=== PATIENT | male | born 1945 | race Caucasian/White ===

== ENCOUNTER 2017-08-08 22:59 | Emergency (ER) | payer OTHER, MEDICARE ==
[2017-08-08] MEDS ORDERED: Sodium Chloride 0.9% 10 ML Syringe FLUSH PRN (23:31)
[2017-08-08] MEDS ORDERED: Sodium Chloride 0.9% 500 ML IV ONE (23:40)
[2017-08-09] MEDS ORDERED: Sodium Chloride 0.9% 500 ML IV ONE (00:19)
--- NOTE | 2017-08-09 00:22 | EDM.PDOC ---
ED HPI GENERAL MEDICAL PROBLEM - General Chief Complaint: Gastrointestinal Problem Stated Complaint: [facility] Time Seen by Provider: 08/08/17 23:22 Source of Information: Reports: Patient, Family (Spouse), RN Notes Reviewed - History of Present Illness INITIAL COMMENTS - FREE TEXT/NARRATIVE: 72-year-old male that comes in with generalized weakness, dizziness and lightheadedness when standing,. He had onset of vomiting and diarrhea this past morning. He also has been coughing more than usual since last evening. He did have shaking chills this past later afternoon. His was diagnosed with influenza earlier today having become ill with typical symptomatology for that about 2 days ago. He has no chest pain or difficulty breathing at this time. His mouth does feel dry. No abdominal pain or cramping at this time. He is type II diabetic on metformin. He also does have history of hypertension. - Related Data Allergies Allergy/AdvReac Type Severity Reaction Status Date / Time Sulfa (Sulfonamide Allergy Hives Verified 08/08/17 23:11 Antibiotics) Home Meds: Home Meds Aspirin [Halfprin] 81 mg PO DAILY 08/08/17 [History] Chlorthalidone 25 mg PO DAILY 08/08/17 [History] Cholecalciferol (Vitamin D3) [Vitamin D3] 1,000 units PO DAILY 08/08/17 [History ] Docusate Sodium 100 mg PO BID 08/08/17 [History] Fish Oil/[place]-3 Fatty Acids [Fish Oil 1,000 MG] 1 gm PO DAILY 08/08/17 [History ] Guar Gum [Benefiber] 1 each PO DAILY 08/08/17 [History] Lisinopril 40 mg PO DAILY 08/08/17 [History] Metoprolol Succinate 100 mg PO DAILY 08/08/17 [History] Saxagliptin [Onglyza] 5 mg PO DAILY 08/08/17 [History] atorvaSTATin [Lipitor] 40 mg PO BEDTIME 08/08/17 [History] metFORMIN [Glucophage XR] 500 mg PO BID 08/08/17 [History] Past Medical History Cardiovascular History: Reports: High Cholesterol, Hypertension Endocrine/Metabolic History: Reports: Diabetes, Type II, Vitamin D Deficiency Oncologic (Cancer) History: Reports: Other (See Below) Other Oncologic History: skin cancer - Past Surgical History Cardiovascular Surgical History: Reports: AAA Repair Social & Family History - Family History Family Medical History: Noncontributory - Tobacco Use Smoking Status *Q: Former Smoker Used Tobacco, but Quit: Yes Month Tobacco Last Used: 2010 - Caffeine Use Caffeine Use: Reports: Coffee - Recreational Drug Use Recreational Drug Use: No ED ROS GENERAL - Review of Systems Review Of Systems: See Below Constitutional: Reports: Chills, Other (Low energy this afternoon and evening). Denies: Fever, Diaphoresis HEENT: Reports: Rhinitis (He has had nasal congestion and drainage), Throat Pain (Mild sore throat) Respiratory: Reports: Cough. Denies: Shortness of Breath, Wheezing, Sputum Cardiovascular: Denies: Chest Pain Endocrine: Reports: Fatigue GI/Abdominal: Reports: Diarrhea (Watery), Nausea, Vomiting. Denies: Abdominal Pain Musculoskeletal: Reports: Other (Has had some generalized achiness but not severe) Skin: Denies: Rash Neurological: Reports: Dizziness, Difficulty Walking (This evening), Weakness. Denies: Numbness (Generalized), Tingling, Trouble Speaking ED EXAM, DIZZINESS - Physical Exam Exam: See Below General Appearance: Alert, No Apparent Distress Eye Exam: Bilateral Eye: PERRL Throat/Mouth: Normal Inspection Head Exam: Atraumatic (Oral mucosa is dry). No: Facial Swelling Respiratory/Chest: No Respiratory Distress, Lungs Clear, Normal Breath Sounds Cardiovascular: Regular Rate, Rhythm GI/Abdominal: Soft, Non-Tender. No: Guarding Neurological: Alert, No Motor/Sensory Deficits, Oriented x 3 Extremities: Normal Inspection. No: Pedal Edema, Leg Pain Skin Exam: Dry, Normal Color Course - Vital Signs Last Recorded V/S: Last Vital Signs Temp 98.0 F 08/08/17 23:07 Pulse 93 08/08/17 23:07 Resp 25 H 08/08/17 23:07 BP 140/70 08/08/17 23:07 Pulse Ox 92 L 08/08/17 23:07 - Orders/Labs/Meds Orders: Active Orders 24 hr Category Date Time Status Peripheral IV Care [RC] . DIRECTED Care 08/08/17 23:32 Active Chest 1V Frontal [CR] Stat Exams 08/08/17 23:32 Taken Sodium Chloride 0.9% [Saline Flush] Med 08/08/17 23:31 Active 10 ml FLUSH ASDIRECTED PRN Peripheral IV Insertion Adult [OM.PC] Stat Oth 08/08/17 23:32 Ordered Medication Orders Sodium Chloride (Saline Flush) 10 ml FLUSH ASDIRECTED PRN PRN Reason: Keep Vein Open Last Admin: 08/09/17 00:19 Dose: 10 ml Labs: Laboratory Tests 08/08/17 08/08/17 Range/Units 23:25 23:25 WBC 13.26 H (4.23-9.07) K/mm3 RBC 4.47 L (4.63-6.08) M/mm3 Hgb 13.2 L (13.7-17.5) gm/L Hct 39.6 L (40.1-51.0) % MCV 88.6 (79.0-92.2) fl MCH 29.5 (25.7-32.2) pg MCHC 33.3 (32.2-35.5) g/dl RDW Std Deviation 44.3 H (35.1-43.9) fL Plt Count 122 L (163-337) K/mm3 MPV 11.2 (9.4-12.3) fl Neut % (Auto) 88.3 H (34.0-67.9) % Lymph % (Auto) 3.1 L (21.8-53.1) % [place] % (Auto) 7.6 (5.3-12.2) % Eos % (Auto) 0.5 L (0.8-7.0) Baso % (Auto) 0.2 (0.1-1.2) % Neut # (Auto) 11.70 H (1.78-5.38) K/mm3 Lymph # (Auto) 0.41 L (1.32-3.57) K/mm3 [place] # (Auto) 1.01 H (0.30-0.82) K/mm3 Eos # (Auto) 0.07 (0.04-0.54) K/mm3 Baso # (Auto) 0.03 (0.01-0.08) K/mm3 Manual Slide Review Abnormal smear Sodium 136 (136-145) mEq/L Potassium 3.7 (3.5-5.1) mEq/L Chloride 100 (98-107) mEq/L Carbon Dioxide 23 (21-32) mEq/L Anion Gap 16.7 H (5-15) BUN 28 H (7-18) mg/dL Creatinine 1.5 H (0.7-1.3) mg/dL Est Cr Clr Drug Dosing 52.42 mL/min Estimated GFR (MDRD) 46 (>60) mL/min BUN/Creatinine Ratio 18.7 H (14-18) Glucose 311 H (83-115) mg/dL Calcium 9.1 (8.5-10.1) mg/dL Total Bilirubin 0.7 (0.2-1.0) mg/dL AST 16 (15-37) U/L ALT 37 (16-63) U/L Alkaline Phosphatase 95 (46-116) U/L Total Protein 7.1 (6.4-8.2) g/dl Albumin 3.5 (3.4-5.0) g/dl Globulin 3.6 gm/dL Albumin/Globulin Ratio 1.0 (1-2) Meds: Medications Generic Name Dose Route Start Last Admin Trade Name Freq PRN Reason Stop Dose Admin Sodium Chloride 10 ml 08/08/17 23:31 08/09/17 00:19 Saline Flush FLUSH 10 ml ASDIRECTED PRN Administration Keep Vein Open Discontinued Medications Generic Name Dose Route Start Last Admin Trade Name Freq PRN Reason Stop Dose Admin Sodium Chloride 500 mls @ 999 mls/hr 08/08/17 23:40 08/09/17 00:18 Normal Saline IV 08/09/17 00:10 999 mls/hr .BOLUS ONE Administration Sodium Chloride 500 mls @ 999 mls/hr 08/09/17 00:19 08/09/17 00:20 Normal Saline IV 08/09/17 00:49 999 mls/hr .BOLUS ONE Administration Insulin Human Regular 6 unit 08/09/17 00:38 08/09/17 00:45 Humulin R SUBCUT 08/09/17 00:39 6 units ONETIME ONE Administration Protocol - Re-Assessments/Exams Free Text/Narrative Re-Assessment/Exam: 08/09/17 01:25 Influenza screen did come back negative. Noted his did test positive today on this the third day of her illness. He may indeed be coming down with influenza may be we are testing to early or just missing at or may be he has primarily a stomach flu type virus. I am not going to start him on Tamiflu because he already has the vomiting diarrhea, Tamiflu would only make that worse. He does not seem to be coughing much here in the ED although he has had some coughing at home. He also has been afebrile here in the ED so certainly a mixed picture. He feels better after 1-1/2 L IV fluid. He also has had IV Zofran , no longer nauseated or vomiting and I do not believe any further diarrhea while here in the ED. His blood sugar was elevated, 311 so did give 6 units insulin subcutaneous. Departure - Departure Time of Disposition: 01:25 Disposition: Home, Self-Care 01 Condition: Fair Clinical Impression: Viral syndrome, Vomiting, Diarrhea - Discharge Information Referrals: PCP,Unknown [Ordering Only Provider] - Forms: ED Department Discharge Additional Instructions: Rest, drink plenty of water to maintain hydration, continue current medications as prescribed. Zofran if needed for further nausea or vomiting. Probiotic, available OTC recommended twice daily for the next 5 days. Follow-up clinic as needed, return to ED if symptoms worsening in any way. - My Orders Last 24 Hours: My Active Orders 08/08/17 23:31 Sodium Chloride 0.9% [Saline Flush] 10 ml FLUSH ASDIRECTED PRN 08/08/17 23:32 Peripheral IV Care [RC] . DIRECTED Chest 1V Frontal [CR] Stat Peripheral IV Insertion Adult [OM.PC] Stat - Assessment/Plan Last 24 Hours: My Active Orders 08/08/17 23:31 Sodium Chloride 0.9% [Saline Flush] 10 ml FLUSH ASDIRECTED PRN 08/08/17 23:32 Peripheral IV Care [RC] . DIRECTED Chest 1V Frontal [CR] Stat Peripheral IV Insertion Adult [OM.PC] Stat
[2017-08-09] MEDS ORDERED: Insulin Regular, Human 100 Units/ML 3 ML Vial SUBCUT ONE ×2 (00:38→01:41)
--- NOTE | 2017-08-09 06:48 | CR ---
Chest: Frontal view of the chest was obtained. Comparison: No prior study. Heart size appears within normal limits. Mild tortuosity of the thoracic aorta is seen. Lungs are clear with no acute parenchymal densities. Bony structures are grossly intact. Impression: 1. Nothing acute is identified on frontal chest x-ray. Diagnostic code #1
== END 2017-08-09 01:50 | disposition home or self-care (01) ==
LOC: JD.ED 22:59
DX: B34.9 Viral infection, unspecified (principal); E78.00 Pure hypercholesterolemia, unspecified; I10 Essential (primary) hypertension; E11.9 Type 2 diabetes mellitus without complications; Z88.2 Allergy status to sulfonamides; Z79.82 Long term (current) use of aspirin; Z79.899 Other long term (current) drug therapy; Z79.84 Long term (current) use of oral hypoglycemic drugs; Z87.891 Personal history of nicotine dependence
CPT/HCPCS: 36415; 71045; 80053; 82962; 85025; 87804; 96360; 96372; 99285; J1817; J7040; J7050; 99284

== ENCOUNTER 2020-06-03 09:27 | Emergency (ER) | payer MEDICARE, OTHER ==
[2020-06-03] MEDS ORDERED: Dextrose 5%-Lactated Ringers 1,000 ML IV SCH (10:45)
--- NOTE | 2020-06-03 10:45 | EDM.PDOC ---
ED HPI GENERAL MEDICAL PROBLEM - General Chief Complaint: Fever Stated Complaint: LOW GRADE FEVER/UNSTEADY Time Seen by Provider: 06/03/20 10:35 Source of Information: Reports: Patient History Limitations: Reports: No Limitations - History of Present Illness INITIAL COMMENTS - FREE TEXT/NARRATIVE: 74-year-old male presents to the ED for evaluation of fever chills headache ,generalized myalgia ,paroxysmal minimally productive cough generalized weakness decreased appetite. The symptoms started after he had a colonoscopy done on 29 May. He was tested for COVID-19 prior to that procedure. Symptoms started the same day. At present he has overwhelming fatigue. He states his was with him most of the time and she is feeling okay. O2 sats upon arrival here were 86 to 89%. He has never used home oxygen therapy. Sputum that he is bringing up is white or clear. Denies any diarrhea but has not been really eating much since the colonoscopy. He has been taking Motrin and Tylenol for fever relief. Patient is a type II diabetic and has hypertension and mild obesity. Onset: Gradual Onset Date: 05/29/20 Duration: Day(s):, Constant, Getting Worse Location: Reports: Chest, Generalized (Accessible minimally productive cough), Other ( lysed weakness and myalgia creased appetite) Quality: Reports: Ache (Neurolyse myalgia aching in all his large muscle groups.) Severity: Moderate Improves with: Reports: Medication (Motrin seems to help away with the temperature and the body aches.) Worsens with: Reports: Movement (Dyspnea on movement.) Context: Denies: Activity, Exercise, Lifting, Sick Contact, Trauma Associated Symptoms: Reports: Cough, cough w sputum, Fever/Chills, Headaches, Loss of Appetite (Days to clear sputum), Malaise, Nausea/Vomiting, Shortness of Breath, Weakness (Nausea without vomiting). 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 - Related Data Allergies Allergy/AdvReac Type Severity Reaction Status Date / Time Sulfa (Sulfonamide Allergy Severe Hives Verified 06/03/20 10:03 Antibiotics) Home Meds: Home Meds Aspirin [Halfprin] 81 mg PO DAILY 08/08/17 [History] Chlorthalidone 25 mg PO DAILY 08/08/17 [History] Cholecalciferol (Vitamin D3) [Vitamin D3] 1,000 units PO DAILY 08/08/17 [History] Docusate Sodium 100 mg PO BID 08/08/17 [History] Fish Oil/[place]-3 Fatty Acids [Fish Oil 1,000 MG] 1 gm PO DAILY 08/08/17 [ History] Lisinopril 40 mg PO DAILY 08/08/17 [History] Metoprolol Succinate 100 mg PO DAILY 08/08/17 [History] Saxagliptin [Onglyza] 5 mg PO DAILY 08/08/17 [History] atorvaSTATin [Lipitor] 40 mg PO BEDTIME 08/08/17 [History] metFORMIN [Glucophage XR] 1,000 mg PO BID 08/08/17 [History] Magnesium Chloride [Slow-Mag] 71.5 mg PO DAILY #21 tablet. 06/03/20 [Rx] Psyllium Husk/Aspartame [Metamucil Fiber Singles Packet] 1 pack PO ASDIRECTED 06/03/20 [History] dexAMETHasone [Dexamethasone] 4 mg PO BID #10 tablet 06/03/20 [Rx] Past Medical History Cardiovascular History: Reports: High Cholesterol, Hypertension Gastrointestinal History: Reports: Other (See Below) (Early had 27 polyps resected with his colonoscopy on 29 May this year.) Endocrine/Metabolic History: Reports: Diabetes, Type II, Vitamin D Deficiency Oncologic (Cancer) History: Reports: Other (See Below) Other Oncologic History: skin cancer - Infectious Disease History Infectious Disease History: Reports: Chicken Pox, Measles, Mumps - Past Surgical History Cardiovascular Surgical History: Reports: AAA Repair GI Surgical History: Reports: Colonoscopy Social & Family History - Family History Family Medical History: No Pertinent Family History - Tobacco Use Tobacco Use Status *Q: Former Tobacco User Used Tobacco, but Quit: Yes Month/Year Tobacco Last Used: 2014 - Caffeine Use Caffeine Use: Reports: None - Recreational Drug Use Recreational Drug Use: No - Living Situation & Occupation Living situation: Reports: Occupation: Retired ED ROS GENERAL - Review of Systems Review Of Systems: See Below Constitutional: Reports: Fever, Malaise, Weakness, Fatigue, Decreased Appetite HEENT: Reports: Glasses, Throat Pain Respiratory: Reports: Shortness of Breath, Cough, Sputum (White sputum). Denies: Wheezing, Pleuritic Chest Pain Cardiovascular: Reports: Blood Pressure Problem, Dyspnea on Exertion, Lightheadedness. Denies: Chest Pain, Claudication Endocrine: Reports: Fatigue GI/Abdominal: Reports: Decreased Appetite, Nausea, Vomiting (Vomited once.). Denies: Diarrhea : Reports: Other (Urine is darker in color than normal.) Musculoskeletal: Reports: Muscle Pain (Generalized myalgia) Skin: Reports: No Symptoms Neurological: Reports: Dizziness, Difficulty Walking (Dizziness when standing.), Weakness. Denies: Confusion Psychiatric: Reports: No Symptoms ( No weakness) Hematologic/Lymphatic: Reports: No Symptoms Immunologic: Reports: No Symptoms ED EXAM, GENERAL - Physical Exam Exam: See Below Exam Limited By: No Limitations General Appearance: Alert, WD/WN, No Apparent Distress, Other (Feel mildly warm to palpation in his face. Nurses recorded temperature is 36.9. Heart rate is 77 and sinus respiratory is 20 with O2 sats of 90 to 91% room air BP 1 7174.) Eye Exam: Bilateral Eye: Normal Inspection (No blepharal pallor or scleral icterus.), PERRL Throat/Mouth: Normal Inspection, Normal Oropharynx, Other Head: Atraumatic (Is mildly dry and coated.), Normocephalic Neck: Normal Inspection, Full Range of Motion, Limited Range of Motion. No: Lymphadenopathy (L), Lymphadenopathy (R) Respiratory/Chest: No Respiratory Distress, Lungs Clear, Normal Breath Sounds, No Accessory Muscle Use Cardiovascular: Normal Peripheral Pulses, Regular Rate, Rhythm, No Edema, No Gallop, No Murmur, No Rub Peripheral Pulses: 2+: Carotid (L), Carotid (R), Posterior Tibial (L), Posterior Tibial (R), Dorsalis Pedis (L), Dorsalis Pedis (R) GI/Abdominal: Normal Bowel Sounds, Soft, Non-Tender, No Organomegaly, No Abnormal Bruit, No Mass, Pelvis Stable, Other (Moderately obese. He indicates that he has had endovascular aortic aneurysm repair.) Back Exam: Normal Inspection, Full Range of Motion. No: CVA Tenderness (L), CVA Tenderness (R) Extremities: Normal Inspection, Non-Tender, Pedal Edema (Pedal edema at the ankles.), Other Neurological: Alert, Oriented, CN II-XII Intact (Notes of osteoarthritic changes both hips and knees.), Normal Cognition Psychiatric: Normal Affect, Normal Mood Skin Exam: Warm, Dry, Intact, Normal Color, No Rash #1 Interpretation EKG Date: 06/03/20 Time: 10:33 Rhythm: NSR Rate (Beats/Min): 84 [place]: LAD-Left [place] Deviation (Normal left axis deviation -1 degree) P-Wave: Present QRS: Other (Early R wave transition consider right ventricular appear to be pattern tall R waves in lead I consider left ventricular hypertrophy.) ST-T: Normal QT: Normal EKG Interpretation Comments: Borderline ECG Course - Vital Signs Last Recorded V/S: Last Vital Signs Temp 36.9 C 06/03/20 09:57 Pulse 77 06/03/20 09:57 Resp 20 06/03/20 09:57 BP 171/74 H 06/03/20 09:57 Pulse Ox 90 L 06/03/20 09:57 - Orders/Labs/Meds Labs: Laboratory Tests 06/03/20 06/03/20 06/03/20 Range/Units 10:20 10:20 10:20 WBC 4.31 (4.23-9.07) K/mm3 RBC 3.84 L (4.63-6.08) M/mm3 Hgb 11.8 L (13.7-17.5) gm/dl Hct 36.3 L (40.1-51.0) % MCV 94.5 H D (79.0-92.2) fl MCH 30.7 (25.7-32.2) pg MCHC 32.5 (32.2-35.5) g/dl RDW Std Deviation 47.5 H (35.1-43.9) fL Plt Count 111 L (163-337) K/mm3 MPV 10.9 (9.4-12.3) fl Neut % (Auto) 74.0 H (34.0-67.9) % Lymph % (Auto) 12.5 L (21.8-53.1) % [place] % (Auto) 11.4 (5.3-12.2) % Eos % (Auto) 1.4 (0.8-7.0) Baso % (Auto) 0.2 (0.1-1.2) % Neut # (Auto) 3.19 (1.78-5.38) K/mm3 Lymph # (Auto) 0.54 L (1.32-3.57) K/mm3 [place] # (Auto) 0.49 (0.30-0.82) K/mm3 Eos # (Auto) 0.06 (0.04-0.54) K/mm3 Baso # (Auto) 0.01 (0.01-0.08) K/mm3 PT 11.6 (9.7-12.0) SECONDS INR 1.09 APTT 30.6 (21.7-31.4) SECONDS D-Dimer, Quantitative (0.19-0.50) mg/L Sodium 134 L (136-145) mEq/L Potassium 3.7 (3.5-5.1) mEq/L Chloride 98 (98-107) mEq/L Carbon Dioxide 24 (21-32) mEq/L Anion Gap 15.7 H (5-15) BUN 26 H (7-18) mg/dL Creatinine 1.1 (0.7-1.3) mg/dL Est Cr Clr Drug Dosing 63.69 mL/min Estimated GFR (MDRD) > 60 (>60) mL/min BUN/Creatinine Ratio 23.6 H (14-18) Glucose 212 H (83-115) mg/dL Lactic Acid (0.4-2.0) mmol/L Calcium 9.0 (8.5-10.1) mg/dL Magnesium 1.3 L (1.8-2.4) mg/dl Ferritin (26-388) ng/ml Total Bilirubin 0.5 (0.2-1.0) mg/dL AST 19 (15-37) U/L ALT 25 (16-63) U/L Alkaline Phosphatase 66 (46-116) U/L Lactate Dehydrogenase 241 H (85-227) U/L Troponin I < 0.017 (0.00-0.056) ng/mL C-Reactive Protein 7.4 H* (<1.0) mg/dL NT-Pro-B Natriuret Pep (0-450) pg/mL Total Protein 7.2 (6.4-8.2) g/dl Albumin 3.3 L (3.4-5.0) g/dl Globulin 3.9 gm/dL Albumin/Globulin Ratio 0.9 L (1-2) Urine Color (Yellow) Urine Appearance (Clear) Urine pH (5.0-8.0) Ur Specific [place] (1.005-1.030) Urine Protein (Negative) Urine Glucose (UA) (Negative) Urine Ketones (Negative) Urine Occult Blood (Negative) Urine Nitrite (Negative) Urine Bilirubin (Negative) Urine Urobilinogen (0.2-1.0) Ur Leukocyte Esterase (Negative) Urine RBC (0-5) /hpf Urine WBC (0-5) /hpf Ur Epithelial Cells (0-5) /hpf Urine Bacteria (FEW) /hpf Urine Mucus (FEW) /hpf SARS-CoV-2 RNA (JAVAN) (NEGATIVE) 06/03/20 06/03/20 06/03/20 Range/Units 10:20 10:20 10:20 WBC (4.23-9.07) K/mm3 RBC (4.63-6.08) M/mm3 Hgb (13.7-17.5) gm/dl Hct (40.1-51.0) % MCV (79.0-92.2) fl MCH (25.7-32.2) pg MCHC (32.2-35.5) g/dl RDW Std Deviation (35.1-43.9) fL Plt Count (163-337) K/mm3 MPV (9.4-12.3) fl Neut % (Auto) (34.0-67.9) % Lymph % (Auto) (21.8-53.1) % [place] % (Auto) (5.3-12.2) % Eos % (Auto) (0.8-7.0) Baso % (Auto) (0.1-1.2) % Neut # (Auto) (1.78-5.38) K/mm3 Lymph # (Auto) (1.32-3.57) K/mm3 [place] # (Auto) (0.30-0.82) K/mm3 Eos # (Auto) (0.04-0.54) K/mm3 Baso # (Auto) (0.01-0.08) K/mm3 PT (9.7-12.0) SECONDS INR APTT (21.7-31.4) SECONDS D-Dimer, Quantitative 4.13 H (0.19-0.50) mg/L Sodium (136-145) mEq/L Potassium (3.5-5.1) mEq/L Chloride (98-107) mEq/L Carbon Dioxide (21-32) mEq/L Anion Gap (5-15) BUN (7-18) mg/dL Creatinine (0.7-1.3) mg/dL Est Cr Clr Drug Dosing mL/min Estimated GFR (MDRD) (>60) mL/min BUN/Creatinine Ratio (14-18) Glucose (83-115) mg/dL Lactic Acid 0.8 (0.4-2.0) mmol/L Calcium (8.5-10.1) mg/dL Magnesium (1.8-2.4) mg/dl Ferritin 651 H (26-388) ng/ml Total Bilirubin (0.2-1.0) mg/dL AST (15-37) U/L ALT (16-63) U/L Alkaline Phosphatase (46-116) U/L Lactate Dehydrogenase (85-227) U/L Troponin I (0.00-0.056) ng/mL C-Reactive Protein (<1.0) mg/dL NT-Pro-B Natriuret Pep (0-450) pg/mL Total Protein (6.4-8.2) g/dl Albumin (3.4-5.0) g/dl Globulin gm/dL Albumin/Globulin Ratio (1-2) Urine Color (Yellow) Urine Appearance (Clear) Urine pH (5.0-8.0) Ur Specific [place] (1.005-1.030) Urine Protein (Negative) Urine Glucose (UA) (Negative) Urine Ketones (Negative) Urine Occult Blood (Negative) Urine Nitrite (Negative) Urine Bilirubin (Negative) Urine Urobilinogen (0.2-1.0) Ur Leukocyte Esterase (Negative) Urine RBC (0-5) /hpf Urine WBC (0-5) /hpf Ur Epithelial Cells (0-5) /hpf Urine Bacteria (FEW) /hpf Urine Mucus (FEW) /hpf SARS-CoV-2 RNA (JAVAN) (NEGATIVE) 06/03/20 06/03/20 06/03/20 Range/Units 10:20 11:15 13:05 WBC (4.23-9.07) K/mm3 RBC (4.63-6.08) M/mm3 Hgb (13.7-17.5) gm/dl Hct (40.1-51.0) % MCV (79.0-92.2) fl MCH (25.7-32.2) pg MCHC (32.2-35.5) g/dl RDW Std Deviation (35.1-43.9) fL Plt Count (163-337) K/mm3 MPV (9.4-12.3) fl Neut % (Auto) (34.0-67.9) % Lymph % (Auto) (21.8-53.1) % [place] % (Auto) (5.3-12.2) % Eos % (Auto) (0.8-7.0) Baso % (Auto) (0.1-1.2) % Neut # (Auto) (1.78-5.38) K/mm3 Lymph # (Auto) (1.32-3.57) K/mm3 [place] # (Auto) (0.30-0.82) K/mm3 Eos # (Auto) (0.04-0.54) K/mm3 Baso # (Auto) (0.01-0.08) K/mm3 PT (9.7-12.0) SECONDS INR APTT (21.7-31.4) SECONDS D-Dimer, Quantitative (0.19-0.50) mg/L Sodium (136-145) mEq/L Potassium (3.5-5.1) mEq/L Chloride (98-107) mEq/L Carbon Dioxide (21-32) mEq/L Anion Gap (5-15) BUN (7-18) mg/dL Creatinine (0.7-1.3) mg/dL Est Cr Clr Drug Dosing mL/min Estimated GFR (MDRD) (>60) mL/min BUN/Creatinine Ratio (14-18) Glucose (83-115) mg/dL Lactic Acid (0.4-2.0) mmol/L Calcium (8.5-10.1) mg/dL Magnesium (1.8-2.4) mg/dl Ferritin (26-388) ng/ml Total Bilirubin (0.2-1.0) mg/dL AST (15-37) U/L ALT (16-63) U/L Alkaline Phosphatase (46-116) U/L Lactate Dehydrogenase (85-227) U/L Troponin I (0.00-0.056) ng/mL C-Reactive Protein (<1.0) mg/dL NT-Pro-B Natriuret Pep 484 H (0-450) pg/mL Total Protein (6.4-8.2) g/dl Albumin (3.4-5.0) g/dl Globulin gm/dL Albumin/Globulin Ratio (1-2) Urine Color Yellow (Yellow) Urine Appearance Clear (Clear) Urine pH 6.0 (5.0-8.0) Ur Specific [place] 1.025 (1.005-1.030) Urine Protein 1+ H (Negative) Urine Glucose (UA) Negative (Negative) Urine Ketones Negative (Negative) Urine Occult Blood Negative (Negative) Urine Nitrite Negative (Negative) Urine Bilirubin Negative (Negative) Urine Urobilinogen 0.2 (0.2-1.0) Ur Leukocyte Esterase Negative (Negative) Urine RBC 0-5 (0-5) /hpf Urine WBC 0-5 (0-5) /hpf Ur Epithelial Cells 0-5 (0-5) /hpf Urine Bacteria Few (FEW) /hpf Urine Mucus Moderate H (FEW) /hpf SARS-CoV-2 RNA (JAVAN) Positive H (NEGATIVE) Meds: Medications Discontinued Medications Generic Name Dose Route Start Last Admin Trade Name Freq PRN Reason Stop Dose Admin Dextrose/Lactated Ringer's 1,000 mls @ 150 mls/hr 06/03/20 10:45 06/03/20 12:11 Dextrose 5%-Lactated Ringers IV 150 mls/hr ASDIRECTED [place] Administration Magnesium Sulfate 4 gm/ Premix 50 mls @ 12.5 mls/hr 06/03/20 12:11 06/03/20 12:20 IV 06/03/20 16:10 12.5 mls/hr ONETIME ONE Administration Metoclopramide HCl 7.5 mg 06/03/20 10:52 06/03/20 12:12 Reglan IVPUSH 06/03/20 10:53 7.5 mg ONETIME ONE Administration - Radiology Interpretation Free Text/Narrative:: 24-year-old male presents to the ED with a 5-day history history of fever chills headache paroxysmal minimally productive cough loss of appetite nausea no diarrhea. This occurred after had a colonoscopy was performed in [place] on May 29. He was tested for COVID-19 prior to that examination was proved to be negative. On today's examination and clinically he appears to be suffering from coronavirus infection. O2 sats are 90 to 91% room air. He will be started on oxygen at 2 L/min by nasal cannula. Routine labs to be done including COVID-19 viral screen. - Re-Assessments/Exams Free Text/Narrative Re-Assessment/Exam: 06/03/20 12:07 Chest x-ray reveals mild cardiomegaly. There is an infiltrate in the right middle lobe right lower lobe and left lower lobe compatible with viral pneumonia.Count is 4.31 neutrophils. Hemoglobin is slightly low at 11.8 with hematocrit of 36.3. MCV is mildly elevated 94.5. Platelet counts 111,000. PT is 11.6 with an INR of 1.09. PTT is 30.6. D-dimer is elevated at 4.13. Sodium slightly low at 134 potassium 3.7 chloride 98 bicarb 24. Anion gap is 15.7. BUN is 26 with a creatinine of 1.1. GFR is greater than 60. Glucose is 212 lactic acid 0.8 calcium 9.0 magnesium low at 1.3. Serum ferritin elevated at 651 liver function normal LDH is 241 troponin I is less than 0.017 C-reactive protein elevated at 7.4 BNP elevated at 484. Total protein 7.2 with an albumin fraction of 3.3. COVID-19 screen is pending. Will hang magnesium 4 g IV at this time 06/03/20 12:20: 19 screen is positive.Serum ferritin is elevated at 651. LDH was 241. BNP 484. We will try and arrange for home oxygen therapy to get him through the COVID-19 illness. I am going to give him dexamethasone 6 mg IV and then will be sending him home on 4 mg twice daily for 5 more days in the hopes of preventing hospitalization. 06/03/20 13:50 Patient is going to try and have a little bit to eat. We are arranging for home oxygen therapy. He will be able to be discharged to home as soon as his IV magnesium infusion has been completed. He will be following up with his primary care physician within the next 2 to 3 days. Departure - Departure Time of Disposition: 15:57 Disposition: Home, Self-Care 01 Clinical Impression: Hypomagnesemia, COVID-19 determined by clinical diagnostic criteria, Hypoxia - Discharge Information *PRESCRIPTION DRUG MONITORING PROGRAM REVIEWED*: Not Applicable *COPY OF PRESCRIPTION DRUG MONITORING REPORT IN PATIENT HUNG: Not Applicable Prescriptions: dexAMETHasone [Dexamethasone] 4 mg PO BID #10 tablet Magnesium Chloride [Slow-Mag] 71.5 mg PO DAILY #21 tablet. Instructions: COVID-19 Frequently Asked Questions, COVID-19: How to Protect Yourself and Others - CDC, Prevent the Spread of COVID-19 if You Are Sick - [facility] Referrals: PCP,None [Primary Care Provider] - Forms: ED Department Discharge Additional Instructions: Evaluation in the emergency room today in regards to development of low-grade fever paroxysmal cough ,nausea and upset stomach decreased appetite since you h ad your colonoscopy done on May 29. Identified that your oxygen level was quite low when you first attended the ED at 86 to 88%. X-ray also reveals bilateral infiltrates in both lungs compatible with a viral pneumonia. Lab test confirmed that you are COVID-19 positive. Labs also revealed that you were low on your serum magnesium level at 1.3 and normal would be around 2.0. You were therefore given 4 g of magnesium intravenously while you were in the department. He also received initial dose of dexamethasone 6 mg to help reduce inflammation in the lungs that is caused by the COVID-19 illness. Will need to take dexamethasone tablets 4 mg twice daily for the next 5 days usually with breakfast and supper to further reduce inflammation caused by COVID-19 illness since you are early in the course of disease. Typically day 8-10 from the time you got ill are the worst days. I am going to arrange for home oxygen therapy for you to use oxygen at 2 L/min at all times for the next 10 to 14 days. Suggest follow-up with your personal care physician in approximately 10 days time. You should consider yourself self quarantined for the next 8 days. Turn to the emergency room at any time if you feel you are getting more short of breath and your oxygen levels are staying below 90. Drink as much fluids as possible and diet as able. Sepsis Event Note (ED) - Evaluation Sepsis Screening Result: No Definite Risk
[2020-06-03] MEDS ORDERED: Metoclopramide 10 MG/2 ML SDV IVPUSH ONE (10:52)
[2020-06-03] MEDS ORDERED: Magnesium Sulfate/Water 4 GM in Premix Bag 1 BAG IV ONE (12:11)
--- NOTE | 2020-06-03 12:23 | CR ---
PROCEDURE INFORMATION: Exam: XR Chest, 1 View Exam date and time: 06/03/2020 11:13 AM Age: 74 years old Clinical indication: Cough and fever and other: Hypoxia; Additional info: Suspect covid-19 TECHNIQUE: Imaging protocol: XR of the chest Views: 1 view. COMPARISON: CR Chest 1V Frontal 08/08/2017 11:33 PM FINDINGS: Lungs: Unremarkable. No consolidation. Pleural space: Unremarkable. No pleural effusion. No pneumothorax. Heart/Mediastinum: Unremarkable. No cardiomegaly. Bones/joints: Unremarkable. IMPRESSION: No acute findings. Thank you for allowing us to participate in the care of your patient. Dictated and Authenticated by: Judy Grier MD 06/03/2020 12:48 PM Central Time ([place] & [place]) LILIANA
== END 2020-06-03 17:05 | disposition home or self-care (01) ==
LOC: JD.ED 09:27
DX: U07.1 COVID-19 (principal); R09.02 Hypoxemia; E83.42 Hypomagnesemia; M16.0 Bilateral primary osteoarthritis of hip; M17.0 Bilateral primary osteoarthritis of knee; I10 Essential (primary) hypertension; E78.00 Pure hypercholesterolemia, unspecified; E11.9 Type 2 diabetes mellitus without complications; E66.9 Obesity, unspecified; Z68.34 Body mass index [BMI] 34.0-34.9, adult; Z87.891 Personal history of nicotine dependence; Z88.2 Allergy status to sulfonamides; Z79.82 Long term (current) use of aspirin; Z79.899 Other long term (current) drug therapy; R06.02 Shortness of breath
CPT/HCPCS: 36415; 71045; 80053; 81001; 82728; 83605; 83615; 83735; 83880; 84484; 85025; 85379; 85610; 85730; 86140; 87040; 93005; 96365; 96366; 96375; 99284; J2765; J3475; J7121; U0002; 93010

== ENCOUNTER 2020-06-07 08:21 | Inpatient (IN) | payer MEDICARE, OTHER ==
--- NOTE | 2020-06-07 08:47 | EDM.PDOC ---
ED HPI GENERAL MEDICAL PROBLEM - General Chief Complaint: Respiratory Problem Stated Complaint: [facility] Time Seen by Provider: 06/07/20 08:43 - History of Present Illness INITIAL COMMENTS - FREE TEXT/NARRATIVE: 74-year-old male returns to the emergency room with increased weakness. Patient was diagnosed with Covid 19 on the of this month. He was seen here started on supplemental oxygen and started on dexamethasone. Patient states that his O2 saturation at home is doing okay is not having problems with that and he perhaps feels a little bit better with the dexamethasone however he is just getting more weak over time. Today the patient felt weak and the patient's had the patient lay on the floor so he would not fall and they called 911. The patient states that he thought he would be okay to walk however has not attempted this today. Patient does not have any chest pain chest pressure breathing difficulties or shortness of breath. - Related Data Allergies Allergy/AdvReac Type Severity Reaction Status Date / Time Sulfa (Sulfonamide Allergy Severe Hives Verified 06/07/20 08:29 Antibiotics) Home Meds: Home Meds Aspirin [Halfprin] 81 mg PO DAILY 08/08/17 [History] Chlorthalidone 25 mg PO DAILY 08/08/17 [History] Cholecalciferol (Vitamin D3) [Vitamin D3] 1,000 units PO DAILY 08/08/17 [History] Docusate Sodium 100 mg PO BID 08/08/17 [History] Fish Oil/Troy-3 Fatty Acids [Fish Oil 1,000 MG] 1 gm PO BID 08/08/17 [History] Lisinopril 40 mg PO DAILY 08/08/17 [History] Metoprolol Succinate 50 mg PO DAILY 08/08/17 [History] metFORMIN [Glucophage XR] 1,000 mg PO BID 08/08/17 [History] Magnesium Chloride [Slow-Mag] 71.5 mg PO DAILY #21 tablet. 06/03/20 [Rx] Psyllium Husk/Aspartame [Metamucil Fiber Singles Packet] 1 pack PO ASDIRECTED 06/03/20 [History] dexAMETHasone [Dexamethasone] 4 mg PO BID #10 tablet 06/03/20 [Rx] Acarbose 50 mg PO TID 06/07/20 [History] Alogliptin Benzoate [Alogliptin] 25 mg PO DAILY 06/07/20 [History] Pioglitazone HCl 45 mg PO DAILY 06/07/20 [History] Rosuvastatin Calcium 20 mg PO QPM 06/07/20 [History] Past Medical History Cardiovascular History: Reports: High Cholesterol, Hypertension Gastrointestinal History: Reports: Other (See Below) (Early had 27 polyps resected with his colonoscopy on 29 May this year.) Endocrine/Metabolic History: Reports: Diabetes, Type II, Vitamin D Deficiency Oncologic (Cancer) History: Reports: Other (See Below) Other Oncologic History: skin cancer - Infectious Disease History Infectious Disease History: Reports: Chicken Pox, Measles, Mumps - Past Surgical History Cardiovascular Surgical History: Reports: AAA Repair GI Surgical History: Reports: Colonoscopy Social & Family History - Family History Family Medical History: No Pertinent Family History - Tobacco Use Tobacco Use Status *Q: Former Tobacco User Used Tobacco, but Quit: Yes Month/Year Tobacco Last Used: 10 years ago - Caffeine Use Caffeine Use: Reports: Coffee - Recreational Drug Use Recreational Drug Use: No - Living Situation & Occupation Living situation: Reports: Occupation: Retired ED ROS GENERAL - Review of Systems Review Of Systems: See Below Constitutional: Reports: Weakness. Denies: Fever, Chills HEENT: Reports: No Symptoms Respiratory: Reports: Cough, Sputum (Scant amounts). Denies: Shortness of Breath, Wheezing, Hemoptysis Cardiovascular: Denies: Chest Pain, Dyspnea on Exertion, Edema, Palpitations, Syncope Endocrine: Reports: No Symptoms GI/Abdominal: Reports: No Symptoms : Reports: No Symptoms Musculoskeletal: Reports: No Symptoms Neurological: Reports: No Symptoms ED EXAM, GENERAL - Physical Exam Exam: See Below Exam Limited By: No Limitations General Appearance: Alert, No Apparent Distress Eye Exam: Bilateral Eye: Normal Inspection Ears: Normal External Exam, Normal Canal, Hearing Grossly Normal, Normal TMs Nose: Normal Inspection, Normal Mucosa, No Blood Throat/Mouth: Normal Inspection, Normal Lips, Normal Gums, Normal Oropharynx, Normal Voice, No Airway Compromise Head: Atraumatic, Normocephalic Neck: Normal Inspection, Supple, Non-Tender, Full Range of Motion. No: Lymphadenopathy (L), Lymphadenopathy (R) Respiratory/Chest: No Respiratory Distress, Normal Breath Sounds, Crackles (Few crackles heard in the lateral lung hale bilaterally) Cardiovascular: Regular Rate, Rhythm, No Edema, No Murmur GI/Abdominal: Normal Bowel Sounds, Soft, Non-Tender Back Exam: Normal Inspection. No: CVA Tenderness (L), CVA Tenderness (R) Extremities: Normal Inspection, No Pedal Edema Course - Vital Signs Last Recorded V/S: Last Vital Signs Temp 38.3 C H 06/07/20 13:05 Pulse 87 06/07/20 11:21 Resp 27 H 06/07/20 08:30 BP 143/60 H 06/07/20 11:25 Pulse Ox 87 L 06/07/20 08:30 - Orders/Labs/Meds Orders: Active Orders 24 hr Category Date Time Status EKG Documentation Completion [RC] STAT Care 06/07/20 09:44 Active Ang Chest [CT] Stat Exams 06/07/20 12:38 Taken Chest 1V Frontal [CR] Stat Exams 06/07/20 09:44 Taken Alogliptin Benzoate [Alogliptin] Med 06/07/20 11:00 Active 25 mg PO DAILY Sodium Chloride 0.9% [Normal Saline] 1,000 ml Med 06/07/20 12:52 Active IV ONETIME Sodium Chloride 0.9% [Normal Saline] 100 ml Med 06/07/20 13:30 Active IV ASDIRECTED Sodium Chloride 0.9% [Saline Flush] Med 06/07/20 13:30 Active 10 ml FLUSH ONETIME PRN lisinopriL [Prinivil] Med 06/07/20 11:30 Active 40 mg PO DAILY Medication Orders Alogliptin Benzoate (Alogliptin) 25 mg PO DAILY [facility] Last Admin: 06/07/20 11:23 Dose: 25 mg Documented by: ED Sodium Chloride (Normal Saline) 1,000 mls @ 500 mls/hr IV ONETIME ONE Stop: 06/07/20 14:51 Last Admin: 06/07/20 13:06 Dose: 500 mls/hr Documented by: ED Sodium Chloride (Normal Saline) 100 mls @ 75 mls/hr IV ASDIRECTED [facility] Last Admin: 06/07/20 14:10 Dose: 75 mls/hr Documented by: ALESIA Lisinopril (Prinivil) 40 mg PO DAILY [facility] Last Admin: 06/07/20 11:25 Dose: 40 mg Documented by: ED Sodium Chloride (Saline Flush) 10 ml FLUSH ONETIME PRN PRN Reason: Keep Vein Open Last Admin: 06/07/20 14:24 Dose: 10 ml Documented by: [id number] Labs: Laboratory Tests 06/07/20 06/07/20 06/07/20 Range/Units 10:11 10:11 10:11 WBC 6.93 (4.23-9.07) K/mm3 RBC 4.04 L (4.63-6.08) M/mm3 Hgb 12.1 L (13.7-17.5) gm/dl Hct 36.8 L (40.1-51.0) % MCV 91.1 D (79.0-92.2) fl MCH 30.0 (25.7-32.2) pg MCHC 32.9 (32.2-35.5) g/dl RDW Std Deviation 47.3 H (35.1-43.9) fL Plt Count 120 L (163-337) K/mm3 MPV 11.0 (9.4-12.3) fl Neut % (Auto) 81.2 H (34.0-67.9) % Lymph % (Auto) 8.8 L (21.8-53.1) % [place] % (Auto) 9.2 (5.3-12.2) % Eos % (Auto) 0 L (0.8-7.0) Baso % (Auto) 0.1 (0.1-1.2) % Neut # (Auto) 5.62 H (1.78-5.38) K/mm3 Lymph # (Auto) 0.61 L (1.32-3.57) K/mm3 [place] # (Auto) 0.64 (0.30-0.82) K/mm3 Eos # (Auto) 0.00 L (0.04-0.54) K/mm3 Baso # (Auto) 0.01 (0.01-0.08) K/mm3 Manual Slide Review Normal smear D-Dimer, Quantitative 4.13 H (0.19-0.50) mg/L Sodium 127 L (136-145) mEq/L Potassium 4.4 (3.5-5.1) mEq/L Chloride 92 L (98-107) mEq/L Carbon Dioxide 26 (21-32) mEq/L Anion Gap 13.4 (5-15) BUN 35 H (7-18) mg/dL Creatinine 1.5 H (0.7-1.3) mg/dL Est Cr Clr Drug Dosing 48.09 mL/min Estimated GFR (MDRD) 46 (>60) mL/min BUN/Creatinine Ratio 23.3 H (14-18) Glucose 222 H (83-115) mg/dL Calcium 8.3 L (8.5-10.1) mg/dL Total Bilirubin 0.6 (0.2-1.0) mg/dL AST 48 H (15-37) U/L ALT 35 (16-63) U/L Alkaline Phosphatase 52 (46-116) U/L Troponin I 0.107 H* (0.00-0.056) ng/mL Total Protein 7.4 (6.4-8.2) g/dl Albumin 3.1 L (3.4-5.0) g/dl Globulin 4.3 gm/dL Albumin/Globulin Ratio 0.7 L (1-2) Meds: Medications Generic Name Dose Route Start Last Admin Trade Name Freq PRN Reason Stop Dose Admin Alogliptin Benzoate 25 mg 06/07/20 11:00 06/07/20 11:23 Alogliptin PO 25 mg DAILY [facility] Administration Sodium Chloride 1,000 mls @ 500 mls/hr 06/07/20 12:52 06/07/20 13:06 Normal Saline IV 06/07/20 14:51 500 mls/hr ONETIME ONE Administration Sodium Chloride 100 mls @ 75 mls/hr 06/07/20 13:30 06/07/20 14:10 Normal Saline IV 75 mls/hr ASDIRECTED [facility] Administration Lisinopril 40 mg 06/07/20 11:30 06/07/20 11:25 Prinivil PO 40 mg DAILY [facility] Administration Sodium Chloride 10 ml 06/07/20 13:30 06/07/20 14:24 Saline Flush FLUSH 10 ml ONETIME PRN Administration Keep Vein Open Discontinued Medications Generic Name Dose Route Start Last Admin Trade Name Freq PRN Reason Stop Dose Admin Iopamidol 100 ml 06/07/20 13:30 06/07/20 14:00 [id number] (76%) IVPUSH 06/07/20 13:31 100 ml ONETIME ONE Administration Lisinopril 40 mg 06/08/20 09:00 Prinivil PO DAILY [facility] Metformin HCl 1,000 mg 06/07/20 10:56 Glucophage PO 06/07/20 10:57 ONETIME ONE Metoprolol Succinate 50 mg 06/07/20 10:57 06/07/20 11:21 Toprol Xl PO 06/07/20 10:58 50 mg ONETIME ONE Administration - Re-Assessments/Exams Free Text/Narrative Re-Assessment/Exam: 06/07/20 12:59 Evaluation thus far is not revealing we are waiting to see if we have a bed to admit him to needed which is not surprising given his Covid status but with his tachycardia we will go and check a CTA he is got a mild bump in his troponin as well. The patient was not tachycardic upon arrival however has been running in the 100-110 range. He is using oxygen and seems to be doing okay at this at about 1-1/2 L. Initially I was going to leave the CTA up to the hospitalist however with the unknown nature I will go ahead and check it 06/07/20 14:[address] Medrano, our hospitalist was kind enough to accept the patient. Departure - Departure Time of Disposition: 14:47 Disposition: Home, Self-Care 01 Clinical Impression: COVID-19, Weakness, Hypoxia - Discharge Information Referrals: PCP,None [Ordering Only Provider] - Forms: ED Department Discharge Sepsis Event Note (ED) - Evaluation Sepsis Screening Result: Possible Sepsis Risk - Focused Exam Vital Signs: Vital Signs Temp Pulse Pulse Resp BP BP Pulse Ox 06/07/20 13:05 38.3 C H 06/07/20 11:25 143/60 H 06/07/20 11:21 87 143/60 H 06/07/20 08:30 38.1 C 77 27 H 150/73 H 87 L - My Orders Last 24 Hours: My Active Orders 06/07/20 09:44 EKG Documentation Completion [RC] STAT Chest 1V Frontal [CR] Stat 06/07/20 11:00 Alogliptin Benzoate [Alogliptin] 25 mg PO DAILY 06/07/20 11:30 lisinopriL [Prinivil] 40 mg PO DAILY 06/07/20 12:38 Ang Chest [CT] Stat 06/07/20 13:30 Sodium Chloride 0.9% [Normal Saline] 100 ml IV ASDIRECTED Sodium Chloride 0.9% [Saline Flush] 10 ml FLUSH ONETIME PRN - Assessment/Plan Last 24 Hours: My Active Orders 06/07/20 09:44 EKG Documentation Completion [RC] STAT Chest 1V Frontal [CR] Stat 06/07/20 11:00 Alogliptin Benzoate [Alogliptin] 25 mg PO DAILY 06/07/20 11:30 lisinopriL [Prinivil] 40 mg PO DAILY 06/07/20 12:38 Ang Chest [CT] Stat 06/07/20 13:30 Sodium Chloride 0.9% [Normal Saline] 100 ml IV ASDIRECTED Sodium Chloride 0.9% [Saline Flush] 10 ml FLUSH ONETIME PRN
[2020-06-07] MEDS ORDERED: metFORMIN 500 MG Tab PO ONE (10:56)
[2020-06-07] MEDS ORDERED: Metoprolol Succinate 50 MG Tab.ER PO ONE (10:57)
[2020-06-07] MEDS ORDERED: Lisinopril 20 MG Tab PO SCH (11:30)
[2020-06-07] MEDS ORDERED: Sodium Chloride 0.9% 1,000 ML IV ONE (12:52)
[2020-06-07] MEDS ORDERED: Sodium Chloride 0.9% 100 ML IV SCH (13:30)
[2020-06-07] MEDS ORDERED: Sodium Chloride 0.9% 10 ML Syringe FLUSH PRN (13:30)
[2020-06-07] MEDS ORDERED: Iopamidol 755 Mg/ML 100 ML Bottle IVPUSH ONE (13:30)
[2020-06-07] MEDS ORDERED: Acetaminophen 325 MG Tab PO ONE (16:35)
[2020-06-07] MEDS ORDERED: Acetaminophen 650 MG Supp RECTAL PRN (18:16)
[2020-06-07] MEDS ORDERED: Ondansetron 4 MG/2 ML SDV IV PRN (18:16)
[2020-06-07] MEDS ORDERED: REMDESIVIR 200 MG in Sodium Chloride 0.9% 250 ML IV ONE ×2 (18:16→20:30)
[2020-06-07] MEDS ORDERED: 50% Dextrose in Water 50 ML Syringe IV PRN (18:48)
--- NOTE | 2020-06-07 18:49 | PCM.HP.2 ---
H&P History of Present Illness - General Date of Service: 06/07/20 Admit Problem/Dx: Admission Diagnosis/Problem Admission Diagnosis/Problem Hypoxia - History of Present Illness Initial Comments - Free Text/Narative: 74-year-old male with diabetes, hypertension, hyperlipidemia, and diagnosed with COVID-19 on June 03, 2020 and started on home O2 with dexamethasone 4 mg twice daily returns to the ED with increasing weakness. Patient was concerned because if he fell his would not be able to get him up. His had the patient lay on the floor so he would not fall and they called 911. Patient denies any fever or chills. He does have a cough with small amount of sputum. Denies shortness of breath. He states he has had symptoms for 2 weeks. He states that his symptoms started shortly after, the same day, as his colonoscopy on 05/29/2020. When patient presented to the emergency department today oxygen saturations were 87%. D-dimer was elevated at 4.13 today, which is the same as on the . Troponin from less than 0.017 on the to 0.107 today. He denies any chest pain. - Related Data Allergies/Adverse Reactions: Allergies Allergy/AdvReac Type Severity Reaction Status Date / Time Sulfa (Sulfonamide Allergy Severe Hives Verified 06/07/20 18:20 Antibiotics) Home Medications: Home Meds Aspirin [Halfprin] 81 mg PO DAILY 08/08/17 [History] Chlorthalidone 25 mg PO DAILY 08/08/17 [History] Cholecalciferol (Vitamin D3) [Vitamin D3] 1,000 units PO DAILY 08/08/17 [History] Docusate Sodium 100 mg PO BEDTIME 08/08/17 [History] Fish Oil/[place]-3 Fatty Acids [Fish Oil 1,000 MG] 1 gm PO BID 08/08/17 [History] Lisinopril 40 mg PO DAILY 08/08/17 [History] Metoprolol Succinate 50 mg PO DAILY 08/08/17 [History] metFORMIN [Glucophage XR] 1,000 mg PO BID 08/08/17 [History] Magnesium Chloride [Slow-Mag] 71.5 mg PO DAILY #21 tablet. 06/03/20 [Rx] Psyllium Husk/Aspartame [Metamucil Fiber Singles Packet] 1 pack PO Q48H 06/03/20 [History] dexAMETHasone [Dexamethasone] 4 mg PO BID #10 tablet 06/03/20 [Rx] Acarbose 50 mg PO TIDMEALS 06/07/20 [History] Alogliptin Benzoate [Alogliptin] 25 mg PO DAILY 06/07/20 [History] Pioglitazone HCl 45 mg PO DAILY 06/07/20 [History] Rosuvastatin Calcium 20 mg PO BEDTIME 06/07/20 [History] Past Medical History Other HEENT History: patient wears glasses Cardiovascular History: Reports: High Cholesterol, Hypertension Gastrointestinal History: Reports: Other (See Below) Other Gastrointestinal History: Diarrea at times - Urgency Genitourinary History: Reports: Urinary Incontinence Endocrine/Metabolic History: Reports: Diabetes, Type II, Vitamin D Deficiency Oncologic (Cancer) History: Reports: Other (See Below) Other Oncologic History: skin cancer to top of head - Infectious Disease History Infectious Disease History: Reports: Chicken Pox, Measles, Mumps - Past Surgical History Cardiovascular Surgical History: Reports: AAA Repair GI Surgical History: Reports: Colonoscopy Social & Family History - Family History Family Medical History: No Pertinent Family History - Tobacco Use Tobacco Use Status *Q: Former Tobacco User Years of Tobacco use: 50 Packs/Tins Daily: 1 Used Tobacco, but Quit: Yes Month/Year Tobacco Last Used: 2014 - Caffeine Use Caffeine Use: Reports: Coffee - Recreational Drug Use Recreational Drug Use: No - Living Situation & Occupation Living situation: Reports: Occupation: Retired H&P Review of Systems - Review of Systems: Review Of Systems: Comprehensive ROS is negative, except as noted in HPI. Exam - Exam Exam: See Below - Vital Signs Vital Signs: Last Vital Signs Temp 103 F H 06/07/20 16:47 Pulse 100 06/07/20 17:55 Resp 27 H 06/07/20 08:30 BP 140/70 06/07/20 17:55 Pulse Ox 95 06/07/20 17:55 Weight: 245 lb 6.4 oz - Exam Quality Assessment: Supplemental Oxygen (2 L nasal cannula) General: Alert, Oriented, 4 HEENT: Conjunctiva Clear, Mucosa Moist & [place], Normal Nasal Septum Lungs: Rales (Bibasilar). No: Normal Respiratory Effort (Increased respiratory rate) Cardiovascular: Regular Rate, Regular Rhythm GI/Abdominal Exam: Normal Bowel Sounds, Soft, Non-Tender, No Organomegaly, No Distention, No Abnormal Bruit, No Mass, Pelvis Stable Back Exam: Normal Inspection Extremities: Normal Inspection, Normal Range of Motion, Non-Tender, No Pedal Edema, Normal Capillary Refill Skin: Warm, Dry, Intact Neuro Extensive - Mental Status: Alert, Oriented x3, Normal Mood/Affect, Normal Cognition Neuro Extensive - Motor, Sensory, Reflexes: CN II-XII Intact, Normal Gait, Normal Reflexes Psychiatric: Alert, Normal Affect, Normal Mood - Patient Data Lab Results Last 24 hrs: Laboratory Results - last 24 hr 06/07/20 06/07/20 06/07/20 Range/Units 10:11 10:11 10:11 WBC 6.93 (4.23-9.07) K/mm3 RBC 4.04 L (4.63-6.08) M/mm3 Hgb 12.1 L (13.7-17.5) gm/dl Hct 36.8 L (40.1-51.0) % MCV 91.1 D (79.0-92.2) fl MCH 30.0 (25.7-32.2) pg MCHC 32.9 (32.2-35.5) g/dl RDW Std Deviation 47.3 H (35.1-43.9) fL Plt Count 120 L (163-337) K/mm3 MPV 11.0 (9.4-12.3) fl Neut % (Auto) 81.2 H (34.0-67.9) % Lymph % (Auto) 8.8 L (21.8-53.1) % [place] % (Auto) 9.2 (5.3-12.2) % Eos % (Auto) 0 L (0.8-7.0) Baso % (Auto) 0.1 (0.1-1.2) % Neut # (Auto) 5.62 H (1.78-5.38) K/mm3 Lymph # (Auto) 0.61 L (1.32-3.57) K/mm3 [place] # (Auto) 0.64 (0.30-0.82) K/mm3 Eos # (Auto) 0.00 L (0.04-0.54) K/mm3 Baso # (Auto) 0.01 (0.01-0.08) K/mm3 Manual Slide Review Normal smear D-Dimer, Quantitative 4.13 H (0.19-0.50) mg/L Sodium 127 L (136-145) mEq/L Potassium 4.4 (3.5-5.1) mEq/L Chloride 92 L (98-107) mEq/L Carbon Dioxide 26 (21-32) mEq/L Anion Gap 13.4 (5-15) BUN 35 H (7-18) mg/dL Creatinine 1.5 H (0.7-1.3) mg/dL Est Cr Clr Drug Dosing 48.09 mL/min Estimated GFR (MDRD) 46 (>60) mL/min BUN/Creatinine Ratio 23.3 H (14-18) Glucose 222 H (83-115) mg/dL Calcium 8.3 L (8.5-10.1) mg/dL Total Bilirubin 0.6 (0.2-1.0) mg/dL AST 48 H (15-37) U/L ALT 35 (16-63) U/L Alkaline Phosphatase 52 (46-116) U/L Troponin I 0.107 H* (0.00-0.056) ng/mL Total Protein 7.4 (6.4-8.2) g/dl Albumin 3.1 L (3.4-5.0) g/dl Globulin 4.3 gm/dL Albumin/Globulin Ratio 0.7 L (1-2) Result Diagrams: 06/07/20 10:11 06/07/20 10:11 Sepsis Event Note - Evaluation Sepsis Screening Result: Possible Sepsis Risk - Focused Exam Vital Signs: Vital Signs Temp Temp Pulse Pulse Resp BP BP 06/07/20 17:55 100 140/70 06/07/20 16:47 103 F H 06/07/20 16:33 103 F H 06/07/20 13:05 101 F H 06/07/20 11:25 143/60 H 06/07/20 11:21 87 143/60 H 06/07/20 08:30 100.6 F 77 27 H 150/73 H Pulse Ox 06/07/20 17:55 95 06/07/20 16:47 06/07/20 16:33 06/07/20 13:05 06/07/20 11:25 06/07/20 11:21 06/07/20 08:30 87 L - Problem List (1) Elevated troponin I level SNOMED Code(s): 481089518 ICD Code: R77.8 - OTHER SPECIFIED ABNORMALITIES OF PLASMA PROTEINS Status: Acute Current Visit: Yes (2) COVID-19 SNOMED Code(s): 268596733 ICD Code: U07.1 - COVID-19 Status: Acute Current Visit: Yes (3) Hypoxia SNOMED Code(s): 057104556 ICD Code: R09.02 - HYPOXEMIA Status: Acute Current Visit: Yes (4) Weakness SNOMED Code(s): 49738316 ICD Code: R53.1 - WEAKNESS Status: Acute Current Visit: Yes Problem List Initiated/Reviewed/Updated: Yes Orders Last 24hrs: Active Orders 24 hr Category Date Time Status Admission Status [Patient Status] [ADT] Routine ADT 06/07/20 17:32 Active Blood Glucose Check, Bedside [RC] QIDACANDBED Care 06/07/20 18:48 Ordered EKG Documentation Completion [RC] STAT Care 06/07/20 09:44 Active Nurse Communication: Isolation [RC] ASDIRECTED Care 06/07/20 18:16 Active Oxygen Therapy [RC] PRN Care 06/07/20 18:16 Active Up With Assistance [RC] ASDIRECTED Care 06/07/20 18:16 Active VTE/DVT Education [RC] PER UNIT ROUTINE Care 06/07/20 18:16 Active Vital Signs [RC] Q4H Care 06/07/20 18:16 Active OT Evaluation and Treatment [CONS] Routine Cons 06/07/20 18:20 Active PT Evaluation and Treatment [CONS] Routine Cons 06/07/20 18:20 Active Consistent Carbohydrate Diet [DIET] Diet 06/07/20 Dinner Active Ang Chest [CT] Stat Exams 06/07/20 12:38 Taken Chest 1V Frontal [CR] Stat Exams 06/07/20 09:44 Taken C-REACTIVE PROTEIN [CHEM] AM Lab 06/08/20 05:11 Ordered CBC WITH AUTO DIFF [HEME] AM Lab 06/08/20 05:11 Ordered CMP [COMPREHENSIVE METABOLIC PN,CMP] [CHEM] AM Lab 06/08/20 05:11 Ordered CULTURE BLOOD [BC] Stat Lab 06/07/20 17:07 Received CULTURE BLOOD [BC] Stat Lab 06/07/20 17:17 Received DD [D-DIMER QUANTITATIVE] [COAG] AM Lab 06/08/20 05:11 Ordered GLYCOSYLATED HEMOGLOBIN,HGBA1C [CHEM] AM Lab 06/08/20 05:11 Ordered MAGNESIUM [CHEM] AM Lab 06/08/20 05:11 Ordered PHOSPHORUS [CHEM] AM Lab 06/08/20 05:11 Ordered TSH [CHEM] AM Lab 06/08/20 05:11 Ordered Acetaminophen [Tylenol] Med 06/07/20 18:16 Active 650 mg RECTAL Q4H PRN Alogliptin Benzoate [Alogliptin] Med 06/07/20 11:00 Active 25 mg PO DAILY Alogliptin Benzoate [Alogliptin] Med 06/08/20 09:00 Pending 25 mg PO DAILY Aspirin [Halfprin] Med 06/08/20 09:00 Ordered 81 mg PO DAILY Azithromycin [Zithromax] 500 mg Med 06/07/20 19:00 Ordered Sodium Chloride 0.9% [Normal Saline (AdvBag)] 250 ml IV Q24H Dextrose 50% in Water Med 06/07/20 18:48 Ordered 50 ml IV ASDIRECTED PRN Docusate Sodium [Colace] Med 06/07/20 21:00 Ordered 100 mg PO BEDTIME Insulin Lispro [HumaLOG] Med 06/07/20 22:00 Ordered See Protocol SUBCUT QIDACANDBED Metoprolol Succinate Med 06/08/20 09:00 Ordered 50 mg PO DAILY Ondansetron [Zofran] Med 06/07/20 18:16 Active 4 mg IV Q4H PRN Remdesivir (Eua) [Remdesivir (EUA)] 100 mg Med 06/08/20 18:30 Active Sodium Chloride 0.9% [Normal Saline] 100 ml IV Q24H Rosuvastatin Calcium [Rosuvastatin Calcium] Med 06/07/20 21:00 Ordered 20 mg PO BEDTIME Sodium Chloride 0.9% [Normal Saline] 100 ml Med 06/07/20 13:30 Active IV ASDIRECTED Sodium Chloride 0.9% [Saline Flush] Med 06/07/20 13:30 Active 10 ml FLUSH ONETIME PRN cefTRIAXone [Rocephin] 2 gm Med 06/07/20 19:00 Ordered Sodium Chloride 0.9% [Normal Saline] 100 ml IV Q24H dexAMETHasone Med 06/08/20 09:00 Active 6 mg PO DAILY Blood Culture x2 Reflex Set [OM.PC] Stat Oth 06/07/20 16:37 Ordered Isolation [COMM] Stat Oth 06/07/20 18:16 Ordered Resuscitation Status Routine Resus Stat 06/07/20 18:16 Ordered Medication Orders Acetaminophen (Tylenol) 650 mg RECTAL Q4H PRN PRN Reason: Pain (mild 1-3) Alogliptin Benzoate (Alogliptin) 25 mg PO DAILY [facility] Last Admin: 06/07/20 11:23 Dose: 25 mg Documented by: ED Alogliptin Benzoate (Alogliptin) 25 mg PO DAILY [facility] Aspirin (Halfprin) 81 mg PO DAILY [facility] Dexamethasone (Dexamethasone) 6 mg PO DAILY [facility] Stop: 06/10/20 09:01 Docusate Sodium (Colace) 100 mg PO BEDTIME [facility] Sodium Chloride (Normal Saline) 100 mls @ 75 mls/hr IV ASDIRECTED [facility] Last Admin: 06/07/20 14:10 Dose: 75 mls/hr Documented by: [id number] Remdesivir 100 mg/ Sodium (Chloride) 100 mls @ 100 mls/hr IV Q24H [facility] Stop: 06/11/20 19:29 Ceftriaxone Sodium 2 gm/ (Sodium Chloride) 100 mls @ 200 mls/hr IV Q24H [facility] Stop: 06/11/20 19:29 Azithromycin 500 mg/ Sodium (Chloride) 250 mls @ 250 mls/hr IV Q24H [facility] Stop: 06/09/20 19:59 Non-Formulary Medication (Metoprolol Succinate) 50 mg PO DAILY [facility] Ondansetron HCl (Zofran) 4 mg IV Q4H PRN PRN Reason: Nausea/Vomiting Rosuvastatin Calcium (Crestor) 20 mg PO BEDTIME [facility] Sodium Chloride (Saline Flush) 10 ml FLUSH ONETIME PRN PRN Reason: Keep Vein Open Last Admin: 06/07/20 14:24 Dose: 10 ml Documented by: [id number] Assessment/Plan Comment:: Assessment 74-year-old male diagnosed with COVID-19 on 06/03/2020, but symptomatic since the sixth presents to the emergency department with increasing weakness * Patient was started on dexamethasone and home O2 5 days ago. * He has had increasing weakness and oxygen need. * He is at increased risk for complications secondary to his age, gender, diabe tk, and hypertension * CTA of the chest showed no pulmonary embolism. Positive for patchy bilateral groundglass pulmonary infiltrates. Cardiomegaly with vascular calcifications including coronary artery calcifications. * WBC 6.93, D-dimer 4.13, * Requiring 2 L nasal cannula to keep oxygen saturations at 90% Elevated troponin, consider type II OR Cardiomegaly * Troponin has elevated over the last 5 days * Troponin I 0.107 * No chest pain * On metoprolol succinate 50 mg daily * Rosuvastatin 20 mg daily Hyponatremia * Sodium 127 * Likely due to poor oral intake Acute renal injury * Estimated GFR 46, creatinine 1.5, BUN 35, BUN to creatinine ratio 23.3 * Likely due to hypovolemia and poor renal perfusion Type 2 diabetes * Random glucose here was 222 * Blood sugars will worsen secondary to dexamethasone. * Hold metformin, a carbose, and pioglitazone. * Continue alogliptin Hypertension * Initial blood pressure 143/60 Thrombocytopeniamild * Platelets 120 Plan * Admit to floor on continuous pulse ox and telemetry * Start remdesivir * Continue dexamethasone for total of 10 days. It appears he still had a day or 2 left of the 5-day prescription. * Follow blood sugars closely before every meal and nightly secondary to steroids and stopping some of his home meds * Sliding scale insulin with low dose initially. May need long-acting insulin or higher scale. * Get hemoglobin A1c, TSH. * Follow CBC, CMP, mag, Phos, D-dimer, CRP * Patient was given a fluid bolus in the ER. Continue normal saline at 50 mL/h now. It is important to be very cautious with fluid resuscitation in patients with COVID-19. * Start ceftriaxone and azithromycin * Continue metoprolol, alogliptin, rosuvastatin. * VTE prophylaxis with Lovenox * CODE STATUS full code - Mortality Measure Prognosis:: Poor
[2020-06-07] MEDS: cefTRIAXone 2 GM in Sodium Chloride 0.9% 100 ML IV SCH (19:05)
[2020-06-07] MEDS ORDERED: Sodium Chloride 0.9% 250 ML ONE (20:26)
[2020-06-07] MEDS ORDERED: Sodium Chloride 0.9% 1,000 ML IV SCH (20:45)
[2020-06-07] MEDS: Azithromycin 500 MG in Sodium Chloride 0.9% 250 ML IV SCH (20:59)
[2020-06-07] MEDS: Docusate Sodium 100 MG Cap PO SCH (21:00)
[2020-06-07] MEDS: Rosuvastatin 10 MG Tab PO SCH (21:00)
[2020-06-07] MEDS: Insulin Lispro 100 Units/ML 3 ML Vial SUBCUT SCH (22:03)
[2020-06-08 07:10] LABS: HEMOGLOBIN A1C 7.5 % (4.50-6.20)
[2020-06-08] MEDS ORDERED: Insulin Glarg,Human.Rec.Analog 100 Unit/ML SUBCUT SCH (09:00)
[2020-06-08] MEDS ORDERED: Lisinopril 20 MG Tab PO SCH (09:00)
[2020-06-08] MEDS: Insulin Lispro 100 Units/ML 3 ML Vial SUBCUT SCH ×4 (09:04→21:48)
[2020-06-08] MEDS: Metoprolol Succinate 25 MG Tab.ER PO SCH (09:05)
[2020-06-08] MEDS: Dexamethasone 4 MG Tab PO SCH (09:05)
[2020-06-08] MEDS: Enoxaparin 40 MG/0.4 ML Syringe SUBCUT SCH (09:05)
[2020-06-08] MEDS: Aspirin 81 MG Tab.EC PO SCH (09:06)
--- NOTE | 2020-06-08 09:39 | PCM.PN ---
- General Info Date of Service: 06/08/20 Admission Dx/Problem (Free Text): Admission Diagnosis/Problem Admission Diagnosis/Problem Hypoxia Subjective Update: Patient states that he feels a little more tired today. Some increased shortness of breath. Appetite is still good. He has not had a bowel movement. Functional Status: Reports: Pain Controlled - Review of Systems General: Reports: Fatigue HEENT: Reports: No Symptoms Pulmonary: Reports: Shortness of Breath Cardiovascular: Reports: No Symptoms Gastrointestinal: Reports: No Symptoms Musculoskeletal: Reports: No Symptoms - Patient Data Vitals - Most Recent: Last Vital Signs Temp 98.4 F 06/08/20 08:00 Pulse 82 06/08/20 09:05 Resp 16 06/08/20 08:00 BP 116/93 H 06/08/20 09:05 Pulse Ox 89 L 06/08/20 06:10 Weight - Most Recent: 246 lb 3.2 oz I&O - Last 24 Hours: Intake & Output 06/07/20 06/08/20 06/08/20 22:59 06:59 14:59 Intake Total 1366 Output Total 1550 Balance -184 Lab Results Last 24 Hours: Laboratory Results - last 24 hr 06/07/20 06/07/20 06/07/20 Range/Units 10:11 10:11 10:11 WBC 6.93 (4.23-9.07) K/mm3 RBC 4.04 L (4.63-6.08) M/mm3 Hgb 12.1 L (13.7-17.5) gm/dl Hct 36.8 L (40.1-51.0) % MCV 91.1 D (79.0-92.2) fl MCH 30.0 (25.7-32.2) pg MCHC 32.9 (32.2-35.5) g/dl RDW Std Deviation 47.3 H (35.1-43.9) fL Plt Count 120 L (163-337) K/mm3 MPV 11.0 (9.4-12.3) fl Neut % (Auto) 81.2 H (34.0-67.9) % Lymph % (Auto) 8.8 L (21.8-53.1) % Wilkin % (Auto) 9.2 (5.3-12.2) % Eos % (Auto) 0 L (0.8-7.0) Baso % (Auto) 0.1 (0.1-1.2) % Neut # (Auto) 5.62 H (1.78-5.38) K/mm3 Lymph # (Auto) 0.61 L (1.32-3.57) K/mm3 Wilkin # (Auto) 0.64 (0.30-0.82) K/mm3 Eos # (Auto) 0.00 L (0.04-0.54) K/mm3 Baso # (Auto) 0.01 (0.01-0.08) K/mm3 Manual Slide Review Normal smear D-Dimer, Quantitative 4.13 H (0.19-0.50) mg/L Sodium 127 L (136-145) mEq/L Potassium 4.4 (3.5-5.1) mEq/L Chloride 92 L (98-107) mEq/L Carbon Dioxide 26 (21-32) mEq/L Anion Gap 13.4 (5-15) BUN 35 H (7-18) mg/dL Creatinine 1.5 H (0.7-1.3) mg/dL Est Cr Clr Drug Dosing 48.09 mL/min Estimated GFR (MDRD) 46 (>60) mL/min BUN/Creatinine Ratio 23.3 H (14-18) Glucose 222 H (83-115) mg/dL POC Glucose (83-110) mg/dL Hemoglobin A1c (4.50-6.20) % Calcium 8.3 L (8.5-10.1) mg/dL Phosphorus (2.6-4.7) mg/dL Magnesium (1.8-2.4) mg/dl Total Bilirubin 0.6 (0.2-1.0) mg/dL AST 48 H (15-37) U/L ALT 35 (16-63) U/L Alkaline Phosphatase 52 (46-116) U/L Troponin I 0.107 H* (0.00-0.056) ng/mL C-Reactive Protein (<1.0) mg/dL Total Protein 7.4 (6.4-8.2) g/dl Albumin 3.1 L (3.4-5.0) g/dl Globulin 4.3 gm/dL Albumin/Globulin Ratio 0.7 L (1-2) TSH 3rd Generation (0.358-3.74) uIU/mL 06/07/20 06/08/20 06/08/20 Range/Units 21:50 05:40 05:40 WBC 7.31 (4.23-9.07) K/mm3 RBC 4.04 L (4.63-6.08) M/mm3 Hgb 12.2 L (13.7-17.5) gm/dl Hct 36.9 L (40.1-51.0) % MCV 91.3 (79.0-92.2) fl MCH 30.2 (25.7-32.2) pg MCHC 33.1 (32.2-35.5) g/dl RDW Std Deviation 46.8 H (35.1-43.9) fL Plt Count 116 L (163-337) K/mm3 MPV 10.8 (9.4-12.3) fl Neut % (Auto) 84.4 H (34.0-67.9) % Lymph % (Auto) 8.1 L (21.8-53.1) % Wilkin % (Auto) 6.7 (5.3-12.2) % Eos % (Auto) 0 L (0.8-7.0) Baso % (Auto) 0.1 (0.1-1.2) % Neut # (Auto) 6.17 H (1.78-5.38) K/mm3 Lymph # (Auto) 0.59 L (1.32-3.57) K/mm3 Wilkin # (Auto) 0.49 (0.30-0.82) K/mm3 Eos # (Auto) 0.00 L (0.04-0.54) K/mm3 Baso # (Auto) 0.01 (0.01-0.08) K/mm3 Manual Slide Review Normal smear D-Dimer, Quantitative 5.43 H (0.19-0.50) mg/L Sodium (136-145) mEq/L Potassium (3.5-5.1) mEq/L Chloride (98-107) mEq/L Carbon Dioxide (21-32) mEq/L Anion Gap (5-15) BUN (7-18) mg/dL Creatinine (0.7-1.3) mg/dL Est Cr Clr Drug Dosing mL/min Estimated GFR (MDRD) (>60) mL/min BUN/Creatinine Ratio (14-18) Glucose (83-115) mg/dL POC Glucose 316 H (83-110) mg/dL Hemoglobin A1c (4.50-6.20) % Calcium (8.5-10.1) mg/dL Phosphorus (2.6-4.7) mg/dL Magnesium (1.8-2.4) mg/dl Total Bilirubin (0.2-1.0) mg/dL AST (15-37) U/L ALT (16-63) U/L Alkaline Phosphatase (46-116) U/L Troponin I (0.00-0.056) ng/mL C-Reactive Protein (<1.0) mg/dL Total Protein (6.4-8.2) g/dl Albumin (3.4-5.0) g/dl Globulin gm/dL Albumin/Globulin Ratio (1-2) TSH 3rd Generation (0.358-3.74) uIU/mL 06/08/20 06/08/20 06/08/20 Range/Units 05:40 05:40 05:52 WBC (4.23-9.07) K/mm3 RBC (4.63-6.08) M/mm3 Hgb (13.7-17.5) gm/dl Hct (40.1-51.0) % MCV (79.0-92.2) fl MCH (25.7-32.2) pg MCHC (32.2-35.5) g/dl RDW Std Deviation (35.1-43.9) fL Plt Count (163-337) K/mm3 MPV (9.4-12.3) fl Neut % (Auto) (34.0-67.9) % Lymph % (Auto) (21.8-53.1) % Wilkin % (Auto) (5.3-12.2) % Eos % (Auto) (0.8-7.0) Baso % (Auto) (0.1-1.2) % Neut # (Auto) (1.78-5.38) K/mm3 Lymph # (Auto) (1.32-3.57) K/mm3 Wilkin # (Auto) (0.30-0.82) K/mm3 Eos # (Auto) (0.04-0.54) K/mm3 Baso # (Auto) (0.01-0.08) K/mm3 Manual Slide Review D-Dimer, Quantitative (0.19-0.50) mg/L Sodium 130 L (136-145) mEq/L Potassium 3.8 (3.5-5.1) mEq/L Chloride 93 L (98-107) mEq/L Carbon Dioxide 27 (21-32) mEq/L Anion Gap 13.8 (5-15) BUN 29 H (7-18) mg/dL Creatinine 1.3 (0.7-1.3) mg/dL Est Cr Clr Drug Dosing 53.89 mL/min Estimated GFR (MDRD) 54 (>60) mL/min BUN/Creatinine Ratio 22.3 H (14-18) Glucose 215 H (83-115) mg/dL POC Glucose 233 H (83-110) mg/dL Hemoglobin A1c 7.50 H (4.50-6.20) % Calcium 8.6 (8.5-10.1) mg/dL Phosphorus 1.9 L (2.6-4.7) mg/dL Magnesium 1.5 L (1.8-2.4) mg/dl Total Bilirubin 0.5 (0.2-1.0) mg/dL AST 55 H (15-37) U/L ALT 38 (16-63) U/L Alkaline Phosphatase 57 (46-116) U/L Troponin I 0.090 H* (0.00-0.056) ng/mL C-Reactive Protein 16.6 H* (<1.0) mg/dL Total Protein 7.3 (6.4-8.2) g/dl Albumin 2.9 L (3.4-5.0) g/dl Globulin 4.4 gm/dL Albumin/Globulin Ratio 0.7 L (1-2) TSH 3rd Generation 0.528 (0.358-3.74) uIU/mL Med Orders - Current: Current Medications Acetaminophen (Tylenol) 650 mg RECTAL Q4H PRN PRN Reason: Pain (mild 1-3) Alogliptin Benzoate (Alogliptin) 25 mg PO DAILY [facility] Last Admin: 06/08/20 09:06 Dose: 25 mg Documented by: Aspirin (Halfprin) 81 mg PO DAILY [facility] Last Admin: 06/08/20 09:06 Dose: 81 mg Documented by: Dexamethasone (Dexamethasone) 6 mg PO DAILY [facility] Stop: 06/13/20 09:01 Last Admin: 06/08/20 09:05 Dose: 6 mg Documented by: Dextrose/Water (Dextrose 50% In Water) 50 ml IV ASDIRECTED PRN PRN Reason: Hypoglycemia Docusate Sodium (Colace) 100 mg PO BEDTIME [facility] Last Admin: 06/07/20 21:00 Dose: 100 mg Documented by: Enoxaparin Sodium (Lovenox) 40 mg SUBCUT DAILY [facility] Last Admin: 06/08/20 09:05 Dose: 40 mg Documented by: Remdesivir 100 mg/ Sodium (Chloride) 100 mls @ 100 mls/hr IV Q24H [facility] Stop: 06/11/20 19:29 Ceftriaxone Sodium 2 gm/ (Sodium Chloride) 100 mls @ 200 mls/hr IV DAILY@1800 [facility] Stop: 06/11/20 18:29 Last Admin: 06/07/20 19:05 Dose: 200 mls/hr Documented by: Azithromycin 500 mg/ Sodium (Chloride) 250 mls @ 250 mls/hr IV Q24H [facility] Stop: 06/09/20 20:59 Last Admin: 06/07/20 20:59 Dose: 250 mls/hr Documented by: Insulin Glargine (Lantus) 7 unit SUBCUT DAILY [facility] Insulin Human Lispro (Humalog) 0 unit SUBCUT QIDACANDBED [facility]; Protocol Last Admin: 06/08/20 09:04 Dose: 2 units Documented by: Metoprolol Succinate (Toprol Xl) 50 mg PO DAILY [facility] Last Admin: 06/08/20 09:05 Dose: 50 mg Documented by: Ondansetron HCl (Zofran) 4 mg IV Q4H PRN PRN Reason: Nausea/Vomiting Rosuvastatin Calcium (Crestor) 20 mg PO BEDTIME [facility] Last Admin: 06/07/20 21:00 Dose: 20 mg Documented by: Sodium Chloride (Saline Flush) 10 ml FLUSH ONETIME PRN PRN Reason: Keep Vein Open Last Admin: 06/07/20 14:24 Dose: 10 ml Documented by: Discontinued Medications Acetaminophen (Tylenol) 650 mg PO NOW ONE Stop: 06/07/20 16:36 Last Admin: 06/07/20 16:47 Dose: 650 mg Documented by: Alogliptin Benzoate (Alogliptin) 25 mg PO DAILY [facility] Last Admin: 06/07/20 11:23 Dose: 25 mg Documented by: Sodium Chloride (Normal Saline) 1,000 mls @ 500 mls/hr IV ONETIME ONE Stop: 06/07/20 14:51 Last Admin: 06/07/20 13:06 Dose: 500 mls/hr Documented by: Sodium Chloride (Normal Saline) 100 mls @ 75 mls/hr IV ASDIRECTED [facility] Last Admin: 06/07/20 14:10 Dose: 75 mls/hr Documented by: Remdesivir 200 mg/ Sodium (Chloride) 250 mls @ 250 mls/hr IV ONETIME ONE Stop: 06/07/20 21:29 Last Admin: 06/07/20 20:55 Dose: 250 mls/hr Documented by: Sodium Chloride (Normal Saline) Confirm Administered Dose 250 mls @ as directed .ROUTE .STK-MED ONE Stop: 06/07/20 20:27 Last Admin: 06/07/20 20:54 Dose: Not Given Documented by: Sodium Chloride (Normal Saline) 1,000 mls @ 50 mls/hr IV ASDIRECTED [facility] Stop: 06/08/20 16:44 Last Admin: 06/07/20 22:06 Dose: 50 mls/hr Documented by: Iopamidol (Isovue-370 (76%)) 100 ml IVPUSH ONETIME ONE Stop: 06/07/20 13:31 Last Admin: 06/07/20 14:00 Dose: 100 ml Documented by: Lisinopril (Prinivil) 40 mg PO DAILY [facility] Lisinopril (Prinivil) 40 mg PO DAILY [facility] Last Admin: 06/07/20 11:25 Dose: 40 mg Documented by: Metformin HCl (Glucophage) 1,000 mg PO ONETIME ONE Stop: 06/07/20 10:57 Last Admin: 06/07/20 19:43 Dose: Not Given Documented by: Metoprolol Succinate (Toprol Xl) 50 mg PO ONETIME ONE Stop: 06/07/20 10:58 Last Admin: 06/07/20 11:21 Dose: 50 mg Documented by: - Exam Quality Assessment: Supplemental Oxygen, Urine Catheter General: Alert, Oriented HEENT: Pupils Equal, Mucous Membr. Moist/[place] Neck: Supple Lungs: Decreased Breath Sounds. No: Normal Respiratory Effort Cardiovascular: Regular Rate, Regular Rhythm, Other (Distant heart sounds) GI/Abdominal Exam: Normal Bowel Sounds, Soft, Non-Tender, Distended (Morbidly obese) Extremities: Normal Inspection, Normal Capillary Refill, Pedal Edema (1+) Skin: Warm, Dry, Intact Psy/Mental Status: Alert, Normal Affect, Normal Mood Sepsis Event Note - Evaluation Sepsis Screening Result: No Definite Risk - Focused Exam Vital Signs: Vital Signs Temp Temp Pulse Pulse Resp BP BP 06/08/20 09:05 82 116/93 H 06/08/20 08:00 98.4 F 82 16 116/93 H 06/08/20 06:10 06/08/20 03:34 98.6 F 79 26 H 152/66 H 06/07/20 23:28 99.0 F 94 20 149/84 H Pulse Ox Pulse Ox 06/08/20 09:05 06/08/20 08:00 06/08/20 06:10 89 L 06/08/20 03:34 89 L 06/07/20 23:28 - Problem List & Annotations (1) Elevated troponin I level SNOMED Code(s): 109059293 Code(s): R77.8 - OTHER SPECIFIED ABNORMALITIES OF PLASMA PROTEINS Status: Acute Current Visit: Yes (2) COVID-19 SNOMED Code(s): 092776162 Code(s): U07.1 - COVID-19 Status: Acute Current Visit: Yes (3) Hypoxia SNOMED Code(s): 199735757 Code(s): R09.02 - HYPOXEMIA Status: Acute Current Visit: Yes (4) Weakness SNOMED Code(s): 55462322 Code(s): R53.1 - WEAKNESS Status: Acute Current Visit: Yes - Problem List Review Problem List Initiated/Reviewed/Updated: Yes - My Orders Last 24 Hours: My Active Orders 06/07/20 Dinner Consistent Carbohydrate Diet [DIET] 06/07/20 17:32 Admission Status [Patient Status] [ADT] Routine 06/07/20 18:16 Oxygen Therapy [RC] PRN Up With Assistance [RC] ASDIRECTED VTE/DVT Education [RC] BID Vital Signs [RC] Q4HR Acetaminophen [Tylenol] 650 mg RECTAL Q4H PRN Ondansetron [Zofran] 4 mg IV Q4H PRN Isolation [COMM] Stat Resuscitation Status Routine 06/07/20 18:20 OT Evaluation and Treatment [CONS] Routine PT Evaluation and Treatment [CONS] Routine 06/07/20 18:48 Blood Glucose Check, Bedside [RC] QIDACANDBED Dextrose 50% in Water 50 ml IV ASDIRECTED PRN 06/07/20 19:00 cefTRIAXone [Rocephin] 2 gm Sodium Chloride 0.9% [Normal Saline] 100 ml IV DAILY@1800 06/07/20 20:00 Azithromycin [Zithromax] 500 mg Sodium Chloride 0.9% [Normal Saline (AdvBag)] 250 ml IV Q24H 06/07/20 20:36 Bladder Scan [RC] ASDIRECTED Communication Order [RC] ASDIRECTED Notify Provider Intake and Out [RC] ASDIRECTED Urinary Catheter Assessment [RC] ASDIRECTED 06/07/20 21:00 Docusate Sodium [Colace] 100 mg PO BEDTIME Rosuvastatin [Crestor] 20 mg PO BEDTIME 06/07/20 22:00 Insulin Lispro [HumaLOG] See Protocol SUBCUT QIDACANDBED 06/08/20 01:35 Insert Vidal Catheter [Insert Urinary Catheter] [OM.PC] Q24H 06/08/20 08:30 Urinary Catheter Assessment [RC] ASDIRECTED 06/08/20 09:00 Alogliptin Benzoate [Alogliptin] 25 mg PO DAILY Aspirin [Halfprin] 81 mg PO DAILY Enoxaparin [Lovenox] 40 mg SUBCUT DAILY Insulin Glarg,Human.Rec.Analog [LantUS] 7 unit SUBCUT DAILY Metoprolol Succinate [Toprol XL] 50 mg PO DAILY dexAMETHasone 6 mg PO DAILY 06/08/20 18:30 Remdesivir (Eua) [Remdesivir (EUA)] 100 mg Sodium Chloride 0.9% [Normal Saline ] 100 ml IV Q24H - Plan Plan:: Assessment 74-year-old male diagnosed with COVID-19 on 06/03/2020, but symptomatic since the sixth presents to the emergency department with increasing weakness Patient has more increased shortness of breath overnight. * Worsening oxygen saturations overnight going from 2 L/min now on high flow nasal cannula * Patient did get fluids secondary to new renal insufficiency and hyponatremia * CTA of the chest showed no pulmonary embolism. Positive for patchy bilateral groundglass pulmonary infiltrates. Cardiomegaly with vascular calcifications including coronary artery calcifications. * WBC 7.3, D-dimer 5.43 * Requiring 2 L nasal cannula to keep oxygen saturations at 90% Elevated troponin, consider type II PR * Troponin decreased overnight to 0.09 Cardiomegaly * Positive troponin on admission is new in the last 5 days * No significant ST changes on EKG * No chest pain * On metoprolol succinate 50 mg daily * Rosuvastatin 20 mg daily Hyponatremia * Sodium 127--> 130 * Likely due to poor oral intake and a thiazide diuretic Acute renal injuryimproved * Estimated GFR 54, creatinine 1.3, BUN 29, * Likely due to hypovolemia and poor renal perfusion Type 2 diabetes * Blood sugars are poorly controlled into the 300s * Started this morning on Lantus 7 units * Hemoglobin A1c 7.5, TSH 0.528 * Blood sugars will worsen secondary to dexamethasone. * Hold metformin, a carbose, and pioglitazone. * Continue alogliptin Hypertension * Blood pressures in the 140s and 50s mainly Thrombocytopeniamild * Platelets 116 Plan * Admit to floor on continuous pulse ox and telemetry * Remdesivir day 2 of 5 * Continue dexamethasone for total of 10 days. It appears he still had a day or 2 left of the 5-day prescription. * Follow blood sugars closely before every meal and nightly secondary to steroids and stopping some of his home meds * Sliding scale insulin with low dose initially. May need long-acting insulin or higher scale. * Get hemoglobin A1c, TSH. * Follow CBC, CMP, mag, Phos, D-dimer, CRP * I spoke with doing to provide information about convalescent plasma. I offered the "fax sheet for patients and parents/caregivers, for COVID-19 convalescent plasma to read and review. I stated that therapy has been approved by an emergency use authorization process and has not fully been FDA reviewed or approved. I shared potential risks from the therapy including transmission of blood borne pathogen such as HIV and hepatitis C, allergic and transfusion related reactions, post transfusion purpura. Additionally theore tical risks include a phenomenon called antibody-dependent enhancement of infection such as is seen in dengue or attenuation of an immune response that may make patients more susceptible to reinfection. * Patient will get 2 units of convalescent plasma * ceftriaxone and azithromycin day 2 * FiO2 to keep SPO2 between 88 and 94%. Currently on high flow nasal cannula. * VTE prophylaxis with Lovenox * CODE STATUS full code
[2020-06-08] MEDS: Albuterol 6.7 GM Inhaler INH PRN ×2 (10:47→19:35)
[2020-06-08] MEDS ORDERED: Magnesium Sulfate/Water 4 GM in Premix Bag 1 BAG IV ONE (11:00)
[2020-06-08] MEDS ORDERED: Furosemide 40 MG/4 ML VIAL IVPUSH ONE (12:07)
--- NOTE | 2020-06-08 13:07 | CR ---
PROCEDURE INFORMATION: Exam: XR Chest, 1 View Exam date and time: 06/07/2020 9:52 AM Age: 74 years old Clinical indication: Cough and other: Hypoxia. Covid positive TECHNIQUE: Imaging protocol: XR of the chest Views: 1 view. COMPARISON: CR Chest 1V Frontal 06/03/2020 11:13 AM FINDINGS: Lungs: New coarse bilateral interstitial and alveolar infiltrates in the mid and lower. Pleural space: Unremarkable. No pleural effusion. No pneumothorax. Heart/Mediastinum: Unremarkable. No cardiomegaly. Vasculature: Aortic calcifications. Bones/joints: Unremarkable. IMPRESSION: New coarse bilateral interstitial and alveolar infiltrates. Thank you for allowing us to participate in the care of your patient. Dictated and Authenticated by: Judy Grier MD 06/07/2020 11:34 AM Central Time ([place] & [place]) [facility] SYSTEM[facility]okes[facility]
--- NOTE | 2020-06-08 13:19 | CT ---
PROCEDURE INFORMATION: Exam: CT Chest With Contrast Exam date and time: 06/07/2020 1:34 PM Age: 74 years old Clinical indication: Abnormal findings; Abnormal diagnostic tests; Elevated d- dimer; Patient HX: Covid +, tachycardia, hypoxia gfr 48 TECHNIQUE: Imaging protocol: Computed tomography of the chest with intravenous contrast. 3D rendering (Not supervised by radiologist): MIP and/or 3D reconstructed images were created by the technologist. Radiation optimization: All CT scans at this facility use at least one of these dose optimization techniques: automated exposure control; mA and/or kV adjustment per patient size (includes targeted exams where dose is matched to clinical indication); or iterative reconstruction. Contrast material: ISO E370; Contrast volume: 100 ml; Contrast route: INTRAVENOUS (IV); COMPARISON: CR Chest 1V Frontal 06/07/2020 9:52 AM FINDINGS: Lungs: Patchy bilateral nodular and confluent areas of ground-glass attenuation, with a predominantly peripheral distribution and areas of interstitial thickening.. Pleural space: Unremarkable. No pneumothorax. No pleural effusion. Heart: Diffuse vascular calcifications including very dense coronary artery calcifications. Cardiomegaly. Mediastinal space: Small esophageal hiatal hernia. Pulmonary arteries: Good opacification of the pulmonary arteries. No filling defects are identified in the pulmonary arteries to suggest the presence of a pulmonary embolism. Aorta: Stent in the visualized abdominal aorta. Lymph nodes: Mildly prominent mesenteric and hilar lymph nodes are likely reactive. Kidneys and ureters: Multiple uniform fluid density lesions are identified in both kidneys. The largest is partially visualized in the right kidney and measures approximately 4.5 cm. Horizontal orientation of the left kidney, normal variant. Bones/joints: Hypertrophic changes in the spine. Soft tissues: Benign appearing thickening of left adrenal gland. IMPRESSION: 1. No pulmonary embolism identified. 2. Patchy bilateral ground-glass pulmonary infiltrates 3. Cardiomegaly with vascular calcifications including coronary artery calcifications. Commonly reported imaging features of COVID-19 pneumonia are present. Other processes such as influenza pneumonia and organizing pneumonia, as can be seen with drug toxicity and connective tissue disease, can cause a similar imaging pattern. (Reference: Leandro) References: mary Campos al., Radiological Society of [place] Expert Consensus Statement on Reporting Chest CT Findings Related to COVID-19. Endorsed by the Society of Thoracic Radiology, the [place] [employer], and RSNA. Published October 16, 2019. COMMENTS: Consistent with the [place] [employer]'s Incidental Findings Committee white paper (JAm Dm Radiol 2018): Any incidental renal lesion less than 1 cm or classified as too small to characterize, or any incidental cystic renal lesion characterized as simple-appearing, is likely benign. No follow-up imaging is recommended for these lesions per consensus recommendations based on imaging criteria. Thank you for allowing us to participate in the care of your patient. Dictated and Authenticated by: Judy Grier MD 06/07/2020 3:30 PM Central Time ([place] & [place]) [facility]
[2020-06-08] MEDS ORDERED: Furosemide 20 MG/2 ML VIAL IVPUSH ONE (16:40)
[2020-06-08] MEDS ORDERED: Sodium Chloride 0.9% 250 ML IV SCH (16:45)
[2020-06-08] MEDS ORDERED: REMDESIVIR 100 MG in Sodium Chloride 0.9% 100 ML IV SCH (18:30)
[2020-06-08] MEDS: cefTRIAXone 2 GM in Sodium Chloride 0.9% 100 ML IV SCH ×2 (19:58→20:24)
[2020-06-08] MEDS: Docusate Sodium 100 MG Cap PO SCH (20:25)
[2020-06-08] MEDS: Rosuvastatin 10 MG Tab PO SCH (20:25)
[2020-06-08] MEDS: REMDESIVIR 100 MG in Sodium Chloride 0.9% 100 ML IV SCH (21:30)
[2020-06-08] MEDS: Azithromycin 500 MG in Sodium Chloride 0.9% 250 ML IV SCH (22:47)
[2020-06-09] MEDS: Insulin Glarg,Human.Rec.Analog 100 Unit/ML SUBCUT SCH ×2 (06:54→17:01)
[2020-06-09] MEDS ORDERED: Insulin Glarg,Human.Rec.Analog 100 Unit/ML SUBCUT STA (08:27)
[2020-06-09] MEDS: Insulin Lispro 100 Units/ML 3 ML Vial SUBCUT SCH ×5 (08:49→21:45)
[2020-06-09] MEDS: Enoxaparin 40 MG/0.4 ML Syringe SUBCUT SCH (08:50)
[2020-06-09] MEDS: Metoprolol Succinate 25 MG Tab.ER PO SCH (08:52)
[2020-06-09] MEDS: Aspirin 81 MG Tab.EC PO SCH (08:52)
[2020-06-09] MEDS: Dexamethasone 4 MG Tab PO SCH (08:52)
[2020-06-09] MEDS ORDERED: Insulin Lispro 100 Units/ML 3 ML Vial SUBCUT SCH ×2 (17:00→22:00)
--- NOTE | 2020-06-09 17:10 | PCM.SN.2 ---
- Free Text/Narrative Note: Face to Face meeting with pt and or family. Pt has COVID-19, hypoxia, pneumonia, TIA and weakness. Pt is in need Home Health Care services for; low activity tolerance, functional mobility, standing balance, strength, transfers. Nursing for vitals, skilled assessment, disease education and disease management. Physical therapy for pt for balance training, gait training, neuromuscular reduction, therapeutic exercises, and transfer training. Pt is currently homebound related to being walker dependent, decreased activity tolerance, and a decreased level of endurance. Pt will be followed by his primary provider, Dr. Velez.
--- NOTE | 2020-06-09 17:14 | PCM.PN ---
- General Info Date of Service: 06/09/20 Admission Dx/Problem (Free Text): Admission Diagnosis/Problem Admission Diagnosis/Problem Hypoxia Subjective Update: Patient is a little more fatigued today. Denies fever or chills. Functional Status: Reports: Pain Controlled - Review of Systems General: Reports: Fatigue HEENT: Reports: No Symptoms Pulmonary: Reports: Shortness of Breath, Cough Cardiovascular: Reports: No Symptoms Gastrointestinal: Reports: No Symptoms Musculoskeletal: Reports: No Symptoms Skin: Reports: No Symptoms - Patient Data Vitals - Most Recent: Last Vital Signs Temp 98.1 F 06/09/20 15:51 Pulse 75 06/09/20 15:51 Resp 20 06/09/20 15:51 BP 125/68 06/09/20 15:51 Pulse Ox 86 L 06/09/20 15:51 Weight - Most Recent: 245 lb I&O - Last 24 Hours: Intake & Output 06/09/20 06/09/20 06/09/20 06:59 14:59 22:59 Intake Total 1050 120 930 Output Total 875 1000 Balance 175 120 -70 Lab Results Last 24 Hours: Laboratory Results - last 24 hr 06/07/20 06/08/20 06/08/20 Range/Units 10:11 17:19 21:33 WBC (4.23-9.07) K/mm3 RBC (4.63-6.08) M/mm3 Hgb (13.7-17.5) gm/dl Hct (40.1-51.0) % MCV (79.0-92.2) fl MCH (25.7-32.2) pg MCHC (32.2-35.5) g/dl RDW Std Deviation (35.1-43.9) fL Plt Count (163-337) K/mm3 MPV (9.4-12.3) fl Neut % (Auto) (34.0-67.9) % Lymph % (Auto) (21.8-53.1) % Metcalfe % (Auto) (5.3-12.2) % Eos % (Auto) (0.8-7.0) Baso % (Auto) (0.1-1.2) % Neut # (Auto) (1.78-5.38) K/mm3 Lymph # (Auto) (1.32-3.57) K/mm3 Metcalfe # (Auto) (0.30-0.82) K/mm3 Eos # (Auto) (0.04-0.54) K/mm3 Baso # (Auto) (0.01-0.08) K/mm3 Manual Slide Review D-Dimer, Quantitative (0.19-0.50) mg/L Sodium (136-145) mEq/L Potassium (3.5-5.1) mEq/L Chloride (98-107) mEq/L Carbon Dioxide (21-32) mEq/L Anion Gap (5-15) BUN (7-18) mg/dL Creatinine (0.7-1.3) mg/dL Est Cr Clr Drug Dosing mL/min Estimated GFR (MDRD) (>60) mL/min BUN/Creatinine Ratio (14-18) Glucose (83-115) mg/dL POC Glucose 399 H 334 H (83-110) mg/dL Calcium (8.5-10.1) mg/dL Phosphorus (2.6-4.7) mg/dL Magnesium (1.8-2.4) mg/dl Total Bilirubin (0.2-1.0) mg/dL AST (15-37) U/L ALT (16-63) U/L Alkaline Phosphatase (46-116) U/L C-Reactive Protein (<1.0) mg/dL Total Protein (6.4-8.2) g/dl Albumin (3.4-5.0) g/dl Globulin gm/dL Albumin/Globulin Ratio (1-2) Blood Type O POSITIVE 06/09/20 06/09/20 06/09/20 Range/Units 05:41 05:41 05:41 WBC 8.13 (4.23-9.07) K/mm3 RBC 3.82 L (4.63-6.08) M/mm3 Hgb 11.4 L (13.7-17.5) gm/dl Hct 34.7 L (40.1-51.0) % MCV 90.8 (79.0-92.2) fl MCH 29.8 (25.7-32.2) pg MCHC 32.9 (32.2-35.5) g/dl RDW Std Deviation 46.7 H (35.1-43.9) fL Plt Count 126 L (163-337) K/mm3 MPV 11.3 (9.4-12.3) fl Neut % (Auto) 84.8 H (34.0-67.9) % Lymph % (Auto) 8.0 L (21.8-53.1) % Metcalfe % (Auto) 6.6 (5.3-12.2) % Eos % (Auto) 0.1 L (0.8-7.0) Baso % (Auto) 0.1 (0.1-1.2) % Neut # (Auto) 6.89 H (1.78-5.38) K/mm3 Lymph # (Auto) 0.65 L (1.32-3.57) K/mm3 Metcalfe # (Auto) 0.54 (0.30-0.82) K/mm3 Eos # (Auto) 0.01 L (0.04-0.54) K/mm3 Baso # (Auto) 0.01 (0.01-0.08) K/mm3 Manual Slide Review Abnormal smear D-Dimer, Quantitative 4.68 H (0.19-0.50) mg/L Sodium 130 L (136-145) mEq/L Potassium 4.1 (3.5-5.1) mEq/L Chloride 94 L (98-107) mEq/L Carbon Dioxide 29 (21-32) mEq/L Anion Gap 11.1 (5-15) BUN 44 H (7-18) mg/dL Creatinine 1.6 H (0.7-1.3) mg/dL Est Cr Clr Drug Dosing 43.78 mL/min Estimated GFR (MDRD) 42 (>60) mL/min BUN/Creatinine Ratio 27.5 H (14-18) Glucose 225 H (83-115) mg/dL POC Glucose (83-110) mg/dL Calcium 8.4 L (8.5-10.1) mg/dL Phosphorus 2.4 L (2.6-4.7) mg/dL Magnesium 2.2 (1.8-2.4) mg/dl Total Bilirubin 0.5 (0.2-1.0) mg/dL AST 57 H (15-37) U/L ALT 42 (16-63) U/L Alkaline Phosphatase 56 (46-116) U/L C-Reactive Protein 16.8 H* (<1.0) mg/dL Total Protein 7.2 (6.4-8.2) g/dl Albumin 2.9 L (3.4-5.0) g/dl Globulin 4.3 gm/dL Albumin/Globulin Ratio 0.7 L (1-2) Blood Type 06/09/20 06/09/20 06/09/20 Range/Units 06:52 10:59 16:41 WBC (4.23-9.07) K/mm3 RBC (4.63-6.08) M/mm3 Hgb (13.7-17.5) gm/dl Hct (40.1-51.0) % MCV (79.0-92.2) fl MCH (25.7-32.2) pg MCHC (32.2-35.5) g/dl RDW Std Deviation (35.1-43.9) fL Plt Count (163-337) K/mm3 MPV (9.4-12.3) fl Neut % (Auto) (34.0-67.9) % Lymph % (Auto) (21.8-53.1) % Metcalfe % (Auto) (5.3-12.2) % Eos % (Auto) (0.8-7.0) Baso % (Auto) (0.1-1.2) % Neut # (Auto) (1.78-5.38) K/mm3 Lymph # (Auto) (1.32-3.57) K/mm3 Metcalfe # (Auto) (0.30-0.82) K/mm3 Eos # (Auto) (0.04-0.54) K/mm3 Baso # (Auto) (0.01-0.08) K/mm3 Manual Slide Review D-Dimer, Quantitative (0.19-0.50) mg/L Sodium (136-145) mEq/L Potassium (3.5-5.1) mEq/L Chloride (98-107) mEq/L Carbon Dioxide (21-32) mEq/L Anion Gap (5-15) BUN (7-18) mg/dL Creatinine (0.7-1.3) mg/dL Est Cr Clr Drug Dosing mL/min Estimated GFR (MDRD) (>60) mL/min BUN/Creatinine Ratio (14-18) Glucose (83-115) mg/dL POC Glucose 262 H 348 H 385 H (83-110) mg/dL Calcium (8.5-10.1) mg/dL Phosphorus (2.6-4.7) mg/dL Magnesium (1.8-2.4) mg/dl Total Bilirubin (0.2-1.0) mg/dL AST (15-37) U/L ALT (16-63) U/L Alkaline Phosphatase (46-116) U/L C-Reactive Protein (<1.0) mg/dL Total Protein (6.4-8.2) g/dl Albumin (3.4-5.0) g/dl Globulin gm/dL Albumin/Globulin Ratio (1-2) Blood Type [place] Results Last 24 Hours: Microbiology 06/07/20 17:07 Aerobic Blood Culture - Preliminary Blood - Venous NO GROWTH AFTER 1 DAY Anaerobic Blood Culture - Preliminary NO GROWTH AFTER 1 DAY 06/07/20 17:17 Aerobic Blood Culture - Preliminary Blood - Venous - Lab Draw NO GROWTH AFTER 1 DAY Anaerobic Blood Culture - Preliminary NO GROWTH AFTER 1 DAY Med Orders - Current: Current Medications Acetaminophen (Tylenol) 650 mg RECTAL Q4H PRN PRN Reason: Pain (mild 1-3) Albuterol (Proventil Hfa) 0 gm INH Q4H PRN PRN Reason: Wheezing Last Admin: 06/08/20 19:35 Dose: 2 puff Documented by: Alogliptin Benzoate (Alogliptin) 25 mg PO DAILY [facility] Last Admin: 06/09/20 08:52 Dose: 25 mg Documented by: Aspirin (Halfprin) 81 mg PO DAILY [facility] Last Admin: 06/09/20 08:52 Dose: 81 mg Documented by: Dexamethasone (Dexamethasone) 6 mg PO DAILY [facility] Stop: 06/13/20 09:01 Last Admin: 06/09/20 08:52 Dose: 6 mg Documented by: Dextrose/Water (Dextrose 50% In Water) 50 ml IV ASDIRECTED PRN PRN Reason: Hypoglycemia Docusate Sodium (Colace) 100 mg PO BEDTIME [facility] Last Admin: 06/08/20 20:25 Dose: 100 mg Documented by: Enoxaparin Sodium (Lovenox) 40 mg SUBCUT DAILY [facility] Last Admin: 06/09/20 08:50 Dose: 40 mg Documented by: Azithromycin 500 mg/ Sodium (Chloride) 250 mls @ 250 mls/hr IV Q24H [facility] Stop: 06/09/20 20:59 Last Admin: 06/08/20 22:47 Dose: 250 mls/hr Documented by: Remdesivir 100 mg/ Sodium (Chloride) 100 mls @ 100 mls/hr IV Q24H [facility] Stop: 06/11/20 20:29 Last Admin: 06/08/20 21:30 Dose: 100 mls/hr Documented by: Ceftriaxone Sodium 2 gm/ (Sodium Chloride) 100 mls @ 200 mls/hr IV DAILY@1999 [facility] Stop: 06/11/20 20:29 Last Admin: 06/08/20 20:24 Dose: 200 mls/hr Documented by: Insulin Glargine (Lantus) 7 unit SUBCUT BID [facility] Insulin Human Lispro (Humalog) 0 unit SUBCUT QIDACANDBED [facility]; Protocol Metoprolol Succinate (Toprol Xl) 50 mg PO DAILY [facility] Last Admin: 06/09/20 08:52 Dose: 50 mg Documented by: Ondansetron HCl (Zofran) 4 mg IV Q4H PRN PRN Reason: Nausea/Vomiting Rosuvastatin Calcium (Crestor) 20 mg PO BEDTIME [facility] Last Admin: 06/08/20 20:25 Dose: 20 mg Documented by: Sodium Chloride (Saline Flush) 10 ml FLUSH ONETIME PRN PRN Reason: Keep Vein Open Last Admin: 06/07/20 14:24 Dose: 10 ml Documented by: Discontinued Medications Acetaminophen (Tylenol) 650 mg PO NOW ONE Stop: 06/07/20 16:36 Last Admin: 06/07/20 16:47 Dose: 650 mg Documented by: Alogliptin Benzoate (Alogliptin) 25 mg PO DAILY [facility] Last Admin: 06/07/20 11:23 Dose: 25 mg Documented by: Furosemide (Lasix) 20 mg IVPUSH NOW ONE Stop: 06/08/20 12:08 Last Admin: 06/08/20 12:23 Dose: 20 mg Documented by: Furosemide (Lasix) 20 mg IVPUSH NOW ONE Stop: 06/08/20 16:41 Last Admin: 06/08/20 17:26 Dose: 20 mg Documented by: Sodium Chloride (Normal Saline) 1,000 mls @ 500 mls/hr IV ONETIME ONE Stop: 06/07/20 14:51 Last Admin: 06/07/20 13:06 Dose: 500 mls/hr Documented by: Sodium Chloride (Normal Saline) 100 mls @ 75 mls/hr IV ASDIRECTED [facility] Last Admin: 06/07/20 14:10 Dose: 75 mls/hr Documented by: Remdesivir 100 mg/ Sodium (Chloride) 100 mls @ 100 mls/hr IV Q24H [facility] Stop: 06/11/20 19:29 Ceftriaxone Sodium 2 gm/ (Sodium Chloride) 100 mls @ 200 mls/hr IV DAILY@1800 [facility] Stop: 06/11/20 18:29 Last Admin: 06/08/20 19:58 Dose: Not Given Documented by: Remdesivir 200 mg/ Sodium (Chloride) 250 mls @ 250 mls/hr IV ONETIME ONE Stop: 06/07/20 21:29 Last Admin: 06/07/20 20:55 Dose: 250 mls/hr Documented by: Sodium Chloride (Normal Saline) Confirm Administered Dose 250 mls @ as directed .ROUTE [facility] Stop: 06/07/20 20:27 Last Admin: 06/07/20 20:54 Dose: Not Given Documented by: Sodium Chloride (Normal Saline) 1,000 mls @ 50 mls/hr IV ASDIRECTED [facility] Stop: 06/08/20 16:44 Last Admin: 06/07/20 22:06 Dose: 50 mls/hr Documented by: Magnesium Sulfate 4 gm/ Premix 50 mls @ 12.5 mls/hr IV ONETIME ONE Stop: 06/08/20 14:59 Last Admin: 06/08/20 11:43 Dose: 12.5 mls/hr Documented by: Sodium Chloride (Normal Saline) 250 mls @ 100 mls/hr IV ASDIRECTED [facility] Stop: 06/08/20 23:00 Last Admin: 06/08/20 16:55 Dose: 100 mls/hr Documented by: Insulin Glargine (Lantus) 7 unit SUBCUT DAILY [facility] Last Admin: 06/08/20 09:05 Dose: 7 unit Documented by: Insulin Glargine (Lantus) 5 unit SUBCUT BIDAC [facility] Last Admin: 06/09/20 17:01 Dose: 5 units Documented by: Insulin Glargine (Lantus) 5 unit SUBCUT NOW STA Stop: 06/09/20 08:28 Last Admin: 06/09/20 08:47 Dose: 5 units Documented by: Insulin Human Lispro (Humalog) 0 unit SUBCUT QIDACANDBED [facility]; Protocol Last Admin: 06/08/20 17:23 Dose: 5 units Documented by: Insulin Human Lispro (Humalog) 0 unit SUBCUT QIDACANDBED [facility]; Protocol Last Admin: 06/09/20 17:01 Dose: 10 units Documented by: Insulin Human Lispro (Humalog) 0 unit SUBCUT QIDACANDBED [facility]; Protocol Iopamidol (Isovue-370 (76%)) 100 ml IVPUSH ONETIME ONE Stop: 06/07/20 13:31 Last Admin: 06/07/20 14:00 Dose: 100 ml Documented by: Lisinopril (Prinivil) 40 mg PO DAILY [facility] Lisinopril (Prinivil) 40 mg PO DAILY [facility] Last Admin: 06/07/20 11:25 Dose: 40 mg Documented by: Metformin HCl (Glucophage) 1,000 mg PO ONETIME ONE Stop: 06/07/20 10:57 Last Admin: 06/07/20 19:43 Dose: Not Given Documented by: Metoprolol Succinate (Toprol Xl) 50 mg PO ONETIME ONE Stop: 06/07/20 10:58 Last Admin: 06/07/20 11:21 Dose: 50 mg Documented by: - Exam Quality Assessment: Supplemental Oxygen (High flow nasal cannula), Urine Catheter (Due to urinary retention) General: Alert, Oriented HEENT: Pupils Equal Neck: Supple Lungs: Decreased Breath Sounds, Rales, Wheezing. No: Normal Respiratory Effort (Increased respiratory rate and effort) Cardiovascular: Regular Rate, Regular Rhythm GI/Abdominal Exam: Normal Bowel Sounds, Soft, Non-Tender, No Distention Extremities: Normal Inspection, Normal Capillary Refill Peripheral Pulses: 2+: Posterior Tibial (L), Posterior Tibial (R), Dorsalis Pedis (L), Dorsalis Pedis (R) Skin: Warm, Dry, Intact Psy/Mental Status: Alert, Normal Affect, Normal Mood Sepsis Event Note - Evaluation Sepsis Screening Result: No Definite Risk - Focused Exam Vital Signs: Vital Signs Temp Pulse Resp BP Pulse Ox Pulse Ox 06/09/20 15:51 98.1 F 75 20 125/68 86 L 06/09/20 15:28 92 L 06/09/20 10:56 98.4 F 75 22 H 113/81 87 L 06/09/20 08:54 90 L 06/09/20 08:52 80 142/92 H 06/09/20 07:34 98.6 F 80 20 142/92 H 86 L 06/09/20 06:05 90 L - Problem List & Annotations (1) Elevated troponin I level SNOMED Code(s): 124486754 Code(s): R77.8 - OTHER SPECIFIED ABNORMALITIES OF PLASMA PROTEINS Status: Acute Current Visit: Yes (2) COVID-19 SNOMED Code(s): 109594472 Code(s): U07.1 - COVID-19 Status: Acute Current Visit: Yes (3) Hypoxia SNOMED Code(s): 671944094 Code(s): R09.02 - HYPOXEMIA Status: Acute Current Visit: Yes (4) Weakness SNOMED Code(s): 18536488 Code(s): R53.1 - WEAKNESS Status: Acute Current Visit: Yes - Problem List Review Problem List Initiated/Reviewed/Updated: Yes - My Orders Last 24 Hours: My Active Orders 06/08/20 19:30 Remdesivir (Eua) [Remdesivir (EUA)] 100 mg Sodium Chloride 0.9% [Normal Saline] 100 ml IV Q24H 06/08/20 20:00 cefTRIAXone [Rocephin] 2 gm Sodium Chloride 0.9% [Normal Saline] 100 ml IV DAILY@199906/09/20 Dinner Consistent Carbohydrate Diet [DIET] 06/09/20 22:00 Insulin Lispro [HumaLOG] 0 unit SUBCUT QIDACANDBED 06/10/20 06:00 Insulin Glarg,Human.Rec.Analog [LantUS] 7 unit SUBCUT BIDAC - Plan Plan:: Assessment 74-year-old male diagnosed with COVID-19 on 06/03/2020, but symptomatic since the sixth presents to the emergency department with increasing weakness Patient has more increased shortness of breath overnight. * Stable oxygen saturations, but continues on high flow nasal cannula at 55 L and 60% oxygen. * Received 2 units convalescent plasma yesterday * CTA of the chest showed no pulmonary embolism. Positive for patchy bilateral groundglass pulmonary infiltrates. Cardiomegaly with vascular calcifications including coronary artery calcifications. * WBC 8.13, CRP 16.8, D-dimer 4.68. These are all relatively stable. * On day 3 of remdesivir * On dexamethasone * Continues to be wheezy even on steroids. Elevated troponin, consider type II MT * No new symptoms Cardiomegaly * Echocardiogram on 06/08/2020: Summary: * 1 left ventricular ejection fraction, by visual estimation, is 65 to 70%. 2. Mild concentric left ventricular hypertrophy. 3. Trace aortic valve regurgitation. 4. Trace mitral valve regurgitation. 5. There is moderate biatrial dilatation. * On metoprolol succinate 50 mg daily * Rosuvastatin 20 mg daily Hyponatremiaimproving * Corrected sodium 133 * Likely due to poor oral intake and a thiazide diuretic Acute renal injurydeteriorated * Estimated GFR 42, creatinine 1.6, BUN 44 * Worsening due to diuresis Type 2 diabetes * Blood sugars are poorly controlled into the 300s * Increase Lantus to 10 units this morning * Hemoglobin A1c 7.5, TSH 0.528 * Blood sugars will worsen secondary to dexamethasone. * Hold metformin, a carbose, and pioglitazone. * Continue alogliptin Hypertension * Blood pressures in the 140s and 50s mainly Thrombocytopeniamild * Platelets 126 Plan * Admit to floor on continuous pulse ox and telemetry * Remdesivir day 3 of 5 * Continue dexamethasone for total of 10 days. * Increase Lantus to 8 units twice daily * Start premeal prandial Humalog 5 units * Sliding scale insulin medium dose * Follow CBC, CMP, mag, Phos, D-dimer, CRP * ceftriaxone and azithromycin day 3 * FiO2 to keep SPO2 between 88 and 94%. Currently on high flow nasal cannula 55 L, 60% FiO2 * VTE prophylaxis with Lovenox * CODE STATUS full code
[2020-06-09] MEDS: REMDESIVIR 100 MG in Sodium Chloride 0.9% 100 ML IV SCH (18:46)
[2020-06-09] MEDS: cefTRIAXone 2 GM in Sodium Chloride 0.9% 100 ML IV SCH (19:59)
[2020-06-09] MEDS: Azithromycin 500 MG in Sodium Chloride 0.9% 250 ML IV SCH (20:52)
[2020-06-09] MEDS: Rosuvastatin 10 MG Tab PO SCH (20:52)
[2020-06-09] MEDS: Docusate Sodium 100 MG Cap PO SCH (20:52)
[2020-06-10] MEDS: Albuterol 6.7 GM Inhaler INH PRN ×2 (00:47→20:16)
[2020-06-10] MEDS: Insulin Lispro 100 Units/ML 3 ML Vial SUBCUT SCH ×7 (07:36→22:35)
[2020-06-10] MEDS: Aspirin 81 MG Tab.EC PO SCH (08:39)
[2020-06-10] MEDS: Metoprolol Succinate 25 MG Tab.ER PO SCH (08:39)
[2020-06-10] MEDS: Enoxaparin 40 MG/0.4 ML Syringe SUBCUT SCH (08:39)
[2020-06-10] MEDS: Dexamethasone 4 MG Tab PO SCH (08:39)
[2020-06-10] MEDS ORDERED: Insulin Glarg,Human.Rec.Analog 100 Unit/ML SUBCUT SCH (09:00)
--- NOTE | 2020-06-10 09:14 | PCM.PN ---
- General Info Date of Service: 06/10/20 Admission Dx/Problem (Free Text): Admission Diagnosis/Problem Admission Diagnosis/Problem Hypoxia Subjective Update: [place] states he is feeling better today. Appetite is good. Functional Status: Reports: Pain Controlled - Review of Systems General: Reports: Fatigue HEENT: Reports: No Symptoms Pulmonary: Reports: Shortness of Breath Cardiovascular: Reports: No Symptoms Gastrointestinal: Reports: No Symptoms Musculoskeletal: Reports: No Symptoms Neurological: Reports: No Symptoms Psychiatric: Reports: No Symptoms - Patient Data Vitals - Most Recent: Last Vital Signs Temp 98.2 F 06/10/20 07:21 Pulse 60 06/10/20 08:39 Resp 20 06/10/20 07:21 BP 130/73 06/10/20 08:39 Pulse Ox 91 L 06/10/20 07:21 Weight - Most Recent: 248 lb 6.4 oz I&O - Last 24 Hours: Intake & Output 06/09/20 06/10/20 06/10/20 22:59 06:59 14:59 Intake Total 930 850 Output Total 1000 1300 Balance -70 -450 Lab Results Last 24 Hours: Laboratory Results - last 24 hr 06/09/20 06/09/20 06/09/20 Range/Units 10:59 16:41 21:50 WBC (4.23-9.07) K/mm3 RBC (4.63-6.08) M/mm3 Hgb (13.7-17.5) gm/dl Hct (40.1-51.0) % MCV (79.0-92.2) fl MCH (25.7-32.2) pg MCHC (32.2-35.5) g/dl RDW Std Deviation (35.1-43.9) fL Plt Count (163-337) K/mm3 MPV (9.4-12.3) fl Neut % (Auto) (34.0-67.9) % Lymph % (Auto) (21.8-53.1) % Murray % (Auto) (5.3-12.2) % Eos % (Auto) (0.8-7.0) Baso % (Auto) (0.1-1.2) % Neut # (Auto) (1.78-5.38) K/mm3 Lymph # (Auto) (1.32-3.57) K/mm3 Murray # (Auto) (0.30-0.82) K/mm3 Eos # (Auto) (0.04-0.54) K/mm3 Baso # (Auto) (0.01-0.08) K/mm3 Manual Slide Review D-Dimer, Quantitative (0.19-0.50) mg/L Sodium (136-145) mEq/L Potassium (3.5-5.1) mEq/L Chloride (98-107) mEq/L Carbon Dioxide (21-32) mEq/L Anion Gap (5-15) BUN (7-18) mg/dL Creatinine (0.7-1.3) mg/dL Est Cr Clr Drug Dosing mL/min Estimated GFR (MDRD) (>60) mL/min BUN/Creatinine Ratio (14-18) Glucose 400 H (83-115) mg/dL POC Glucose 348 H 385 H (83-110) mg/dL Calcium (8.5-10.1) mg/dL Phosphorus (2.6-4.7) mg/dL Magnesium (1.8-2.4) mg/dl Total Bilirubin (0.2-1.0) mg/dL AST (15-37) U/L ALT (16-63) U/L Alkaline Phosphatase (46-116) U/L C-Reactive Protein (<1.0) mg/dL Total Protein (6.4-8.2) g/dl Albumin (3.4-5.0) g/dl Globulin gm/dL Albumin/Globulin Ratio (1-2) 06/10/20 06/10/20 06/10/20 Range/Units 06:18 06:20 06:20 WBC 7.90 (4.23-9.07) K/mm3 RBC 3.95 L (4.63-6.08) M/mm3 Hgb 11.9 L (13.7-17.5) gm/dl Hct 35.6 L (40.1-51.0) % MCV 90.1 (79.0-92.2) fl MCH 30.1 (25.7-32.2) pg MCHC 33.4 (32.2-35.5) g/dl RDW Std Deviation 45.7 H (35.1-43.9) fL Plt Count 149 L (163-337) K/mm3 MPV 11.3 (9.4-12.3) fl Neut % (Auto) 84.5 H (34.0-67.9) % Lymph % (Auto) 8.5 L (21.8-53.1) % Murray % (Auto) 6.2 (5.3-12.2) % Eos % (Auto) 0.1 L (0.8-7.0) Baso % (Auto) 0.1 (0.1-1.2) % Neut # (Auto) 6.67 H (1.78-5.38) K/mm3 Lymph # (Auto) 0.67 L (1.32-3.57) K/mm3 Murray # (Auto) 0.49 (0.30-0.82) K/mm3 Eos # (Auto) 0.01 L (0.04-0.54) K/mm3 Baso # (Auto) 0.01 (0.01-0.08) K/mm3 Manual Slide Review Abnormal smear D-Dimer, Quantitative 4.90 H (0.19-0.50) mg/L Sodium (136-145) mEq/L Potassium (3.5-5.1) mEq/L Chloride (98-107) mEq/L Carbon Dioxide (21-32) mEq/L Anion Gap (5-15) BUN (7-18) mg/dL Creatinine (0.7-1.3) mg/dL Est Cr Clr Drug Dosing mL/min Estimated GFR (MDRD) (>60) mL/min BUN/Creatinine Ratio (14-18) Glucose (83-115) mg/dL POC Glucose 226 H (83-110) mg/dL Calcium (8.5-10.1) mg/dL Phosphorus (2.6-4.7) mg/dL Magnesium (1.8-2.4) mg/dl Total Bilirubin (0.2-1.0) mg/dL AST (15-37) U/L ALT (16-63) U/L Alkaline Phosphatase (46-116) U/L C-Reactive Protein (<1.0) mg/dL Total Protein (6.4-8.2) g/dl Albumin (3.4-5.0) g/dl Globulin gm/dL Albumin/Globulin Ratio (1-2) 06/10/20 Range/Units 06:20 WBC (4.23-9.07) K/mm3 RBC (4.63-6.08) M/mm3 Hgb (13.7-17.5) gm/dl Hct (40.1-51.0) % MCV (79.0-92.2) fl MCH (25.7-32.2) pg MCHC (32.2-35.5) g/dl RDW Std Deviation (35.1-43.9) fL Plt Count (163-337) K/mm3 MPV (9.4-12.3) fl Neut % (Auto) (34.0-67.9) % Lymph % (Auto) (21.8-53.1) % Murray % (Auto) (5.3-12.2) % Eos % (Auto) (0.8-7.0) Baso % (Auto) (0.1-1.2) % Neut # (Auto) (1.78-5.38) K/mm3 Lymph # (Auto) (1.32-3.57) K/mm3 Murray # (Auto) (0.30-0.82) K/mm3 Eos # (Auto) (0.04-0.54) K/mm3 Baso # (Auto) (0.01-0.08) K/mm3 Manual Slide Review D-Dimer, Quantitative (0.19-0.50) mg/L Sodium 132 L (136-145) mEq/L Potassium 4.1 (3.5-5.1) mEq/L Chloride 96 L (98-107) mEq/L Carbon Dioxide 29 (21-32) mEq/L Anion Gap 11.1 (5-15) BUN 46 H (7-18) mg/dL Creatinine 1.4 H (0.7-1.3) mg/dL Est Cr Clr Drug Dosing 50.04 mL/min Estimated GFR (MDRD) 49 (>60) mL/min BUN/Creatinine Ratio 32.9 H (14-18) Glucose 194 H (83-115) mg/dL POC Glucose (83-110) mg/dL Calcium 8.6 (8.5-10.1) mg/dL Phosphorus 2.6 (2.6-4.7) mg/dL Magnesium 1.9 (1.8-2.4) mg/dl Total Bilirubin 0.5 (0.2-1.0) mg/dL AST 52 H (15-37) U/L ALT 43 (16-63) U/L Alkaline Phosphatase 62 (46-116) U/L C-Reactive Protein 12.3 H* (<1.0) mg/dL Total Protein 7.2 (6.4-8.2) g/dl Albumin 2.8 L (3.4-5.0) g/dl Globulin 4.4 gm/dL Albumin/Globulin Ratio 0.6 L (1-2) [place] Results Last 24 Hours: Microbiology 06/07/20 17:07 Aerobic Blood Culture - Preliminary Blood - Venous NO GROWTH AFTER 2 DAYS Anaerobic Blood Culture - Preliminary NO GROWTH AFTER 2 DAYS 06/07/20 17:17 Aerobic Blood Culture - Preliminary Blood - Venous - Lab Draw NO GROWTH AFTER 2 DAYS Anaerobic Blood Culture - Preliminary NO GROWTH AFTER 2 DAYS Med Orders - Current: Current Medications Acetaminophen (Tylenol) 650 mg RECTAL Q4H PRN PRN Reason: Pain (mild 1-3) Albuterol (Proventil Hfa) 0 gm INH Q4H PRN PRN Reason: Wheezing Last Admin: 06/10/20 00:47 Dose: 2 puff Documented by: Alogliptin Benzoate (Alogliptin) 25 mg PO DAILY [facility] Last Admin: 06/10/20 08:39 Dose: 25 mg Documented by: Aspirin (Halfprin) 81 mg PO DAILY [facility] Last Admin: 06/10/20 08:39 Dose: 81 mg Documented by: Dexamethasone (Dexamethasone) 6 mg PO DAILY [facility] Stop: 06/13/20 09:01 Last Admin: 06/10/20 08:39 Dose: 6 mg Documented by: Dextrose/Water (Dextrose 50% In Water) 50 ml IV ASDIRECTED PRN PRN Reason: Hypoglycemia Docusate Sodium (Colace) 100 mg PO BEDTIME [facility] Last Admin: 06/09/20 20:52 Dose: 100 mg Documented by: Enoxaparin Sodium (Lovenox) 40 mg SUBCUT DAILY [facility] Last Admin: 06/10/20 08:39 Dose: 40 mg Documented by: Remdesivir 100 mg/ Sodium (Chloride) 100 mls @ 100 mls/hr IV Q24H [facility] Stop: 06/11/20 20:29 Last Admin: 06/09/20 18:46 Dose: 100 mls/hr Documented by: Ceftriaxone Sodium 2 gm/ (Sodium Chloride) 100 mls @ 200 mls/hr IV DAILY@1999 [facility] Stop: 06/11/20 20:29 Last Admin: 06/09/20 19:59 Dose: 200 mls/hr Documented by: Insulin Glargine (Lantus) 7 unit SUBCUT BID [facility] Last Admin: 06/10/20 08:37 Dose: 7 units Documented by: Insulin Human Lispro (Humalog) 0 unit SUBCUT QIDACANDBED [facility]; Protocol Last Admin: 06/10/20 07:36 Dose: 4 units Documented by: Insulin Human Lispro (Humalog) 5 unit SUBCUT TIDPC [facility] Last Admin: 06/10/20 08:38 Dose: 5 units Documented by: Metoprolol Succinate (Toprol Xl) 50 mg PO DAILY [facility] Last Admin: 06/10/20 08:39 Dose: 50 mg Documented by: Ondansetron HCl (Zofran) 4 mg IV Q4H PRN PRN Reason: Nausea/Vomiting Rosuvastatin Calcium (Crestor) 20 mg PO BEDTIME [facility] Last Admin: 06/09/20 20:52 Dose: 20 mg Documented by: Sodium Chloride (Saline Flush) 10 ml FLUSH ONETIME PRN PRN Reason: Keep Vein Open Last Admin: 06/07/20 14:24 Dose: 10 ml Documented by: Discontinued Medications Acetaminophen (Tylenol) 650 mg PO NOW ONE Stop: 06/07/20 16:36 Last Admin: 06/07/20 16:47 Dose: 650 mg Documented by: Alogliptin Benzoate (Alogliptin) 25 mg PO DAILY [facility] Last Admin: 06/07/20 11:23 Dose: 25 mg Documented by: Furosemide (Lasix) 20 mg IVPUSH NOW ONE Stop: 06/08/20 12:08 Last Admin: 06/08/20 12:23 Dose: 20 mg Documented by: Furosemide (Lasix) 20 mg IVPUSH NOW ONE Stop: 06/08/20 16:41 Last Admin: 06/08/20 17:26 Dose: 20 mg Documented by: Sodium Chloride (Normal Saline) 1,000 mls @ 500 mls/hr IV ONETIME ONE Stop: 06/07/20 14:51 Last Admin: 06/07/20 13:06 Dose: 500 mls/hr Documented by: Sodium Chloride (Normal Saline) 100 mls @ 75 mls/hr IV ASDIRECTED [facility] Last Admin: 06/07/20 14:10 Dose: 75 mls/hr Documented by: Remdesivir 100 mg/ Sodium (Chloride) 100 mls @ 100 mls/hr IV Q24H [facility] Stop: 06/11/20 19:29 Ceftriaxone Sodium 2 gm/ (Sodium Chloride) 100 mls @ 200 mls/hr IV DAILY@1800 [facility] Stop: 06/11/20 18:29 Last Admin: 06/08/20 19:58 Dose: Not Given Documented by: Azithromycin 500 mg/ Sodium (Chloride) 250 mls @ 250 mls/hr IV Q24H [facility] Stop: 06/09/20 20:59 Last Admin: 06/09/20 20:52 Dose: 250 mls/hr Documented by: Remdesivir 200 mg/ Sodium (Chloride) 250 mls @ 250 mls/hr IV ONETIME ONE Stop: 06/07/20 21:29 Last Admin: 06/07/20 20:55 Dose: 250 mls/hr Documented by: Sodium Chloride (Normal Saline) Confirm Administered Dose 250 mls @ as directed .ROUTE .STK-MED ONE Stop: 06/07/20 20:27 Last Admin: 06/07/20 20:54 Dose: Not Given Documented by: Sodium Chloride (Normal Saline) 1,000 mls @ 50 mls/hr IV ASDIRECTED [facility] Stop: 06/08/20 16:44 Last Admin: 06/07/20 22:06 Dose: 50 mls/hr Documented by: Magnesium Sulfate 4 gm/ Premix 50 mls @ 12.5 mls/hr IV ONETIME ONE Stop: 06/08/20 14:59 Last Admin: 06/08/20 11:43 Dose: 12.5 mls/hr Documented by: Sodium Chloride (Normal Saline) 250 mls @ 100 mls/hr IV ASDIRECTED [facility] Stop: 06/08/20 23:00 Last Admin: 06/08/20 16:55 Dose: 100 mls/hr Documented by: Insulin Glargine (Lantus) 7 unit SUBCUT DAILY [facility] Last Admin: 06/08/20 09:05 Dose: 7 unit Documented by: Insulin Glargine (Lantus) 5 unit SUBCUT BIDAC [facility] Last Admin: 06/09/20 17:01 Dose: 5 units Documented by: Insulin Glargine (Lantus) 5 unit SUBCUT NOW STA Stop: 06/09/20 08:28 Last Admin: 06/09/20 08:47 Dose: 5 units Documented by: Insulin Human Lispro (Humalog) 0 unit SUBCUT QIDACANDBED [facility]; Protocol Last Admin: 06/08/20 17:23 Dose: 5 units Documented by: Insulin Human Lispro (Humalog) 0 unit SUBCUT QIDACANDBED [facility]; Protocol Last Admin: 06/09/20 17:01 Dose: 10 units Documented by: Insulin Human Lispro (Humalog) 0 unit SUBCUT QIDACANDBED [facility]; Protocol Last Admin: 06/09/20 17:33 Dose: Not Given Documented by: Insulin Human Lispro (Humalog) 0 unit SUBCUT QIDACANDBED [facility]; Protocol Iopamidol (Isovue-370 (76%)) 100 ml IVPUSH ONETIME ONE Stop: 06/07/20 13:31 Last Admin: 06/07/20 14:00 Dose: 100 ml Documented by: Lisinopril (Prinivil) 40 mg PO DAILY [facility] Lisinopril (Prinivil) 40 mg PO DAILY [facility] Last Admin: 06/07/20 11:25 Dose: 40 mg Documented by: Metformin HCl (Glucophage) 1,000 mg PO ONETIME ONE Stop: 06/07/20 10:57 Last Admin: 06/07/20 19:43 Dose: Not Given Documented by: Metoprolol Succinate (Toprol Xl) 50 mg PO ONETIME ONE Stop: 06/07/20 10:58 Last Admin: 06/07/20 11:21 Dose: 50 mg Documented by: - Exam Quality Assessment: Supplemental Oxygen General: Alert, Oriented HEENT: Pupils Equal, Mucous Membr. Moist/Dendron Neck: Supple Lungs: Rales (Bibasilar). No: Normal Respiratory Effort (Increased respiratory rate and effort) Cardiovascular: Regular Rate, Regular Rhythm GI/Abdominal Exam: Normal Bowel Sounds, Soft, Non-Tender, No Distention Extremities: Normal Inspection, Normal Range of Motion, Non-Tender, No Pedal Edema, Normal Capillary Refill Skin: Warm, Dry, Intact Neurological: No New Focal Deficit Psy/Mental Status: Alert, Normal Affect, Normal Mood Sepsis Event Note - Evaluation Sepsis Screening Result: No Definite Risk - Focused Exam Vital Signs: Vital Signs Temp Pulse Resp BP Pulse Ox Pulse Ox 06/10/20 08:39 60 130/73 06/10/20 07:21 98.2 F 60 20 130/73 91 L 06/10/20 04:42 89 L 06/10/20 03:36 97.9 F 64 26 H 140/70 89 L 06/10/20 01:53 90 L 06/10/20 00:47 90 L 06/10/20 00:12 98.1 F 06/09/20 23:55 73 18 139/72 85 L - Problem List & Annotations (1) Elevated troponin I level SNOMED Code(s): 007473055 Code(s): R77.8 - OTHER SPECIFIED ABNORMALITIES OF PLASMA PROTEINS Status: Acute Current Visit: Yes (2) COVID-19 SNOMED Code(s): 993936384 Code(s): U07.1 - COVID-19 Status: Acute Current Visit: Yes (3) Hypoxia SNOMED Code(s): 399344334 Code(s): R09.02 - HYPOXEMIA Status: Acute Current Visit: Yes (4) Weakness SNOMED Code(s): 94253092 Code(s): R53.1 - WEAKNESS Status: Acute Current Visit: Yes - Problem List Review Problem List Initiated/Reviewed/Updated: Yes - My Orders Last 24 Hours: My Active Orders 06/09/20 Dinner Consistent Carbohydrate Diet [DIET] 06/09/20 19:00 Insulin Lispro [HumaLOG] 5 unit SUBCUT TIDPC 06/09/20 22:00 Insulin Lispro [HumaLOG] See Protocol SUBCUT QIDACANDBED 06/10/20 09:00 Insulin Glarg,Human.Rec.Analog [LantUS] 7 unit SUBCUT BID 06/10/20 09:12 CXR [Chest 1V Frontal] [CR] Urgent - Plan Plan:: Assessment 74-year-old male diagnosed with COVID-19 on 06/03/2020, but symptomatic since the sixth presents to the emergency department with increasing weakness Patient has more increased shortness of breath overnight. * Worsening oxygenation requiring increase in oxygen concentration high flow nasal cannula at 55 L and 80 % oxygen. * Received 2 units convalescent plasma * CTA of the chest on 06/07/2020: No pulmonary embolism. Positive for patchy bilateral groundglass pulmonary infiltrates. Cardiomegaly with vascular calcifications including coronary artery calcifications. * WBC 7.9, C-reactive protein 12.3, D-dimer 4.9. These are all relatively stable. * On day 4 of remdesivir * On dexamethasone * Wheezing improved Elevated troponin, consider type II OR * No new symptoms Cardiomegaly * Echocardiogram on 06/08/2020: Summary: * 1 left ventricular ejection fraction, by visual estimation, is 65 to 70%. 2. Mild concentric left ventricular hypertrophy. 3. Trace aortic valve regurgitation. 4. Trace mitral valve regurgitation. 5. There is moderate biatrial dilatation. * On metoprolol succinate 50 mg daily * Rosuvastatin 20 mg daily Hyponatremiaimproving * Corrected sodium 134 * Likely due to poor oral intake and a thiazide diuretic Acute renal injuryimproved * Estimated GFR 49, creatinine 1.4, BUN 46 * Baseline GFR greater than 60 * Worsening due to diuresis Type 2 diabetes * Blood sugars much better controlled on Lantus twice daily, prandial and sliding scale insulin * Increase Lantus to 10 units this morning * Hemoglobin A1c 7.5, TSH 0.528 * Blood sugars will worsen secondary to dexamethasone. * Hold metformin, a carbose, and pioglitazone. * Continue alogliptin Hypertension * Blood pressures in the 140s and 150s mainly Thrombocytopeniaresolved * Platelets 149 Plan * Admit to floor on continuous pulse ox and telemetry * Remdesivir day 4 of 5 * Continue dexamethasone for total of 10 days. Will need to decrease insulin when off dexamethasone. * Increase Lantus to 8 units twice daily * Start premeal prandial Humalog 5 units * Sliding scale insulin medium dose * Follow CBC, CMP, mag, Phos, D-dimer, CRP * ceftriaxone day 4 of 5 and azithromycin completed * FiO2 to keep SPO2 between 88 and 94%. Currently on high flow nasal cannula 55 L, 80% FiO2 * VTE prophylaxis with Lovenox * CODE STATUS full code Length of stay greater than 96 hours secondary to worsening COVID-19 pneumonia.
--- NOTE | 2020-06-10 10:37 | CR ---
PROCEDURE INFORMATION: Exam: XR Chest, 1 View Exam date and time: 06/10/2020 9:25 AM Age: 74 years old Clinical indication: Dyspnea; COVID-19 TECHNIQUE: Imaging protocol: XR of the chest Views: 1 view. COMPARISON: CR - Chest 1V Frontal 06/07/2020 9:52:19 AM FINDINGS: Lungs: There has been worsening of the bilateral airspace disease compatible with pneumonia. Pleural space: No pleural effusion or pneumothorax. Heart/Mediastinum: The cardiac silhouette is not enlarged when allowing for a left epicardial fat pad. The mediastinal contours are normal. Bones/joints: No acute osseous abnormality. IMPRESSION: Worsening bilateral pneumonia. Thank you for allowing us to participate in the care of your patient. Dictated and Authenticated by: Dylan Bone MD 06/10/2020 11:33 AM Central Time ([place] & [place]) [id number]
[2020-06-10] MEDS: REMDESIVIR 100 MG in Sodium Chloride 0.9% 100 ML IV SCH (18:35)
[2020-06-10] MEDS: Insulin Glarg,Human.Rec.Analog 100 Unit/ML SUBCUT SCH (22:34)
[2020-06-10] MEDS: cefTRIAXone 2 GM in Sodium Chloride 0.9% 100 ML IV SCH (22:34)
[2020-06-10] MEDS: Docusate Sodium 100 MG Cap PO SCH (22:36)
[2020-06-10] MEDS: Rosuvastatin 10 MG Tab PO SCH (22:36)
--- NOTE | 2020-06-11 07:43 | PCM.PN ---
- General Info Date of Service: 06/11/20 Admission Dx/Problem (Free Text): Admission Diagnosis/Problem Admission Diagnosis/Problem Hypoxia Subjective Update: No overnight or acute issues. He feels pretty good. He has no new complaints. He is drinking and eating fine. Functional Status: Reports: Pain Controlled - Review of Systems General: Denies: Fever, Chills HEENT: Reports: No Symptoms Pulmonary: Reports: Shortness of Breath, Cough Cardiovascular: Denies: Chest Pain Gastrointestinal: Denies: Abdominal Pain, Nausea, Vomiting Genitourinary: Reports: No Symptoms Musculoskeletal: Denies: Back Pain Skin: Denies: Rash Neurological: Denies: Confusion, Weakness Psychiatric: Denies: Depression, Anxiety - Patient Data Vitals - Most Recent: Last Vital Signs Temp 36.7 C 06/11/20 03:30 Pulse 65 06/11/20 03:30 Resp 18 06/11/20 03:30 BP 133/69 06/11/20 03:30 Pulse Ox 89 L 06/11/20 05:46 Weight - Most Recent: 112.037 kg I&O - Last 24 Hours: Intake & Output 06/10/20 06/11/20 06/11/20 22:59 06:59 14:59 Intake Total 840 600 Output Total 750 1450 Balance 90 -850 Lab Results Last 24 Hours: Laboratory Results - last 24 hr 06/10/20 06/10/20 06/10/20 Range/Units 06:20 11:26 16:40 Manual Slide Review Abnormal smear POC Glucose 333 H 302 H (83-110) mg/dL 06/10/20 06/11/20 Range/Units 22:30 06:07 Manual Slide Review POC Glucose 326 H 158 H (83-110) mg/dL [place] Results Last 24 Hours: Microbiology 06/07/20 17:07 Aerobic Blood Culture - Preliminary Blood - Venous NO GROWTH AFTER 3 DAYS Anaerobic Blood Culture - Preliminary NO GROWTH AFTER 3 DAYS 06/07/20 17:17 Aerobic Blood Culture - Preliminary Blood - Venous - Lab Draw NO GROWTH AFTER 3 DAYS Anaerobic Blood Culture - Preliminary NO GROWTH AFTER 3 DAYS Med Orders - Current: Current Medications Acetaminophen (Tylenol) 650 mg RECTAL Q4H PRN PRN Reason: Pain (mild 1-3) Albuterol (Proventil Hfa) 0 gm INH Q4H PRN PRN Reason: Wheezing Last Admin: 06/10/20 20:16 Dose: 2 puff Documented by: Alogliptin Benzoate (Alogliptin) 25 mg PO DAILY [facility] Last Admin: 06/10/20 08:39 Dose: 25 mg Documented by: Aspirin (Halfprin) 81 mg PO DAILY [facility] Last Admin: 06/10/20 08:39 Dose: 81 mg Documented by: Dexamethasone (Dexamethasone) 6 mg PO DAILY [facility] Stop: 06/13/20 09:01 Last Admin: 06/10/20 08:39 Dose: 6 mg Documented by: Dextrose/Water (Dextrose 50% In Water) 50 ml IV ASDIRECTED PRN PRN Reason: Hypoglycemia Docusate Sodium (Colace) 100 mg PO BEDTIME [facility] Last Admin: 06/10/20 22:36 Dose: 100 mg Documented by: Enoxaparin Sodium (Lovenox) 40 mg SUBCUT DAILY [facility] Last Admin: 06/10/20 08:39 Dose: 40 mg Documented by: Remdesivir 100 mg/ Sodium (Chloride) 100 mls @ 100 mls/hr IV Q24H [facility] Stop: 06/11/20 20:29 Last Admin: 06/10/20 18:35 Dose: 100 mls/hr Documented by: Ceftriaxone Sodium 2 gm/ (Sodium Chloride) 100 mls @ 200 mls/hr IV DAILY@1999 [facility] Stop: 06/11/20 20:29 Last Admin: 06/10/20 22:34 Dose: 200 mls/hr Documented by: Insulin Glargine (Lantus) 10 unit SUBCUT BID [facility] Last Admin: 06/10/20 22:34 Dose: 10 units Documented by: Insulin Human Lispro (Humalog) 0 unit SUBCUT QIDACANDBED [facility]; Protocol Last Admin: 06/10/20 22:35 Dose: 8 units Documented by: Insulin Human Lispro (Humalog) 7 unit SUBCUT TIDPC [facility] Metoprolol Succinate (Toprol Xl) 50 mg PO DAILY [facility] Last Admin: 06/10/20 08:39 Dose: 50 mg Documented by: Ondansetron HCl (Zofran) 4 mg IV Q4H PRN PRN Reason: Nausea/Vomiting Rosuvastatin Calcium (Crestor) 20 mg PO BEDTIME [facility] Last Admin: 06/10/20 22:36 Dose: 20 mg Documented by: Sodium Chloride (Saline Flush) 10 ml FLUSH ONETIME PRN PRN Reason: Keep Vein Open Last Admin: 06/07/20 14:24 Dose: 10 ml Documented by: Discontinued Medications Acetaminophen (Tylenol) 650 mg PO NOW ONE Stop: 06/07/20 16:36 Last Admin: 06/07/20 16:47 Dose: 650 mg Documented by: Alogliptin Benzoate (Alogliptin) 25 mg PO DAILY [facility] Last Admin: 06/07/20 11:23 Dose: 25 mg Documented by: Furosemide (Lasix) 20 mg IVPUSH NOW ONE Stop: 06/08/20 12:08 Last Admin: 06/08/20 12:23 Dose: 20 mg Documented by: Furosemide (Lasix) 20 mg IVPUSH NOW ONE Stop: 06/08/20 16:41 Last Admin: 06/08/20 17:26 Dose: 20 mg Documented by: Sodium Chloride (Normal Saline) 1,000 mls @ 500 mls/hr IV ONETIME ONE Stop: 06/07/20 14:51 Last Admin: 06/07/20 13:06 Dose: 500 mls/hr Documented by: Sodium Chloride (Normal Saline) 100 mls @ 75 mls/hr IV ASDIRECTED [facility] Last Admin: 06/07/20 14:10 Dose: 75 mls/hr Documented by: Remdesivir 100 mg/ Sodium (Chloride) 100 mls @ 100 mls/hr IV Q24H [facility] Stop: 06/11/20 19:29 Ceftriaxone Sodium 2 gm/ (Sodium Chloride) 100 mls @ 200 mls/hr IV DAILY@1800 [facility] Stop: 06/11/20 18:29 Last Admin: 06/08/20 19:58 Dose: Not Given Documented by: Azithromycin 500 mg/ Sodium (Chloride) 250 mls @ 250 mls/hr IV Q24H [facility] Stop: 06/09/20 20:59 Last Admin: 06/09/20 20:52 Dose: 250 mls/hr Documented by: Remdesivir 200 mg/ Sodium (Chloride) 250 mls @ 250 mls/hr IV ONETIME ONE Stop: 06/07/20 21:29 Last Admin: 06/07/20 20:55 Dose: 250 mls/hr Documented by: Sodium Chloride (Normal Saline) Confirm Administered Dose 250 mls @ as directed .ROUTE .STK-MED ONE Stop: 06/07/20 20:27 Last Admin: 06/07/20 20:54 Dose: Not Given Documented by: Sodium Chloride (Normal Saline) 1,000 mls @ 50 mls/hr IV ASDIRECTED [facility] Stop: 06/08/20 16:44 Last Admin: 06/07/20 22:06 Dose: 50 mls/hr Documented by: Magnesium Sulfate 4 gm/ Premix 50 mls @ 12.5 mls/hr IV ONETIME ONE Stop: 06/08/20 14:59 Last Admin: 06/08/20 11:43 Dose: 12.5 mls/hr Documented by: Sodium Chloride (Normal Saline) 250 mls @ 100 mls/hr IV ASDIRECTED [facility] Stop: 06/08/20 23:00 Last Admin: 06/08/20 16:55 Dose: 100 mls/hr Documented by: Insulin Glargine (Lantus) 7 unit SUBCUT DAILY [facility] Last Admin: 06/08/20 09:05 Dose: 7 unit Documented by: Insulin Glargine (Lantus) 5 unit SUBCUT BIDAC [facility] Last Admin: 06/09/20 17:01 Dose: 5 units Documented by: Insulin Glargine (Lantus) 5 unit SUBCUT NOW STA Stop: 06/09/20 08:28 Last Admin: 06/09/20 08:47 Dose: 5 units Documented by: Insulin Glargine (Lantus) 7 unit SUBCUT BID [facility] Last Admin: 06/10/20 08:37 Dose: 7 units Documented by: Insulin Glargine (Lantus) 8 unit SUBCUT BID [facility] Insulin Human Lispro (Humalog) 0 unit SUBCUT QIDACANDBED [facility]; Protocol Last Admin: 06/08/20 17:23 Dose: 5 units Documented by: Insulin Human Lispro (Humalog) 0 unit SUBCUT QIDACANDBED [facility]; Protocol Last Admin: 06/09/20 17:01 Dose: 10 units Documented by: Insulin Human Lispro (Humalog) 0 unit SUBCUT QIDACANDBED [facility]; Protocol Last Admin: 06/09/20 17:33 Dose: Not Given Documented by: Insulin Human Lispro (Humalog) 0 unit SUBCUT QIDACANDBED [facility]; Protocol Insulin Human Lispro (Humalog) 5 unit SUBCUT TIDPC [facility] Last Admin: 06/10/20 18:34 Dose: 5 units Documented by: Iopamidol (Isovue-370 (76%)) 100 ml IVPUSH ONETIME ONE Stop: 06/07/20 13:31 Last Admin: 06/07/20 14:00 Dose: 100 ml Documented by: Lisinopril (Prinivil) 40 mg PO DAILY [facility] Lisinopril (Prinivil) 40 mg PO DAILY [facility] Last Admin: 06/07/20 11:25 Dose: 40 mg Documented by: Metformin HCl (Glucophage) 1,000 mg PO ONETIME ONE Stop: 06/07/20 10:57 Last Admin: 06/07/20 19:43 Dose: Not Given Documented by: Metoprolol Succinate (Toprol Xl) 50 mg PO ONETIME ONE Stop: 06/07/20 10:58 Last Admin: 06/07/20 11:21 Dose: 50 mg Documented by: - Exam Quality Assessment: Supplemental Oxygen General: Alert, Oriented, Cooperative, Other (he does not look septic) HEENT: Pupils Equal, Pupils Reactive, Mucous Membr. Moist/[place] Neck: Supple Lungs: Decreased Breath Sounds, Other (tachypneic) Cardiovascular: Regular Rate, Regular Rhythm GI/Abdominal Exam: Normal Bowel Sounds, Soft, Non-Tender, No Organomegaly, No D istention, No Abnormal Bruit, No Mass (Male) Exam: Deferred Back Exam: Normal Inspection, Decreased Range of Motion Extremities: Normal Inspection, Normal Range of Motion, Non-Tender, No Pedal Edema, Normal Capillary Refill Peripheral Pulses: 2+: Dorsalis Pedis (L), Dorsalis Pedis (R) Skin: Warm, Dry, Intact Neurological: No New Focal Deficit Psy/Mental Status: Alert, Normal Affect, Normal Mood Sepsis Event Note - Evaluation Sepsis Screening Result: No Definite Risk - Focused Exam Vital Signs: Vital Signs Temp Pulse Resp BP Pulse Ox Pulse Ox 06/11/20 05:46 89 L 06/11/20 03:30 36.7 C 65 18 133/69 91 L 06/11/20 00:37 93 L 06/11/20 00:09 36.7 C 56 L 18 140/67 89 L 06/10/20 21:03 36.6 C 61 20 139/72 90 L 06/10/20 20:17 95 - Problem List Review Problem List Initiated/Reviewed/Updated: Yes - Plan Plan:: Assessment 74-year-old male diagnosed with COVID-19 on 06/03/2020, but symptomatic since the sixth presents to the emergency department with increasing weakness. COVID-19 Infection Viral Pneumonitis Leukocytosis Acute Hypoxic Respiratory Failure * Worsening oxygenation requiring increase in oxygen concentration high flow na tanja cannula at 60 L and 80-85 % oxygen * S/p 2 units convalescent plasma * CTA of the chest on 06/07/2020: No pulmonary embolism. Positive for patchy bilateral groundglass pulmonary infiltrates. Cardiomegaly with vascular calcifications including coronary artery calcifications. * WBC 9.29, C-reactive protein 10.7, D-dimer 4.9 * On day 5 of remdesivir * On dexamethasone-will changed it to 6 mg po BID * Continue IV Antibiotic(s)-last day of rocephin Elevated troponin, consider type II [place] * No new symptoms Hyperlipidemia * On metoprolol succinate 50 mg daily * Rosuvastatin 20 mg daily Hyponatremiaimproving * Na today is 131 * Likely due to poor oral intake and diuretic use S/p Acute renal injuryimproved Type 2 diabetes, Not controlled * Increase Lantus from 10 to 15 units BID * Change ISS to high intensity; discontinue bernard novolog * Hemoglobin A1c 7.5, TSH 0.528 * Blood sugars will worsen secondary to dexamethasone * Hold metformin, a carbose, and pioglitazone * Continue alogliptin Hypertension * Blood pressures improved Thrombocytopeniaresolved * Platelets 117 Elevated Hypochloremia * Cl of 97 * Will monitor Hypomagnesemia * Mg of 1.7; will replete Plan: * Continue high flow * Remdesivir day 5 of 5 * Continue dexamethasone for total of 10 days; now BID * Increase Lantus to 15 units twice daily * Sliding scale insulin high intensity * Follow CBC, CMP, mag, Phos, D-dimer, CRP * Ceftriaxone day 5 of 5 and azithromycin completed * VTE prophylaxis with Lovenox 40 mg Sub BID-elevated D-dimer * Encourage to use IS and FV and ambulate inside his room * CODE STATUS full code Spoke to at 1132. Informed her, appears to be worsening but clinically looks good. Repeat chest x-ray shows worsening pneumonia and now requiring FiO2 of 80-85%. She and her boys would like to meet up with me tomorrow.
[2020-06-11] MEDS: Insulin Lispro 100 Units/ML 3 ML Vial SUBCUT SCH ×6 (07:58→22:43)
[2020-06-11] MEDS: Metoprolol Succinate 25 MG Tab.ER PO SCH (08:00)
[2020-06-11] MEDS: Enoxaparin 40 MG/0.4 ML Syringe SUBCUT SCH ×2 (08:00→21:04)
[2020-06-11] MEDS: Dexamethasone 4 MG Tab PO SCH ×2 (08:01→21:04)
[2020-06-11] MEDS: Aspirin 81 MG Tab.EC PO SCH (08:01)
[2020-06-11] MEDS: Insulin Glarg,Human.Rec.Analog 100 Unit/ML SUBCUT SCH ×2 (08:02→21:05)
[2020-06-11] MEDS ORDERED: Insulin Glarg,Human.Rec.Analog 100 Unit/ML SUBCUT SCH (09:00)
[2020-06-11] MEDS ORDERED: Magnesium Sulfate/Water 2 GM/50 ML BAG IV ONE (15:08)
[2020-06-11] MEDS ORDERED: Furosemide 20 MG Tab PO ONE (15:09)
[2020-06-11] MEDS: REMDESIVIR 100 MG in Sodium Chloride 0.9% 100 ML IV SCH (18:39)
[2020-06-11] MEDS: cefTRIAXone 2 GM in Sodium Chloride 0.9% 100 ML IV SCH (19:54)
[2020-06-11] MEDS: Docusate Sodium 100 MG Cap PO SCH (21:04)
[2020-06-11] MEDS: Rosuvastatin 10 MG Tab PO SCH (21:04)
--- NOTE | 2020-06-12 07:01 | PCM.PN ---
- General Info Date of Service: 06/12/20 Admission Dx/Problem (Free Text): Admission Diagnosis/Problem Admission Diagnosis/Problem Hypoxia Subjective Update: No overnight or acute issues. Again, he states he feels good. He has no new complaints. He is drinking and eating fine. He is on 60 L at 80-85% Fio2. He desaturates in upper 80s with activities. He drops in the 60-70s on RA. - Review of Systems General: Denies: Fever, Chills HEENT: Denies: Contact Lenses Pulmonary: Reports: Cough. Denies: Shortness of Breath Cardiovascular: Denies: Chest Pain Gastrointestinal: Denies: Abdominal Pain, Nausea, Vomiting Genitourinary: Reports: No Symptoms Musculoskeletal: Reports: No Symptoms Skin: Denies: Cyanosis, Diaphoresis Neurological: Denies: Dizziness, Syncope, Gait Disturbance Psychiatric: Denies: Depression, Anxiety - Patient Data Vitals - Most Recent: Last Vital Signs Temp 36.6 C 06/12/20 04:01 Pulse 58 L 06/12/20 04:01 Resp 22 H 06/12/20 04:01 BP 131/73 06/12/20 04:01 Pulse Ox 92 L 06/12/20 05:59 Weight - Most Recent: 109.724 kg I&O - Last 24 Hours: Intake & Output 06/11/20 06/12/20 06/12/20 22:59 06:59 14:59 Intake Total 600 650 Output Total 1000 2100 Balance -400 -1450 Lab Results Last 24 Hours: Laboratory Results - last 24 hr 06/11/20 06/11/20 06/11/20 Range/Units 11: 11: 11: WBC 9.29 H (4.23-9.07) K/mm3 RBC 3.89 L (4.63-6.08) M/mm3 Hgb 11.7 L (13.7-17.5) gm/dl Hct 34.8 L (40.1-51.0) % MCV 89.5 (79.0-92.2) fl MCH 30.1 (25.7-32.2) pg MCHC 33.6 (32.2-35.5) g/dl RDW Std Deviation 45.3 H (35.1-43.9) fL Plt Count 177 (163-337) K/mm3 MPV 11.2 (9.4-12.3) fl Neut % (Auto) 89.5 H (34.0-67.9) % Lymph % (Auto) 5.2 L (21.8-53.1) % [place] % (Auto) 4.1 L (5.3-12.2) % Eos % (Auto) 0.2 L (0.8-7.0) Baso % (Auto) 0.2 (0.1-1.2) % Neut # (Auto) 8.32 H (1.78-5.38) K/mm3 Lymph # (Auto) 0.48 L (1.32-3.57) K/mm3 [place] # (Auto) 0.38 (0.30-0.82) K/mm3 Eos # (Auto) 0.02 L (0.04-0.54) K/mm3 Baso # (Auto) 0.02 (0.01-0.08) K/mm3 Manual Slide Review Abnormal smear ESR 55 H (0-15) mm/hr Sodium 131 L (136-145) mEq/L Potassium 4.4 (3.5-5.1) mEq/L Chloride 97 L (98-107) mEq/L Carbon Dioxide 27 (21-32) mEq/L Anion Gap 11.4 (5-15) BUN 38 H (7-18) mg/dL Creatinine 1.2 (0.7-1.3) mg/dL Est Cr Clr Drug Dosing 58.38 mL/min Estimated GFR (MDRD) 59 (>60) mL/min BUN/Creatinine Ratio 31.7 H (14-18) Glucose 292 H (83-115) mg/dL POC Glucose (83-110) mg/dL Calcium 9.2 (8.5-10.1) mg/dL Magnesium 1.7 L (1.8-2.4) mg/dl C-Reactive Protein 10.7 H* (<1.0) mg/dL 06/11/20 06/11/20 06/11/20 Range/Units 11:35 17:22 22:10 WBC (4.23-9.07) K/mm3 RBC (4.63-6.08) M/mm3 Hgb (13.7-17.5) gm/dl Hct (40.1-51.0) % MCV (79.0-92.2) fl MCH (25.7-32.2) pg MCHC (32.2-35.5) g/dl RDW Std Deviation (35.1-43.9) fL Plt Count (163-337) K/mm3 MPV (9.4-12.3) fl Neut % (Auto) (34.0-67.9) % Lymph % (Auto) (21.8-53.1) % [place] % (Auto) (5.3-12.2) % Eos % (Auto) (0.8-7.0) Baso % (Auto) (0.1-1.2) % Neut # (Auto) (1.78-5.38) K/mm3 Lymph # (Auto) (1.32-3.57) K/mm3 [place] # (Auto) (0.30-0.82) K/mm3 Eos # (Auto) (0.04-0.54) K/mm3 Baso # (Auto) (0.01-0.08) K/mm3 Manual Slide Review ESR (0-15) mm/hr Sodium (136-145) mEq/L Potassium (3.5-5.1) mEq/L Chloride (98-107) mEq/L Carbon Dioxide (21-32) mEq/L Anion Gap (5-15) BUN (7-18) mg/dL Creatinine (0.7-1.3) mg/dL Est Cr Clr Drug Dosing mL/min Estimated GFR (MDRD) (>60) mL/min BUN/Creatinine Ratio (14-18) Glucose (83-115) mg/dL POC Glucose 310 H 260 H 324 H (83-110) mg/dL Calcium (8.5-10.1) mg/dL Magnesium (1.8-2.4) mg/dl C-Reactive Protein (<1.0) mg/dL 06/12/20 06/12/20 Range/Units 05:42 05:42 WBC 7.81 (4.23-9.07) K/mm3 RBC 4.07 L (4.63-6.08) M/mm3 Hgb 12.1 L (13.7-17.5) gm/dl Hct 36.7 L (40.1-51.0) % MCV 90.2 (79.0-92.2) fl MCH 29.7 (25.7-32.2) pg MCHC 33.0 (32.2-35.5) g/dl RDW Std Deviation 45.1 H (35.1-43.9) fL Plt Count 203 (163-337) K/mm3 MPV 11.2 (9.4-12.3) fl Neut % (Auto) 86.5 H (34.0-67.9) % Lymph % (Auto) 8.3 L (21.8-53.1) % [place] % (Auto) 4.6 L (5.3-12.2) % Eos % (Auto) 0 L (0.8-7.0) Baso % (Auto) 0.1 (0.1-1.2) % Neut # (Auto) 6.75 H (1.78-5.38) K/mm3 Lymph # (Auto) 0.65 L (1.32-3.57) K/mm3 [place] # (Auto) 0.36 (0.30-0.82) K/mm3 Eos # (Auto) 0.00 L (0.04-0.54) K/mm3 Baso # (Auto) 0.01 (0.01-0.08) K/mm3 Manual Slide Review ESR (0-15) mm/hr Sodium 135 L (136-145) mEq/L Potassium 4.4 (3.5-5.1) mEq/L Chloride 99 (98-107) mEq/L Carbon Dioxide 29 (21-32) mEq/L Anion Gap 11.4 (5-15) BUN 37 H (7-18) mg/dL Creatinine 1.1 (0.7-1.3) mg/dL Est Cr Clr Drug Dosing 63.69 mL/min Estimated GFR (MDRD) > 60 (>60) mL/min BUN/Creatinine Ratio 33.6 H (14-18) Glucose 170 H (83-115) mg/dL POC Glucose (83-110) mg/dL Calcium 9.1 (8.5-10.1) mg/dL Magnesium 1.9 (1.8-2.4) mg/dl C-Reactive Protein 11.5 H* (<1.0) mg/dL [place] Results Last 24 Hours: Microbiology 06/07/20 17:07 Aerobic Blood Culture - Preliminary Blood - Venous NO GROWTH AFTER 4 DAYS Anaerobic Blood Culture - Preliminary NO GROWTH AFTER 4 DAYS 06/07/20 17:17 Aerobic Blood Culture - Preliminary Blood - Venous - Lab Draw NO GROWTH AFTER 4 DAYS Anaerobic Blood Culture - Preliminary NO GROWTH AFTER 4 DAYS Med Orders - Current: Current Medications Acetaminophen (Tylenol) 650 mg RECTAL Q4H PRN PRN Reason: Pain (mild 1-3) Albuterol (Proventil Hfa) 0 gm INH Q4H PRN PRN Reason: Wheezing Last Admin: 06/10/20 20:16 Dose: 2 puff Documented by: Alogliptin Benzoate (Alogliptin) 25 mg PO DAILY [facility] Last Admin: 06/11/20 08:01 Dose: 25 mg Documented by: Aspirin (Halfprin) 81 mg PO DAILY [facility] Last Admin: 06/11/20 08:01 Dose: 81 mg Documented by: Dexamethasone (Dexamethasone) 6 mg PO BID [facility] Stop: 06/12/20 09:01 Last Admin: 06/11/20 21:04 Dose: 6 mg Documented by: Dextrose/Water (Dextrose 50% In Water) 50 ml IV ASDIRECTED PRN PRN Reason: Hypoglycemia Docusate Sodium (Colace) 100 mg PO BEDTIME [facility] Last Admin: 06/11/20 21:04 Dose: 100 mg Documented by: Enoxaparin Sodium (Lovenox) 40 mg SUBCUT BID [facility] Last Admin: 06/11/20 21:04 Dose: 40 mg Documented by: Furosemide (Lasix) 20 mg PO DAILY [facility] Insulin Glargine (Lantus) 15 unit SUBCUT BID [facility] Last Admin: 06/11/20 21:05 Dose: 15 units Documented by: Insulin Human Lispro (Humalog) 0 unit SUBCUT QIDACANDBED [facility]; Protocol Last Admin: 06/11/20 22:43 Dose: 12 units Documented by: Metoprolol Succinate (Toprol Xl) 50 mg PO DAILY [facility] Ondansetron HCl (Zofran) 4 mg IV Q4H PRN PRN Reason: Nausea/Vomiting Rosuvastatin Calcium (Crestor) 20 mg PO BEDTIME [facility] Last Admin: 06/11/20 21:04 Dose: 20 mg Documented by: Sodium Chloride (Saline Flush) 10 ml FLUSH ONETIME PRN PRN Reason: Keep Vein Open Last Admin: 06/07/20 14:24 Dose: 10 ml Documented by: Discontinued Medications Acetaminophen (Tylenol) 650 mg PO NOW ONE Stop: 06/07/20 16:36 Last Admin: 06/07/20 16:47 Dose: 650 mg Documented by: Alogliptin Benzoate (Alogliptin) 25 mg PO DAILY [facility] Last Admin: 06/07/20 11:23 Dose: 25 mg Documented by: Dexamethasone (Dexamethasone) 6 mg PO DAILY [facility] Stop: 06/13/20 09:01 Last Admin: 06/11/20 08:01 Dose: 6 mg Documented by: Enoxaparin Sodium (Lovenox) 40 mg SUBCUT DAILY [facility] Last Admin: 06/11/20 08:00 Dose: 40 mg Documented by: Furosemide (Lasix) 20 mg IVPUSH NOW ONE Stop: 06/08/20 12:08 Last Admin: 06/08/20 12:23 Dose: 20 mg Documented by: Furosemide (Lasix) 20 mg IVPUSH NOW ONE Stop: 06/08/20 16:41 Last Admin: 06/08/20 17:26 Dose: 20 mg Documented by: Furosemide (Lasix) 20 mg PO ONETIME ONE Stop: 06/11/20 15:10 Last Admin: 06/11/20 15:29 Dose: 20 mg Documented by: Sodium Chloride (Normal Saline) 1,000 mls @ 500 mls/hr IV ONETIME ONE Stop: 06/07/20 14:51 Last Admin: 06/07/20 13:06 Dose: 500 mls/hr Documented by: Sodium Chloride (Normal Saline) 100 mls @ 75 mls/hr IV ASDIRECTED [facility] Last Admin: 06/07/20 14:10 Dose: 75 mls/hr Documented by: Remdesivir 100 mg/ Sodium (Chloride) 100 mls @ 100 mls/hr IV Q24H [facility] Stop: 06/11/20 19:29 Ceftriaxone Sodium 2 gm/ (Sodium Chloride) 100 mls @ 200 mls/hr IV DAILY@1800 [facility] Stop: 06/11/20 18:29 Last Admin: 06/08/20 19:58 Dose: Not Given Documented by: Azithromycin 500 mg/ Sodium (Chloride) 250 mls @ 250 mls/hr IV Q24H [facility] Stop: 06/09/20 20:59 Last Admin: 06/09/20 20:52 Dose: 250 mls/hr Documented by: Remdesivir 200 mg/ Sodium (Chloride) 250 mls @ 250 mls/hr IV ONETIME ONE Stop: 06/07/20 21:29 Last Admin: 06/07/20 20:55 Dose: 250 mls/hr Documented by: Sodium Chloride (Normal Saline) Confirm Administered Dose 250 mls @ as directed .ROUTE .STK-MED ONE Stop: 06/07/20 20:27 Last Admin: 06/07/20 20:54 Dose: Not Given Documented by: Sodium Chloride (Normal Saline) 1,000 mls @ 50 mls/hr IV ASDIRECTED [facility] Stop: 06/08/20 16:44 Last Admin: 06/07/20 22:06 Dose: 50 mls/hr Documented by: Magnesium Sulfate 4 gm/ Premix 50 mls @ 12.5 mls/hr IV ONETIME ONE Stop: 06/08/20 14:59 Last Admin: 06/08/20 11:43 Dose: 12.5 mls/hr Documented by: Sodium Chloride (Normal Saline) 250 mls @ 100 mls/hr IV ASDIRECTED [facility] Stop: 06/08/20 23:00 Last Admin: 06/08/20 16:55 Dose: 100 mls/hr Documented by: Remdesivir 100 mg/ Sodium (Chloride) 100 mls @ 100 mls/hr IV Q24H [facility] Stop: 06/11/20 20:29 Last Admin: 06/11/20 18:39 Dose: 100 mls/hr Documented by: Ceftriaxone Sodium 2 gm/ (Sodium Chloride) 100 mls @ 200 mls/hr IV DAILY@1999 [facility] Stop: 06/11/20 20:29 Last Admin: 06/11/20 19:54 Dose: 200 mls/hr Documented by: Magnesium Sulfate (Magnesium Sulfate In Water Premix) 2 gm in 50 mls @ 25 mls/hr IV ONETIME ONE Stop: 06/11/20 17:07 Last Admin: 06/11/20 15:30 Dose: 25 mls/hr Documented by: Insulin Glargine (Lantus) 7 unit SUBCUT DAILY [facility] Last Admin: 06/08/20 09:05 Dose: 7 unit Documented by: Insulin Glargine (Lantus) 5 unit SUBCUT BIDAC [facility] Last Admin: 06/09/20 17:01 Dose: 5 units Documented by: Insulin Glargine (Lantus) 5 unit SUBCUT NOW [facility] Stop: 06/09/20 08:28 Last Admin: 06/09/20 08:47 Dose: 5 units Documented by: Insulin Glargine (Lantus) 7 unit SUBCUT BID [facility] Last Admin: 06/10/20 08:37 Dose: 7 units Documented by: Insulin Glargine (Lantus) 8 unit SUBCUT BID [facility] Insulin Glargine (Lantus) 10 unit SUBCUT BID [facility] Last Admin: 06/11/20 08:02 Dose: 10 units Documented by: Insulin Human Lispro (Humalog) 0 unit SUBCUT QIDACANDBED [facility]; Protocol Last Admin: 06/08/20 17:23 Dose: 5 units Documented by: Insulin Human Lispro (Humalog) 0 unit SUBCUT QIDACANDBED [facility]; Protocol Last Admin: 06/09/20 17:01 Dose: 10 units Documented by: Insulin Human Lispro (Humalog) 0 unit SUBCUT QIDACANDBED [facility]; Protocol Last Admin: 06/09/20 17:33 Dose: Not Given Documented by: Insulin Human Lispro (Humalog) 0 unit SUBCUT QIDACANDBED [facility]; Protocol Insulin Human Lispro (Humalog) 5 unit SUBCUT TIDPC [facility] Last Admin: 06/10/20 18:34 Dose: 5 units Documented by: Insulin Human Lispro (Humalog) 7 unit SUBCUT TIDPC [facility] Last Admin: 06/11/20 12:44 Dose: 7 units Documented by: Iopamidol (Isovue-370 (76%)) 100 ml IVPUSH ONETIME ONE Stop: 06/07/20 13:31 Last Admin: 06/07/20 14:00 Dose: 100 ml Documented by: Lisinopril (Prinivil) 40 mg PO DAILY [facility] Lisinopril (Prinivil) 40 mg PO DAILY [facility] Last Admin: 06/07/20 11:25 Dose: 40 mg Documented by: Metformin HCl (Glucophage) 1,000 mg PO ONETIME ONE Stop: 06/07/20 10:57 Last Admin: 06/07/20 19:43 Dose: Not Given Documented by: Metoprolol Succinate (Toprol Xl) 50 mg PO ONETIME ONE Stop: 06/07/20 10:58 Last Admin: 06/07/20 11:21 Dose: 50 mg Documented by: Metoprolol Succinate (Toprol Xl) 50 mg PO DAILY [facility] Last Admin: 06/11/20 08:00 Dose: 50 mg Documented by: - Exam Quality Assessment: Supplemental Oxygen General: Alert, Oriented, Cooperative, No Acute Distress HEENT: Pupils Reactive, EOMI, Mucous Membr. Moist/[place] Neck: Supple Lungs: Rhonchi, Wheezing Cardiovascular: Regular Rate, Regular Rhythm GI/Abdominal Exam: Normal Bowel Sounds, Soft, Non-Tender, No Organomegaly, No Distention, No Abnormal Bruit, No Mass, Pelvis Stable (Male) Exam: Deferred Back Exam: Normal Inspection, Full Range of Motion Extremities: Normal Inspection, Normal Range of Motion, Non-Tender, No Pedal Edema, Normal Capillary Refill Peripheral Pulses: 2+: Dorsalis Pedis (L), Dorsalis Pedis (R) Skin: Warm, Dry, Intact Neurological: No New Focal Deficit Psy/Mental Status: Alert, Normal Affect, Normal Mood Sepsis Event Note - Evaluation Sepsis Screening Result: No Definite Risk - Focused Exam Vital Signs: Vital Signs Temp Pulse Resp BP Pulse Ox Pulse Ox 06/12/20 05:59 92 L 06/12/20 04:01 36.6 C 58 L 22 H 131/73 88 L 06/11/20 23:27 89 L 06/11/20 19:37 90 L - Problem List Review Problem List Initiated/Reviewed/Updated: Yes - My Orders Last 24 Hours: My Active Orders 06/11/20 12:06 Resuscitation Status Routine 06/11/20 17:26 Bladder Scan [RC] 18,06 Communication Order [RC] ASDIRECTED Notify Provider Intake and Out [RC] ASDIRECTED 06/11/20 17:30 Insert Urinary Catheter [OM.PC] PRN 06/11/20 21:00 Enoxaparin [Lovenox] 40 mg SUBCUT BID Insulin Glarg,Human.Rec.Analog [LantUS] 15 unit SUBCUT BID dexAMETHasone 6 mg PO BID 06/12/20 05:42 CBC WITH AUTO DIFF [HEME] DAILY 06/12/20 07:00 Chest 1V Frontal [CR] Routine 06/12/20 09:00 Furosemide [Lasix] 20 mg PO DAILY 06/12/20 17:30 Insert Urinary Catheter [OM.PC] PRN 06/13/20 05:00 BMP [BASIC METABOLIC PANEL,BMP] [CHEM] DAILY CBC WITH AUTO DIFF [HEME] DAILY CRP [C-REACTIVE PROTEIN] [CHEM] DAILY MAGNESIUM [CHEM] DAILY 06/14/20 05:00 BMP [BASIC METABOLIC PANEL,BMP] [CHEM] DAILY CBC WITH AUTO DIFF [HEME] DAILY CRP [C-REACTIVE PROTEIN] [CHEM] DAILY MAGNESIUM [CHEM] DAILY 06/15/20 05:00 BMP [BASIC METABOLIC PANEL,BMP] [CHEM] DAILY CBC WITH AUTO DIFF [HEME] DAILY CRP [C-REACTIVE PROTEIN] [CHEM] DAILY MAGNESIUM [CHEM] DAILY 06/16/20 05:00 BMP [BASIC METABOLIC PANEL,BMP] [CHEM] DAILY CBC WITH AUTO DIFF [HEME] DAILY CRP [C-REACTIVE PROTEIN] [CHEM] DAILY MAGNESIUM [CHEM] DAILY 06/17/20 05:00 BMP [BASIC METABOLIC PANEL,BMP] [CHEM] DAILY CBC WITH AUTO DIFF [HEME] DAILY CRP [C-REACTIVE PROTEIN] [CHEM] DAILY MAGNESIUM [CHEM] DAILY 06/18/20 05:00 BMP [BASIC METABOLIC PANEL,BMP] [CHEM] DAILY CBC WITH AUTO DIFF [HEME] DAILY CRP [C-REACTIVE PROTEIN] [CHEM] DAILY MAGNESIUM [CHEM] DAILY - Plan Plan:: Assessment 74-year-old male diagnosed with COVID-19 on 06/03/2020, but symptomatic since the sixth presents to the emergency department with increasing weakness. COVID-19 Infection Viral Pneumonitis Leukocytosis Acute Hypoxic Respiratory Failure * Worsening oxygenation requiring increase in oxygen concentration high flow nasal cannula at 60 L and 80-85 % oxygen * S/p 2 units convalescent plasma * CTA of the chest on 06/07/2020: No pulmonary embolism. Positive for patchy bilateral groundglass pulmonary infiltrates. Cardiomegaly with vascular calcifications including coronary artery calcifications. * WBC 97.81, C-reactive protein 11.5, D-dimer 4.9 * Completed 5 day course of remdesivir * Completed Rocephin and Azithromycin * Continue dexamethasone 6 mg po BID-nothing else to offer Elevated troponin, consider type II NM * No new symptoms Hyperlipidemia * Rosuvastatin 20 mg daily Hyponatremiaimproving * Na today is 135 * Likely due to poor oral intake and diuretic use S/p Acute renal injuryresolved Type 2 diabetes, improved * Continue Lantus from 10 to 15 units BID with high intensity ISS * Hemoglobin A1c 7.5, TSH 0.528 * Blood sugars will worsen secondary to dexamethasone * Hold metformin, a carbose, and pioglitazone * Continue alogliptin Hypertension * On metoprolol succinate 50 mg daily * Blood pressures improved Thrombocytopeniaresolved * Platelets 203 Elevated Hypochloremia-resolved * Cl of 99 * Will monitor Hypomagnesemia-resolved * Mg now is 1.9 Plan: * Continue high flow * Sliding scale insulin high intensity * Follow CBC, CMP, mag, Phos, D-dimer, CRP * Nothing else to offer--will continue oral steroids * Consider LTAC due to continued requirement for high flow * VTE prophylaxis with Lovenox 40 mg Sub BID-elevated D-dimer * Encourage to use IS and FV and ambulate inside his room * CODE STATUS full code Met up family at 1300 today. We went over his clinical progress and possibly placement post treatment. He is on high flow and would unlikely be admitted to any of the local nursing homes for rehab. We offered LTAC in [place] and they agreed. Presented discharge care plan to the patient and he was receptive to it. ONEIL Holguin, will work on paperwork placement.
[2020-06-12] MEDS: Aspirin 81 MG Tab.EC PO SCH (08:16)
[2020-06-12] MEDS: Dexamethasone 4 MG Tab PO SCH ×2 (08:17→21:45)
[2020-06-12] MEDS: Enoxaparin 40 MG/0.4 ML Syringe SUBCUT SCH ×2 (08:17→21:47)
[2020-06-12] MEDS: Furosemide 20 MG Tab PO SCH (08:17)
[2020-06-12] MEDS: Insulin Glarg,Human.Rec.Analog 100 Unit/ML SUBCUT SCH ×2 (08:21→21:46)
[2020-06-12] MEDS: Insulin Lispro 100 Units/ML 3 ML Vial SUBCUT SCH ×4 (08:31→21:47)
[2020-06-12] MEDS: Metoprolol Succinate 50 MG Tab.ER PO SCH (09:05)
--- NOTE | 2020-06-12 09:25 | CR ---
PROCEDURE INFORMATION: Exam: XR Chest, 1 View Exam date and time: 06/12/2020 8:10 AM Age: 74 years old Clinical indication: Other: Covid TECHNIQUE: Imaging protocol: XR of the chest Views: 1 view. COMPARISON: CR Chest 1V Frontal 06/10/2020 9:25 AM FINDINGS: Lungs: There are similar bilateral airspace opacities. Pleural space: Unremarkable. No pleural effusion. No pneumothorax. Heart/Mediastinum: The cardiomediastinal silhouette is fairly stable in appearance. Bones/joints: Degenerative changes again involve the spine. IMPRESSION: Stable radiographic appearance of the chest since 06/10/20. Thank you for allowing us to participate in the care of your patient. Dictated and Authenticated by: Frederick Lugo MD 06/12/2020 10:19 AM Central Time ([place] & [place]) [facility]ALLokesh
[2020-06-12] MEDS: Docusate Sodium 100 MG Cap PO SCH (21:44)
[2020-06-12] MEDS: Rosuvastatin 10 MG Tab PO SCH (21:44)
[2020-06-13] MEDS: Insulin Lispro 100 Units/ML 3 ML Vial SUBCUT SCH ×4 (07:39→22:39)
[2020-06-13] MEDS: Aspirin 81 MG Tab.EC PO SCH (10:25)
[2020-06-13] MEDS: Enoxaparin 40 MG/0.4 ML Syringe SUBCUT SCH ×2 (10:26→22:39)
[2020-06-13] MEDS: Furosemide 20 MG Tab PO SCH (10:28)
[2020-06-13] MEDS: Dexamethasone 4 MG Tab PO SCH ×2 (10:28→22:37)
[2020-06-13] MEDS: Insulin Glarg,Human.Rec.Analog 100 Unit/ML SUBCUT SCH ×2 (10:28→22:38)
[2020-06-13] MEDS ORDERED: Magnesium Sulfate/Water 2 GM/50 ML BAG IV ONE (11:00)
[2020-06-13] MEDS ORDERED: QUEtiapine 25 MG Tab PO ONE (11:18)
--- NOTE | 2020-06-13 11:22 | PCM.PN ---
- General Info Date of Service: 06/13/20 Admission Dx/Problem (Free Text): Admission Diagnosis/Problem Admission Diagnosis/Problem Hypoxia Subjective Update: No overnight or acute issues. He has no complaints. He had proning protocol yesterday. He had trouble proning last night and could not keep his O2 on. He remains on high flow 60L at but now down to 65% FiO2. - Review of Systems General: Denies: Fever, Chills Pulmonary: Reports: Cough. Denies: Shortness of Breath Cardiovascular: Denies: Chest Pain Gastrointestinal: Denies: Abdominal Pain, Nausea, Vomiting Genitourinary: Denies: Incontinence Musculoskeletal: Denies: Joint Pain Skin: Denies: Rash Neurological: Denies: Dizziness Psychiatric: Denies: Depression, Anxiety - Patient Data Vitals - Most Recent: Last Vital Signs Temp 36.7 C 06/13/20 07:23 Pulse 77 06/13/20 09:00 Resp 24 H 06/13/20 07:23 BP 135/60 06/13/20 09:00 Pulse Ox 90 L 06/13/20 09:51 Weight - Most Recent: 109.86 kg I&O - Last 24 Hours: Intake & Output 06/12/20 06/13/20 06/13/20 22:59 06:59 14:59 Intake Total 1720 450 Output Total 950 1850 Balance 770 -1400 Lab Results Last 24 Hours: Laboratory Results - last 24 hr 06/12/20 06/12/20 06/12/20 Range/Units 11:29 18:05 21:41 WBC (4.23-9.07) K/mm3 RBC (4.63-6.08) M/mm3 Hgb (13.7-17.5) gm/dl Hct (40.1-51.0) % MCV (79.0-92.2) fl MCH (25.7-32.2) pg MCHC (32.2-35.5) g/dl RDW Std Deviation (35.1-43.9) fL Plt Count (163-337) K/mm3 MPV (9.4-12.3) fl Neut % (Auto) (34.0-67.9) % Lymph % (Auto) (21.8-53.1) % Towns % (Auto) (5.3-12.2) % Eos % (Auto) (0.8-7.0) Baso % (Auto) (0.1-1.2) % Neut # (Auto) (1.78-5.38) K/mm3 Lymph # (Auto) (1.32-3.57) K/mm3 Towns # (Auto) (0.30-0.82) K/mm3 Eos # (Auto) (0.04-0.54) K/mm3 Baso # (Auto) (0.01-0.08) K/mm3 Manual Slide Review Sodium (136-145) mEq/L Potassium (3.5-5.1) mEq/L Chloride (98-107) mEq/L Carbon Dioxide (21-32) mEq/L Anion Gap (5-15) BUN (7-18) mg/dL Creatinine (0.7-1.3) mg/dL Est Cr Clr Drug Dosing mL/min Estimated GFR (MDRD) (>60) mL/min BUN/Creatinine Ratio (14-18) Glucose 470 H (83-115) mg/dL POC Glucose 304 H 301 H (83-110) mg/dL Calcium (8.5-10.1) mg/dL Magnesium (1.8-2.4) mg/dl C-Reactive Protein (<1.0) mg/dL 06/13/20 06/13/20 06/13/20 Range/Units 06:50 07:44 07:44 WBC 7.78 (4.23-9.07) K/mm3 RBC 4.12 L (4.63-6.08) M/mm3 Hgb 12.4 L (13.7-17.5) gm/dl Hct 37.5 L (40.1-51.0) % MCV 91.0 (79.0-92.2) fl MCH 30.1 (25.7-32.2) pg MCHC 33.1 (32.2-35.5) g/dl RDW Std Deviation 46.4 H (35.1-43.9) fL Plt Count 215 (163-337) K/mm3 MPV 10.8 (9.4-12.3) fl Neut % (Auto) 82.1 H (34.0-67.9) % Lymph % (Auto) 11.2 L (21.8-53.1) % Towns % (Auto) 4.2 L (5.3-12.2) % Eos % (Auto) 1.4 (0.8-7.0) Baso % (Auto) 0.3 (0.1-1.2) % Neut # (Auto) 6.39 H (1.78-5.38) K/mm3 Lymph # (Auto) 0.87 L (1.32-3.57) K/mm3 Towns # (Auto) 0.33 (0.30-0.82) K/mm3 Eos # (Auto) 0.11 (0.04-0.54) K/mm3 Baso # (Auto) 0.02 (0.01-0.08) K/mm3 Manual Slide Review Normal smear Sodium 139 (136-145) mEq/L Potassium 3.7 (3.5-5.1) mEq/L Chloride 101 (98-107) mEq/L Carbon Dioxide 30 (21-32) mEq/L Anion Gap 11.7 (5-15) BUN 38 H (7-18) mg/dL Creatinine 1.2 (0.7-1.3) mg/dL Est Cr Clr Drug Dosing 58.38 mL/min Estimated GFR (MDRD) 59 (>60) mL/min BUN/Creatinine Ratio 31.7 H (14-18) Glucose 112 (83-115) mg/dL POC Glucose 97 (83-110) mg/dL Calcium 9.3 (8.5-10.1) mg/dL Magnesium 1.7 L (1.8-2.4) mg/dl C-Reactive Protein 5.5 H* (<1.0) mg/dL [place] Results Last 24 Hours: Microbiology 06/07/20 17:07 Aerobic Blood Culture - Preliminary Blood - Venous NO GROWTH AFTER 5 DAYS Anaerobic Blood Culture - Preliminary NO GROWTH AFTER 5 DAYS 06/07/20 17:17 Aerobic Blood Culture - Preliminary Blood - Venous - Lab Draw NO GROWTH AFTER 5 DAYS Anaerobic Blood Culture - Preliminary NO GROWTH AFTER 5 DAYS Med Orders - Current: Current Medications Acetaminophen (Tylenol) 650 mg RECTAL Q4H PRN PRN Reason: Pain (mild 1-3) Albuterol (Proventil Hfa) 0 gm INH Q4H PRN PRN Reason: Wheezing Last Admin: 06/10/20 20:16 Dose: 2 puff Documented by: Alogliptin Benzoate (Alogliptin) 25 mg PO DAILY [facility] Last Admin: 06/13/20 10:25 Dose: Not Given Documented by: Aspirin (Halfprin) 81 mg PO DAILY [facility] Last Admin: 06/13/20 10:25 Dose: Not Given Documented by: Dexamethasone (Dexamethasone) 6 mg PO BID [facility] Stop: 06/13/20 21:01 Last Admin: 06/13/20 10:28 Dose: Not Given Documented by: Dextrose/Water (Dextrose 50% In Water) 50 ml IV ASDIRECTED PRN PRN Reason: Hypoglycemia Docusate Sodium (Colace) 100 mg PO BEDTIME [facility] Last Admin: 06/12/20 21:44 Dose: 100 mg Documented by: Enoxaparin Sodium (Lovenox) 40 mg SUBCUT BID [facility] Last Admin: 06/13/20 10:26 Dose: Not Given Documented by: Furosemide (Lasix) 20 mg PO DAILY [facility] Last Admin: 06/13/20 10:28 Dose: Not Given Documented by: Magnesium Sulfate (Magnesium Sulfate In Water Premix) 2 gm in 50 mls @ 25 mls/hr IV ONETIME ONE Stop: 06/13/20 12:59 Insulin Glargine (Lantus) 20 unit SUBCUT BID [facility] Last Admin: 06/13/20 10:28 Dose: Not Given Documented by: Insulin Human Lispro (Humalog) 0 unit SUBCUT QIDACANDBED [facility]; Protocol Last Admin: 06/13/20 07:39 Dose: Not Given Documented by: Metoprolol Succinate (Toprol Xl) 50 mg PO DAILY [facility] Last Admin: 06/12/20 09:05 Dose: Not Given Documented by: Ondansetron HCl (Zofran) 4 mg IV Q4H PRN PRN Reason: Nausea/Vomiting Rosuvastatin Calcium (Crestor) 20 mg PO BEDTIME [facility] Last Admin: 06/12/20 21:44 Dose: 20 mg Documented by: Sodium Chloride (Saline Flush) 10 ml FLUSH ONETIME PRN PRN Reason: Keep Vein Open Last Admin: 06/07/20 14:24 Dose: 10 ml Documented by: Discontinued Medications Acetaminophen (Tylenol) 650 mg PO NOW ONE Stop: 06/07/20 16:36 Last Admin: 06/07/20 16:47 Dose: 650 mg Documented by: Alogliptin Benzoate (Alogliptin) 25 mg PO DAILY [facility] Last Admin: 06/07/20 11:23 Dose: 25 mg Documented by: Dexamethasone (Dexamethasone) 6 mg PO DAILY [facility] Stop: 06/13/20 09:01 Last Admin: 06/11/20 08:01 Dose: 6 mg Documented by: Dexamethasone (Dexamethasone) 6 mg PO BID [facility] Stop: 06/12/20 09:01 Last Admin: 06/12/20 08:17 Dose: 6 mg Documented by: Enoxaparin Sodium (Lovenox) 40 mg SUBCUT DAILY [facility] Last Admin: 06/11/20 08:00 Dose: 40 mg Documented by: Furosemide (Lasix) 20 mg IVPUSH NOW ONE Stop: 06/08/20 12:08 Last Admin: 06/08/20 12:23 Dose: 20 mg Documented by: Furosemide (Lasix) 20 mg IVPUSH NOW ONE Stop: 06/08/20 16:41 Last Admin: 06/08/20 17:26 Dose: 20 mg Documented by: Furosemide (Lasix) 20 mg PO ONETIME ONE Stop: 06/11/20 15:10 Last Admin: 06/11/20 15:29 Dose: 20 mg Documented by: Sodium Chloride (Normal Saline) 1,000 mls @ 500 mls/hr IV ONETIME ONE Stop: 06/07/20 14:51 Last Admin: 06/07/20 13:06 Dose: 500 mls/hr Documented by: Sodium Chloride (Normal Saline) 100 mls @ 75 mls/hr IV ASDIRECTED [facility] Last Admin: 06/07/20 14:10 Dose: 75 mls/hr Documented by: Remdesivir 100 mg/ Sodium (Chloride) 100 mls @ 100 mls/hr IV Q24H [facility] Stop: 06/11/20 19:29 Ceftriaxone Sodium 2 gm/ (Sodium Chloride) 100 mls @ 200 mls/hr IV DAILY@1800 [facility] Stop: 06/11/20 18:29 Last Admin: 06/08/20 19:58 Dose: Not Given Documented by: Azithromycin 500 mg/ Sodium (Chloride) 250 mls @ 250 mls/hr IV Q24H [facility] Stop: 06/09/20 20:59 Last Admin: 06/09/20 20:52 Dose: 250 mls/hr Documented by: Remdesivir 200 mg/ Sodium (Chloride) 250 mls @ 250 mls/hr IV ONETIME ONE Stop: 06/07/20 21:29 Last Admin: 06/07/20 20:55 Dose: 250 mls/hr Documented by: Sodium Chloride (Normal Saline) Confirm Administered Dose 250 mls @ as directed .ROUTE .STK-MED ONE Stop: 06/07/20 20:27 Last Admin: 06/07/20 20:54 Dose: Not Given Documented by: Sodium Chloride (Normal Saline) 1,000 mls @ 50 mls/hr IV ASDIRECTED [facility] Stop: 06/08/20 16:44 Last Admin: 06/07/20 22:06 Dose: 50 mls/hr Documented by: Magnesium Sulfate 4 gm/ Premix 50 mls @ 12.5 mls/hr IV ONETIME ONE Stop: 06/08/20 14:59 Last Admin: 06/08/20 11:43 Dose: 12.5 mls/hr Documented by: Sodium Chloride (Normal Saline) 250 mls @ 100 mls/hr IV ASDIRECTED [facility] Stop: 06/08/20 23:00 Last Admin: 06/08/20 16:55 Dose: 100 mls/hr Documented by: Remdesivir 100 mg/ Sodium (Chloride) 100 mls @ 100 mls/hr IV Q24H [facility] Stop: 06/11/20 20:29 Last Admin: 06/11/20 18:39 Dose: 100 mls/hr Documented by: Ceftriaxone Sodium 2 gm/ (Sodium Chloride) 100 mls @ 200 mls/hr IV DAILY@1999 [facility] Stop: 06/11/20 20:29 Last Admin: 06/11/20 19:54 Dose: 200 mls/hr Documented by: Magnesium Sulfate (Magnesium Sulfate In Water Premix) 2 gm in 50 mls @ 25 mls/hr IV ONETIME ONE Stop: 06/11/20 17:07 Last Admin: 06/11/20 15:30 Dose: 25 mls/hr Documented by: Insulin Glargine (Lantus) 7 unit SUBCUT DAILY [facility] Last Admin: 06/08/20 09:05 Dose: 7 unit Documented by: Insulin Glargine (Lantus) 5 unit SUBCUT BIDAC [facility] Last Admin: 06/09/20 17:01 Dose: 5 units Documented by: Insulin Glargine (Lantus) 5 unit SUBCUT NOW [facility] Stop: 06/09/20 08:28 Last Admin: 06/09/20 08:47 Dose: 5 units Documented by: Insulin Glargine (Lantus) 7 unit SUBCUT BID [facility] Last Admin: 06/10/20 08:37 Dose: 7 units Documented by: Insulin Glargine (Lantus) 8 unit SUBCUT BID [place] Insulin Glargine (Lantus) 10 unit SUBCUT BID [facility] Last Admin: 06/11/20 08:02 Dose: 10 units Documented by: Insulin Glargine (Lantus) 15 unit SUBCUT BID [facility] Last Admin: 06/12/20 08:21 Dose: 15 units Documented by: Insulin Human Lispro (Humalog) 0 unit SUBCUT QIDACANDBED [facility]; Protocol Last Admin: 06/08/20 17:23 Dose: 5 units Documented by: Insulin Human Lispro (Humalog) 0 unit SUBCUT QIDACANDBED [facility]; Protocol Last Admin: 06/09/20 17:01 Dose: 10 units Documented by: Insulin Human Lispro (Humalog) 0 unit SUBCUT QIDACANDBED [facility]; Protocol Last Admin: 06/09/20 17:33 Dose: Not Given Documented by: Insulin Human Lispro (Humalog) 0 unit SUBCUT QIDACANDBED [facility]; Protocol Insulin Human Lispro ([facility]alog) [facility] Last Admin: 06/10/20 18:34 Dose: 5 units Documented by: Insulin Human Lispro (Humalog) 7 [facility] Last Admin: 06/11/20 12:44 Dose: 7 units Documented by: Iopamidol (Isovue-370 (76%)) 100 ml IVPUSH ONETIME ONE Stop: 06/07/20 13:31 Last Admin: 06/07/20 14:00 Dose: 100 ml Documented by: Lisinopril (Prinivil) 40 mg PO DAILY [facility] Lisinopril (Prinivil) 40 mg PO DAILY [facility] Last Admin: 06/07/20 11:25 Dose: 40 mg Documented by: Metformin HCl (Glucophage) 1,000 mg PO ONETIME ONE Stop: 06/07/20 10:57 Last Admin: 06/07/20 19:43 Dose: Not Given Documented by: Metoprolol Succinate (Toprol Xl) 50 mg PO ONETIME ONE Stop: 06/07/20 10:58 Last Admin: 06/07/20 11:21 Dose: 50 mg Documented by: Metoprolol Succinate (Toprol Xl) 50 mg PO DAILY [facility] Last Admin: 06/11/20 08:00 Dose: 50 mg Documented by: - Exam General: Alert, Oriented, Cooperative, No Acute Distress HEENT: Pupils Equal, Pupils Reactive, EOMI, Mucous Membr. Moist/[place] Neck: Supple Lungs: Clear to Auscultation, Normal Respiratory Effort Cardiovascular: Regular Rate, Regular Rhythm GI/Abdominal Exam: Normal Bowel Sounds, Soft, Non-Tender, No Organomegaly, No Distention, No Abnormal Bruit (Male) Exam: Deferred Back Exam: Normal Inspection, Decreased Range of Motion Extremities: Normal Inspection, Normal Range of Motion, Non-Tender, No Pedal Edema, Normal Capillary Refill Peripheral Pulses: 2+: Dorsalis Pedis (L), Dorsalis Pedis (R) Skin: Warm, Dry, Intact Neurological: No New Focal Deficit Psy/Mental Status: Alert, Normal Affect, Normal Mood Sepsis Event Note - Evaluation Sepsis Screening Result: No Definite Risk - Focused Exam Vital Signs: Vital Signs Temp Pulse Resp BP BP Pulse Ox Pulse Ox 06/13/20 09:51 90 L 06/13/20 09:00 77 135/60 87 L 06/13/20 08:58 80 90 L 06/13/20 07:28 131/55 L 06/13/20 07:23 36.7 C 66 24 H 86 L 06/13/20 03:46 36.7 C 60 14 106/89 90 L 06/13/20 00:00 92 L - Problem List Review Problem List Initiated/Reviewed/Updated: Yes - My Orders Last 24 Hours: My Active Orders 06/12/20 10:55 Positioning, Patient [RC] QSHIFT 06/12/20 17:30 Insert Urinary Catheter [OM.PC] PRN 06/12/20 21:00 Insulin Glarg,Human.Rec.Analog [LantUS] 20 unit SUBCUT BID dexAMETHasone 6 mg PO BID 06/13/20 10:56 Magnesium Sulfate 2 GM in Water @ 25 MLS/HR ONETIME (50ml) Magnesium Sulfate/Water [Magnesium Sulfate in Water Premix] 2 gm in 50 ml IV ONETIME 06/14/20 05:00 Chest 1V Frontal [CR] Routine BMP [BASIC METABOLIC PANEL,BMP] [CHEM] DAILY CBC WITH AUTO DIFF [HEME] DAILY CRP [C-REACTIVE PROTEIN] [CHEM] DAILY MAGNESIUM [CHEM] DAILY 06/15/20 05:00 BMP [BASIC METABOLIC PANEL,BMP] [CHEM] DAILY CBC WITH AUTO DIFF [HEME] DAILY CRP [C-REACTIVE PROTEIN] [CHEM] DAILY MAGNESIUM [CHEM] DAILY 06/16/20 05:00 BMP [BASIC METABOLIC PANEL,BMP] [CHEM] DAILY CBC WITH AUTO DIFF [HEME] DAILY CRP [C-REACTIVE PROTEIN] [CHEM] DAILY MAGNESIUM [CHEM] DAILY 06/17/20 05:00 BMP [BASIC METABOLIC PANEL,BMP] [CHEM] DAILY CBC WITH AUTO DIFF [HEME] DAILY CRP [C-REACTIVE PROTEIN] [CHEM] DAILY MAGNESIUM [CHEM] DAILY 06/18/20 05:00 BMP [BASIC METABOLIC PANEL,BMP] [CHEM] DAILY CBC WITH AUTO DIFF [HEME] DAILY CRP [C-REACTIVE PROTEIN] [CHEM] DAILY MAGNESIUM [CHEM] DAILY - Plan Plan:: Assessment 74-year-old male diagnosed with COVID-19 on 06/03/2020, but symptomatic since the sixth presents to the emergency department with increasing weakness. COVID-19 Infection Viral Pneumonitis Leukocytosis Acute Hypoxic Respiratory Failure * On high flow nasal cannula at 60 L now down to 65% FiO2 * S/p 2 units convalescent plasma * CTA of the chest on 06/07/2020: No pulmonary embolism. Positive for patchy bilateral groundglass pulmonary infiltrates. Cardiomegaly with vascular calcifications including coronary artery calcifications. * WBC 7.78, C-reactive protein 5.5, D-dimer 4.9 * Completed 5 day course of remdesivir; rocephin and azithromycin * Continue dexamethasone 6 mg po BID * Nothing else to offer but steroid, bedside pulmo exercise, IS/FV, and proning position * Had trouble keeping his O2 on; may need help to calm him down but will avoid benzo Elevated troponin, consider type II NE * No new symptoms Hyperlipidemia * Rosuvastatin 20 mg daily Hyponatremia-resolved * Na today is 139 * Likely due to poor oral intake and diuretic use S/p Acute renal injuryresolved Type 2 diabetes, controlled * Continue Lantus from 10 to 15 units BID with high intensity ISS * Hemoglobin A1c 7.5, TSH 0.528 * Blood sugars will worsen secondary to dexamethasone * Hold metformin, a carbose, and pioglitazone * Continue alogliptin Hypertension * On metoprolol succinate 50 mg daily * Blood pressures improved Thrombocytopeniaresolved * Platelets 203 Elevated Hypochloremia-resolved * Cl of 99 * Will monitor Hypomagnesemia-likely inadequate intake * Mg now is 1.7 * Will replete Plan: * He looks good this morning * Continue high flow; goal titrate to come off * Aggressive proning protocol * Sliding scale insulin high intensity * Routine AM Labs * CXR in AM * Seroquel 12.5 mg po BID * Consider LTAC if not able to wean off high flow * VTE prophylaxis with Lovenox 40 mg Sub BID-elevated D-dimer * Encourage to use IS and FV and ambulate inside his room * CODE STATUS full code 1124: updated about his clinical progress and to continue to encourage him and use his respiratory devices. requested if we can give him benzo for his anxiety. Informed her we can try low dose seroquel but not benzo. Will give a trial of seroquel 12.5. If he responds to it negatively, we will discontinue it right away.
[2020-06-13] MEDS: Metoprolol Succinate 50 MG Tab.ER PO SCH (14:25)
[2020-06-13] MEDS ORDERED: QUEtiapine 25 MG Tab PO SCH (21:00)
[2020-06-13] MEDS: Rosuvastatin 10 MG Tab PO SCH (22:37)
[2020-06-13] MEDS: Docusate Sodium 100 MG Cap PO SCH (22:37)
[2020-06-14] MEDS: Insulin Lispro 100 Units/ML 3 ML Vial SUBCUT SCH ×4 (08:04→21:43)
[2020-06-14] MEDS: Furosemide 20 MG Tab PO SCH (08:18)
[2020-06-14] MEDS: Insulin Glarg,Human.Rec.Analog 100 Unit/ML SUBCUT SCH ×2 (08:18→21:42)
[2020-06-14] MEDS: Aspirin 81 MG Tab.EC PO SCH (08:18)
[2020-06-14] MEDS: Metoprolol Succinate 50 MG Tab.ER PO SCH (08:18)
[2020-06-14] MEDS: Enoxaparin 40 MG/0.4 ML Syringe SUBCUT SCH ×2 (08:19→21:42)
[2020-06-14] MEDS ORDERED: Magnesium Sulfate/Water 2 GM in Premix Bag 1 BAG IV ONE (08:45)
[2020-06-14] MEDS ORDERED: LORazepam 0.5 MG Tab PO PRN (08:53)
[2020-06-14] MEDS ORDERED: LORazepam 2 MG/ML SDV IVPUSH ONE (11:46)
--- NOTE | 2020-06-14 14:00 | PCM.PN ---
- General Info Date of Service: 06/14/20 Admission Dx/Problem (Free Text): Admission Diagnosis/Problem Admission Diagnosis/Problem Hypoxia Subjective Update: Patient is much more confused today. He was put on dexamethasone 6 mg twice daily x3 doses, last dose last night, and this appears to have caused significant worsening of his delirium. Patient's oxygen requirements have increased from 65% yesterday to 95% currently. This could be partially due to his not keeping it on because of his confusion. Functional Status: Reports: Pain Controlled - Review of Systems General: Reports: No Symptoms Neurological: Reports: Confusion Psychiatric: Reports: Confusion - Patient Data Vitals - Most Recent: Last Vital Signs Temp 98.4 F 06/14/20 11:56 Pulse 79 06/14/20 11:56 Resp 20 06/14/20 07:25 BP 135/90 06/14/20 11:56 Pulse Ox 91 L 06/14/20 12:05 Weight - Most Recent: 242 lb 14.4 oz I&O - Last 24 Hours: Intake & Output 06/13/20 06/14/20 06/14/20 22:59 06:59 14:59 Intake Total 1210 740 120 Output Total 525 1425 Balance 685 -685 120 Imaging Impressions - Last 24 Hours: Chest x-ray shows some worsening of his bilateral infiltrates Lab Results Last 24 Hours: Laboratory Results - last 24 hr 06/13/20 06/13/20 06/14/20 Range/Units 18:12 22:33 06:32 WBC 8.77 (4.23-9.07) K/mm3 RBC 4.02 L (4.63-6.08) M/mm3 Hgb 12.1 L (13.7-17.5) gm/dl Hct 37.1 L (40.1-51.0) % MCV 92.3 H (79.0-92.2) fl MCH 30.1 (25.7-32.2) pg MCHC 32.6 (32.2-35.5) g/dl RDW Std Deviation 46.8 H (35.1-43.9) fL Plt Count 241 (163-337) K/mm3 MPV 10.6 (9.4-12.3) fl Neut % (Auto) 85.8 H (34.0-67.9) % Lymph % (Auto) 6.6 L (21.8-53.1) % [place] % (Auto) 5.2 L (5.3-12.2) % Eos % (Auto) 1.5 (0.8-7.0) Baso % (Auto) 0.1 (0.1-1.2) % Neut # (Auto) 7.52 H (1.78-5.38) K/mm3 Lymph # (Auto) 0.58 L (1.32-3.57) K/mm3 [place] # (Auto) 0.46 (0.30-0.82) K/mm3 Eos # (Auto) 0.13 (0.04-0.54) K/mm3 Baso # (Auto) 0.01 (0.01-0.08) K/mm3 Manual Slide Review Abnormal smear Puncture Site ABG pH (7.35-7.45) ABG pCO2 (35.0-45.0) mmHg ABG pO2 (80.0-100.0) mmHg ABG HCO3 (22.0-26.0) meq/L ABG O2 Saturation (96.0-97.0) % ABG Base Excess (-2-2.0) A-a Gradient mmHg O2 Delivery Device Oxygen Flow Rate FiO2 (21.00-100.00) % Sodium (136-145) mEq/L Potassium (3.5-5.1) mEq/L Chloride (98-107) mEq/L Carbon Dioxide (21-32) mEq/L Anion Gap (5-15) BUN (7-18) mg/dL Creatinine (0.7-1.3) mg/dL Est Cr Clr Drug Dosing mL/min Estimated GFR (MDRD) (>60) mL/min BUN/Creatinine Ratio (14-18) Glucose (83-115) mg/dL POC Glucose 367 H 176 H (83-110) mg/dL Calcium (8.5-10.1) mg/dL Magnesium (1.8-2.4) mg/dl C-Reactive Protein (<1.0) mg/dL 06/14/20 06/14/20 06/14/20 Range/Units 06:32 06:38 09:30 WBC (4.23-9.07) K/mm3 RBC (4.63-6.08) M/mm3 Hgb (13.7-17.5) gm/dl Hct (40.1-51.0) % MCV (79.0-92.2) fl MCH (25.7-32.2) pg MCHC (32.2-35.5) g/dl RDW Std Deviation (35.1-43.9) fL Plt Count (163-337) K/mm3 MPV (9.4-12.3) fl Neut % (Auto) (34.0-67.9) % Lymph % (Auto) (21.8-53.1) % [place] % (Auto) (5.3-12.2) % Eos % (Auto) (0.8-7.0) Baso % (Auto) (0.1-1.2) % Neut # (Auto) (1.78-5.38) K/mm3 Lymph # (Auto) (1.32-3.57) K/mm3 [place] # (Auto) (0.30-0.82) K/mm3 Eos # (Auto) (0.04-0.54) K/mm3 Baso # (Auto) (0.01-0.08) K/mm3 Manual Slide Review Puncture Site Lt radial ABG pH 7.45 (7.35-7.45) ABG pCO2 36.7 (35.0-45.0) mmHg ABG pO2 62.0 L (80.0-100.0) mmHg ABG HCO3 25.2 (22.0-26.0) meq/L ABG O2 Saturation 91.0 L (96.0-97.0) % ABG Base Excess 1.9 (-2-2.0) A-a Gradient 498 mmHg O2 Delivery Device [place] nasal cannula Oxygen Flow Rate 60.0 FiO2 85.00 (21.00-100.00) % Sodium 139 (136-145) mEq/L Potassium 4.0 (3.5-5.1) mEq/L Chloride 102 (98-107) mEq/L Carbon Dioxide 31 (21-32) mEq/L Anion Gap 10.0 (5-15) BUN 38 H (7-18) mg/dL Creatinine 1.3 (0.7-1.3) mg/dL Est Cr Clr Drug Dosing 53.89 mL/min Estimated GFR (MDRD) 54 (>60) mL/min BUN/Creatinine Ratio 29.2 H (14-18) Glucose 142 H (83-115) mg/dL POC Glucose 144 H (83-110) mg/dL Calcium 9.1 (8.5-10.1) mg/dL Magnesium 1.7 L (1.8-2.4) mg/dl C-Reactive Protein 5.4 H* (<1.0) mg/dL 06/14/20 Range/Units 11:09 WBC (4.23-9.07) K/mm3 RBC (4.63-6.08) M/mm3 Hgb (13.7-17.5) gm/dl Hct (40.1-51.0) % MCV (79.0-92.2) fl MCH (25.7-32.2) pg MCHC (32.2-35.5) g/dl RDW Std Deviation (35.1-43.9) fL Plt Count (163-337) K/mm3 MPV (9.4-12.3) fl Neut % (Auto) (34.0-67.9) % Lymph % (Auto) (21.8-53.1) % [place] % (Auto) (5.3-12.2) % Eos % (Auto) (0.8-7.0) Baso % (Auto) (0.1-1.2) % Neut # (Auto) (1.78-5.38) K/mm3 Lymph # (Auto) (1.32-3.57) K/mm3 [place] # (Auto) (0.30-0.82) K/mm3 Eos # (Auto) (0.04-0.54) K/mm3 Baso # (Auto) (0.01-0.08) K/mm3 Manual Slide Review Puncture Site ABG pH (7.35-7.45) ABG pCO2 (35.0-45.0) mmHg ABG pO2 (80.0-100.0) mmHg ABG HCO3 (22.0-26.0) meq/L ABG O2 Saturation (96.0-97.0) % ABG Base Excess (-2-2.0) A-a Gradient mmHg O2 Delivery Device Oxygen Flow Rate FiO2 (21.00-100.00) % Sodium (136-145) mEq/L Potassium (3.5-5.1) mEq/L Chloride (98-107) mEq/L Carbon Dioxide (21-32) mEq/L Anion Gap (5-15) BUN (7-18) mg/dL Creatinine (0.7-1.3) mg/dL Est Cr Clr Drug Dosing mL/min Estimated GFR (MDRD) (>60) mL/min BUN/Creatinine Ratio (14-18) Glucose (83-115) mg/dL POC Glucose 328 H (83-110) mg/dL Calcium (8.5-10.1) mg/dL Magnesium (1.8-2.4) mg/dl C-Reactive Protein (<1.0) mg/dL [place] Results Last 24 Hours: Microbiology 06/07/20 17:07 Aerobic Blood Culture - Preliminary Blood - Venous NO GROWTH AFTER 6 DAYS Anaerobic Blood Culture - Preliminary NO GROWTH AFTER 6 DAYS 06/07/20 17:17 Aerobic Blood Culture - Preliminary Blood - Venous - Lab Draw NO GROWTH AFTER 6 DAYS Anaerobic Blood Culture - Preliminary NO GROWTH AFTER 6 DAYS Med Orders - Current: Current Medications Acetaminophen (Tylenol) 650 mg RECTAL Q4H PRN PRN Reason: Pain (mild 1-3) Albuterol (Proventil Hfa) 0 gm INH Q4H PRN PRN Reason: Wheezing Last Admin: 06/10/20 20:16 Dose: 2 puff Documented by: Alogliptin Benzoate (Alogliptin) 25 mg PO DAILY [facility] Last Admin: 06/14/20 08:18 Dose: 25 mg Documented by: Aspirin (Halfprin) 81 mg PO DAILY [facility] Last Admin: 06/14/20 08:18 Dose: 81 mg Documented by: Dextrose/Water (Dextrose 50% In Water) 50 ml IV ASDIRECTED PRN PRN Reason: Hypoglycemia Docusate Sodium (Colace) 100 mg PO BEDTIME [facility] Last Admin: 06/13/20 22:37 Dose: 100 mg Documented by: Enoxaparin Sodium (Lovenox) 40 mg SUBCUT BID [facility] Last Admin: 06/14/20 08:19 Dose: 40 mg Documented by: Furosemide (Lasix) 20 mg PO DAILY [facility] Last Admin: 06/14/20 08:18 Dose: 20 mg Documented by: Insulin Glargine (Lantus) 20 unit SUBCUT BID [facility] Last Admin: 06/14/20 08:18 Dose: 20 units Documented by: Insulin Human Lispro (Humalog) 0 unit SUBCUT QIDACANDBED [facility]; Protocol Last Admin: 06/14/20 12:29 Dose: 12 units Documented by: Lorazepam (Ativan) 0.5 mg PO Q4H PRN PRN Reason: Anxiety Last Admin: 06/14/20 09:20 Dose: 0.5 mg Documented by: Metoprolol Succinate (Toprol Xl) 50 mg PO DAILY [facility] Last Admin: 06/14/20 08:18 Dose: 50 mg Documented by: Ondansetron HCl (Zofran) 4 mg IV Q4H PRN PRN Reason: Nausea/Vomiting Rosuvastatin Calcium (Crestor) 20 mg PO BEDTIME [facility] Last Admin: 06/13/20 22:37 Dose: 20 mg Documented by: Sodium Chloride (Saline Flush) 10 ml FLUSH ONETIME PRN PRN Reason: Keep Vein Open Last Admin: 06/07/20 14:24 Dose: 10 ml Documented by: Discontinued Medications Acetaminophen (Tylenol) 650 mg PO NOW ONE Stop: 06/07/20 16:36 Last Admin: 06/07/20 16:47 Dose: 650 mg Documented by: Alogliptin Benzoate (Alogliptin) 25 mg PO DAILY [facility] Last Admin: 06/07/20 11:23 Dose: 25 mg Documented by: Dexamethasone (Dexamethasone) 6 mg PO DAILY [facility] Stop: 06/13/20 09:01 Last Admin: 06/11/20 08:01 Dose: 6 mg Documented by: Dexamethasone (Dexamethasone) 6 mg PO BID [facility] Stop: 06/12/20 09:01 Last Admin: 06/12/20 08:17 Dose: 6 mg Documented by: Dexamethasone (Dexamethasone) 6 mg PO BID [facility] Stop: 06/13/20 21:01 Last Admin: 06/13/20 22:37 Dose: 6 mg Documented by: Enoxaparin Sodium (Lovenox) 40 mg SUBCUT DAILY [facility] Last Admin: 06/11/20 08:00 Dose: 40 mg Documented by: Furosemide (Lasix) 20 mg IVPUSH NOW ONE Stop: 06/08/20 12:08 Last Admin: 06/08/20 12:23 Dose: 20 mg Documented by: Furosemide (Lasix) 20 mg IVPUSH NOW ONE Stop: 06/08/20 16:41 Last Admin: 06/08/20 17:26 Dose: 20 mg Documented by: Furosemide (Lasix) 20 mg PO ONETIME ONE Stop: 06/11/20 15:10 Last Admin: 06/11/20 15:29 Dose: 20 mg Documented by: Sodium Chloride (Normal Saline) 1,000 mls @ 500 mls/hr IV ONETIME ONE Stop: 06/07/20 14:51 Last Admin: 06/07/20 13:06 Dose: 500 mls/hr Documented by: Sodium Chloride (Normal Saline) 100 mls @ 75 mls/hr IV ASDIRECTED [facility] Last Admin: 06/07/20 14:10 Dose: 75 mls/hr Documented by: Remdesivir 100 mg/ Sodium (Chloride) 100 mls @ 100 mls/hr IV Q24H [facility] Stop: 06/11/20 19:29 Ceftriaxone Sodium 2 gm/ (Sodium Chloride) 100 mls @ 200 mls/hr IV DAILY@1800 [facility] Stop: 06/11/20 18:29 Last Admin: 06/08/20 19:58 Dose: Not Given Documented by: Azithromycin 500 mg/ Sodium (Chloride) 250 mls @ 250 mls/hr IV Q24H [facility] Stop: 06/09/20 20:59 Last Admin: 06/09/20 20:52 Dose: 250 mls/hr Documented by: Remdesivir 200 mg/ Sodium (Chloride) 250 mls @ 250 mls/hr IV ONETIME ONE Stop: 06/07/20 21:29 Last Admin: 06/07/20 20:55 Dose: 250 mls/hr Documented by: Sodium Chloride (Normal Saline) Confirm Administered Dose 250 mls @ as directed .ROUTE .STK-MED ONE Stop: 06/07/20 20:27 Last Admin: 06/07/20 20:54 Dose: Not Given Documented by: Sodium Chloride (Normal Saline) 1,000 mls @ 50 mls/hr IV ASDIRECTED [facility] Stop: 06/08/20 16:44 Last Admin: 06/07/20 22:06 Dose: 50 mls/hr Documented by: Magnesium Sulfate 4 gm/ Premix 50 mls @ 12.5 mls/hr IV ONETIME ONE Stop: 06/08/20 14:59 Last Admin: 06/08/20 11:43 Dose: 12.5 mls/hr Documented by: Sodium Chloride (Normal Saline) 250 mls @ 100 mls/hr IV ASDIRECTED [facility] Stop: 06/08/20 23:00 Last Admin: 06/08/20 16:55 Dose: 100 mls/hr Documented by: Remdesivir 100 mg/ Sodium (Chloride) 100 mls @ 100 mls/hr IV Q24H [facility] Stop: 06/11/20 20:29 Last Admin: 06/11/20 18:39 Dose: 100 mls/hr Documented by: Ceftriaxone Sodium 2 gm/ (Sodium Chloride) 100 mls @ 200 mls/hr IV DAILY@1999 [facility] Stop: 06/11/20 20:29 Last Admin: 06/11/20 19:54 Dose: 200 mls/hr Documented by: Magnesium Sulfate (Magnesium Sulfate In Water Premix) 2 gm in 50 mls @ 25 mls/hr IV ONETIME ONE Stop: 06/11/20 17:07 Last Admin: 06/11/20 15:30 Dose: 25 mls/hr Documented by: Magnesium Sulfate (Magnesium Sulfate In Water Premix) 2 gm in 50 mls @ 25 mls/hr IV ONETIME ONE Stop: 06/13/20 12:59 Last Admin: 06/13/20 12:47 Dose: 25 mls/hr Documented by: Magnesium Sulfate 2 gm/ Premix 50 mls @ 25 mls/hr IV ONETIME ONE Stop: 06/14/20 10:44 Last Admin: 06/14/20 08:50 Dose: 25 mls/hr Documented by: Insulin Glargine (Lantus) 7 unit SUBCUT DAILY [facility] Last Admin: 06/08/20 09:05 Dose: 7 unit Documented by: Insulin Glargine (Lantus) 5 unit SUBCUT BIDAC [facility] Last Admin: 06/09/20 17:01 Dose: 5 units Documented by: Insulin Glargine (Lantus) 5 unit SUBCUT NOW [place] Stop: 06/09/20 08:28 Last Admin: 06/09/20 08:47 Dose: 5 units Documented by: Insulin Glargine (Lantus) 7 unit SUBCUT BID [facility] Last Admin: 06/10/20 08:37 Dose: 7 units Documented by: Insulin Glargine (Lantus) 8 unit SUBCUT BID [facility] Insulin Glargine (Lantus) 10 unit SUBCUT BID [facility] Last Admin: 06/11/20 08:02 Dose: 10 units Documented by: Insulin Glargine (Lantus) 15 unit SUBCUT BID [facility] Last Admin: 06/12/20 08:21 Dose: 15 units Documented by: Insulin Human Lispro (Humalog) 0 unit SUBCUT QIDACANDBED [facility]; Protocol Last Admin: 06/08/20 17:23 Dose: 5 units Documented by: Insulin Human Lispro (Humalog) 0 unit SUBCUT QIDACANDBED [facility]; Protocol Last Admin: 06/09/20 17:01 Dose: 10 units Documented by: Insulin Human Lispro (Humalog) 0 unit SUBCUT QIDACANDBED [facility]; Protocol Last Admin: 06/09/20 17:33 Dose: Not Given Documented by: Insulin Human Lispro (Humalog) 0 unit SUBCUT QIDACANDBED [facility]; Protocol Insulin Human Lispro (Humalog) 5 unit SUBCUT TIDPC [facility] Last Admin: 06/10/20 18:34 Dose: 5 units Documented by: [facility] Last Admin: 06/11/20 12:44 Dose: 7 units Documented by: Iopamidol (Isovue-370 (76%)) 100 ml IVPUSH ONETIME ONE Stop: 06/07/20 13:31 Last Admin: 06/07/20 14:00 Dose: 100 ml Documented by: Lisinopril (Prinivil) 40 mg PO DAILY [facility] Lisinopril (Prinivil) 40 mg PO DAILY [facility] Last Admin: 06/07/20 11:25 Dose: 40 mg Documented by: Lorazepam (Ativan) 0.5 mg IVPUSH ONETIME ONE Stop: 06/14/20 11:47 Last Admin: 06/14/20 11:56 Dose: 0.5 mg Documented by: Metformin HCl (Glucophage) 1,000 mg PO ONETIME ONE Stop: 06/07/20 10:57 Last Admin: 06/07/20 19:43 Dose: Not Given Documented by: Metoprolol Succinate (Toprol Xl) 50 mg PO ONETIME ONE Stop: 06/07/20 10:58 Last Admin: 06/07/20 11:21 Dose: 50 mg Documented by: Metoprolol Succinate (Toprol Xl) 50 mg PO DAILY [facility] Last Admin: 06/11/20 08:00 Dose: 50 mg Documented by: Quetiapine Fumarate (Seroquel) 12.5 mg PO BID [facility] Quetiapine Fumarate (Seroquel) 12.5 mg PO ONETIME ONE Stop: 06/13/20 11:19 Last Admin: 06/13/20 11:38 Dose: 12.5 mg Documented by: - Exam Quality Assessment: Supplemental Oxygen (High flow nasal cannula) General: Alert, Mild Distress. No: Oriented, Cooperative HEENT: Pupils Equal, Mucous Membr. Moist/[place] Neck: Supple Lungs: Decreased Breath Sounds, Rales (Coarse bibasilar). No: Normal Respiratory Effort (Mildly increased respiratory rate) Cardiovascular: Regular Rate, Regular Rhythm GI/Abdominal Exam: Normal Bowel Sounds, Soft, Non-Tender, No Distention Extremities: Normal Inspection, Normal Range of Motion, Non-Tender, No Pedal Edema, Normal Capillary Refill Skin: Warm, Dry, Intact Psy/Mental Status: Alert, Normal Affect, Normal Mood Sepsis Event Note - Evaluation Sepsis Screening Result: No Definite Risk - Focused Exam Vital Signs: Vital Signs Temp Pulse Resp BP Pulse Ox Pulse Ox 06/14/20 12:05 91 L 06/14/20 11:56 98.4 F 79 135/90 93 L 06/14/20 09:25 91 L 06/14/20 08:18 73 146/62 H 06/14/20 07:25 98.1 F 73 20 146/62 H 88 L 06/14/20 05:05 95 06/14/20 03:09 98.2 F 66 15 149/67 H 90 L - Problem List & Annotations (1) Elevated troponin I level SNOMED Code(s): 070189567 Code(s): R77.8 - OTHER SPECIFIED ABNORMALITIES OF PLASMA PROTEINS Status: Acute Current Visit: Yes (2) COVID-19 SNOMED Code(s): 407776072 Code(s): U07.1 - COVID-19 Status: Acute Current Visit: Yes (3) Hypoxia SNOMED Code(s): 215874348 Code(s): R09.02 - HYPOXEMIA Status: Acute Current Visit: Yes (4) Weakness SNOMED Code(s): 26195544 Code(s): R53.1 - WEAKNESS Status: Acute Current Visit: Yes - Problem List Review Problem List Initiated/Reviewed/Updated: Yes - My Orders Last 24 Hours: My Active Orders 06/14/20 08:53 LORazepam [Ativan] 0.5 mg PO Q4H PRN 06/14/20 09:30 Initiate/Renew Non-Violent Restraints (All Ages) Q24H 06/14/20 13:34 One To One Therapy [BH] Routine 06/14/20 13:39 Nrsg Assess Restraint Init/Mon [RC] Q1H 06/15/20 05:11 D Dimer [D-DIMER QUANTITATIVE] [COAG] AM - Plan Plan:: Assessment 74-year-old male diagnosed with COVID-19 on 06/03/2020, but symptomatic since the sixth presents to the emergency department with increasing weakness. COVID-19 Infection Viral Pneumonitis Leukocytosis Acute Hypoxic Respiratory Failure * On high flow nasal cannula at 60 L now up to 95% FiO2 * S/p 2 units convalescent plasma * CTA of the chest on 06/07/2020: No pulmonary embolism. Positive for patchy bilateral groundglass pulmonary infiltrates. Cardiomegaly with vascular calcifications including coronary artery calcifications. * WBC 8.77, CRP 5.4 both stable with no significant change * Completed 5 day course of remdesivir; rocephin and azithromycin * Continue dexamethasone 6 mg po BID * Nothing else to offer but steroid, bedside pulmo exercise, IS/FV, and proning position * Had trouble keeping his O2 on; may need help to calm him down but will avoid benzo * ABG: pH 7.45, PCO2 36.7, PO2 62.0, bicarb 25.2, O2 saturation 91% on high flow nasal cannula with 60 L flow rate and FiO2 of 85% Delirium * Patient is much more confused today. He is requiring constant nursing care. PCO2 is normal and oxygen saturations are normal. His PaO2 is slightly low. No significant change in other labs. * Patient was tried on Seroquel yesterday with poor results. * Ativan 0.5 p.o. was given without benefit and Ativan 0.5 IV was given which seems to have worsened his symptoms. Elevated troponin, consider type II PR * No new symptoms Hyperlipidemia * Rosuvastatin 20 mg daily Hyponatremia-resolved * Na today is 139 * Likely due to poor oral intake and diuretic use S/p Acute renal injuryresolved Type 2 diabetes, controlled * Continue Lantus from 20 units BID with high intensity ISS * Hemoglobin A1c 7.5, TSH 0.528 * Blood sugars will worsen secondary to dexamethasone * Hold metformin, acarbose, and pioglitazone * Continue alogliptin Hypertension * On metoprolol succinate 50 mg daily * Blood pressures improved Thrombocytopeniaresolved Hypomagnesemia-likely inadequate intake * Mg now is 1.7 * Will replete Plan: * Oxygenation worsening and much more confused today. * Nursing is placing him on a one-to-one because of his confusion. * Patient currently is at harm to self if he stands up or moves around without help. He may need Haldol IV for his delirium if he becomes a risk for falling or taking off his high flow nasal cannula. * Continue high flow; goal titrate to come off * Aggressive proning protocol * Routine AM Labs * Consider LTAC if not able to wean off high flow * VTE prophylaxis with Lovenox 40 mg Sub BID-elevated D-dimer * Encourage to use IS and FV and ambulate inside his room * CODE STATUS full code
[2020-06-14] MEDS: Docusate Sodium 100 MG Cap PO SCH (21:42)
[2020-06-14] MEDS: Rosuvastatin 10 MG Tab PO SCH (21:42)
[2020-06-15] MEDS: Insulin Lispro 100 Units/ML 3 ML Vial SUBCUT SCH ×4 (07:04→21:36)
[2020-06-15] MEDS: Insulin Glarg,Human.Rec.Analog 100 Unit/ML SUBCUT SCH ×2 (09:50→21:31)
[2020-06-15] MEDS: Enoxaparin 40 MG/0.4 ML Syringe SUBCUT SCH ×2 (09:50→21:36)
[2020-06-15] MEDS: Aspirin 81 MG Tab.EC PO SCH (09:51)
[2020-06-15] MEDS: Metoprolol Succinate 50 MG Tab.ER PO SCH (09:52)
[2020-06-15] MEDS: Furosemide 20 MG Tab PO SCH (09:52)
--- NOTE | 2020-06-15 10:46 | CR ---
PROCEDURE INFORMATION: Exam: XR Chest, 1 View Exam date and time: 06/14/2020 5:50 AM Age: 74 years old Clinical indication: COVID-19 positive, SOB TECHNIQUE: Imaging protocol: XR of the chest Views: 1 view. COMPARISON: CR Chest 1V Frontal 06/12/2020 8:10 AM FINDINGS: Lungs: There is bilateral airspace disease which appears worse. Some foci of airspace disease appear to be somewhat rounded. The findings would be compatible with the history of COVID-19. Pleural space: No pleural effusion or pneumothorax. Heart/Mediastinum: The cardiac silhouette is not enlarged. The mediastinal contours are unchanged. Vasculature: The thoracic aorta is tortuous and possibly ectatic. Bones/joints: No acute osseous abnormality. IMPRESSION: Worsening of COVID-19 pneumonia. Thank you for allowing us to participate in the care of your patient. Dictated and Authenticated by: Dylan Bone MD 06/14/2020 7:33 AM Central Time ([place] & [place]) [facility]
--- NOTE | 2020-06-15 13:03 | PCM.PN ---
- General Info Date of Service: 06/15/20 Admission Dx/Problem (Free Text): Admission Diagnosis/Problem Admission Diagnosis/Problem Hypoxia Subjective Update: Patient is much more confused today. He was put on dexamethasone 6 mg twice daily x3 doses, last dose last night, and this appears to have caused significant worsening of his delirium. Patient's oxygen requirements have increased from 65% yesterday to 95% currently. This could be partially due to his not keeping it on because of his confusion. 06/15/20 afebrile vss// i/os oka. o2 sats stable on 60 liters at 60%. no increased suero and or distress note. lungs clear and equal . abd benign. skin mild rubor legs good cap refill. neuro confusion and one on one nursing sec. to pulling lines and cpap off. better overall though baseline na on admision 127 trop high .127 crp 9.7 d dimer 3.7 assess covid : stable /slight improvement . dementia fluctuating delerium. keep on some mild sedation ? visteril elavated parameters rechecks pending. clinically stable so far. placement arranging long-term care sec to one on one mursing and difficulty caring for needs . boh - Review of Systems General: Reports: No Symptoms HEENT: Reports: No Symptoms Pulmonary: Reports: No Symptoms, Shortness of Breath Cardiovascular: Reports: No Symptoms Gastrointestinal: Reports: No Symptoms Genitourinary: Reports: No Symptoms Musculoskeletal: Reports: No Symptoms Skin: Reports: No Symptoms Neurological: Reports: No Symptoms, Confusion Psychiatric: Reports: No Symptoms, Confusion - Patient Data Vitals - Most Recent: Last Vital Signs Temp 36.1 C 06/15/20 12:46 Pulse 73 06/15/20 12:48 Resp 24 H 06/15/20 12:46 BP 105/66 06/15/20 12:46 Pulse Ox 90 L 06/15/20 11:47 Weight - Most Recent: 109.406 kg I&O - Last 24 Hours: Intake & Output 06/14/20 06/15/20 06/15/20 22:59 06:59 14:59 Intake Total 540 800 340 Output Total 700 925 Balance -160 -125 340 Lab Results Last 24 Hours: Laboratory Results - last 24 hr 06/14/20 06/14/20 06/15/20 Range/Units 17:12 20:45 06:24 WBC 7.50 (4.23-9.07) K/mm3 RBC 3.93 L (4.63-6.08) M/mm3 Hgb 11.8 L (13.7-17.5) gm/dl Hct 36.7 L (40.1-51.0) % MCV 93.4 H (79.0-92.2) fl MCH 30.0 (25.7-32.2) pg MCHC 32.2 (32.2-35.5) g/dl RDW Std Deviation 47.8 H (35.1-43.9) fL Plt Count 218 (163-337) K/mm3 MPV 10.4 (9.4-12.3) fl Neut % (Auto) 81.3 H (34.0-67.9) % Lymph % (Auto) 10.5 L (21.8-53.1) % Curry % (Auto) 5.3 (5.3-12.2) % Eos % (Auto) 2.0 (0.8-7.0) Baso % (Auto) 0.1 (0.1-1.2) % Neut # (Auto) 6.09 H (1.78-5.38) K/mm3 Lymph # (Auto) 0.79 L (1.32-3.57) K/mm3 Curry # (Auto) 0.40 (0.30-0.82) K/mm3 Eos # (Auto) 0.15 (0.04-0.54) K/mm3 Baso # (Auto) 0.01 (0.01-0.08) K/mm3 D-Dimer, Quantitative (0.19-0.50) mg/L Sodium (136-145) mEq/L Potassium (3.5-5.1) mEq/L Chloride (98-107) mEq/L Carbon Dioxide (21-32) mEq/L Anion Gap (5-15) BUN (7-18) mg/dL Creatinine (0.7-1.3) mg/dL Est Cr Clr Drug Dosing mL/min Estimated GFR (MDRD) (>60) mL/min BUN/Creatinine Ratio (14-18) Glucose (83-115) mg/dL POC Glucose 187 H 163 H (83-110) mg/dL Calcium (8.5-10.1) mg/dL Magnesium (1.8-2.4) mg/dl C-Reactive Protein (<1.0) mg/dL 06/15/20 06/15/20 06/15/20 Range/Units 06:24 06:24 06:45 WBC (4.23-9.07) K/mm3 RBC (4.63-6.08) M/mm3 Hgb (13.7-17.5) gm/dl Hct (40.1-51.0) % MCV (79.0-92.2) fl MCH (25.7-32.2) pg MCHC (32.2-35.5) g/dl RDW Std Deviation (35.1-43.9) fL Plt Count (163-337) K/mm3 MPV (9.4-12.3) fl Neut % (Auto) (34.0-67.9) % Lymph % (Auto) (21.8-53.1) % Curry % (Auto) (5.3-12.2) % Eos % (Auto) (0.8-7.0) Baso % (Auto) (0.1-1.2) % Neut # (Auto) (1.78-5.38) K/mm3 Lymph # (Auto) (1.32-3.57) K/mm3 Curry # (Auto) (0.30-0.82) K/mm3 Eos # (Auto) (0.04-0.54) K/mm3 Baso # (Auto) (0.01-0.08) K/mm3 D-Dimer, Quantitative 3.70 H (0.19-0.50) mg/L Sodium 137 (136-145) mEq/L Potassium 4.1 (3.5-5.1) mEq/L Chloride 101 (98-107) mEq/L Carbon Dioxide 30 (21-32) mEq/L Anion Gap 10.1 (5-15) BUN 31 H (7-18) mg/dL Creatinine 1.2 (0.7-1.3) mg/dL Est Cr Clr Drug Dosing 58.38 mL/min Estimated GFR (MDRD) 59 (>60) mL/min BUN/Creatinine Ratio 25.8 H (14-18) Glucose 142 H (83-115) mg/dL POC Glucose 137 H (83-110) mg/dL Calcium 9.0 (8.5-10.1) mg/dL Magnesium 1.9 (1.8-2.4) mg/dl C-Reactive Protein 9.7 H* (<1.0) mg/dL 06/15/20 Range/Units 12:18 WBC (4.23-9.07) K/mm3 RBC (4.63-6.08) M/mm3 Hgb (13.7-17.5) gm/dl Hct (40.1-51.0) % MCV (79.0-92.2) fl MCH (25.7-32.2) pg MCHC (32.2-35.5) g/dl RDW Std Deviation (35.1-43.9) fL Plt Count (163-337) K/mm3 MPV (9.4-12.3) fl Neut % (Auto) (34.0-67.9) % Lymph % (Auto) (21.8-53.1) % Curry % (Auto) (5.3-12.2) % Eos % (Auto) (0.8-7.0) Baso % (Auto) (0.1-1.2) % Neut # (Auto) (1.78-5.38) K/mm3 Lymph # (Auto) (1.32-3.57) K/mm3 Curry # (Auto) (0.30-0.82) K/mm3 Eos # (Auto) (0.04-0.54) K/mm3 Baso # (Auto) (0.01-0.08) K/mm3 D-Dimer, Quantitative (0.19-0.50) mg/L Sodium (136-145) mEq/L Potassium (3.5-5.1) mEq/L Chloride (98-107) mEq/L Carbon Dioxide (21-32) mEq/L Anion Gap (5-15) BUN (7-18) mg/dL Creatinine (0.7-1.3) mg/dL Est Cr Clr Drug Dosing mL/min Estimated GFR (MDRD) (>60) mL/min BUN/Creatinine Ratio (14-18) Glucose (83-115) mg/dL POC Glucose 182 H (83-110) mg/dL Calcium (8.5-10.1) mg/dL Magnesium (1.8-2.4) mg/dl C-Reactive Protein (<1.0) mg/dL [place] Results Last 24 Hours: Microbiology 06/07/20 17:07 Aerobic Blood Culture - Final Blood - Venous NO GROWTH AFTER 7 DAYS Anaerobic Blood Culture - Final NO GROWTH AFTER 7 DAYS 06/07/20 17:17 Aerobic Blood Culture - Final Blood - Venous - Lab Draw NO GROWTH AFTER 7 DAYS Anaerobic Blood Culture - Final NO GROWTH AFTER 7 DAYS Med Orders - Current: Current Medications Acetaminophen (Tylenol) 650 mg RECTAL Q4H PRN PRN Reason: Pain (mild 1-3) Albuterol (Proventil Hfa) 0 gm INH Q4H PRN PRN Reason: Wheezing Last Admin: 06/10/20 20:16 Dose: 2 puff Documented by: Alogliptin Benzoate (Alogliptin) 25 mg PO DAILY [facility] Last Admin: 06/15/20 09:51 Dose: 25 mg Documented by: Aspirin (Halfprin) 81 mg PO DAILY [facility] Last Admin: 06/15/20 09:51 Dose: 81 mg Documented by: Dextrose/Water (Dextrose 50% In Water) 50 ml IV ASDIRECTED PRN PRN Reason: Hypoglycemia Docusate Sodium (Colace) 100 mg PO BEDTIME [facility] Last Admin: 06/14/20 21:42 Dose: 100 mg Documented by: Enoxaparin Sodium (Lovenox) 40 mg SUBCUT BID [facility] Last Admin: 06/15/20 09:50 Dose: 40 mg Documented by: Furosemide (Lasix) 20 mg PO DAILY [facility] Last Admin: 06/15/20 09:52 Dose: 20 mg Documented by: Insulin Glargine (Lantus) 20 unit SUBCUT BID [facility] Last Admin: 06/15/20 09:50 Dose: 20 units Documented by: Insulin Human Lispro (Humalog) 0 unit SUBCUT QIDACANDBED [facility]; Protocol Last Admin: 06/15/20 12:30 Dose: 3 units Documented by: Lorazepam (Ativan) 0.5 mg PO Q4H PRN PRN Reason: Anxiety Last Admin: 06/14/20 09:20 Dose: 0.5 mg Documented by: Metoprolol Succinate (Toprol Xl) 50 mg PO DAILY [facility] Last Admin: 06/15/20 09:52 Dose: 50 mg Documented by: Ondansetron HCl (Zofran) 4 mg IV Q4H PRN PRN Reason: Nausea/Vomiting Rosuvastatin Calcium (Crestor) 20 mg PO BEDTIME [facility] Last Admin: 06/14/20 21:42 Dose: 20 mg Documented by: Sodium Chloride (Saline Flush) 10 ml FLUSH ONETIME PRN PRN Reason: Keep Vein Open Last Admin: 06/07/20 14:24 Dose: 10 ml Documented by: Discontinued Medications Acetaminophen (Tylenol) 650 mg PO NOW ONE Stop: 06/07/20 16:36 Last Admin: 06/07/20 16:47 Dose: 650 mg Documented by: Alogliptin Benzoate (Alogliptin) 25 mg PO DAILY [facility] Last Admin: 06/07/20 11:23 Dose: 25 mg Documented by: Dexamethasone (Dexamethasone) 6 mg PO DAILY [facility] Stop: 06/13/20 09:01 Last Admin: 06/11/20 08:01 Dose: 6 mg Documented by: Dexamethasone (Dexamethasone) 6 mg PO BID [facility] Stop: 06/12/20 09:01 Last Admin: 06/12/20 08:17 Dose: 6 mg Documented by: Dexamethasone (Dexamethasone) 6 mg PO BID [facility] Stop: 06/13/20 21:01 Last Admin: 06/13/20 22:37 Dose: 6 mg Documented by: Enoxaparin Sodium (Lovenox) 40 mg SUBCUT DAILY [facility] Last Admin: 06/11/20 08:00 Dose: 40 mg Documented by: Furosemide (Lasix) 20 mg IVPUSH NOW ONE Stop: 06/08/20 12:08 Last Admin: 06/08/20 12:23 Dose: 20 mg Documented by: Furosemide (Lasix) 20 mg IVPUSH NOW ONE Stop: 06/08/20 16:41 Last Admin: 06/08/20 17:26 Dose: 20 mg Documented by: Furosemide (Lasix) 20 mg PO ONETIME ONE Stop: 06/11/20 15:10 Last Admin: 06/11/20 15:29 Dose: 20 mg Documented by: Sodium Chloride (Normal Saline) 1,000 mls @ 500 mls/hr IV ONETIME ONE Stop: 06/07/20 14:51 Last Admin: 06/07/20 13:06 Dose: 500 mls/hr Documented by: Sodium Chloride (Normal Saline) 100 mls @ 75 mls/hr IV ASDIRECTED [facility] Last Admin: 06/07/20 14:10 Dose: 75 mls/hr Documented by: Remdesivir 100 mg/ Sodium (Chloride) 100 mls @ 100 mls/hr IV Q24H [facility] Stop: 06/11/20 19:29 Ceftriaxone Sodium 2 gm/ (Sodium Chloride) 100 mls @ 200 mls/hr IV DAILY@1800 [facility] Stop: 06/11/20 18:29 Last Admin: 06/08/20 19:58 Dose: Not Given Documented by: Azithromycin 500 mg/ Sodium (Chloride) 250 mls @ 250 mls/hr IV Q24H [facility] Stop: 06/09/20 20:59 Last Admin: 06/09/20 20:52 Dose: 250 mls/hr Documented by: Remdesivir 200 mg/ Sodium (Chloride) 250 mls @ 250 mls/hr IV ONETIME ONE Stop: 06/07/20 21:29 Last Admin: 06/07/20 20:55 Dose: 250 mls/hr Documented by: Sodium Chloride (Normal Saline) Confirm Administered Dose 250 mls @ as directed .ROUTE .STK-MED ONE Stop: 06/07/20 20:27 Last Admin: 06/07/20 20:54 Dose: Not Given Documented by: Sodium Chloride (Normal Saline) 1,000 mls @ 50 mls/hr IV ASDIRECTED [facility] Stop: 06/08/20 16:44 Last Admin: 06/07/20 22:06 Dose: 50 mls/hr Documented by: Magnesium Sulfate 4 gm/ Premix 50 mls @ 12.5 mls/hr IV ONETIME ONE Stop: 06/08/20 14:59 Last Admin: 06/08/20 11:43 Dose: 12.5 mls/hr Documented by: Sodium Chloride (Normal Saline) 250 mls @ 100 mls/hr IV ASDIRECTED [facility] Stop: 06/08/20 23:00 Last Admin: 06/08/20 16:55 Dose: 100 mls/hr Documented by: Remdesivir 100 mg/ Sodium (Chloride) 100 mls @ 100 mls/hr IV Q24H [facility] Stop: 06/11/20 20:29 Last Admin: 06/11/20 18:39 Dose: 100 mls/hr Documented by: Ceftriaxone Sodium 2 gm/ (Sodium Chloride) 100 mls @ 200 mls/hr IV DAILY@1999 [facility] Stop: 06/11/20 20:29 Last Admin: 06/11/20 19:54 Dose: 200 mls/hr Documented by: Magnesium Sulfate (Magnesium Sulfate In Water Premix) 2 gm in 50 mls @ 25 mls/hr IV ONETIME ONE Stop: 06/11/20 17:07 Last Admin: 06/11/20 15:30 Dose: 25 mls/hr Documented by: Magnesium Sulfate (Magnesium Sulfate In Water Premix) 2 gm in 50 mls @ 25 mls/hr IV ONETIME ONE Stop: 06/13/20 12:59 Last Admin: 06/13/20 12:47 Dose: 25 mls/hr Documented by: Magnesium Sulfate 2 gm/ Premix 50 mls @ 25 mls/hr IV ONETIME ONE Stop: 06/14/20 10:44 Last Admin: 06/14/20 08:50 Dose: 25 mls/hr Documented by: Insulin Glargine (Lantus) 7 unit SUBCUT DAILY [facility] Last Admin: 06/08/20 09:05 Dose: 7 unit Documented by: Insulin Glargine (Lantus) 5 unit SUBCUT BIDAC [facility] Last Admin: 06/09/20 17:01 Dose: 5 units Documented by: Insulin Glargine (Lantus) [address] [facility] Stop: 06/09/20 08:28 Last Admin: 06/09/20 08:47 Dose: 5 units Documented by: Insulin Glargine (Lantus) 7 unit SUBCUT BID [facility] Last Admin: 06/10/20 08:37 Dose: 7 units Documented by: Insulin Glargine (Lantus) 8 unit SUBCUT BID [facility] Insulin Glargine (Lantus) 10 unit SUBCUT BID [facility] Last Admin: 06/11/20 08:02 Dose: 10 units Documented by: Insulin Glargine (Lantus) 15 unit SUBCUT BID [facility] Last Admin: 06/12/20 08:21 Dose: 15 units Documented by: Insulin Human Lispro (Humalog) 0 unit SUBCUT QIDACANDBED [facility]; Protocol Last Admin: 06/08/20 17:23 Dose: 5 units Documented by: Insulin Human Lispro (Humalog) 0 unit SUBCUT QIDACANDBED [facility]; Protocol Last Admin: 06/09/20 17:01 Dose: 10 units Documented by: Insulin Human Lispro (Humalog) 0 unit SUBCUT QIDACANDBED [facility]; Protocol Last Admin: 06/09/20 17:33 Dose: Not Given Documented by: Insulin Human Lispro (Humalog) 0 unit SUBCUT QIDACANDBED [facility]; Protocol Insulin Human Lispro (Humalog) 5 unit SUBCUT [facility] Last Admin: 06/10/20 18:34 Dose: 5 units Documented by: Insulin Human Lispro (Humalog) 7 unit SUBCUT [facility] Last Admin: 06/11/20 12:44 Dose: 7 units Documented by: Iopamidol (Isovue-370 (76%)) 100 ml IVPUSH ONETIME ONE Stop: 06/07/20 13:31 Last Admin: 06/07/20 14:00 Dose: 100 ml Documented by: Lisinopril (Prinivil) 40 mg PO DAILY [facility] Lisinopril (Prinivil) 40 mg PO DAILY [facility] Last Admin: 06/07/20 11:25 Dose: 40 mg Documented by: Lorazepam (Ativan) 0.5 mg IVPUSH ONETIME ONE Stop: 06/14/20 11:47 Last Admin: 06/14/20 11:56 Dose: 0.5 mg Documented by: Metformin HCl (Glucophage) 1,000 mg PO ONETIME ONE Stop: 06/07/20 10:57 Last Admin: 06/07/20 19:43 Dose: Not Given Documented by: Metoprolol Succinate (Toprol Xl) 50 mg PO ONETIME ONE Stop: 06/07/20 10:58 Last Admin: 06/07/20 11:21 Dose: 50 mg Documented by: Metoprolol Succinate (Toprol Xl) 50 mg PO DAILY [facility] Last Admin: 06/11/20 08:00 Dose: 50 mg Documented by: Quetiapine Fumarate (Seroquel) 12.5 mg PO BID [facility] Quetiapine Fumarate (Seroquel) 12.5 mg PO ONETIME ONE Stop: 06/13/20 11:19 Last Admin: 06/13/20 11:38 Dose: 12.5 mg Documented by: Sepsis Event Note - Evaluation Sepsis Screening Result: No Definite Risk - Focused Exam Vital Signs: Vital Signs Temp Pulse Resp BP Pulse Ox Pulse Ox 11/23/20 12:48 73 06/15/20 12:46 36.1 C 24 H 105/66 06/15/20 11:47 90 L 06/15/20 09:52 76 100/65 06/15/20 09:41 36.7 C 76 18 100/85 06/15/20 08:34 92 L 06/15/20 07:27 36.6 C 15 112/72 06/15/20 07:00 89 L 06/15/20 06:00 88 L 06/15/20 05:55 89 L 06/15/20 04:47 89 L 06/15/20 04:00 89 L 06/15/20 03:51 36.7 C 57 L 20 139/73 86 L 06/15/20 03:00 88 L 06/15/20 02:00 87 L - Problem List & Annotations (1) COVID-19 SNOMED Code(s): 042779095 Code(s): U07.1 - COVID-19 Status: Acute Priority: High Current Visit: Yes Onset Date: ~06/15/20 (2) Elevated troponin I level SNOMED Code(s): 435121501 Code(s): R77.8 - OTHER SPECIFIED ABNORMALITIES OF PLASMA PROTEINS Status: Acute Priority: Medium Current Visit: Yes Onset Date: ~06/15/20 Annotation/Comment:: repeat inflamitory markers today (3) Hypoxia SNOMED Code(s): 785394633 Code(s): R09.02 - HYPOXEMIA Status: Acute Priority: High Current Visit: Yes (4) Weakness SNOMED Code(s): 77071599 Code(s): R53.1 - WEAKNESS Status: Acute Priority: High Current Visit: Yes (5) Diarrhea SNOMED Code(s): 76179521 Code(s): R19.7 - DIARRHEA, UNSPECIFIED Status: Acute Priority: Low Current Visit: No - Problem List Review Problem List Initiated/Reviewed/Updated: Yes - Plan Plan:: Assessment 74-year-old male diagnosed with COVID-19 on 06/03/2020, but symptomatic since the sixth presents to the emergency department with increasing weakness. COVID-19 Infection Viral Pneumonitis Leukocytosis Acute Hypoxic Respiratory Failure * On high flow nasal cannula at 60 L now up to 95% FiO2 * S/p 2 units convalescent plasma * CTA of the chest on 06/07/2020: No pulmonary embolism. Positive for patchy bilateral groundglass pulmonary infiltrates. Cardiomegaly with vascular calcifications including coronary artery calcifications. * WBC 8.77, CRP 5.4 both stable with no significant change * Completed 5 day course of remdesivir; rocephin and azithromycin * Continue dexamethasone 6 mg po BID * Nothing else to offer but steroid, bedside pulmo exercise, IS/FV, and proning position * Had trouble keeping his O2 on; may need help to calm him down but will avoid benzo * ABG: pH 7.45, PCO2 36.7, PO2 62.0, bicarb 25.2, O2 saturation 91% on high flow nasal cannula with 60 L flow rate and FiO2 of 85% Delirium * Patient is much more confused today. He is requiring constant nursing care. PCO2 is normal and oxygen saturations are normal. His PaO2 is slightly low. No significant change in other labs. * Patient was tried on Seroquel yesterday with poor results. * Ativan 0.5 p.o. was given without benefit and Ativan 0.5 IV was given which seems to have worsened his symptoms. Elevated troponin, consider type II OR * No new symptoms Hyperlipidemia * Rosuvastatin 20 mg daily Hyponatremia-resolved * Na today is 139 * Likely due to poor oral intake and diuretic use S/p Acute renal injuryresolved Type 2 diabetes, controlled * Continue Lantus from 20 units BID with high intensity ISS * Hemoglobin A1c 7.5, TSH 0.528 * Blood sugars will worsen secondary to dexamethasone * Hold metformin, acarbose, and pioglitazone * Continue alogliptin Hypertension * On metoprolol succinate 50 mg daily * Blood pressures improved Thrombocytopeniaresolved Hypomagnesemia-likely inadequate intake * Mg now is 1.7 * Will replete Plan: * Oxygenation worsening and much more confused today. * Nursing is placing him on a one-to-one because of his confusion. * Patient currently is at harm to self if he stands up or moves around without help. He may need Haldol IV for his delirium if he becomes a risk for falling or taking off his high flow nasal cannula. * Continue high flow; goal titrate to come off * Aggressive proning protocol * Routine AM Labs * Consider LTAC if not able to wean off high flow * VTE prophylaxis with Lovenox 40 mg Sub BID-elevated D-dimer * Encourage to use IS and FV and ambulate inside his room * CODE STATUS full code 06/15/20 afebrile vss// i/os oka. o2 sats stable on 60 liters at 60%. no increased suero and or distress note. lungs clear and equal . abd benign. skin mild rubor legs good cap refill. neuro confusion and one on one nursing sec. to pulling lines and cpap off. better overall though baseline na on admision 127 trop high .127 crp 9.7 d dimer 3.7 assess covid : stable /slight improvement . dementia; fluctuating delerium. keep on some mild sedation ? visteril diabetes bs 223 will need long acting insulin . elavated parameters rechecks pending. clinically stable so far. 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 [facility]oh
--- NOTE | 2020-06-15 14:49 | PCM.SN.2 ---
- Free Text/Narrative Note: 06/15/2020 1440 patient has increased resp desats and confusion this afternoon. high flow 02 at 90 liters at 60% and no signs of improving resp status . will seek pulm consultation for possible transfer if intubated. he is full code. boh
[2020-06-15] MEDS: Rosuvastatin 10 MG Tab PO SCH (21:36)
[2020-06-15] MEDS: Docusate Sodium 100 MG Cap PO SCH (21:36)
[2020-06-16] MEDS: Insulin Lispro 100 Units/ML 3 ML Vial SUBCUT SCH ×6 (07:30→21:42)
[2020-06-16] MEDS: Insulin Glarg,Human.Rec.Analog 100 Unit/ML SUBCUT SCH ×2 (10:57→21:41)
[2020-06-16] MEDS: Metoprolol Succinate 50 MG Tab.ER PO SCH (10:58)
[2020-06-16] MEDS: Aspirin 81 MG Tab.EC PO SCH (10:58)
[2020-06-16] MEDS: Furosemide 20 MG Tab PO SCH (10:59)
[2020-06-16] MEDS: Enoxaparin 40 MG/0.4 ML Syringe SUBCUT SCH ×2 (10:59→21:40)
--- NOTE | 2020-06-16 15:34 | PCM.PN ---
- General Info Date of Service: 06/16/20 Admission Dx/Problem (Free Text): Admission Diagnosis/Problem Admission Diagnosis/Problem Hypoxia Subjective Update: Patient is much more confused today. He was put on dexamethasone 6 mg twice daily x3 doses, last dose last night, and this appears to have caused significant worsening of his delirium. Patient's oxygen requirements have increased from 65% yesterday to 95% currently. This could be partially due to his not keeping it on because of his confusion. 06/15/20 afebrile vss// i/os oka. o2 sats stable on 60 liters at 60%. no increased suero and or distress note. lungs clear and equal . abd benign. skin mild rubor legs good cap refill. neuro confusion and one on one nursing sec. to pulling lines and cpap off. better overall though baseline na on admision 127 trop high .127 crp 9.7 d dimer 3.7 assess covid : stable /slight improvement . dementia fluctuating delerium. keep on some mild sedation ? visteril elavated parameters rechecks pending. clinically stable so far. placement arranging alf care sec to one on one mursing and difficulty caring for needs . boh 06/16 Afebrile. i/os okay. Stats are stable in mid to low 90s on 60 liters of O2. Patient says he feels good and denies shortness of breath. Sats drop down into 60s while ambulating. Lungs are clear bilaterally Good cap refill on extremities Patient continues to require one on one nursing care for confusion. He broke cpap tubing for the third time since admission. baseline Na on admission was 127 CRP has come down to 8.7 D-Dimer 3.3 COVID: stable Fluctuating delirium continues Arranging transfer to learning operations specialist care facility ([facility]) in [place], [place]. Awaiting the approval. CAITLYN Sherman Functional Status: Reports: Pain Controlled - Review of Systems General: Reports: No Symptoms HEENT: Reports: No Symptoms Pulmonary: Reports: No Symptoms Cardiovascular: Reports: No Symptoms Gastrointestinal: Reports: No Symptoms Genitourinary: Reports: No Symptoms Musculoskeletal: Reports: No Symptoms Skin: Reports: No Symptoms, Rash Neurological: Reports: No Symptoms Psychiatric: Reports: No Symptoms - Patient Data Vitals - Most Recent: Last Vital Signs Temp 98.1 F 06/16/20 11:14 Pulse 73 06/16/20 11:14 Resp 20 06/16/20 11:14 BP 112/71 06/16/20 11:14 Pulse Ox 93 L 06/16/20 11:14 Weight - Most Recent: 242 lb 1.6 oz I&O - Last 24 Hours: Intake & Output 06/16/20 06/16/20 06/16/20 06:59 14:59 22:59 Intake Total 400 240 300 Output Total 925 Balance -525 240 300 Lab Results Last 24 Hours: Laboratory Results - last 24 hr 06/15/20 06/15/20 06/16/20 Range/Units 17:33 21:21 05:29 WBC 8.33 (4.23-9.07) K/mm3 RBC 3.63 L (4.63-6.08) M/mm3 Hgb 11.2 L (13.7-17.5) gm/dl Hct 33.6 L (40.1-51.0) % MCV 92.6 H (79.0-92.2) fl MCH 30.9 (25.7-32.2) pg MCHC 33.3 (32.2-35.5) g/dl RDW Std Deviation 46.9 H (35.1-43.9) fL Plt Count 211 (163-337) K/mm3 MPV 10.3 (9.4-12.3) fl Neut % (Auto) 84.0 H (34.0-67.9) % Lymph % (Auto) 9.8 L (21.8-53.1) % Buchanan % (Auto) 4.2 L (5.3-12.2) % Eos % (Auto) 1.9 (0.8-7.0) Baso % (Auto) 0.1 (0.1-1.2) % Neut # (Auto) 6.99 H (1.78-5.38) K/mm3 Lymph # (Auto) 0.82 L (1.32-3.57) K/mm3 [place]anan # (Auto) 0.35 (0.30-0.82) K/mm3 Eos # (Auto) 0.16 (0.04-0.54) K/mm3 Baso # (Auto) 0.01 (0.01-0.08) K/mm3 Manual Slide Review Normal smear Sodium (136-145) mEq/L Potassium (3.5-5.1) mEq/L Chloride (98-107) mEq/L Carbon Dioxide (21-32) mEq/L Anion Gap (5-15) BUN (7-18) mg/dL Creatinine (0.7-1.3) mg/dL Est Cr Clr Drug Dosing mL/min Estimated GFR (MDRD) (>60) mL/min BUN/Creatinine Ratio (14-18) Glucose (83-115) mg/dL POC Glucose 204 H 275 H (83-110) mg/dL Calcium (8.5-10.1) mg/dL Magnesium (1.8-2.4) mg/dl C-Reactive Protein (<1.0) mg/dL 06/16/20 06/16/20 06/16/20 Range/Units 05:29 06:40 12:05 WBC (4.23-9.07) K/mm3 RBC (4.63-6.08) M/mm3 Hgb (13.7-17.5) gm/dl Hct (40.1-51.0) % MCV (79.0-92.2) fl MCH (25.7-32.2) pg MCHC (32.2-35.5) g/dl RDW Std Deviation (35.1-43.9) fL Plt Count (163-337) K/mm3 MPV (9.4-12.3) fl Neut % (Auto) (34.0-67.9) % Lymph % (Auto) (21.8-53.1) % Buchanan % (Auto) (5.3-12.2) % Eos % (Auto) (0.8-7.0) Baso % (Auto) (0.1-1.2) % Neut # (Auto) (1.78-5.38) K/mm3 Lymph # (Auto) (1.32-3.57) K/mm3 [place]anan # (Auto) (0.30-0.82) K/mm3 Eos # (Auto) (0.04-0.54) K/mm3 Baso # (Auto) (0.01-0.08) K/mm3 Manual Slide Review Sodium 136 (136-145) mEq/L Potassium 3.7 (3.5-5.1) mEq/L Chloride 102 (98-107) mEq/L Carbon Dioxide 29 (21-32) mEq/L Anion Gap 8.7 (5-15) BUN 32 H (7-18) mg/dL Creatinine 1.1 (0.7-1.3) mg/dL Est Cr Clr Drug Dosing 63.69 mL/min Estimated GFR (MDRD) > 60 (>60) mL/min BUN/Creatinine Ratio 29.1 H (14-18) Glucose 92 (83-115) mg/dL POC Glucose 97 266 H (83-110) mg/dL Calcium 9.1 (8.5-10.1) mg/dL Magnesium 1.7 L (1.8-2.4) mg/dl C-Reactive Protein 8.7 H* (<1.0) mg/dL Med Orders - Current: Current Medications Acetaminophen (Tylenol) 650 mg RECTAL Q4H PRN PRN Reason: Pain (mild 1-3) Albuterol (Proventil Hfa) 0 gm INH Q4H PRN PRN Reason: Wheezing Last Admin: 06/10/20 20:16 Dose: 2 puff Documented by: Alogliptin Benzoate (Alogliptin) 25 mg PO DAILY [facility] Last Admin: 06/16/20 10:59 Dose: 25 mg Documented by: Aspirin (Halfprin) 81 mg PO DAILY [facility] Last Admin: 06/16/20 10:58 Dose: 81 mg Documented by: Dextrose/Water (Dextrose 50% In Water) 50 ml IV ASDIRECTED PRN PRN Reason: Hypoglycemia Docusate Sodium (Colace) 100 mg PO BEDTIME [facility] Last Admin: 06/15/20 21:36 Dose: 100 mg Documented by: Enoxaparin Sodium (Lovenox) 40 mg SUBCUT BID [facility] Last Admin: 06/16/20 10:59 Dose: 40 mg Documented by: Furosemide (Lasix) 20 mg PO DAILY [facility] Last Admin: 06/16/20 10:59 Dose: 20 mg Documented by: Insulin Glargine (Lantus) 20 unit SUBCUT BID [facility] Last Admin: 06/16/20 10:57 Dose: 20 units Documented by: Insulin Human Lispro (Humalog) 0 unit SUBCUT QIDACANDBED [facility]; Protocol Last Admin: 06/16/20 07:30 Dose: Not Given Documented by: Lorazepam (Ativan) 0.5 mg PO Q4H PRN PRN Reason: Anxiety Last Admin: 06/14/20 09:20 Dose: 0.5 mg Documented by: Metoprolol Succinate (Toprol Xl) 50 mg PO DAILY [facility] Last Admin: 06/16/20 10:58 Dose: 50 mg Documented by: Ondansetron HCl (Zofran) 4 mg IV Q4H PRN PRN Reason: Nausea/Vomiting Rosuvastatin Calcium (Crestor) 20 mg PO BEDTIME [facility] Last Admin: 06/15/20 21:36 Dose: 20 mg Documented by: Sodium Chloride (Saline Flush) 10 ml FLUSH ONETIME PRN PRN Reason: Keep Vein Open Last Admin: 06/07/20 14:24 Dose: 10 ml Documented by: Discontinued Medications Acetaminophen (Tylenol) 650 mg PO NOW ONE Stop: 06/07/20 16:36 Last Admin: 06/07/20 16:47 Dose: 650 mg Documented by: Alogliptin Benzoate (Alogliptin) 25 mg PO DAILY [facility] Last Admin: 06/07/20 11:23 Dose: 25 mg Documented by: Dexamethasone (Dexamethasone) 6 mg PO DAILY [facility] Stop: 06/13/20 09:01 Last Admin: 06/11/20 08:01 Dose: 6 mg Documented by: Dexamethasone (Dexamethasone) 6 mg PO BID [facility] Stop: 06/12/20 09:01 Last Admin: 06/12/20 08:17 Dose: 6 mg Documented by: Dexamethasone (Dexamethasone) 6 mg PO BID [facility] Stop: 06/13/20 21:01 Last Admin: 06/13/20 22:37 Dose: 6 mg Documented by: Enoxaparin Sodium (Lovenox) 40 mg SUBCUT DAILY [facility] Last Admin: 06/11/20 08:00 Dose: 40 mg Documented by: Furosemide (Lasix) 20 mg IVPUSH NOW ONE Stop: 06/08/20 12:08 Last Admin: 06/08/20 12:23 Dose: 20 mg Documented by: Furosemide (Lasix) 20 mg IVPUSH NOW ONE Stop: 06/08/20 16:41 Last Admin: 06/08/20 17:26 Dose: 20 mg Documented by: Furosemide (Lasix) 20 mg PO ONETIME ONE Stop: 06/11/20 15:10 Last Admin: 06/11/20 15:29 Dose: 20 mg Documented by: Sodium Chloride (Normal Saline) 1,000 mls @ 500 mls/hr IV ONETIME ONE Stop: 06/07/20 14:51 Last Admin: 06/07/20 13:06 Dose: 500 mls/hr Documented by: Sodium Chloride (Normal Saline) 100 mls @ 75 mls/hr IV ASDIRECTED [facility] Last Admin: 06/07/20 14:10 Dose: 75 mls/hr Documented by: Remdesivir 100 mg/ Sodium (Chloride) 100 mls @ 100 mls/hr IV Q24H [facility] Stop: 06/11/20 19:29 Ceftriaxone Sodium 2 gm/ (Sodium Chloride) 100 mls @ 200 mls/hr IV DAILY@1800 [facility] Stop: 06/11/20 18:29 Last Admin: 06/08/20 19:58 Dose: Not Given Documented by: Azithromycin 500 mg/ Sodium (Chloride) 250 mls @ 250 mls/hr IV Q24H [facility] Stop: 06/09/20 20:59 Last Admin: 06/09/20 20:52 Dose: 250 mls/hr Documented by: Remdesivir 200 mg/ Sodium (Chloride) 250 mls @ 250 mls/hr IV ONETIME ONE Stop: 06/07/20 21:29 Last Admin: 06/07/20 20:55 Dose: 250 mls/hr Documented by: Sodium Chloride (Normal Saline) Confirm Administered Dose 250 mls @ as directed .ROUTE .STK-MED ONE Stop: 06/07/20 20:27 Last Admin: 06/07/20 20:54 Dose: Not Given Documented by: Sodium Chloride (Normal Saline) 1,000 mls @ 50 mls/hr IV ASDIRECTED [facility] Stop: 06/08/20 16:44 Last Admin: 06/07/20 22:06 Dose: 50 mls/hr Documented by: Magnesium Sulfate 4 gm/ Premix 50 mls @ 12.5 mls/hr IV ONETIME ONE Stop: 06/08/20 14:59 Last Admin: 06/08/20 11:43 Dose: 12.5 mls/hr Documented by: Sodium Chloride (Normal Saline) 250 mls @ 100 mls/hr IV ASDIRECTED [facility] Stop: 06/08/20 23:00 Last Admin: 06/08/20 16:55 Dose: 100 mls/hr Documented by: Remdesivir 100 mg/ Sodium (Chloride) 100 mls @ 100 mls/hr IV Q24H [facility] Stop: 06/11/20 20:29 Last Admin: 06/11/20 18:39 Dose: 100 mls/hr Documented by: Ceftriaxone Sodium 2 gm/ (Sodium Chloride) 100 mls @ 200 mls/hr IV DAILY@1999 [facility] Stop: 06/11/20 20:29 Last Admin: 06/11/20 19:54 Dose: 200 mls/hr Documented by: Magnesium Sulfate (Magnesium Sulfate In Water Premix) 2 gm in 50 mls @ 25 mls/hr IV ONETIME ONE Stop: 06/11/20 17:07 Last Admin: 06/11/20 15:30 Dose: 25 mls/hr Documented by: Magnesium Sulfate (Magnesium Sulfate In Water Premix) 2 gm in 50 mls @ 25 mls/hr IV ONETIME ONE Stop: 06/13/20 12:59 Last Admin: 06/13/20 12:47 Dose: 25 mls/hr Documented by: Magnesium Sulfate 2 gm/ Premix 50 mls @ 25 mls/hr IV ONETIME ONE Stop: 06/14/20 10:44 Last Admin: 06/14/20 08:50 Dose: 25 mls/hr Documented by: Insulin Glargine (Lantus) 7 unit SUBCUT DAILY [facility] Last Admin: 06/08/20 09:05 Dose: 7 unit Documented by: [facility] Last Admin: 06/09/20 17:01 Dose: 5 units Documented by: Insulin Glargine (Lantus) 5 unit SUBCUT NOW [facility] Stop: 06/09/20 08:28 Last Admin: 06/09/20 08:47 Dose: 5 units Documented by: Insulin Glargine (Lantus) 7 unit SUBCUT BID [facility] Last Admin: 06/10/20 08:37 Dose: 7 units Documented by: Insulin Glargine (Lantus) 8 unit SUBCUT BID [facility] Insulin Glargine (Lantus) 10 unit SUBCUT BID [facility] Last Admin: 06/11/20 08:02 Dose: 10 units Documented by: Insulin Glargine (Lantus) 15 unit SUBCUT BID [facility] Last Admin: 06/12/20 08:21 Dose: 15 units Documented by: Insulin Human Lispro (Humalog) 0 unit SUBCUT QIDACANDBED [facility]; Protocol Last Admin: 06/08/20 17:23 Dose: 5 units Documented by: Insulin Human Lispro (Humalog) 0 unit SUBCUT QIDACANDBED [facility]; Protocol Last Admin: 06/09/20 17:01 Dose: 10 units Documented by: Insulin Human Lispro (Humalog) 0 unit SUBCUT QIDACANDBED [facility]; Protocol Last Admin: 06/09/20 17:33 Dose: Not Given Documented by: Insulin Human Lispro (Humalog) 0 unit SUBCUT QIDACANDBED [facility]; Protocol Insulin Human Lispro (Humalog) [facility] Last Admin: 06/10/20 18:34 Dose: 5 units Documented by: Insulin Human Lispro (Humalog) 7 unit SUBCUT [facility] Last Admin: 06/11/20 12:44 Dose: 7 units Documented by: Iopamidol (Isovue-370 (76%)) 100 ml IVPUSH ONETIME ONE Stop: 06/07/20 13:31 Last Admin: 06/07/20 14:00 Dose: 100 ml Documented by: Lisinopril (Prinivil) 40 mg PO DAILY [facility] Lisinopril (Prinivil) 40 mg PO DAILY [facility] Last Admin: 06/07/20 11:25 Dose: 40 mg Documented by: Lorazepam (Ativan) 0.5 mg IVPUSH ONETIME ONE Stop: 06/14/20 11:47 Last Admin: 06/14/20 11:56 Dose: 0.5 mg Documented by: Metformin HCl (Glucophage) 1,000 mg PO ONETIME ONE Stop: 06/07/20 10:57 Last Admin: 06/07/20 19:43 Dose: Not Given Documented by: Metoprolol Succinate (Toprol Xl) 50 mg PO ONETIME ONE Stop: 06/07/20 10:58 Last Admin: 06/07/20 11:21 Dose: 50 mg Documented by: Metoprolol Succinate (Toprol Xl) 50 mg PO DAILY [facility] Last Admin: 06/11/20 08:00 Dose: 50 mg Documented by: Quetiapine Fumarate (Seroquel) 12.5 mg PO BID [facility] Quetiapine Fumarate (Seroquel) 12.5 mg PO ONETIME ONE Stop: 06/13/20 11:19 Last Admin: 06/13/20 11:38 Dose: 12.5 mg Documented by: - Exam Quality Assessment: Supplemental Oxygen (60 L O2) General: Alert, Other (Confused) HEENT: Pupils Equal, Pupils Reactive, EOMI, Mucous Membr. Moist/[place] Neck: Supple Lungs: Clear to Auscultation, Normal Respiratory Effort Cardiovascular: Regular Rate, Regular Rhythm GI/Abdominal Exam: Normal Bowel Sounds, Soft, Non-Tender, No Distention Extremities: Normal Inspection, Normal Range of Motion, Non-Tender, No Pedal Edema, Normal Capillary Refill Skin: Warm, Dry, Intact Psy/Mental Status: Alert Sepsis Event Note - Evaluation Sepsis Screening Result: No Definite Risk - Focused Exam Vital Signs: Vital Signs Temp Pulse Resp BP Pulse Ox Pulse Ox 06/16/20 11:14 98.1 F 73 20 112/71 93 L 06/16/20 10:58 75 120/69 06/16/20 07:28 98.1 F 75 20 120/69 93 L 06/16/20 05:14 90 L 06/16/20 03:46 98.2 F 68 20 129/91 H 90 L - Problem List & Annotations (1) COVID-19 SNOMED Code(s): 559931025 Code(s): U07.1 - COVID-19 Status: Acute Priority: High Current Visit: Yes Onset Date: ~06/15/20 Annotation/Comment:: stable condition. Requiring 60 L high flow O2 and maintaining sats in mid-low 90s (2) Elevated troponin I level SNOMED Code(s): 501042212 Code(s): R77.8 - OTHER SPECIFIED ABNORMALITIES OF PLASMA PROTEINS Status: Acute Priority: Medium Current Visit: Yes Onset Date: ~06/15/20 Annotation/Comment:: repeat inflamitory markers today (3) Hypoxia SNOMED Code(s): 625028332 Code(s): R09.02 - HYPOXEMIA Status: Resolved Priority: High Current Visit: Yes Annotation/Comment:: requiring 60 L high flow O2. Sats stable in mid-low 90s. Sats drop to 60s on exertion - Problem List Review Problem List Initiated/Reviewed/Updated: Yes - Plan Plan:: Assessment 74-year-old male diagnosed with COVID-19 on 06/03/2020, but symptomatic since the sixth presents to the emergency department with increasing weakness. COVID-19 Infection Viral Pneumonitis Leukocytosis Acute Hypoxic Respiratory Failure * On high flow nasal cannula at 60 L now up to 95% FiO2 * S/p 2 units convalescent plasma * CTA of the chest on 06/07/2020: No pulmonary embolism. Positive for patchy bilateral groundglass pulmonary infiltrates. Cardiomegaly with vascular calcifications including coronary artery calcifications. * WBC 8.77, CRP 5.4 both stable with no significant change * Completed 5 day course of remdesivir; rocephin and azithromycin * Continue dexamethasone 6 mg po BID * Nothing else to offer but steroid, bedside pulmo exercise, IS/FV, and proning position * Had trouble keeping his O2 on; may need help to calm him down but will avoid benzo * ABG: pH 7.45, PCO2 36.7, PO2 62.0, bicarb 25.2, O2 saturation 91% on high flow nasal cannula with 60 L flow rate and FiO2 of 85% Delirium * Patient is much more confused today. He is requiring constant nursing care. PCO2 is normal and oxygen saturations are normal. His PaO2 is slightly low. No significant change in other labs. * Patient was tried on Seroquel yesterday with poor results. * Ativan 0.5 p.o. was given without benefit and Ativan 0.5 IV was given which seems to have worsened his symptoms. Elevated troponin, consider type II IL * No new symptoms Hyperlipidemia * Rosuvastatin 20 mg daily Hyponatremia-resolved * Na today is 139 * Likely due to poor oral intake and diuretic use S/p Acute renal injuryresolved Type 2 diabetes, controlled * Continue Lantus from 20 units BID with high intensity ISS * Hemoglobin A1c 7.5, TSH 0.528 * Blood sugars will worsen secondary to dexamethasone * Hold metformin, acarbose, and pioglitazone * Continue alogliptin Hypertension * On metoprolol succinate 50 mg daily * Blood pressures improved Thrombocytopeniaresolved Hypomagnesemia-likely inadequate intake * Mg now is 1.7 * Will replete Plan: * Oxygenation worsening and much more confused today. * Nursing is placing him on a one-to-one because of his confusion. * Patient currently is at harm to self if he stands up or moves around without help. He may need Haldol IV for his delirium if he becomes a risk for falling or taking off his high flow nasal cannula. * Continue high flow; goal titrate to come off * Aggressive proning protocol * Routine AM Labs * Consider LTAC if not able to wean off high flow * VTE prophylaxis with Lovenox 40 mg Sub BID-elevated D-dimer * Encourage to use IS and FV and ambulate inside his room * CODE STATUS full code 06/15/20 afebrile vss// i/os oka. o2 sats stable on 60 liters at 60%. no increased suero and or distress note. lungs clear and equal . abd benign. skin mild rubor legs good cap refill. neuro confusion and one on one nursing sec. to pulling lines and cpap off. better overall though baseline na on admision 127 trop high .127 crp 9.7 d dimer 3.7 assess covid : stable /slight improvement . dementia; fluctuating delerium. keep on some mild sedation ? visteril diabetes bs 223 will need long acting insulin . elavated parameters rechecks pending. clinically stable so far. placement arranging learning operations specialist care sec to one on one mursing and difficulty caring for needs . boh 06/16 Afebrile. i/os okay. Stats are stable in mid to low 90s on 60 liters of O2. Patient says he feels good and denies shortness of breath. Sats drop down into 60s while ambulating. Lungs are clear bilaterally Good cap refill on extremities Patient continues to require one on one nursing care for confusion. He broke cpap tubing for the third time since admission. baseline Na on admission was 127 CRP has come down to 8.7 D-Dimer 3.3 COVID: stable Fluctuating delirium continues Recheck CRP, D-Dimer, Troponin in AM Arranging transfer to learning operations specialist care facility ([facility]) in [place], [place]. Awaiting the approval. Discharge anticipated in near future. CAITLYN Sherman
[2020-06-16] MEDS ORDERED: QUEtiapine 25 MG Tab PO SCH (21:00)
[2020-06-16] MEDS: Docusate Sodium 100 MG Cap PO SCH (21:40)
[2020-06-16] MEDS: Rosuvastatin 10 MG Tab PO SCH (21:40)
[2020-06-17] MEDS: Insulin Lispro 100 Units/ML 3 ML Vial SUBCUT SCH ×4 (06:14→21:57)
[2020-06-17] MEDS: Insulin Glarg,Human.Rec.Analog 100 Unit/ML SUBCUT SCH ×2 (09:45→21:11)
[2020-06-17] MEDS: Metoprolol Succinate 50 MG Tab.ER PO SCH (09:47)
[2020-06-17] MEDS: Furosemide 20 MG Tab PO SCH (09:47)
[2020-06-17] MEDS: Aspirin 81 MG Tab.EC PO SCH (09:47)
[2020-06-17] MEDS ORDERED: Haloperidol 1 MG Tab PO ONE (09:48)
[2020-06-17] MEDS: Enoxaparin 40 MG/0.4 ML Syringe SUBCUT SCH ×2 (09:55→21:13)
[2020-06-17] MEDS: Magnesium Oxide 400 MG Tab PO SCH ×2 (12:33→21:10)
[2020-06-17] MEDS: Rosuvastatin 10 MG Tab PO SCH (21:09)
[2020-06-17] MEDS: Docusate Sodium 100 MG Cap PO SCH (21:10)
[2020-06-18] MEDS: Magnesium Oxide 400 MG Tab PO SCH ×2 (09:57→20:54)
[2020-06-18] MEDS: Enoxaparin 40 MG/0.4 ML Syringe SUBCUT SCH ×2 (09:57→20:55)
[2020-06-18] MEDS: Metoprolol Succinate 50 MG Tab.ER PO SCH (09:58)
[2020-06-18] MEDS: Aspirin 81 MG Tab.EC PO SCH (09:58)
[2020-06-18] MEDS: Insulin Glarg,Human.Rec.Analog 100 Unit/ML SUBCUT SCH ×2 (10:00→23:30)
[2020-06-18] MEDS: Furosemide 20 MG Tab PO SCH (10:00)
[2020-06-18] MEDS: Insulin Lispro 100 Units/ML 3 ML Vial SUBCUT SCH ×4 (10:01→22:39)
[2020-06-18] MEDS ORDERED: Magnesium Sulfate/Water 2 GM/50 ML BAG IV ONE (11:31)
--- NOTE | 2020-06-18 17:36 | PCM.PN ---
- General Info Date of Service: 06/18/20 Admission Dx/Problem (Free Text): Admission Diagnosis/Problem Admission Diagnosis/Problem Hypoxia Subjective Update: Patient continues to be on 60 L high flow nasal cannula with 90% FiO2. Chest x- ray worsened overnight. Patient does state he is feeling better. He had a better night last night with less confusion. He was given Haldol 2 mg which did seem to help. Functional Status: Reports: Pain Controlled - Review of Systems General: Reports: No Symptoms HEENT: Reports: No Symptoms Pulmonary: Reports: Shortness of Breath Cardiovascular: Reports: No Symptoms Gastrointestinal: Reports: No Symptoms Musculoskeletal: Reports: No Symptoms - Patient Data Vitals - Most Recent: Last Vital Signs Temp 98.4 F 06/18/20 15:38 Pulse 80 06/18/20 15:38 Resp 18 06/18/20 15:38 BP 134/72 06/18/20 15:38 Pulse Ox 93 L 06/18/20 15:38 Weight - Most Recent: 243 lb 4.8 oz I&O - Last 24 Hours: Intake & Output 06/18/20 06/18/20 06/18/20 06:59 14:59 22:59 Intake Total 244 875 5222 Output Total 550 500 Balance -361 408 9175 Lab Results Last 24 Hours: Laboratory Results - last 24 hr 06/17/20 06/18/20 06/18/20 Range/Units 21:52 04:38 04:38 WBC 6.76 (4.23-9.07) K/mm3 RBC 3.77 L (4.63-6.08) M/mm3 Hgb 11.5 L (13.7-17.5) gm/dl Hct 35.2 L (40.1-51.0) % MCV 93.4 H (79.0-92.2) fl MCH 30.5 (25.7-32.2) pg MCHC 32.7 (32.2-35.5) g/dl RDW Std Deviation 47.6 H (35.1-43.9) fL Plt Count 191 (163-337) K/mm3 MPV 10.5 (9.4-12.3) fl Neut % (Auto) 76.4 H (34.0-67.9) % Lymph % (Auto) 13.0 L (21.8-53.1) % [place] % (Auto) 8.7 (5.3-12.2) % Eos % (Auto) 1.8 (0.8-7.0) Baso % (Auto) 0.1 (0.1-1.2) % Neut # (Auto) 5.16 (1.78-5.38) K/mm3 Lymph # (Auto) 0.88 L (1.32-3.57) K/mm3 [place] # (Auto) 0.59 (0.30-0.82) K/mm3 Eos # (Auto) 0.12 (0.04-0.54) K/mm3 Baso # (Auto) 0.01 (0.01-0.08) K/mm3 Sodium 139 (136-145) mEq/L Potassium 3.8 (3.5-5.1) mEq/L Chloride 103 (98-107) mEq/L Carbon Dioxide 31 (21-32) mEq/L Anion Gap 8.8 (5-15) BUN 31 H (7-18) mg/dL Creatinine 1.1 (0.7-1.3) mg/dL Est Cr Clr Drug Dosing 63.69 mL/min Estimated GFR (MDRD) > 60 (>60) mL/min BUN/Creatinine Ratio 28.2 H (14-18) Glucose 106 (83-115) mg/dL POC Glucose 162 H (83-110) mg/dL Calcium 9.7 (8.5-10.1) mg/dL Magnesium 1.7 L (1.8-2.4) mg/dl C-Reactive Protein 5.9 H* (<1.0) mg/dL 06/18/20 06/18/20 06/18/20 Range/Units 05:55 10:34 16:35 WBC (4.23-9.07) K/mm3 RBC (4.63-6.08) M/mm3 Hgb (13.7-17.5) gm/dl Hct (40.1-51.0) % MCV (79.0-92.2) fl MCH (25.7-32.2) pg MCHC (32.2-35.5) g/dl RDW Std Deviation (35.1-43.9) fL Plt Count (163-337) K/mm3 MPV (9.4-12.3) fl Neut % (Auto) (34.0-67.9) % Lymph % (Auto) (21.8-53.1) % [place] % (Auto) (5.3-12.2) % Eos % (Auto) (0.8-7.0) Baso % (Auto) (0.1-1.2) % Neut # (Auto) (1.78-5.38) K/mm3 Lymph # (Auto) (1.32-3.57) K/mm3 [place] # (Auto) (0.30-0.82) K/mm3 Eos # (Auto) (0.04-0.54) K/mm3 Baso # (Auto) (0.01-0.08) K/mm3 Sodium (136-145) mEq/L Potassium (3.5-5.1) mEq/L Chloride (98-107) mEq/L Carbon Dioxide (21-32) mEq/L Anion Gap (5-15) BUN (7-18) mg/dL Creatinine (0.7-1.3) mg/dL Est Cr Clr Drug Dosing mL/min Estimated GFR (MDRD) (>60) mL/min BUN/Creatinine Ratio (14-18) Glucose (83-115) mg/dL POC Glucose 108 355 H 248 H (83-110) mg/dL Calcium (8.5-10.1) mg/dL Magnesium (1.8-2.4) mg/dl C-Reactive Protein (<1.0) mg/dL Med Orders - Current: Current Medications Acetaminophen (Tylenol) 650 mg RECTAL Q4H PRN PRN Reason: Pain (mild 1-3) Albuterol (Proventil Hfa) 0 gm INH Q4H PRN PRN Reason: Wheezing Last Admin: 06/10/20 20:16 Dose: 2 puff Documented by: Alogliptin Benzoate (Alogliptin) 25 mg PO DAILY [facility] Last Admin: 06/18/20 09:58 Dose: 25 mg Documented by: Aspirin (Halfprin) 81 mg PO DAILY [facility] Last Admin: 06/18/20 09:58 Dose: 81 mg Documented by: Dextrose/Water (Dextrose 50% In Water) 50 ml IV ASDIRECTED PRN PRN Reason: Hypoglycemia Docusate Sodium (Colace) 100 mg PO BEDTIME [facility] Last Admin: 06/17/20 21:10 Dose: 100 mg Documented by: Enoxaparin Sodium (Lovenox) 40 mg SUBCUT BID [facility] Last Admin: 06/18/20 09:57 Dose: 40 mg Documented by: Furosemide (Lasix) 20 mg PO DAILY [facility] Last Admin: 06/18/20 10:00 Dose: 20 mg Documented by: Insulin Glargine (Lantus) 20 unit SUBCUT BID [facility] Last Admin: 06/18/20 10:00 Dose: 20 units Documented by: Insulin Human Lispro (Humalog) 0 unit SUBCUT QIDACANDBED [facility]; Protocol Last Admin: 06/18/20 12:25 Dose: 15 units Documented by: Lorazepam (Ativan) 0.5 mg PO Q4H PRN PRN Reason: Anxiety Last Admin: 06/14/20 09:20 Dose: 0.5 mg Documented by: Magnesium Oxide (Magnesium Oxide) 400 mg PO BID [facility] Stop: 06/18/20 21:01 Last Admin: 06/18/20 09:57 Dose: 400 mg Documented by: Metoprolol Succinate (Toprol Xl) 50 mg PO DAILY [facility] Last Admin: 06/18/20 09:58 Dose: 50 mg Documented by: Ondansetron HCl (Zofran) 4 mg IV Q4H PRN PRN Reason: Nausea/Vomiting Rosuvastatin Calcium (Crestor) 20 mg PO BEDTIME [facility] Last Admin: 06/17/20 21:09 Dose: 20 mg Documented by: Sodium Chloride (Saline Flush) 10 ml FLUSH ONETIME PRN PRN Reason: Keep Vein Open Last Admin: 06/07/20 14:24 Dose: 10 ml Documented by: Discontinued Medications Acetaminophen (Tylenol) 650 mg PO NOW ONE Stop: 06/07/20 16:36 Last Admin: 06/07/20 16:47 Dose: 650 mg Documented by: Alogliptin Benzoate (Alogliptin) 25 mg PO DAILY [facility] Last Admin: 06/07/20 11:23 Dose: 25 mg Documented by: Dexamethasone (Dexamethasone) 6 mg PO DAILY [facility] Stop: 06/13/20 09:01 Last Admin: 06/11/20 08:01 Dose: 6 mg Documented by: Dexamethasone (Dexamethasone) 6 mg PO BID [facility] Stop: 06/12/20 09:01 Last Admin: 06/12/20 08:17 Dose: 6 mg Documented by: Dexamethasone (Dexamethasone) 6 mg PO BID [facility] Stop: 06/13/20 21:01 Last Admin: 06/13/20 22:37 Dose: 6 mg Documented by: Enoxaparin Sodium (Lovenox) 40 mg SUBCUT DAILY [facility] Last Admin: 06/11/20 08:00 Dose: 40 mg Documented by: Furosemide (Lasix) 20 mg IVPUSH NOW ONE Stop: 06/08/20 12:08 Last Admin: 06/08/20 12:23 Dose: 20 mg Documented by: Furosemide (Lasix) 20 mg IVPUSH NOW ONE Stop: 06/08/20 16:41 Last Admin: 06/08/20 17:26 Dose: 20 mg Documented by: Furosemide (Lasix) 20 mg PO ONETIME ONE Stop: 06/11/20 15:10 Last Admin: 06/11/20 15:29 Dose: 20 mg Documented by: Haloperidol (Haldol) 2 mg PO ONETIME ONE Stop: 06/17/20 09:49 Last Admin: 06/17/20 10:06 Dose: 2 mg Documented by: Sodium Chloride (Normal Saline) 1,000 mls @ 500 mls/hr IV ONETIME ONE Stop: 06/07/20 14:51 Last Admin: 06/07/20 13:06 Dose: 500 mls/hr Documented by: Sodium Chloride (Normal Saline) 100 mls @ 75 mls/hr IV ASDIRECTED [facility] Last Admin: 06/07/20 14:10 Dose: 75 mls/hr Documented by: Remdesivir 100 mg/ Sodium (Chloride) 100 mls @ 100 mls/hr IV Q24H [facility] Stop: 06/11/20 19:29 Ceftriaxone Sodium 2 gm/ (Sodium Chloride) 100 mls @ 200 mls/hr IV DAILY@1800 [facility] Stop: 06/11/20 18:29 Last Admin: 06/08/20 19:58 Dose: Not Given Documented by: Azithromycin 500 mg/ Sodium (Chloride) 250 mls @ 250 mls/hr IV Q24H [facility] Stop: 06/09/20 20:59 Last Admin: 06/09/20 20:52 Dose: 250 mls/hr Documented by: Remdesivir 200 mg/ Sodium (Chloride) 250 mls @ 250 mls/hr IV ONETIME ONE Stop: 06/07/20 21:29 Last Admin: 06/07/20 20:55 Dose: 250 mls/hr Documented by: Sodium Chloride (Normal Saline) Confirm Administered Dose 250 mls @ as directed .ROUTE .STK-MED ONE Stop: 06/07/20 20:27 Last Admin: 06/07/20 20:54 Dose: Not Given Documented by: Sodium Chloride (Normal Saline) 1,000 mls @ 50 mls/hr IV ASDIRECTED [facility] Stop: 06/08/20 16:44 Last Admin: 06/07/20 22:06 Dose: 50 mls/hr Documented by: Magnesium Sulfate 4 gm/ Premix 50 mls @ 12.5 mls/hr IV ONETIME ONE Stop: 06/08/20 14:59 Last Admin: 06/08/20 11:43 Dose: 12.5 mls/hr Documented by: Sodium Chloride (Normal Saline) 250 mls @ 100 mls/hr IV ASDIRECTED [facility] Stop: 06/08/20 23:00 Last Admin: 06/08/20 16:55 Dose: 100 mls/hr Documented by: Remdesivir 100 mg/ Sodium (Chloride) 100 mls @ 100 mls/hr IV Q24H [facility] Stop: 06/11/20 20:29 Last Admin: 06/11/20 18:39 Dose: 100 mls/hr Documented by: Ceftriaxone Sodium 2 gm/ (Sodium Chloride) 100 mls @ 200 mls/hr IV DAILY@1999 [facility] Stop: 06/11/20 20:29 Last Admin: 06/11/20 19:54 Dose: 200 mls/hr Documented by: Magnesium Sulfate (Magnesium Sulfate In Water Premix) 2 gm in 50 mls @ 25 mls/hr IV ONETIME ONE Stop: 06/11/20 17:07 Last Admin: 06/11/20 15:30 Dose: 25 mls/hr Documented by: Magnesium Sulfate (Magnesium Sulfate In Water Premix) 2 gm in 50 mls @ 25 mls/hr IV ONETIME ONE Stop: 06/13/20 12:59 Last Admin: 06/13/20 12:47 Dose: 25 mls/hr Documented by: Magnesium Sulfate 2 gm/ Premix 50 mls @ 25 mls/hr IV ONETIME ONE Stop: 06/14/20 10:44 Last Admin: 06/14/20 08:50 Dose: 25 mls/hr Documented by: Magnesium Sulfate (Magnesium Sulfate In Water Premix) 2 gm in 50 mls @ 25 mls/hr IV ONETIME ONE Stop: 06/18/20 13:30 Last Admin: 06/18/20 12:56 Dose: 25 mls/hr Documented by: Insulin Glargine (Lantus) 7 unit SUBCUT DAILY [facility] Last Admin: 06/08/20 09:05 Dose: 7 unit Documented by: Insulin Glargine (Lantus) 5 unit SUBCUT BIDAC [facility] Last Admin: 06/09/20 17:01 Dose: 5 units Documented by: Insulin Glargine (Lantus) 5 unit SUBCUT NOW STA Stop: 06/09/20 08:28 Last Admin: 06/09/20 08:47 Dose: 5 units Documented by: Insulin Glargine (Lantus) 7 unit SUBCUT BID [facility] Last Admin: 06/10/20 08:37 Dose: 7 units Documented by: Insulin Glargine (Lantus) 8 unit SUBCUT BID [place] Insulin Glargine (Lantus) 10 unit SUBCUT BID [facility] Last Admin: 06/11/20 08:02 Dose: 10 units Documented by: Insulin Glargine (Lantus) 15 unit SUBCUT BID [facility] Last Admin: 06/12/20 08:21 Dose: 15 units Documented by: Insulin Human Lispro (Humalog) 0 unit SUBCUT QIDACANDBED [facility]; Protocol Last Admin: 06/08/20 17:23 Dose: 5 units Documented by: Insulin Human Lispro (Humalog) 0 unit SUBCUT QIDACANDBED [facility]; Protocol Last Admin: 06/09/20 17:01 Dose: 10 units Documented by: Insulin Human Lispro (Humalog) 0 unit SUBCUT QIDACANDBED [facility]; Protocol Last Admin: 06/09/20 17:33 Dose: Not Given Documented by: Insulin Human Lispro (Humalog) 0 unit SUBCUT QIDACANDBED [facility]; Protocol Insulin Human Lispro (Humalog) 5 unit SUBCUT TIDPC [facility] Last Admin: 06/10/20 18:34 Dose: 5 units Documented by: Insulin Human Lispro (Humalog) 7 unit SUBCUT TIDPC [facility] Last Admin: 06/11/20 12:44 Dose: 7 units Documented by: Iopamidol (Isovue-370 (76%)) 100 ml IVPUSH ONETIME ONE Stop: 06/07/20 13:31 Last Admin: 06/07/20 14:00 Dose: 100 ml Documented by: Lisinopril (Prinivil) 40 mg PO DAILY [facility] Lisinopril (Prinivil) 40 mg PO DAILY [facility] Last Admin: 06/07/20 11:25 Dose: 40 mg Documented by: Lorazepam (Ativan) 0.5 mg IVPUSH ONETIME ONE Stop: 06/14/20 11:47 Last Admin: 06/14/20 11:56 Dose: 0.5 mg Documented by: Metformin HCl (Glucophage) 1,000 mg PO ONETIME ONE Stop: 06/07/20 10:57 Last Admin: 06/07/20 19:43 Dose: Not Given Documented by: Metoprolol Succinate (Toprol Xl) 50 mg PO ONETIME ONE Stop: 06/07/20 10:58 Last Admin: 06/07/20 11:21 Dose: 50 mg Documented by: Metoprolol Succinate (Toprol Xl) 50 mg PO DAILY [facility] Last Admin: 06/11/20 08:00 Dose: 50 mg Documented by: Quetiapine Fumarate (Seroquel) 12.5 mg PO BID [facility] Quetiapine Fumarate (Seroquel) 12.5 mg PO ONETIME ONE Stop: 06/13/20 11:19 Last Admin: 06/13/20 11:38 Dose: 12.5 mg Documented by: Quetiapine Fumarate (Seroquel) 25 mg PO BEDTIME [facility] Last Admin: 06/16/20 21:40 Dose: 25 mg Documented by: - Exam Quality Assessment: Supplemental Oxygen, Urine Catheter General: Alert, Oriented HEENT: Pupils Equal, Mucous Membr. Moist/[place] Neck: Supple Lungs: Rales (Minimal bibasilar rales). No: Normal Respiratory Effort (Increased respiratory rate, but overall much improved from last week.) Cardiovascular: Regular Rate, Regular Rhythm GI/Abdominal Exam: Normal Bowel Sounds, Soft, Non-Tender, No Organomegaly, No Distention, No Abnormal Bruit Extremities: Normal Inspection, Normal Range of Motion, Non-Tender, No Pedal Edema, Normal Capillary Refill Psy/Mental Status: Alert, Normal Affect, Normal Mood Sepsis Event Note - Evaluation Sepsis Screening Result: No Definite Risk - Focused Exam Vital Signs: Vital Signs Temp Pulse Resp BP Pulse Ox Pulse Ox 06/18/20 15:38 98.4 F 80 18 134/72 93 L 06/18/20 14:53 89 L 06/18/20 11:12 97.5 F 73 20 117/74 90 L 06/18/20 09:58 83 117/54 L 06/18/20 08:41 92 L 06/18/20 07:32 97.7 F 73 20 117/74 90 L 06/18/20 05:56 90 L 06/18/20 05:41 92 L - Problem List & Annotations (1) Elevated troponin I level SNOMED Code(s): 013881287 Code(s): R77.8 - OTHER SPECIFIED ABNORMALITIES OF PLASMA PROTEINS Status: Acute Priority: Medium Current Visit: Yes Onset Date: ~06/15/20 Annotation/Comment:: repeat inflamitory markers today (2) COVID-19 SNOMED Code(s): 082538683 Code(s): U07.1 - COVID-19 Status: Acute Priority: High Current Visit: Yes Onset Date: ~06/15/20 Annotation/Comment:: stable condition. Requiring 60 L high flow O2 and maintaining sats in mid-low 90s (3) Hypoxia SNOMED Code(s): 777009233 Code(s): R09.02 - HYPOXEMIA Status: Resolved Priority: High Current Visit: Yes Annotation/Comment:: requiring 60 L high flow O2. Sats stable in mid-low 90s. Sats drop to 60s on exertion (4) Weakness SNOMED Code(s): 91598818 Code(s): R53.1 - WEAKNESS Status: Acute Priority: High Current Visit: Yes - Problem List Review Problem List Initiated/Reviewed/Updated: Yes - Plan Plan:: Assessment 74-year-old male diagnosed with COVID-19 on 06/03/2020, but symptomatic since the sixth presents to the emergency department with increasing weakness. COVID-19 Infection Viral Pneumonitis Leukocytosis Acute Hypoxic Respiratory Failure * On high flow nasal cannula at 60 L 90% FiO2 * S/p 2 units convalescent plasma * CTA of the chest on 06/07/2020: No pulmonary embolism. Positive for patchy bilateral groundglass pulmonary infiltrates. Cardiomegaly with vascular calcifications including coronary artery calcifications. * Chest x-ray today showed increased diffuse alveolar infiltrates and consolidation on the right * WBC 6.76, CRP 5.9 * Completed 5 day course of remdesivir; rocephin and azithromycin * Finished dexamethasone * Nothing else to offer but steroid, bedside pulmo exercise, IS/FV, and proning position * Had trouble keeping his O2 on; may need help to calm him down but will avoid benzo Elevated troponin, consider type II OK * No new symptoms Hyperlipidemia * Rosuvastatin 20 mg daily Hyponatremia-resolved * Na today is 139 * Likely due to poor oral intake and diuretic use S/p Acute renal injuryresolved Type 2 diabetes, controlled * Continue Lantus 20 units BID with high intensity ISS * Hemoglobin A1c 7.5, TSH 0.528 * Blood sugars will worsen secondary to dexamethasone, but still elevated even with completing dexamethasone. It may take a few more days for this to level off. He is also off of 3 of his home oral diabetic medications. * Hold metformin, a carbose, and pioglitazone * Continue alogliptin Hypertension * On metoprolol succinate 50 mg daily * Blood pressures improved Thrombocytopeniaresolved * Platelets 191 Elevated Hypochloremia-resolved * Cl of 99 * Will monitor Hypomagnesemia-likely inadequate intake * Mg now is 1.7 * Will replete Plan: * He looks good this morning * Continue high flow; goal titrate to come off * Aggressive proning protocol * Start Humalog 5 units with each meal * Sliding scale insulin high intensity * Routine AM Labs * Consider LTAC if not able to wean off high flow * VTE prophylaxis with Lovenox 40 mg Sub BID-elevated D-dimer * Encourage to use IS and FV and ambulate inside his room * CODE STATUS full code
[2020-06-18] MEDS: Docusate Sodium 100 MG Cap PO SCH (20:54)
[2020-06-18] MEDS: Rosuvastatin 10 MG Tab PO SCH (20:55)
[2020-06-19] MEDS: Insulin Lispro 100 Units/ML 3 ML Vial SUBCUT SCH ×7 (07:30→22:06)
--- NOTE | 2020-06-19 08:23 | PCM.PN ---
- General Info Date of Service: 06/19/20 Admission Dx/Problem (Free Text): Admission Diagnosis/Problem Admission Diagnosis/Problem Hypoxia Subjective Update: Patient states he is feeling well. He is still having desats when he does activity. He has been stable on 60 L at 90% high flow nasal cannula. Appetite is good. Functional Status: Reports: Pain Controlled - Review of Systems General: Reports: No Symptoms HEENT: Reports: No Symptoms Pulmonary: Reports: Shortness of Breath Cardiovascular: Reports: No Symptoms Gastrointestinal: Reports: No Symptoms Musculoskeletal: Reports: No Symptoms Neurological: Reports: No Symptoms Psychiatric: Reports: No Symptoms - Patient Data Vitals - Most Recent: Last Vital Signs Temp 98.2 F 06/19/20 03:47 Pulse 73 06/19/20 03:47 Resp 18 06/19/20 03:47 BP 116/59 L 06/19/20 03:47 Pulse Ox 92 L 06/19/20 05:39 Weight - Most Recent: 237 lb 1.6 oz I&O - Last 24 Hours: Intake & Output 06/18/20 06/19/20 06/19/20 22:59 06:59 14:59 Intake Total 1800 300 Output Total 500 800 Balance 1300 -500 Lab Results Last 24 Hours: Laboratory Results - last 24 hr 06/18/20 06/18/20 06/18/20 Range/Units 10:34 16:35 22:38 POC Glucose 355 H 248 H 139 H (83-110) mg/dL 06/19/20 Range/Units 06:03 POC Glucose 140 H (83-110) mg/dL Med Orders - Current: Current Medications Acetaminophen (Tylenol) 650 mg RECTAL Q4H PRN PRN Reason: Pain (mild 1-3) Albuterol (Proventil Hfa) 0 gm INH Q4H PRN PRN Reason: Wheezing Last Admin: 06/10/20 20:16 Dose: 2 puff Documented by: Alogliptin Benzoate (Alogliptin) 25 mg PO DAILY [facility] Last Admin: 06/18/20 09:58 Dose: 25 mg Documented by: Aspirin (Halfprin) 81 mg PO DAILY [facility] Last Admin: 06/18/20 09:58 Dose: 81 mg Documented by: Dextrose/Water (Dextrose 50% In Water) 50 ml IV ASDIRECTED PRN PRN Reason: Hypoglycemia Docusate Sodium (Colace) 100 mg PO BEDTIME [facility] Last Admin: 06/18/20 20:54 Dose: 100 mg Documented by: Enoxaparin Sodium (Lovenox) 40 mg SUBCUT BID [facility] Last Admin: 06/18/20 20:55 Dose: 40 mg Documented by: Furosemide (Lasix) 20 mg PO DAILY [facility] Last Admin: 06/18/20 10:00 Dose: 20 mg Documented by: Insulin Glargine (Lantus) 20 unit SUBCUT BID [facility] Last Admin: 06/18/20 23:30 Dose: 20 units Documented by: Insulin Human Lispro (Humalog) 0 unit SUBCUT QIDACANDBED [facility]; Protocol Last Admin: 06/18/20 22:39 Dose: Not Given Documented by: Insulin Human Lispro (Humalog) 5 unit SUBCUT TIDAC [facility] Last Admin: 06/19/20 07:58 Dose: 5 units Documented by: Lorazepam (Ativan) 0.5 mg PO Q4H PRN PRN Reason: Anxiety Last Admin: 06/14/20 09:20 Dose: 0.5 mg Documented by: Metoprolol Succinate (Toprol Xl) 50 mg PO DAILY [facility] Last Admin: 06/18/20 09:58 Dose: 50 mg Documented by: Ondansetron HCl (Zofran) 4 mg IV Q4H PRN PRN Reason: Nausea/Vomiting Rosuvastatin Calcium (Crestor) 20 mg PO BEDTIME [facility] Last Admin: 06/18/20 20:55 Dose: 20 mg Documented by: Sodium Chloride (Saline Flush) 10 ml FLUSH ONETIME PRN PRN Reason: Keep Vein Open Last Admin: 06/07/20 14:24 Dose: 10 ml Documented by: Discontinued Medications Acetaminophen (Tylenol) 650 mg PO NOW ONE Stop: 06/07/20 16:36 Last Admin: 06/07/20 16:47 Dose: 650 mg Documented by: Alogliptin Benzoate (Alogliptin) 25 mg PO DAILY [facility] Last Admin: 06/07/20 11:23 Dose: 25 mg Documented by: Dexamethasone (Dexamethasone) 6 mg PO DAILY [facility] Stop: 06/13/20 09:01 Last Admin: 06/11/20 08:01 Dose: 6 mg Documented by: Dexamethasone (Dexamethasone) 6 mg PO BID [facility] Stop: 06/12/20 09:01 Last Admin: 06/12/20 08:17 Dose: 6 mg Documented by: Dexamethasone (Dexamethasone) 6 mg PO BID [facility] Stop: 06/13/20 21:01 Last Admin: 06/13/20 22:37 Dose: 6 mg Documented by: Enoxaparin Sodium (Lovenox) 40 mg SUBCUT DAILY [facility] Last Admin: 06/11/20 08:00 Dose: 40 mg Documented by: Furosemide (Lasix) 20 mg IVPUSH NOW ONE Stop: 06/08/20 12:08 Last Admin: 06/08/20 12:23 Dose: 20 mg Documented by: Furosemide (Lasix) 20 mg IVPUSH NOW ONE Stop: 06/08/20 16:41 Last Admin: 06/08/20 17:26 Dose: 20 mg Documented by: Furosemide (Lasix) 20 mg PO ONETIME ONE Stop: 06/11/20 15:10 Last Admin: 06/11/20 15:29 Dose: 20 mg Documented by: Haloperidol (Haldol) 2 mg PO ONETIME ONE Stop: 06/17/20 09:49 Last Admin: 06/17/20 10:06 Dose: 2 mg Documented by: Sodium Chloride (Normal Saline) 1,000 mls @ 500 mls/hr IV ONETIME ONE Stop: 06/07/20 14:51 Last Admin: 06/07/20 13:06 Dose: 500 mls/hr Documented by: Sodium Chloride (Normal Saline) 100 mls @ 75 mls/hr IV ASDIRECTED [facility] Last Admin: 06/07/20 14:10 Dose: 75 mls/hr Documented by: Remdesivir 100 mg/ Sodium (Chloride) 100 mls @ 100 mls/hr IV Q24H [facility] Stop: 06/11/20 19:29 Ceftriaxone Sodium 2 gm/ (Sodium Chloride) 100 mls @ 200 mls/hr IV DAILY@1800 [facility] Stop: 06/11/20 18:29 Last Admin: 06/08/20 19:58 Dose: Not Given Documented by: Azithromycin 500 mg/ Sodium (Chloride) 250 mls @ 250 mls/hr IV Q24H [facility] Stop: 06/09/20 20:59 Last Admin: 06/09/20 20:52 Dose: 250 mls/hr Documented by: Remdesivir 200 mg/ Sodium (Chloride) 250 mls @ 250 mls/hr IV ONETIME ONE Stop: 06/07/20 21:29 Last Admin: 06/07/20 20:55 Dose: 250 mls/hr Documented by: Sodium Chloride (Normal Saline) Confirm Administered Dose 250 mls @ as directed .ROUTE .STK-MED ONE Stop: 06/07/20 20:27 Last Admin: 06/07/20 20:54 Dose: Not Given Documented by: Sodium Chloride (Normal Saline) 1,000 mls @ 50 mls/hr IV ASDIRECTED [facility] Stop: 06/08/20 16:44 Last Admin: 06/07/20 22:06 Dose: 50 mls/hr Documented by: Magnesium Sulfate 4 gm/ Premix 50 mls @ 12.5 mls/hr IV ONETIME ONE Stop: 06/08/20 14:59 Last Admin: 06/08/20 11:43 Dose: 12.5 mls/hr Documented by: Sodium Chloride (Normal Saline) 250 mls @ 100 mls/hr IV ASDIRECTED [facility] Stop: 06/08/20 23:00 Last Admin: 06/08/20 16:55 Dose: 100 mls/hr Documented by: Remdesivir 100 mg/ Sodium (Chloride) 100 mls @ 100 mls/hr IV Q24H [facility] Stop: 06/11/20 20:29 Last Admin: 06/11/20 18:39 Dose: 100 mls/hr Documented by: Ceftriaxone Sodium 2 gm/ (Sodium Chloride) 100 mls @ 200 mls/hr IV DAILY@1999 [facility] Stop: 06/11/20 20:29 Last Admin: 06/11/20 19:54 Dose: 200 mls/hr Documented by: Magnesium Sulfate (Magnesium Sulfate In Water Premix) 2 gm in 50 mls @ 25 mls/hr IV ONETIME ONE Stop: 06/11/20 17:07 Last Admin: 06/11/20 15:30 Dose: 25 mls/hr Documented by: Magnesium Sulfate (Magnesium Sulfate In Water Premix) 2 gm in 50 mls @ 25 mls/hr IV ONETIME ONE Stop: 06/13/20 12:59 Last Admin: 06/13/20 12:47 Dose: 25 mls/hr Documented by: Magnesium Sulfate 2 gm/ Premix 50 mls @ 25 mls/hr IV ONETIME ONE Stop: 06/14/20 10:44 Last Admin: 06/14/20 08:50 Dose: 25 mls/hr Documented by: Magnesium Sulfate (Magnesium Sulfate In Water Premix) 2 gm in 50 mls @ 25 mls/hr IV ONETIME ONE Stop: 06/18/20 13:30 Last Admin: 06/18/20 12:56 Dose: 25 mls/hr Documented by: Insulin Glargine (Lantus) 7 unit SUBCUT DAILY [facility] Last Admin: 06/08/20 09:05 Dose: 7 unit Documented by: Insulin Glargine (Lantus) 5 unit SUBCUT BIDAC [facility] Last Admin: 06/09/20 17:01 Dose: 5 units Documented by: Insulin Glargine (Lantus) 5 unit SUBCUT NOW STA Stop: 06/09/20 08:28 Last Admin: 06/09/20 08:47 Dose: 5 units Documented by: Insulin Glargine (Lantus) 7 unit SUBCUT BID [facility] Last Admin: 06/10/20 08:37 Dose: 7 units Documented by: Insulin Glargine (Lantus) 8 unit SUBCUT BID [facility] Insulin Glargine (Lantus) 10 unit SUBCUT BID [facility] Last Admin: 06/11/20 08:02 Dose: 10 units Documented by: Insulin Glargine (Lantus) 15 unit SUBCUT BID [facility] Last Admin: 06/12/20 08:21 Dose: 15 units Documented by: Insulin Human Lispro (Humalog) 0 unit SUBCUT QIDACANDBED [facility]; Protocol Last Admin: 06/08/20 17:23 Dose: 5 units Documented by: Insulin Human Lispro (Humalog) 0 unit SUBCUT QIDACANDBED [facility]; Protocol Last Admin: 06/09/20 17:01 Dose: 10 units Documented by: Insulin Human Lispro (Humalog) 0 unit SUBCUT QIDACANDBED [facility]; Protocol Last Admin: 06/09/20 17:33 Dose: Not Given Documented by: Insulin Human Lispro (Humalog) 0 unit SUBCUT QIDACANDBED [facility]; Protocol Insulin Human Lispro (Humalog) 5 unit SUBCUT TIDPC [facility] Last Admin: 06/10/20 18:34 Dose: 5 units Documented by: Insulin Human Lispro (Humalog) 7 unit SUBCUT TIDPC [facility] Last Admin: 06/11/20 12:44 Dose: 7 units Documented by: Iopamidol (Isovue-370 (76%)) 100 ml IVPUSH ONETIME ONE Stop: 06/07/20 13:31 Last Admin: 06/07/20 14:00 Dose: 100 ml Documented by: Lisinopril (Prinivil) 40 mg PO DAILY [facility] Lisinopril (Prinivil) 40 mg PO DAILY [facility] Last Admin: 06/07/20 11:25 Dose: 40 mg Documented by: Lorazepam (Ativan) 0.5 mg IVPUSH ONETIME ONE Stop: 06/14/20 11:47 Last Admin: 06/14/20 11:56 Dose: 0.5 mg Documented by: Magnesium Oxide (Magnesium Oxide) 400 mg PO BID [facility] Stop: 06/18/20 21:01 Last Admin: 06/18/20 20:54 Dose: 400 mg Documented by: Metformin HCl (Glucophage) 1,000 mg PO ONETIME ONE Stop: 06/07/20 10:57 Last Admin: 06/07/20 19:43 Dose: Not Given Documented by: Metoprolol Succinate (Toprol Xl) 50 mg PO ONETIME ONE Stop: 06/07/20 10:58 Last Admin: 06/07/20 11:21 Dose: 50 mg Documented by: Metoprolol Succinate (Toprol Xl) 50 mg PO DAILY [facility] Last Admin: 06/11/20 08:00 Dose: 50 mg Documented by: Quetiapine Fumarate (Seroquel) 12.5 mg PO BID [facility] Quetiapine Fumarate (Seroquel) 12.5 mg PO ONETIME ONE Stop: 06/13/20 11:19 Last Admin: 06/13/20 11:38 Dose: 12.5 mg Documented by: Quetiapine Fumarate (Seroquel) 25 mg PO BEDTIME [facility] Last Admin: 06/16/20 21:40 Dose: 25 mg Documented by: - Exam Quality Assessment: Supplemental Oxygen General: Alert, Oriented HEENT: Pupils Equal, Mucous Membr. Moist/[place]hel[place] Neck: Supple Lungs: Rales (Minimal bibasilar). No: Normal Respiratory Effort (Mildly increased rate and effort) Cardiovascular: Regular Rate, Regular Rhythm GI/Abdominal Exam: Normal Bowel Sounds, Soft, Non-Tender, No Distention Extremities: Normal Inspection, No Pedal Edema Skin: Warm, Dry, Intact Psy/Mental Status: Alert, Normal Affect, Normal Mood Sepsis Event Note - Evaluation Sepsis Screening Result: No Definite Risk - Focused Exam Vital Signs: Vital Signs Temp Pulse Resp BP Pulse Ox Pulse Ox 06/19/20 05:39 92 L 06/19/20 03:47 98.2 F 73 18 116/59 L 93 L 06/19/20 00:09 98.2 F 78 18 122/74 91 L 06/18/20 21:07 77 91 L 06/18/20 20:51 98.4 F 77 18 129/112 H 92 L - Problem List & Annotations (1) Elevated troponin I level SNOMED Code(s): 191022548 Code(s): R77.8 - OTHER SPECIFIED ABNORMALITIES OF PLASMA PROTEINS Status: Acute Priority: Medium Current Visit: Yes Onset Date: ~06/15/20 Annotation/Comment:: repeat inflamitory markers today (2) COVID-19 SNOMED Code(s): 563031321 Code(s): U07.1 - COVID-19 Status: Acute Priority: High Current Visit: Yes Onset Date: ~06/15/20 Annotation/Comment:: stable condition. Requiring 60 L high flow O2 and maintaining sats in mid-low 90s (3) Hypoxia SNOMED Code(s): 589634730 Code(s): R09.02 - HYPOXEMIA Status: Resolved Priority: High Current Visit: Yes Annotation/Comment:: requiring 60 L high flow O2. Sats stable in mid-low 90s. Sats drop to 60s on exertion (4) Weakness SNOMED Code(s): 29253495 Code(s): R53.1 - WEAKNESS Status: Acute Priority: High Current Visit: Yes - Problem List Review Problem List Initiated/Reviewed/Updated: Yes - My Orders Last 24 Hours: My Active Orders 06/19/20 07:00 Insulin Lispro [HumaLOG] 5 unit SUBCUT TIDAC - Plan Plan:: Assessment 74-year-old male diagnosed with COVID-19 on 06/03/2020, but symptomatic since the sixth presents to the emergency department with increasing weakness. COVID-19 Infection Viral Pneumonitis Leukocytosis Acute Hypoxic Respiratory Failure * On high flow nasal cannula at 60 L 90% FiO2 * S/p 2 units convalescent plasma * CTA of the chest on 06/07/2020: No pulmonary embolism. Positive for patchy bilateral groundglass pulmonary infiltrates. Cardiomegaly with vascular calcifications including coronary artery calcifications. * Chest x-ray 06/18/2020 showed increased diffuse alveolar infiltrates and consolidation on the right * Completed 5 day course of remdesivir; rocephin and azithromycin * Finished dexamethasone * Bedside pulmo exercise, IS/FV, and proning position Elevated troponin, consider type II MA * No new symptoms Hyperlipidemia * Rosuvastatin 20 mg daily Hyponatremia-resolved * Na today is 139 * Likely due to poor oral intake and diuretic use S/p Acute renal injuryresolved Type 2 diabetes, controlled * Continue Lantus 20 units BID with high intensity ISS * Hemoglobin A1c 7.5, TSH 0.528 * Blood sugars worsened secondary to dexamethasone, but still elevated even with completing dexamethasone. It may take a few more days for this to level off. He is also off of 3 of his home oral diabetic medications. * Hold metformin, acarbose, and pioglitazone * Continue alogliptin * Started on Humalog 5 units with each meal * Continuing on sliding scale insulin Hypertension * On metoprolol succinate 50 mg daily * Blood pressures improved Thrombocytopeniaresolved * Platelets 191 Hypomagnesemia-likely inadequate intake * Mg now is 1.7 * Will replete Plan: * He looks good this morning * Continue high flow; goal titrate to come off * Aggressive proning protocol * Start Humalog 5 units with each meal * Sliding scale insulin high intensity * Covid related labs in the morning * Consider LTAC if not able to wean off high flow * VTE prophylaxis with Lovenox 40 mg Sub BID-elevated D-dimer * Encourage to use IS and FV and ambulate inside his room * CODE STATUS full code
[2020-06-19] MEDS: Metoprolol Succinate 50 MG Tab.ER PO SCH (09:14)
[2020-06-19] MEDS: Aspirin 81 MG Tab.EC PO SCH (09:14)
[2020-06-19] MEDS: Furosemide 20 MG Tab PO SCH (09:14)
[2020-06-19] MEDS: Insulin Glarg,Human.Rec.Analog 100 Unit/ML SUBCUT SCH ×2 (09:15→22:05)
[2020-06-19] MEDS: Enoxaparin 40 MG/0.4 ML Syringe SUBCUT SCH ×2 (09:16→20:42)
[2020-06-19] MEDS: Docusate Sodium 100 MG Cap PO SCH (20:42)
[2020-06-19] MEDS: Rosuvastatin 10 MG Tab PO SCH (20:42)
[2020-06-20] MEDS: Insulin Lispro 100 Units/ML 3 ML Vial SUBCUT SCH ×7 (08:58→21:57)
[2020-06-20] MEDS: Aspirin 81 MG Tab.EC PO SCH (08:59)
[2020-06-20] MEDS: Metoprolol Succinate 50 MG Tab.ER PO SCH (08:59)
[2020-06-20] MEDS: Furosemide 20 MG Tab PO SCH (08:59)
[2020-06-20] MEDS: Enoxaparin 40 MG/0.4 ML Syringe SUBCUT SCH ×2 (08:59→21:53)
[2020-06-20] MEDS: Insulin Glarg,Human.Rec.Analog 100 Unit/ML SUBCUT SCH ×2 (09:00→21:55)
--- NOTE | 2020-06-20 11:44 | PCM.PN ---
- General Info Date of Service: 06/20/20 Admission Dx/Problem (Free Text): Admission Diagnosis/Problem Admission Diagnosis/Problem Hypoxia Subjective Update: No significant overnight or acute issues. He feels well this morning. He desaturates with activities. He remains on 60 L at 90% FiO2 high flow nasal cannula. Functional Status: Reports: Pain Controlled - Review of Systems General: Denies: Fever, Chills HEENT: Reports: No Symptoms Pulmonary: Reports: Shortness of Breath Cardiovascular: Denies: Chest Pain Gastrointestinal: Denies: Abdominal Pain, Nausea, Vomiting Genitourinary: Reports: No Symptoms Musculoskeletal: Denies: Joint Pain Skin: Denies: Rash Neurological: Denies: Confusion Psychiatric: Denies: Depression, Anxiety - Patient Data Vitals - Most Recent: Last Vital Signs Temp 36.4 C 06/20/20 08:21 Pulse 69 06/20/20 08:59 Resp 16 06/20/20 08:21 BP 108/54 L 06/20/20 08:59 Pulse Ox 91 L 06/20/20 10:29 Weight - Most Recent: 107.547 kg I&O - Last 24 Hours: Intake & Output 06/19/20 06/20/20 06/20/20 22:59 06:59 14:59 Intake Total 630 200 Output Total 600 Balance 30 200 Lab Results Last 24 Hours: Laboratory Results - last 24 hr 06/19/20 06/19/20 06/20/20 Range/Units 16:41 20:40 06:09 WBC (4.23-9.07) K/mm3 RBC (4.63-6.08) M/mm3 Hgb (13.7-17.5) gm/dl Hct (40.1-51.0) % MCV (79.0-92.2) fl MCH (25.7-32.2) pg MCHC (32.2-35.5) g/dl RDW Std Deviation (35.1-43.9) fL Plt Count (163-337) K/mm3 MPV (9.4-12.3) fl Neut % (Auto) (34.0-67.9) % Lymph % (Auto) (21.8-53.1) % [place] % (Auto) (5.3-12.2) % Eos % (Auto) (0.8-7.0) Baso % (Auto) (0.1-1.2) % Neut # (Auto) (1.78-5.38) K/mm3 Lymph # (Auto) (1.32-3.57) K/mm3 [place] # (Auto) (0.30-0.82) K/mm3 Eos # (Auto) (0.04-0.54) K/mm3 Baso # (Auto) (0.01-0.08) K/mm3 Manual Slide Review D-Dimer, Quantitative (0.19-0.50) mg/L Sodium (136-145) mEq/L Potassium (3.5-5.1) mEq/L Chloride (98-107) mEq/L Carbon Dioxide (21-32) mEq/L Anion Gap (5-15) BUN (7-18) mg/dL Creatinine (0.7-1.3) mg/dL Est Cr Clr Drug Dosing mL/min Estimated GFR (MDRD) (>60) mL/min BUN/Creatinine Ratio (14-18) Glucose (83-115) mg/dL POC Glucose 203 H 292 H 93 (83-110) mg/dL Calcium (8.5-10.1) mg/dL Phosphorus (2.6-4.7) mg/dL Magnesium (1.8-2.4) mg/dl Total Bilirubin (0.2-1.0) mg/dL AST (15-37) U/L ALT (16-63) U/L Alkaline Phosphatase (46-116) U/L C-Reactive Protein (<1.0) mg/dL Total Protein (6.4-8.2) g/dl Albumin (3.4-5.0) g/dl Globulin gm/dL Albumin/Globulin Ratio (1-2) 06/20/20 06/20/20 06/20/20 Range/Units 06:54 06:54 06:54 WBC 9.13 H (4.23-9.07) K/mm3 RBC 3.87 L (4.63-6.08) M/mm3 Hgb 11.7 L (13.7-17.5) gm/dl Hct 36.3 L (40.1-51.0) % MCV 93.8 H (79.0-92.2) fl MCH 30.2 (25.7-32.2) pg MCHC 32.2 (32.2-35.5) g/dl RDW Std Deviation 47.9 H (35.1-43.9) fL Plt Count 172 (163-337) K/mm3 MPV 10.2 (9.4-12.3) fl Neut % (Auto) 76.4 H (34.0-67.9) % Lymph % (Auto) 13.0 L (21.8-53.1) % [place] % (Auto) 9.3 (5.3-12.2) % Eos % (Auto) 1.2 (0.8-7.0) Baso % (Auto) 0.1 (0.1-1.2) % Neut # (Auto) 6.97 H (1.78-5.38) K/mm3 Lymph # (Auto) 1.19 L (1.32-3.57) K/mm3 [place] # (Auto) 0.85 H (0.30-0.82) K/mm3 Eos # (Auto) 0.11 (0.04-0.54) K/mm3 Baso # (Auto) 0.01 (0.01-0.08) K/mm3 Manual Slide Review Not Reportable D-Dimer, Quantitative 4.17 H (0.19-0.50) mg/L Sodium 138 (136-145) mEq/L Potassium 4.3 (3.5-5.1) mEq/L Chloride 101 (98-107) mEq/L Carbon Dioxide 33 H (21-32) mEq/L Anion Gap 8.3 (5-15) BUN 28 H (7-18) mg/dL Creatinine 1.2 (0.7-1.3) mg/dL Est Cr Clr Drug Dosing 58.38 mL/min Estimated GFR (MDRD) 59 (>60) mL/min BUN/Creatinine Ratio 23.3 H (14-18) Glucose 88 (83-115) mg/dL POC Glucose (83-110) mg/dL Calcium 9.8 (8.5-10.1) mg/dL Phosphorus 4.5 (2.6-4.7) mg/dL Magnesium 1.9 (1.8-2.4) mg/dl Total Bilirubin 0.5 (0.2-1.0) mg/dL AST 20 (15-37) U/L ALT 26 (16-63) U/L Alkaline Phosphatase 80 (46-116) U/L C-Reactive Protein 7.4 H* (<1.0) mg/dL Total Protein 7.4 (6.4-8.2) g/dl Albumin 2.1 L (3.4-5.0) g/dl Globulin 5.3 gm/dL Albumin/Globulin Ratio 0.4 L (1-2) 06/20/20 Range/Units 11:36 WBC (4.23-9.07) K/mm3 RBC (4.63-6.08) M/mm3 Hgb (13.7-17.5) gm/dl Hct (40.1-51.0) % MCV (79.0-92.2) fl MCH (25.7-32.2) pg MCHC (32.2-35.5) g/dl RDW Std Deviation (35.1-43.9) fL Plt Count (163-337) K/mm3 MPV (9.4-12.3) fl Neut % (Auto) (34.0-67.9) % Lymph % (Auto) (21.8-53.1) % [place] % (Auto) (5.3-12.2) % Eos % (Auto) (0.8-7.0) Baso % (Auto) (0.1-1.2) % Neut # (Auto) (1.78-5.38) K/mm3 Lymph # (Auto) (1.32-3.57) K/mm3 [place] # (Auto) (0.30-0.82) K/mm3 Eos # (Auto) (0.04-0.54) K/mm3 Baso # (Auto) (0.01-0.08) K/mm3 Manual Slide Review D-Dimer, Quantitative (0.19-0.50) mg/L Sodium (136-145) mEq/L Potassium (3.5-5.1) mEq/L Chloride (98-107) mEq/L Carbon Dioxide (21-32) mEq/L Anion Gap (5-15) BUN (7-18) mg/dL Creatinine (0.7-1.3) mg/dL Est Cr Clr Drug Dosing mL/min Estimated GFR (MDRD) (>60) mL/min BUN/Creatinine Ratio (14-18) Glucose (83-115) mg/dL POC Glucose 166 H (83-110) mg/dL Calcium (8.5-10.1) mg/dL Phosphorus (2.6-4.7) mg/dL Magnesium (1.8-2.4) mg/dl Total Bilirubin (0.2-1.0) mg/dL AST (15-37) U/L ALT (16-63) U/L Alkaline Phosphatase (46-116) U/L C-Reactive Protein (<1.0) mg/dL Total Protein (6.4-8.2) g/dl Albumin (3.4-5.0) g/dl Globulin gm/dL Albumin/Globulin Ratio (1-2) Med Orders - Current: Current Medications Acetaminophen (Tylenol) 650 mg RECTAL Q4H PRN PRN Reason: Pain (mild 1-3) Albuterol (Proventil Hfa) 0 gm INH Q4H PRN PRN Reason: Wheezing Last Admin: 06/10/20 20:16 Dose: 2 puff Documented by: Alogliptin Benzoate (Alogliptin) 25 mg PO DAILY [facility] Last Admin: 06/20/20 08:59 Dose: 25 mg Documented by: Aspirin (Halfprin) 81 mg PO DAILY [facility] Last Admin: 06/20/20 08:59 Dose: 81 mg Documented by: Dextrose/Water (Dextrose 50% In Water) 50 ml IV ASDIRECTED PRN PRN Reason: Hypoglycemia Docusate Sodium (Colace) 100 mg PO BEDTIME [facility] Last Admin: 06/19/20 20:42 Dose: 100 mg Documented by: Enoxaparin Sodium (Lovenox) 40 mg SUBCUT BID [facility] Last Admin: 06/20/20 08:59 Dose: 40 mg Documented by: Furosemide (Lasix) 20 mg PO DAILY [facility] Last Admin: 06/20/20 08:59 Dose: 20 mg Documented by: Insulin Glargine (Lantus) 20 unit SUBCUT BID [facility] Last Admin: 06/20/20 09:00 Dose: 20 units Documented by: Insulin Human Lispro (Humalog) 0 unit SUBCUT QIDACANDBED [facility]; Protocol Last Admin: 06/20/20 08:59 Dose: Not Given Documented by: Insulin Human Lispro (Humalog) 5 unit SUBCUT TIDAC [facility] Last Admin: 06/20/20 08:58 Dose: 5 units Documented by: Lorazepam (Ativan) 0.5 mg PO Q4H PRN PRN Reason: Anxiety Last Admin: 06/14/20 09:20 Dose: 0.5 mg Documented by: Metoprolol Succinate (Toprol Xl) 50 mg PO DAILY [facility] Last Admin: 06/20/20 08:59 Dose: 50 mg Documented by: Ondansetron HCl (Zofran) 4 mg IV Q4H PRN PRN Reason: Nausea/Vomiting Rosuvastatin Calcium (Crestor) 20 mg PO BEDTIME [facility] Last Admin: 06/19/20 20:42 Dose: 20 mg Documented by: Sodium Chloride (Saline Flush) 10 ml FLUSH ONETIME PRN PRN Reason: Keep Vein Open Last Admin: 06/07/20 14:24 Dose: 10 ml Documented by: Discontinued Medications Acetaminophen (Tylenol) 650 mg PO NOW ONE Stop: 06/07/20 16:36 Last Admin: 06/07/20 16:47 Dose: 650 mg Documented by: Alogliptin Benzoate (Alogliptin) 25 mg PO DAILY [facility] Last Admin: 06/07/20 11:23 Dose: 25 mg Documented by: Dexamethasone (Dexamethasone) 6 mg PO DAILY [facility] Stop: 06/13/20 09:01 Last Admin: 06/11/20 08:01 Dose: 6 mg Documented by: Dexamethasone (Dexamethasone) 6 mg PO BID [facility] Stop: 06/12/20 09:01 Last Admin: 06/12/20 08:17 Dose: 6 mg Documented by: Dexamethasone (Dexamethasone) 6 mg PO BID [facility] Stop: 06/13/20 21:01 Last Admin: 06/13/20 22:37 Dose: 6 mg Documented by: Enoxaparin Sodium (Lovenox) 40 mg SUBCUT DAILY [facility] Last Admin: 06/11/20 08:00 Dose: 40 mg Documented by: Furosemide (Lasix) 20 mg IVPUSH NOW ONE Stop: 06/08/20 12:08 Last Admin: 06/08/20 12:23 Dose: 20 mg Documented by: Furosemide (Lasix) 20 mg IVPUSH NOW ONE Stop: 06/08/20 16:41 Last Admin: 06/08/20 17:26 Dose: 20 mg Documented by: Furosemide (Lasix) 20 mg PO ONETIME ONE Stop: 06/11/20 15:10 Last Admin: 06/11/20 15:29 Dose: 20 mg Documented by: Haloperidol (Haldol) 2 mg PO ONETIME ONE Stop: 06/17/20 09:49 Last Admin: 06/17/20 10:06 Dose: 2 mg Documented by: Sodium Chloride (Normal Saline) 1,000 mls @ 500 mls/hr IV ONETIME ONE Stop: 06/07/20 14:51 Last Admin: 06/07/20 13:06 Dose: 500 mls/hr Documented by: Sodium Chloride (Normal Saline) 100 mls @ 75 mls/hr IV ASDIRECTED [facility] Last Admin: 06/07/20 14:10 Dose: 75 mls/hr Documented by: Remdesivir 100 mg/ Sodium (Chloride) 100 mls @ 100 mls/hr IV Q24H [facility] Stop: 06/11/20 19:29 Ceftriaxone Sodium 2 gm/ (Sodium Chloride) 100 mls @ 200 mls/hr IV DAILY@1800 [facility] Stop: 06/11/20 18:29 Last Admin: 06/08/20 19:58 Dose: Not Given Documented by: Azithromycin 500 mg/ Sodium (Chloride) 250 mls @ 250 mls/hr IV Q24H [facility] Stop: 06/09/20 20:59 Last Admin: 06/09/20 20:52 Dose: 250 mls/hr Documented by: Remdesivir 200 mg/ Sodium (Chloride) 250 mls @ 250 mls/hr IV ONETIME ONE Stop: 06/07/20 21:29 Last Admin: 06/07/20 20:55 Dose: 250 mls/hr Documented by: Sodium Chloride (Normal Saline) Confirm Administered Dose 250 mls @ as directed .ROUTE .STK-MED ONE Stop: 06/07/20 20:27 Last Admin: 06/07/20 20:54 Dose: Not Given Documented by: Sodium Chloride (Normal Saline) 1,000 mls @ 50 mls/hr IV ASDIRECTED [facility] Stop: 06/08/20 16:44 Last Admin: 06/07/20 22:06 Dose: 50 mls/hr Documented by: Magnesium Sulfate 4 gm/ Premix 50 mls @ 12.5 mls/hr IV ONETIME ONE Stop: 06/08/20 14:59 Last Admin: 06/08/20 11:43 Dose: 12.5 mls/hr Documented by: Sodium Chloride (Normal Saline) 250 mls @ 100 mls/hr IV ASDIRECTED [facility] Stop: 06/08/20 23:00 Last Admin: 06/08/20 16:55 Dose: 100 mls/hr Documented by: Remdesivir 100 mg/ Sodium (Chloride) 100 mls @ 100 mls/hr IV Q24H [facility] Stop: 06/11/20 20:29 Last Admin: 06/11/20 18:39 Dose: 100 mls/hr Documented by: Ceftriaxone Sodium 2 gm/ (Sodium Chloride) 100 mls @ 200 mls/hr IV DAILY@1999 [facility] Stop: 06/11/20 20:29 Last Admin: 06/11/20 19:54 Dose: 200 mls/hr Documented by: Magnesium Sulfate (Magnesium Sulfate In Water Premix) 2 gm in 50 mls @ 25 mls/hr IV ONETIME ONE Stop: 06/11/20 17:07 Last Admin: 06/11/20 15:30 Dose: 25 mls/hr Documented by: Magnesium Sulfate (Magnesium Sulfate In Water Premix) 2 gm in 50 mls @ 25 mls/hr IV ONETIME ONE Stop: 06/13/20 12:59 Last Admin: 06/13/20 12:47 Dose: 25 mls/hr Documented by: Magnesium Sulfate 2 gm/ Premix 50 mls @ 25 mls/hr IV ONETIME ONE Stop: 06/14/20 10:44 Last Admin: 06/14/20 08:50 Dose: 25 mls/hr Documented by: Magnesium Sulfate (Magnesium Sulfate In Water Premix) 2 gm in 50 mls @ 25 mls/hr IV ONETIME ONE Stop: 06/18/20 13:30 Last Admin: 06/18/20 12:56 Dose: 25 mls/hr Documented by: Insulin Glargine (Lantus) 7 unit SUBCUT DAILY [facility] Last Admin: 06/08/20 09:05 Dose: 7 unit Documented by: Insulin Glargine (Lantus) 5 unit SUBCUT BIDAC [facility] Last Admin: 06/09/20 17:01 Dose: 5 units Documented by: Insulin Glargine (Lantus) 5 unit SUBCUT NOW [facility] Stop: 06/09/20 08:28 Last Admin: 06/09/20 08:47 Dose: 5 units Documented by: Insulin Glargine (Lantus) 7 unit SUBCUT BID [facility] Last Admin: 06/10/20 08:37 Dose: 7 units Documented by: Insulin Glargine (Lantus) 8 unit SUBCUT BID [facility] Insulin Glargine (Lantus) 10 unit SUBCUT BID [facility] Last Admin: 06/11/20 08:02 Dose: 10 units Documented by: Insulin Glargine (Lantus) 15 unit SUBCUT BID [facility] Last Admin: 06/12/20 08:21 Dose: 15 units Documented by: Insulin Human Lispro (Humalog) 0 unit SUBCUT QIDACANDBED [facility]; Protocol Last Admin: 06/08/20 17:23 Dose: 5 units Documented by: Insulin Human Lispro (Humalog) 0 unit SUBCUT QIDACANDBED [facility]; Protocol Last Admin: 06/09/20 17:01 Dose: 10 units Documented by: Insulin Human Lispro (Humalog) 0 unit SUBCUT QIDACANDBED [facility]; Protocol Last Admin: 06/09/20 17:33 Dose: Not Given Documented by: Insulin Human Lispro (Humalog) 0 unit SUBCUT QIDACANDBED [facility]; Protocol Insulin Human Lispro (Humalog) 5 unit SUBCUT TIDPC [facility] Last Admin: 06/10/20 18:34 Dose: 5 units Documented by: Insulin Human Lispro (Humalog) 7 unit SUBCUT TIDPC [facility] Last Admin: 06/11/20 12:44 Dose: 7 units Documented by: Iopamidol (Isovue-370 (76%)) 100 ml IVPUSH ONETIME ONE Stop: 06/07/20 13:31 Last Admin: 06/07/20 14:00 Dose: 100 ml Documented by: Lisinopril (Prinivil) 40 mg PO DAILY [facility] Lisinopril (Prinivil) 40 mg PO DAILY [facility] Last Admin: 06/07/20 11:25 Dose: 40 mg Documented by: Lorazepam (Ativan) 0.5 mg IVPUSH ONETIME ONE Stop: 06/14/20 11:47 Last Admin: 06/14/20 11:56 Dose: 0.5 mg Documented by: Magnesium Oxide (Magnesium Oxide) 400 mg PO BID [facility] Stop: 06/18/20 21:01 Last Admin: 06/18/20 20:54 Dose: 400 mg Documented by: Metformin HCl (Glucophage) 1,000 mg PO ONETIME ONE Stop: 06/07/20 10:57 Last Admin: 06/07/20 19:43 Dose: Not Given Documented by: Metoprolol Succinate (Toprol Xl) 50 mg PO ONETIME ONE Stop: 06/07/20 10:58 Last Admin: 06/07/20 11:21 Dose: 50 mg Documented by: Metoprolol Succinate (Toprol Xl) 50 mg PO DAILY [facility] Last Admin: 06/11/20 08:00 Dose: 50 mg Documented by: Quetiapine Fumarate (Seroquel) 12.5 mg PO BID [facility] Quetiapine Fumarate (Seroquel) 12.5 mg PO ONETIME ONE Stop: 06/13/20 11:19 Last Admin: 06/13/20 11:38 Dose: 12.5 mg Documented by: Quetiapine Fumarate (Seroquel) 25 mg PO BEDTIME [facility] Last Admin: 06/16/20 21:40 Dose: 25 mg Documented by: - Exam Quality Assessment: Supplemental Oxygen General: Alert, Oriented, Cooperative, No Acute Distress HEENT: Pupils Equal, Pupils Reactive, EOMI, Mucous Membr. Moist/[place] Neck: Supple Lungs: Normal Respiratory Effort, Decreased Breath Sounds Cardiovascular: Regular Rate, Regular Rhythm GI/Abdominal Exam: Normal Bowel Sounds, Soft, Non-Tender, No Organomegaly, No Distention, No Abnormal Bruit (Male) Exam: Deferred Back Exam: Normal Inspection, Decreased Range of Motion Extremities: Normal Inspection, Normal Range of Motion, Non-Tender, No Pedal Edema, Normal Capillary Refill Peripheral Pulses: 2+: Dorsalis Pedis (L), Dorsalis Pedis (R) Skin: Warm, Dry, Intact Neurological: No New Focal Deficit Psy/Mental Status: Alert, Normal Affect, Normal Mood Sepsis Event Note - Evaluation Sepsis Screening Result: No Definite Risk - Focused Exam Vital Signs: Vital Signs Temp Pulse Resp BP Pulse Ox Pulse Ox 06/20/20 10:29 91 L 06/20/20 08:59 69 108/54 L 06/20/20 08:21 36.4 C 69 16 108/54 L 82 L 06/20/20 06:38 92 L 06/20/20 05:16 36.7 C 70 16 114/62 89 L 06/20/20 00:59 36.8 C 65 19 120/48 L 87 L 06/20/20 00:16 36.6 C 73 16 104/64 91 L - Problem List Review Problem List Initiated/Reviewed/Updated: Yes - Plan Plan:: Assessment 74-year-old male diagnosed with COVID-19 on 06/03/2020, but symptomatic since the sixth presents to the emergency department with increasing weakness. COVID-19 Infection Viral Pneumonitis ARDS Leukocytosis Acute Hypoxic Respiratory Failure * On high flow nasal cannula at 60 L 90% FiO2 * S/p 2 units convalescent plasma * CTA of the chest on 06/07/2020: No pulmonary embolism. Positive for patchy bilateral groundglass pulmonary infiltrates. Cardiomegaly with vascular calcifications including coronary artery calcifications. * Chest x-ray 06/18/2020 showed increased diffuse alveolar infiltrates and consolidation on the right * Completed 5 day course of remdesivir; rocephin and azithromycin * Finished dexamethasone * Bedside pulmo exercise, IS/FV, and proning position Elevated troponin, consider type II AL * No new symptoms Hyperlipidemia * Rosuvastatin 20 mg daily Hyponatremia-resolved * Na today is 139 * Likely due to poor oral intake and diuretic use S/p Acute renal injuryresolved Type 2 diabetes, controlled * Continue Lantus 20 units BID with high intensity ISS * Hemoglobin A1c 7.5, TSH 0.528 * Blood sugars worsened secondary to dexamethasone, but still elevated even with completing dexamethasone. It may take a few more days for this to level off. He is also off of 3 of his home oral diabetic medications. * Hold metformin, acarbose, and pioglitazone * Continue alogliptin * Started on Humalog 5 units with each meal * Continuing on sliding scale insulin Hypertension * On metoprolol succinate 50 mg daily * Blood pressures improved Thrombocytopeniaresolved * Platelets 191 Hypomagnesemia-likely inadequate intake * Mg now is 1.7 * Will replete Plan: * He looks clinically stable * Continue high flow; goal titrate to come off * Aggressive proning protocol; encourage patient to prone as much as he can * Sliding scale insulin high intensity plus 5 units with AC * Covid related labs in the morning * Consider LTAC if not able to wean off high flow * VTE prophylaxis with Lovenox 40 mg Sub BID-elevated D-dimer * Encourage to use IS and FV and ambulate inside his room * Start zinc supplement * CODE STATUS full code * [facility]
[2020-06-20] MEDS: Rosuvastatin 10 MG Tab PO SCH (21:53)
[2020-06-20] MEDS: Docusate Sodium 100 MG Cap PO SCH (21:53)
--- NOTE | 2020-06-21 07:57 | PCM.PN ---
- General Info Date of Service: 06/21/20 Admission Dx/Problem (Free Text): Admission Diagnosis/Problem Admission Diagnosis/Problem Hypoxia Subjective Update: No overnight or acute issues. He feels good. He denies having fevers or chills. No shortness of breath or chest pain. No GI/ complaints. He report bilateral great toe pain but uric acid level is normal. He remains on 60 L at 85-94% FiO2 high flow nasal cannula. Functional Status: Reports: Pain Controlled - Review of Systems General: Denies: Fever, Chills Pulmonary: Denies: Shortness of Breath, Sputum Cardiovascular: Denies: Chest Pain Gastrointestinal: Denies: Abdominal Pain, Nausea, Vomiting Genitourinary: Denies: Frequency Musculoskeletal: Reports: Foot Pain (both great toes). Denies: Joint Pain Skin: Denies: Cyanosis, Bruising, Rash Neurological: Denies: Confusion Psychiatric: Denies: Depression, Anxiety - Patient Data Vitals - Most Recent: Last Vital Signs Temp 36.8 C 06/21/20 07:47 Pulse 85 06/21/20 07:47 Resp 16 06/21/20 07:47 BP 115/59 L 06/21/20 07:47 Pulse Ox 85 L 06/21/20 07:47 Weight - Most Recent: 107.547 kg I&O - Last 24 Hours: Intake & Output 06/20/20 06/21/20 06/21/20 22:59 06:59 14:59 Intake Total 500 400 Output Total 600 900 Balance -100 -500 Lab Results Last 24 Hours: Laboratory Results - last 24 hr 06/20/20 06/20/20 06/20/20 Range/Units 06:54 06:54 06:54 WBC (4.23-9.07) K/mm3 RBC (4.63-6.08) M/mm3 Hgb (13.7-17.5) gm/dl Hct (40.1-51.0) % MCV (79.0-92.2) fl MCH (25.7-32.2) pg MCHC (32.2-35.5) g/dl RDW Std Deviation (35.1-43.9) fL Plt Count (163-337) K/mm3 MPV (9.4-12.3) fl Neut % (Auto) (34.0-67.9) % Lymph % (Auto) (21.8-53.1) % [place] % (Auto) (5.3-12.2) % Eos % (Auto) (0.8-7.0) Baso % (Auto) (0.1-1.2) % Neut # (Auto) (1.78-5.38) K/mm3 Lymph # (Auto) (1.32-3.57) K/mm3 [place] # (Auto) (0.30-0.82) K/mm3 Eos # (Auto) (0.04-0.54) K/mm3 Baso # (Auto) (0.01-0.08) K/mm3 Manual Slide Review Not Reportable D-Dimer, Quantitative 4.17 H (0.19-0.50) mg/L Sodium 138 (136-145) mEq/L Potassium 4.3 (3.5-5.1) mEq/L Chloride 101 (98-107) mEq/L Carbon Dioxide 33 H (21-32) mEq/L Anion Gap 8.3 (5-15) BUN 28 H (7-18) mg/dL Creatinine 1.2 (0.7-1.3) mg/dL Est Cr Clr Drug Dosing 58.38 mL/min Estimated GFR (MDRD) 59 (>60) mL/min BUN/Creatinine Ratio 23.3 H (14-18) Glucose 88 (83-115) mg/dL POC Glucose (83-110) mg/dL Uric Acid (3.5-7.2) mg/dL Calcium 9.8 (8.5-10.1) mg/dL Phosphorus 4.5 (2.6-4.7) mg/dL Magnesium 1.9 (1.8-2.4) mg/dl Total Bilirubin 0.5 (0.2-1.0) mg/dL AST 20 (15-37) U/L ALT 26 (16-63) U/L Alkaline Phosphatase 80 (46-116) U/L C-Reactive Protein 7.4 H* (<1.0) mg/dL Total Protein 7.4 (6.4-8.2) g/dl Albumin 2.1 L (3.4-5.0) g/dl Globulin 5.3 gm/dL Albumin/Globulin Ratio 0.4 L (1-2) 06/20/20 06/20/20 06/20/20 Range/Units 06:54 11:36 17:25 WBC (4.23-9.07) K/mm3 RBC (4.63-6.08) M/mm3 Hgb (13.7-17.5) gm/dl Hct (40.1-51.0) % MCV (79.0-92.2) fl MCH (25.7-32.2) pg MCHC (32.2-35.5) g/dl RDW Std Deviation (35.1-43.9) fL Plt Count (163-337) K/mm3 MPV (9.4-12.3) fl Neut % (Auto) (34.0-67.9) % Lymph % (Auto) (21.8-53.1) % [place] % (Auto) (5.3-12.2) % Eos % (Auto) (0.8-7.0) Baso % (Auto) (0.1-1.2) % Neut # (Auto) (1.78-5.38) K/mm3 Lymph # (Auto) (1.32-3.57) K/mm3 [place] # (Auto) (0.30-0.82) K/mm3 Eos # (Auto) (0.04-0.54) K/mm3 Baso # (Auto) (0.01-0.08) K/mm3 Manual Slide Review D-Dimer, Quantitative (0.19-0.50) mg/L Sodium (136-145) mEq/L Potassium (3.5-5.1) mEq/L Chloride (98-107) mEq/L Carbon Dioxide (21-32) mEq/L Anion Gap (5-15) BUN (7-18) mg/dL Creatinine (0.7-1.3) mg/dL Est Cr Clr Drug Dosing mL/min Estimated GFR (MDRD) (>60) mL/min BUN/Creatinine Ratio (14-18) Glucose (83-115) mg/dL POC Glucose 166 H 247 H (83-110) mg/dL Uric Acid 5.3 (3.5-7.2) mg/dL Calcium (8.5-10.1) mg/dL Phosphorus (2.6-4.7) mg/dL Magnesium (1.8-2.4) mg/dl Total Bilirubin (0.2-1.0) mg/dL AST (15-37) U/L ALT (16-63) U/L Alkaline Phosphatase (46-116) U/L C-Reactive Protein (<1.0) mg/dL Total Protein (6.4-8.2) g/dl Albumin (3.4-5.0) g/dl Globulin gm/dL Albumin/Globulin Ratio (1-2) 06/20/20 06/21/20 06/21/20 Range/Units 20:21 06:05 06:11 WBC (4.23-9.07) K/mm3 RBC (4.63-6.08) M/mm3 Hgb (13.7-17.5) gm/dl Hct (40.1-51.0) % MCV (79.0-92.2) fl MCH (25.7-32.2) pg MCHC (32.2-35.5) g/dl RDW Std Deviation (35.1-43.9) fL Plt Count (163-337) K/mm3 MPV (9.4-12.3) fl Neut % (Auto) (34.0-67.9) % Lymph % (Auto) (21.8-53.1) % [place] % (Auto) (5.3-12.2) % Eos % (Auto) (0.8-7.0) Baso % (Auto) (0.1-1.2) % Neut # (Auto) (1.78-5.38) K/mm3 Lymph # (Auto) (1.32-3.57) K/mm3 [place] # (Auto) (0.30-0.82) K/mm3 Eos # (Auto) (0.04-0.54) K/mm3 Baso # (Auto) (0.01-0.08) K/mm3 Manual Slide Review D-Dimer, Quantitative (0.19-0.50) mg/L Sodium 138 (136-145) mEq/L Potassium 4.0 (3.5-5.1) mEq/L Chloride 103 (98-107) mEq/L Carbon Dioxide 31 (21-32) mEq/L Anion Gap 8.0 (5-15) BUN 28 H (7-18) mg/dL Creatinine 1.1 (0.7-1.3) mg/dL Est Cr Clr Drug Dosing 63.69 mL/min Estimated GFR (MDRD) > 60 (>60) mL/min BUN/Creatinine Ratio 25.5 H (14-18) Glucose 105 (83-115) mg/dL POC Glucose 185 H 112 H (83-110) mg/dL Uric Acid (3.5-7.2) mg/dL Calcium 9.2 (8.5-10.1) mg/dL Phosphorus (2.6-4.7) mg/dL Magnesium (1.8-2.4) mg/dl Total Bilirubin (0.2-1.0) mg/dL AST (15-37) U/L ALT (16-63) U/L Alkaline Phosphatase (46-116) U/L C-Reactive Protein 6.4 H* (<1.0) mg/dL Total Protein (6.4-8.2) g/dl Albumin (3.4-5.0) g/dl Globulin gm/dL Albumin/Globulin Ratio (1-2) 06/21/20 Range/Units 06:25 WBC 7.92 (4.23-9.07) K/mm3 RBC 3.54 L (4.63-6.08) M/mm3 Hgb 10.8 L (13.7-17.5) gm/dl Hct 33.3 L (40.1-51.0) % MCV 94.1 H (79.0-92.2) fl MCH 30.5 (25.7-32.2) pg MCHC 32.4 (32.2-35.5) g/dl RDW Std Deviation 47.3 H (35.1-43.9) fL Plt Count 140 L (163-337) K/mm3 MPV 10.2 (9.4-12.3) fl Neut % (Auto) 76.3 H (34.0-67.9) % Lymph % (Auto) 12.5 L (21.8-53.1) % [place] % (Auto) 11.1 (5.3-12.2) % Eos % (Auto) 0 L (0.8-7.0) Baso % (Auto) 0.1 (0.1-1.2) % Neut # (Auto) 6.04 H (1.78-5.38) K/mm3 Lymph # (Auto) 0.99 L (1.32-3.57) K/mm3 [place] # (Auto) 0.88 H (0.30-0.82) K/mm3 Eos # (Auto) 0.00 L (0.04-0.54) K/mm3 Baso # (Auto) 0.01 (0.01-0.08) K/mm3 Manual Slide Review D-Dimer, Quantitative (0.19-0.50) mg/L Sodium (136-145) mEq/L Potassium (3.5-5.1) mEq/L Chloride (98-107) mEq/L Carbon Dioxide (21-32) mEq/L Anion Gap (5-15) BUN (7-18) mg/dL Creatinine (0.7-1.3) mg/dL Est Cr Clr Drug Dosing mL/min Estimated GFR (MDRD) (>60) mL/min BUN/Creatinine Ratio (14-18) Glucose (83-115) mg/dL POC Glucose (83-110) mg/dL Uric Acid (3.5-7.2) mg/dL Calcium (8.5-10.1) mg/dL Phosphorus (2.6-4.7) mg/dL Magnesium (1.8-2.4) mg/dl Total Bilirubin (0.2-1.0) mg/dL AST (15-37) U/L ALT (16-63) U/L Alkaline Phosphatase (46-116) U/L C-Reactive Protein (<1.0) mg/dL Total Protein (6.4-8.2) g/dl Albumin (3.4-5.0) g/dl Globulin gm/dL Albumin/Globulin Ratio (1-2) Med Orders - Current: Current Medications Acetaminophen (Tylenol) 650 mg RECTAL Q4H PRN PRN Reason: Pain (mild 1-3) Albuterol (Proventil Hfa) 0 gm INH Q4H PRN PRN Reason: Wheezing Last Admin: 06/10/20 20:16 Dose: 2 puff Documented by: Alogliptin Benzoate (Alogliptin) 25 mg PO DAILY [facility] Last Admin: 06/20/20 08:59 Dose: 25 mg Documented by: Aspirin (Halfprin) 81 mg PO DAILY [facility] Last Admin: 06/20/20 08:59 Dose: 81 mg Documented by: Dextrose/Water (Dextrose 50% In Water) 50 ml IV ASDIRECTED PRN PRN Reason: Hypoglycemia Docusate Sodium (Colace) 100 mg PO BEDTIME [facility] Last Admin: 06/20/20 21:53 Dose: 100 mg Documented by: Enoxaparin Sodium (Lovenox) 40 mg SUBCUT BID [facility] Last Admin: 06/20/20 21:53 Dose: 40 mg Documented by: Furosemide (Lasix) 20 mg PO DAILY [facility] Last Admin: 06/20/20 08:59 Dose: 20 mg Documented by: Insulin Glargine (Lantus) 20 unit SUBCUT BID [facility] Last Admin: 06/20/20 21:55 Dose: 20 units Documented by: Insulin Human Lispro (Humalog) 0 unit SUBCUT QIDACANDBED [facility]; Protocol Last Admin: 06/20/20 21:57 Dose: 3 units Documented by: Insulin Human Lispro (Humalog) 5 unit SUBCUT TIDAC [facility] Last Admin: 06/20/20 17:55 Dose: 5 units Documented by: Lorazepam (Ativan) 0.5 mg PO Q4H PRN PRN Reason: Anxiety Last Admin: 06/14/20 09:20 Dose: 0.5 mg Documented by: Metoprolol Succinate (Toprol Xl) 50 mg PO DAILY [facility] Last Admin: 06/20/20 08:59 Dose: 50 mg Documented by: Ondansetron HCl (Zofran) 4 mg IV Q4H PRN PRN Reason: Nausea/Vomiting Rosuvastatin Calcium (Crestor) 20 mg PO BEDTIME [facility] Last Admin: 06/20/20 21:53 Dose: 20 mg Documented by: Sodium Chloride (Saline Flush) 10 ml FLUSH ONETIME PRN PRN Reason: Keep Vein Open Last Admin: 06/07/20 14:24 Dose: 10 ml Documented by: Zinc Sulfate (Zincate) 220 mg PO DAILY [facility] Discontinued Medications Acetaminophen (Tylenol) 650 mg PO NOW ONE Stop: 06/07/20 16:36 Last Admin: 06/07/20 16:47 Dose: 650 mg Documented by: Alogliptin Benzoate (Alogliptin) 25 mg PO DAILY [facility] Last Admin: 06/07/20 11:23 Dose: 25 mg Documented by: Dexamethasone (Dexamethasone) 6 mg PO DAILY [facility] Stop: 06/13/20 09:01 Last Admin: 06/11/20 08:01 Dose: 6 mg Documented by: Dexamethasone (Dexamethasone) 6 mg PO BID [facility] Stop: 06/12/20 09:01 Last Admin: 06/12/20 08:17 Dose: 6 mg Documented by: Dexamethasone (Dexamethasone) 6 mg PO BID [facility] Stop: 06/13/20 21:01 Last Admin: 06/13/20 22:37 Dose: 6 mg Documented by: Enoxaparin Sodium (Lovenox) 40 mg SUBCUT DAILY [facility] Last Admin: 06/11/20 08:00 Dose: 40 mg Documented by: Furosemide (Lasix) 20 mg IVPUSH NOW ONE Stop: 06/08/20 12:08 Last Admin: 06/08/20 12:23 Dose: 20 mg Documented by: Furosemide (Lasix) 20 mg IVPUSH NOW ONE Stop: 06/08/20 16:41 Last Admin: 06/08/20 17:26 Dose: 20 mg Documented by: Furosemide (Lasix) 20 mg PO ONETIME ONE Stop: 06/11/20 15:10 Last Admin: 06/11/20 15:29 Dose: 20 mg Documented by: Haloperidol (Haldol) 2 mg PO ONETIME ONE Stop: 06/17/20 09:49 Last Admin: 06/17/20 10:06 Dose: 2 mg Documented by: Sodium Chloride (Normal Saline) 1,000 mls @ 500 mls/hr IV ONETIME ONE Stop: 06/07/20 14:51 Last Admin: 06/07/20 13:06 Dose: 500 mls/hr Documented by: Sodium Chloride (Normal Saline) 100 mls @ 75 mls/hr IV ASDIRECTED [facility] Last Admin: 06/07/20 14:10 Dose: 75 mls/hr Documented by: Remdesivir 100 mg/ Sodium (Chloride) 100 mls @ 100 mls/hr IV Q24H [facility] Stop: 06/11/20 19:29 Ceftriaxone Sodium 2 gm/ (Sodium Chloride) 100 mls @ 200 mls/hr IV DAILY@1800 [facility] Stop: 06/11/20 18:29 Last Admin: 06/08/20 19:58 Dose: Not Given Documented by: Azithromycin 500 mg/ Sodium (Chloride) 250 mls @ 250 mls/hr IV Q24H [facility] Stop: 06/09/20 20:59 Last Admin: 06/09/20 20:52 Dose: 250 mls/hr Documented by: Remdesivir 200 mg/ Sodium (Chloride) 250 mls @ 250 mls/hr IV ONETIME ONE Stop: 06/07/20 21:29 Last Admin: 06/07/20 20:55 Dose: 250 mls/hr Documented by: Sodium Chloride (Normal Saline) Confirm Administered Dose 250 mls @ as directed .ROUTE .STK-MED ONE Stop: 06/07/20 20:27 Last Admin: 06/07/20 20:54 Dose: Not Given Documented by: Sodium Chloride (Normal Saline) 1,000 mls @ 50 mls/hr IV ASDIRECTED [facility] Stop: 06/08/20 16:44 Last Admin: 06/07/20 22:06 Dose: 50 mls/hr Documented by: Magnesium Sulfate 4 gm/ Premix 50 mls @ 12.5 mls/hr IV ONETIME ONE Stop: 06/08/20 14:59 Last Admin: 06/08/20 11:43 Dose: 12.5 mls/hr Documented by: Sodium Chloride (Normal Saline) 250 mls @ 100 mls/hr IV ASDIRECTED [facility] Stop: 06/08/20 23:00 Last Admin: 06/08/20 16:55 Dose: 100 mls/hr Documented by: Remdesivir 100 mg/ Sodium (Chloride) 100 mls @ 100 mls/hr IV Q24H [facility] Stop: 06/11/20 20:29 Last Admin: 06/11/20 18:39 Dose: 100 mls/hr Documented by: Ceftriaxone Sodium 2 gm/ (Sodium Chloride) 100 mls @ 200 mls/hr IV DAILY@1999 [facility] Stop: 06/11/20 20:29 Last Admin: 06/11/20 19:54 Dose: 200 mls/hr Documented by: Magnesium Sulfate (Magnesium Sulfate In Water Premix) 2 gm in 50 mls @ 25 mls/hr IV ONETIME ONE Stop: 06/11/20 17:07 Last Admin: 06/11/20 15:30 Dose: 25 mls/hr Documented by: Magnesium Sulfate (Magnesium Sulfate In Water Premix) 2 gm in 50 mls @ 25 mls/hr IV ONETIME ONE Stop: 06/13/20 12:59 Last Admin: 06/13/20 12:47 Dose: 25 mls/hr Documented by: Magnesium Sulfate 2 gm/ Premix 50 mls @ 25 mls/hr IV ONETIME ONE Stop: 06/14/20 10:44 Last Admin: 06/14/20 08:50 Dose: 25 mls/hr Documented by: Magnesium Sulfate (Magnesium Sulfate In Water Premix) 2 gm in 50 mls @ 25 mls/hr IV ONETIME ONE Stop: 06/18/20 13:30 Last Admin: 06/18/20 12:56 Dose: 25 mls/hr Documented by: Insulin Glargine (Lantus) 7 unit SUBCUT DAILY [facility] Last Admin: 06/08/20 09:05 Dose: 7 unit Documented by: Insulin Glargine (Lantus) 5 unit SUBCUT BIDAC [facility] Last Admin: 06/09/20 17:01 Dose: 5 units Documented by: Insulin Glargine (Lantus) 5 unit SUBCUT NOW [facility] Stop: 06/09/20 08:28 Last Admin: 06/09/20 08:47 Dose: 5 units Documented by: Insulin Glargine (Lantus) 7 unit SUBCUT BID [facility] Last Admin: 06/10/20 08:37 Dose: 7 units Documented by: Insulin Glargine (Lantus) 8 unit SUBCUT BID [facility] Insulin Glargine (Lantus) 10 unit SUBCUT BID [facility] Last Admin: 06/11/20 08:02 Dose: 10 units Documented by: Insulin Glargine (Lantus) 15 unit SUBCUT BID [facility] Last Admin: 06/12/20 08:21 Dose: 15 units Documented by: Insulin Human Lispro (Humalog) 0 unit SUBCUT QIDACANDBED [facility]; Protocol Last Admin: 06/08/20 17:23 Dose: 5 units Documented by: Insulin Human Lispro (Humalog) 0 unit SUBCUT QIDACANDBED [facility]; Protocol Last Admin: 06/09/20 17:01 Dose: 10 units Documented by: Insulin Human Lispro (Humalog) 0 unit SUBCUT QIDACANDBED [facility]; Protocol Last Admin: 06/09/20 17:33 Dose: Not Given Documented by: Insulin Human Lispro (Humalog) 0 unit SUBCUT QIDACANDBED [facility]; Protocol Insulin Human Lispro (Humalog) 5 unit SUBCUT [facility] Last Admin: 06/10/20 18:34 Dose: 5 units Documented by: Insulin Human Lispro (Humalog) 7 unit SUBCUT [facility] Last Admin: 06/11/20 12:44 Dose: 7 units Documented by: Iopamidol (Isovue-370 (76%)) 100 ml IVPUSH ONETIME ONE Stop: 06/07/20 13:31 Last Admin: 06/07/20 14:00 Dose: 100 ml Documented by: Lisinopril (Prinivil) 40 mg PO DAILY [facility] Lisinopril (Prinivil) 40 mg PO DAILY [facility] Last Admin: 06/07/20 11:25 Dose: 40 mg Documented by: Lorazepam (Ativan) 0.5 mg IVPUSH ONETIME ONE Stop: 06/14/20 11:47 Last Admin: 06/14/20 11:56 Dose: 0.5 mg Documented by: Magnesium Oxide (Magnesium Oxide) 400 mg PO BID [facility] Stop: 06/18/20 21:01 Last Admin: 06/18/20 20:54 Dose: 400 mg Documented by: Metformin HCl (Glucophage) 1,000 mg PO ONETIME ONE Stop: 06/07/20 10:57 Last Admin: 06/07/20 19:43 Dose: Not Given Documented by: Metoprolol Succinate (Toprol Xl) 50 mg PO ONETIME ONE Stop: 06/07/20 10:58 Last Admin: 06/07/20 11:21 Dose: 50 mg Documented by: Metoprolol Succinate (Toprol Xl) 50 mg PO DAILY [facility] Last Admin: 06/11/20 08:00 Dose: 50 mg Documented by: Quetiapine Fumarate (Seroquel) 12.5 mg PO BID [facility] Quetiapine Fumarate (Seroquel) 12.5 mg PO ONETIME ONE Stop: 06/13/20 11:19 Last Admin: 06/13/20 11:38 Dose: 12.5 mg Documented by: Quetiapine Fumarate (Seroquel) 25 mg PO BEDTIME [facility] Last Admin: 06/16/20 21:40 Dose: 25 mg Documented by: - Exam Quality Assessment: Supplemental Oxygen General: Alert, Oriented, Cooperative, No Acute Distress HEENT: Pupils Equal, Pupils Reactive, EOMI, Mucous Membr. Moist/[place] Neck: Supple Lungs: Clear to Auscultation, Normal Respiratory Effort, Decreased Breath Sounds Cardiovascular: Regular Rate, Regular Rhythm GI/Abdominal Exam: Normal Bowel Sounds, Soft, Non-Tender, No Organomegaly, No Distention, No Abnormal Bruit, No Mass (Male) Exam: Deferred Back Exam: Normal Inspection, Decreased Range of Motion Extremities: Normal Inspection, Normal Range of Motion, Non-Tender, No Pedal Edema, Normal Capillary Refill Peripheral Pulses: 2+: Dorsalis Pedis (L), Dorsalis Pedis (R) Skin: Warm, Dry, Intact Neurological: No New Focal Deficit Psy/Mental Status: Alert, Normal Affect, Normal Mood Sepsis Event Note - Evaluation Sepsis Screening Result: No Definite Risk - Focused Exam Vital Signs: Vital Signs Temp Pulse Resp BP Pulse Ox Pulse Ox 06/21/20 07:47 36.8 C 85 16 115/59 L 85 L 06/21/20 06:18 96 06/21/20 00:17 89 L 06/20/20 22:11 36.7 C 70 22 H 127/53 L 86 L - Problem List Review Problem List Initiated/Reviewed/Updated: Yes - My Orders Last 24 Hours: My Active Orders 06/21/20 06:00 Chest 1V Frontal [CR] Routine 06/21/20 09:00 Zinc Sulfate [Zincate] 220 mg PO DAILY 06/22/20 05:00 BMP [BASIC METABOLIC PANEL,BMP] [CHEM] DAILY CBC WITH AUTO DIFF [HEME] DAILY CRP [C-REACTIVE PROTEIN] [CHEM] DAILY 06/23/20 05:00 BMP [BASIC METABOLIC PANEL,BMP] [CHEM] DAILY CBC WITH AUTO DIFF [HEME] DAILY CRP [C-REACTIVE PROTEIN] [CHEM] DAILY - Plan Plan:: Assessment 74-year-old male diagnosed with COVID-19 on 06/03/2020, but symptomatic since the sixth presents to the emergency department with increasing weakness. COVID-19 Infection Viral Pneumonitis ARDS Leukocytosis, resolved Acute Hypoxic Respiratory Failure * On high flow nasal cannula at 60 L 90% FiO2 * S/p 2 units convalescent plasma * CTA of the chest on 06/07/2020: No pulmonary embolism. Positive for patchy bilateral groundglass pulmonary infiltrates. Cardiomegaly with vascular calcifications including coronary artery calcifications. * Repeat chest x-ray 06/21/2020 showed stable appearance of multilobar pneumonia * Completed 5 day course of remdesivir; rocephin and azithromycin * Finished dexamethasone * Bedside pulmo exercise, IS/FV, and proning position * Encourage proning position Elevated troponin, consider type II IA * No new symptoms Hyperlipidemia * Rosuvastatin 20 mg daily Hyponatremia-resolved * Na today is 139 * Likely due to poor oral intake and diuretic use S/p Acute renal injuryresolved Type 2 diabetes, controlled * Continue Lantus 20 units BID with high intensity ISS * Hemoglobin A1c 7.5, TSH 0.528 * Blood sugars worsened secondary to dexamethasone, but still elevated even with completing dexamethasone. It may take a few more days for this to level off. He is also off of 3 of his home oral diabetic medications. * Hold metformin, acarbose, and pioglitazone * Continue alogliptin * Started on Humalog 5 units with each meal * Continuing on sliding scale insulin Hypertension * On metoprolol succinate 50 mg daily * Blood pressures improved Thrombocytopeniaresolved * Platelets 191 Hypomagnesemia-likely inadequate intake * Mg now is 1.7 * Will replete Plan: * Mainly supportive and symptoms management * Continue high flow; goal titrate to come off high flow * Aggressive proning protocol; encourage patient to prone as much as he can * Sliding scale insulin high intensity plus 5 units with AC * Covid related labs in the morning * Consider LTAC if not able to wean off high flow * VTE prophylaxis with Lovenox 40 mg Sub BID * Encourage to use IS and FV and ambulate inside his room * Continue zinc supplement * CODE STATUS full code * LOS/Discharge pending placement to the [facility] or [facility] * [id number]: Called and updated his . Let her know he remains clinically stable but still on high flow O2. Encourage her to call him daily and to remind him about bedside pulmonary exercise and proning position.
[2020-06-21] MEDS: Insulin Lispro 100 Units/ML 3 ML Vial SUBCUT SCH ×6 (08:13→17:22)
[2020-06-21] MEDS: Metoprolol Succinate 50 MG Tab.ER PO SCH (08:15)
[2020-06-21] MEDS: Zinc Sulfate 220 MG Cap PO SCH (08:15)
[2020-06-21] MEDS: Aspirin 81 MG Tab.EC PO SCH (08:15)
[2020-06-21] MEDS: Furosemide 20 MG Tab PO SCH (08:15)
[2020-06-21] MEDS: Insulin Glarg,Human.Rec.Analog 100 Unit/ML SUBCUT SCH ×2 (08:16→22:04)
[2020-06-21] MEDS: Enoxaparin 40 MG/0.4 ML Syringe SUBCUT SCH ×2 (08:16→22:04)
[2020-06-21] MEDS ORDERED: Insulin Lispro 100 Units/ML 3 ML Vial SUBCUT PRN (08:33)
[2020-06-21] MEDS: Rosuvastatin 10 MG Tab PO SCH (22:04)
[2020-06-21] MEDS: Docusate Sodium 100 MG Cap PO SCH (22:04)
--- NOTE | 2020-06-22 07:46 | PCM.PN ---
- General Info Date of Service: 06/22/20 Admission Dx/Problem (Free Text): Admission Diagnosis/Problem Admission Diagnosis/Problem Hypoxia Subjective Update: [place] remained stable on high flow nasal cannula at 60 L and 85 to 95% FiO2. His appetite is good and he is restless to get discharged or moved to a different facility. Functional Status: Reports: Pain Controlled - Review of Systems General: Reports: No Symptoms HEENT: Reports: No Symptoms Pulmonary: Reports: No Symptoms Cardiovascular: Reports: No Symptoms Gastrointestinal: Reports: No Symptoms Musculoskeletal: Reports: No Symptoms - Patient Data Vitals - Most Recent: Last Vital Signs Temp 98.2 F 06/22/20 04:32 Pulse 72 06/22/20 04:32 Resp 22 H 06/22/20 04:32 BP 117/65 06/22/20 04:32 Pulse Ox 91 L 06/22/20 04:32 Weight - Most Recent: 237 lb 1.6 oz I&O - Last 24 Hours: Intake & Output 06/21/20 06/22/20 06/22/20 22:59 06:59 14:59 Intake Total 710 500 Output Total 400 750 Balance 310 -250 Lab Results Last 24 Hours: Laboratory Results - last 24 hr 06/21/20 06/21/20 06/21/20 Range/Units 11:38 17:05 22:00 WBC (4.23-9.07) K/mm3 RBC (4.63-6.08) M/mm3 Hgb (13.7-17.5) gm/dl Hct (40.1-51.0) % MCV (79.0-92.2) fl MCH (25.7-32.2) pg MCHC (32.2-35.5) g/dl RDW Std Deviation (35.1-43.9) fL Plt Count (163-337) K/mm3 MPV (9.4-12.3) fl Neut % (Auto) (34.0-67.9) % Lymph % (Auto) (21.8-53.1) % [place] % (Auto) (5.3-12.2) % Eos % (Auto) (0.8-7.0) Baso % (Auto) (0.1-1.2) % Neut # (Auto) (1.78-5.38) K/mm3 Lymph # (Auto) (1.32-3.57) K/mm3 [place] # (Auto) (0.30-0.82) K/mm3 Eos # (Auto) (0.04-0.54) K/mm3 Baso # (Auto) (0.01-0.08) K/mm3 POC Glucose 171 H 242 H 190 H (83-110) mg/dL 06/22/20 06/22/20 Range/Units 06:15 06:17 WBC 7.57 (4.23-9.07) K/mm3 RBC 3.63 L (4.63-6.08) M/mm3 Hgb 11.0 L (13.7-17.5) gm/dl Hct 34.1 L (40.1-51.0) % MCV 93.9 H (79.0-92.2) fl MCH 30.3 (25.7-32.2) pg MCHC 32.3 (32.2-35.5) g/dl RDW Std Deviation 48.1 H (35.1-43.9) fL Plt Count 141 L (163-337) K/mm3 MPV 10.2 (9.4-12.3) fl Neut % (Auto) 74.0 H (34.0-67.9) % Lymph % (Auto) 14.0 L (21.8-53.1) % [place] % (Auto) 10.4 (5.3-12.2) % Eos % (Auto) 1.3 (0.8-7.0) Baso % (Auto) 0.3 (0.1-1.2) % Neut # (Auto) 5.60 H (1.78-5.38) K/mm3 Lymph # (Auto) 1.06 L (1.32-3.57) K/mm3 [place] # (Auto) 0.79 (0.30-0.82) K/mm3 Eos # (Auto) 0.10 (0.04-0.54) K/mm3 Baso # (Auto) 0.02 (0.01-0.08) K/mm3 POC Glucose 147 H (83-110) mg/dL Med Orders - Current: Current Medications Acetaminophen (Tylenol) 650 mg RECTAL Q4H PRN PRN Reason: Pain (mild 1-3) Albuterol (Proventil Hfa) 0 gm INH Q4H PRN PRN Reason: Wheezing Last Admin: 06/10/20 20:16 Dose: 2 puff Documented by: Alogliptin Benzoate (Alogliptin) 25 mg PO DAILY [facility] Last Admin: 06/21/20 08:15 Dose: 25 mg Documented by: Aspirin (Halfprin) 81 mg PO DAILY [facility] Last Admin: 06/21/20 08:15 Dose: 81 mg Documented by: Dextrose/Water (Dextrose 50% In Water) 50 ml IV ASDIRECTED PRN PRN Reason: Hypoglycemia Docusate Sodium (Colace) 100 mg PO BEDTIME [facility] Last Admin: 06/21/20 22:04 Dose: 100 mg Documented by: Enoxaparin Sodium (Lovenox) 40 mg SUBCUT BID [facility] Last Admin: 06/21/20 22:04 Dose: 40 mg Documented by: Furosemide (Lasix) 20 mg PO DAILY [facility] Last Admin: 06/21/20 08:15 Dose: 20 mg Documented by: Insulin Glargine (Lantus) 20 unit SUBCUT BID [facility] Last Admin: 06/21/20 22:04 Dose: 20 units Documented by: Insulin Human Lispro (Humalog) 5 unit SUBCUT TIDAC [facility] Last Admin: 06/21/20 17:21 Dose: 5 units Documented by: Insulin Human Lispro (Humalog) 0 unit SUBCUT TIDAC [facility]; Protocol Last Admin: 06/21/20 17:22 Dose: 6 units Documented by: Lorazepam (Ativan) 0.5 mg PO Q4H PRN PRN Reason: Anxiety Last Admin: 06/14/20 09:20 Dose: 0.5 mg Documented by: Metoprolol Succinate (Toprol Xl) 50 mg PO DAILY [facility] Last Admin: 06/21/20 08:15 Dose: 50 mg Documented by: Ondansetron HCl (Zofran) 4 mg IV Q4H PRN PRN Reason: Nausea/Vomiting Rosuvastatin Calcium (Crestor) 20 mg PO BEDTIME [facility] Last Admin: 06/21/20 22:04 Dose: 20 mg Documented by: Sodium Chloride (Saline Flush) 10 ml FLUSH ONETIME PRN PRN Reason: Keep Vein Open Last Admin: 06/07/20 14:24 Dose: 10 ml Documented by: Zinc Sulfate (Zincate) 220 mg PO DAILY [facility] Last Admin: 06/21/20 08:15 Dose: 220 mg Documented by: Discontinued Medications Acetaminophen (Tylenol) 650 mg PO NOW ONE Stop: 06/07/20 16:36 Last Admin: 06/07/20 16:47 Dose: 650 mg Documented by: Alogliptin Benzoate (Alogliptin) 25 mg PO DAILY [facility] Last Admin: 06/07/20 11:23 Dose: 25 mg Documented by: Dexamethasone (Dexamethasone) 6 mg PO DAILY [facility] Stop: 06/13/20 09:01 Last Admin: 06/11/20 08:01 Dose: 6 mg Documented by: Dexamethasone (Dexamethasone) 6 mg PO BID [facility] Stop: 06/12/20 09:01 Last Admin: 06/12/20 08:17 Dose: 6 mg Documented by: Dexamethasone (Dexamethasone) 6 mg PO BID [facility] Stop: 06/13/20 21:01 Last Admin: 06/13/20 22:37 Dose: 6 mg Documented by: Enoxaparin Sodium (Lovenox) 40 mg SUBCUT DAILY [facility] Last Admin: 06/11/20 08:00 Dose: 40 mg Documented by: Furosemide (Lasix) 20 mg IVPUSH NOW ONE Stop: 06/08/20 12:08 Last Admin: 06/08/20 12:23 Dose: 20 mg Documented by: Furosemide (Lasix) 20 mg IVPUSH NOW ONE Stop: 06/08/20 16:41 Last Admin: 06/08/20 17:26 Dose: 20 mg Documented by: Furosemide (Lasix) 20 mg PO ONETIME ONE Stop: 06/11/20 15:10 Last Admin: 06/11/20 15:29 Dose: 20 mg Documented by: Haloperidol (Haldol) 2 mg PO ONETIME ONE Stop: 06/17/20 09:49 Last Admin: 06/17/20 10:06 Dose: 2 mg Documented by: Sodium Chloride (Normal Saline) 1,000 mls @ 500 mls/hr IV ONETIME ONE Stop: 06/07/20 14:51 Last Admin: 06/07/20 13:06 Dose: 500 mls/hr Documented by: Sodium Chloride (Normal Saline) 100 mls @ 75 mls/hr IV ASDIRECTED [facility] Last Admin: 06/07/20 14:10 Dose: 75 mls/hr Documented by: Remdesivir 100 mg/ Sodium (Chloride) 100 mls @ 100 mls/hr IV Q24H [facility] Stop: 06/11/20 19:29 Ceftriaxone Sodium 2 gm/ (Sodium Chloride) 100 mls @ 200 mls/hr IV DAILY@1800 [facility] Stop: 06/11/20 18:29 Last Admin: 06/08/20 19:58 Dose: Not Given Documented by: Azithromycin 500 mg/ Sodium (Chloride) 250 mls @ 250 mls/hr IV Q24H [facility] Stop: 06/09/20 20:59 Last Admin: 06/09/20 20:52 Dose: 250 mls/hr Documented by: Remdesivir 200 mg/ Sodium (Chloride) 250 mls @ 250 mls/hr IV ONETIME ONE Stop: 06/07/20 21:29 Last Admin: 06/07/20 20:55 Dose: 250 mls/hr Documented by: Sodium Chloride (Normal Saline) Confirm Administered Dose 250 mls @ as directed .[facility]TE [facility] Stop: 06/07/20 20:27 Last Admin: 06/07/20 20:54 Dose: Not Given Documented by: Sodium Chloride (Normal Saline) 1,000 mls @ 50 mls/hr IV ASDIRECTED [facility] Stop: 06/08/20 16:44 Last Admin: 06/07/20 22:06 Dose: 50 mls/hr Documented by: Magnesium Sulfate 4 gm/ Premix 50 mls @ 12.5 mls/hr IV ONETIME ONE Stop: 06/08/20 14:59 Last Admin: 06/08/20 11:43 Dose: 12.5 mls/hr Documented by: Sodium Chloride (Normal Saline) 250 mls @ 100 mls/hr IV ASDIRECTED [facility] Stop: 06/08/20 23:00 Last Admin: 06/08/20 16:55 Dose: 100 mls/hr Documented by: Remdesivir 100 mg/ Sodium (Chloride) 100 mls @ 100 mls/hr IV Q24H [facility] Stop: 06/11/20 20:29 Last Admin: 06/11/20 18:39 Dose: 100 mls/hr Documented by: Ceftriaxone Sodium 2 gm/ (Sodium Chloride) 100 mls @ 200 mls/hr IV DAILY@2000 [facility] Stop: 06/11/20 20:29 Last Admin: 06/11/20 19:54 Dose: 200 mls/hr Documented by: Magnesium Sulfate (Magnesium Sulfate In Water Premix) 2 gm in 50 mls @ 25 mls/hr IV ONETIME ONE Stop: 06/11/20 17:07 Last Admin: 06/11/20 15:30 Dose: 25 mls/hr Documented by: Magnesium Sulfate (Magnesium Sulfate In Water Premix) 2 gm in 50 mls @ 25 mls/hr IV ONETIME ONE Stop: 06/13/20 12:59 Last Admin: 06/13/20 12:47 Dose: 25 mls/hr Documented by: Magnesium Sulfate 2 gm/ Premix 50 mls @ 25 mls/hr IV ONETIME ONE Stop: 06/14/20 10:44 Last Admin: 06/14/20 08:50 Dose: 25 mls/hr Documented by: Magnesium Sulfate (Magnesium Sulfate In Water Premix) 2 gm in 50 mls @ 25 mls/hr IV ONETIME ONE Stop: 06/18/20 13:30 Last Admin: 06/18/20 12:56 Dose: 25 mls/hr Documented by: Insulin Glargine (Lantus) 7 unit SUBCUT DAILY [facility] Last Admin: 06/08/20 09:05 Dose: 7 unit Documented by: Insulin Glargine (Lantus) 5 unit SUBCUT BIDAC [facility] Last Admin: 06/09/20 17:01 Dose: 5 units Documented by: Insulin Glargine (Lantus) 5 unit SUBCUT NOW [facility] Stop: 06/09/20 08:28 Last Admin: 06/09/20 08:47 Dose: 5 units Documented by: Insulin Glargine (Lantus) 7 unit SUBCUT BID [facility] Last Admin: 06/10/20 08:37 Dose: 7 units Documented by: Insulin Glargine (Lantus) 8 unit SUBCUT BID [facility] Insulin Glargine (Lantus) 10 unit SUBCUT BID [facility] Last Admin: 06/11/20 08:02 Dose: 10 units Documented by: Insulin Glargine (Lantus) 15 unit SUBCUT BID [facility] Last Admin: 06/12/20 08:21 Dose: 15 units Documented by: Insulin Human Lispro (Humalog) 0 unit SUBCUT QIDACANDBED [facility]; Protocol Last Admin: 06/08/20 17:23 Dose: 5 units Documented by: Insulin Human Lispro (Humalog) 0 unit SUBCUT QIDACANDBED [facility]; Protocol Last Admin: 06/09/20 17:01 Dose: 10 units Documented by: Insulin Human Lispro (Humalog) 0 unit SUBCUT QIDACANDBED [facility]; Protocol Last Admin: 06/09/20 17:33 Dose: Not Given Documented by: Insulin Human Lispro (Humalog) 0 unit SUBCUT QIDACANDBED [facility]; Protocol Insulin Human Lispro (Humalog) 0 unit SUBCUT QIDACANDBED [facility]; Protocol Last Admin: 06/21/20 08:14 Dose: Not Given Documented by: Insulin Human Lispro (Humalog) 5 unit [facility]UT [facility] Last Admin: 06/10/20 18:34 Dose: 5 units Documented by: Insulin Human Lispro (Humalog) 7 unit SUBCUT [facility] Last Admin: 06/11/20 12:44 Dose: 7 units Documented by: Insulin Human Lispro (Humalog) 0 unit SUBCUT [facility] PRN; Protocol PRN Reason: Hyperglycemia Iopamidol (Isovue-370 (76%)) 100 ml IVPUSH ONETIME ONE Stop: 06/07/20 13:31 Last Admin: 06/07/20 14:00 Dose: 100 ml Documented by: Lisinopril (Prinivil) 40 mg PO DAILY [facility] Lisinopril (Prinivil) 40 mg PO DAILY [facility] Last Admin: 06/07/20 11:25 Dose: 40 mg Documented by: Lorazepam (Ativan) 0.5 mg IVPUSH ONETIME ONE Stop: 06/14/20 11:47 Last Admin: 06/14/20 11:56 Dose: 0.5 mg Documented by: Magnesium Oxide (Magnesium Oxide) 400 mg PO BID [facility] Stop: 06/18/20 21:01 Last Admin: 06/18/20 20:54 Dose: 400 mg Documented by: Metformin HCl (Glucophage) 1,000 mg PO ONETIME ONE Stop: 06/07/20 10:57 Last Admin: 06/07/20 19:43 Dose: Not Given Documented by: Metoprolol Succinate (Toprol Xl) 50 mg PO ONETIME ONE Stop: 06/07/20 10:58 Last Admin: 06/07/20 11:21 Dose: 50 mg Documented by: Metoprolol Succinate (Toprol Xl) 50 mg PO DAILY [facility] Last Admin: 06/11/20 08:00 Dose: 50 mg Documented by: Quetiapine Fumarate (Seroquel) 12.5 mg PO BID [facility] Quetiapine Fumarate (Seroquel) 12.5 mg PO ONETIME ONE Stop: 06/13/20 11:19 Last Admin: 06/13/20 11:38 Dose: 12.5 mg Documented by: Quetiapine Fumarate (Seroquel) 25 mg PO BEDTIME [facility] Last Admin: 06/16/20 21:40 Dose: 25 mg Documented by: - Exam Quality Assessment: Supplemental Oxygen General: Alert, Oriented HEENT: Pupils Equal, Mucous Membr. Moist/[place] Neck: Supple Lungs: Normal Respiratory Effort, Rales (Minimal scattered rales) Cardiovascular: Regular Rate, Regular Rhythm GI/Abdominal Exam: Normal Bowel Sounds, Soft, Non-Tender, No Distention Extremities: Normal Inspection, Normal Range of Motion, Non-Tender, No Pedal Edema, Normal Capillary Refill Skin: Warm, Dry, Intact Psy/Mental Status: Alert, Normal Affect, Normal Mood Sepsis Event Note - Evaluation Sepsis Screening Result: No Definite Risk - Focused Exam Vital Signs: Vital Signs Temp Pulse Resp BP Pulse Ox Pulse Ox 06/22/20 04:32 98.2 F 72 22 H 117/65 91 L 06/21/20 22:03 104 H 88 L 06/21/20 21:36 88 L - Problem List & Annotations (1) Elevated troponin I level SNOMED Code(s): 240066205 Code(s): R77.8 - OTHER SPECIFIED ABNORMALITIES OF PLASMA PROTEINS Status: Acute Priority: Medium Current Visit: Yes Onset Date: ~06/15/20 Annotation/Comment:: repeat inflamitory markers today (2) COVID-19 SNOMED Code(s): 568896135 Code(s): U07.1 - COVID-19 Status: Acute Priority: High Current Visit: Yes Onset Date: ~06/15/20 Annotation/Comment:: stable condition. Requiring 60 L high flow O2 and maintaining sats in mid-low 90s (3) Hypoxia SNOMED Code(s): 242041772 Code(s): R09.02 - HYPOXEMIA Status: Resolved Priority: High Current Visit: Yes Annotation/Comment:: requiring 60 L high flow O2. Sats stable in mid-low 90s. Sats drop to 60s on exertion (4) Weakness SNOMED Code(s): 91615120 Code(s): R53.1 - WEAKNESS Status: Acute Priority: High Current Visit: Yes - Problem List Review Problem List Initiated/Reviewed/Updated: Yes - Plan Plan:: Assessment 74-year-old male diagnosed with COVID-19 on 06/03/2020, but symptomatic since the 05/29/2020 presents to the emergency department with increasing weakness. COVID-19 Infection Viral Pneumonitis ARDS Leukocytosis, resolved Acute Hypoxic Respiratory Failure * On high flow nasal cannula at 60 L 90% FiO2 * S/p 2 units convalescent plasma * CTA of the chest on 06/07/2020: No pulmonary embolism. Positive for patchy bilateral groundglass pulmonary infiltrates. Cardiomegaly with vascular calcifications including coronary artery calcifications. * Repeat chest x-ray 06/21/2020 showed stable appearance of multilobar pneumonia * Completed 5 day course of remdesivir; rocephin and azithromycin * Finished dexamethasone * Bedside pulmo exercise, IS/FV, and proning position * Encourage proning position Elevated troponin, consider type II GA * No new symptoms Hyperlipidemia * Rosuvastatin 20 mg daily S/p Acute renal injuryresolved Type 2 diabetes, controlled * Continue Lantus 20 units BID with high intensity ISS * Hemoglobin A1c 7.5, TSH 0.528 * Blood sugars improving now that he is been off dexamethasone for a few days. Will need to decrease insulin appropriately. He is also off of 3 of his home oral diabetic medications. * Hold metformin, acarbose, and pioglitazone * Continue alogliptin * Started on Humalog 5 units with each meal * Continuing on sliding scale insulin Hypertension * On metoprolol succinate 50 mg daily * Blood pressures improved Thrombocytopenia * Platelets 141 Hypomagnesemia-resolved * Mg now is 1.9 Plan: * Mainly supportive and symptoms management * Continue high flow; goal titrate to come off high flow * Aggressive proning protocol; encourage patient to prone as much as he can * Decrease Lantus to 15 units twice daily * Sliding scale insulin high intensity plus 5 units with AC * No labs tomorrow morning * Consider LTAC if not able to wean off high flow * VTE prophylaxis with Lovenox 40 mg Sub BID * Encourage to use IS and FV and ambulate inside his room * Continue zinc supplement * CODE STATUS full code * LOS/Discharge pending placement to the [place] or [facility]
[2020-06-22] MEDS: Insulin Lispro 100 Units/ML 3 ML Vial SUBCUT SCH ×6 (09:01→17:44)
[2020-06-22] MEDS: Furosemide 20 MG Tab PO SCH (09:02)
[2020-06-22] MEDS: Aspirin 81 MG Tab.EC PO SCH (09:02)
[2020-06-22] MEDS: Enoxaparin 40 MG/0.4 ML Syringe SUBCUT SCH ×2 (09:02→20:27)
[2020-06-22] MEDS: Metoprolol Succinate 50 MG Tab.ER PO SCH (09:02)
[2020-06-22] MEDS: Zinc Sulfate 220 MG Cap PO SCH (09:02)
[2020-06-22] MEDS: Insulin Glarg,Human.Rec.Analog 100 Unit/ML SUBCUT SCH ×2 (09:03→20:35)
--- NOTE | 2020-06-22 09:24 | CR ---
PROCEDURE INFORMATION: Exam: XR Chest, 1 View Exam date and time: 06/18/2020 9:07 AM Age: 74 years old Clinical indication: Cough; Patient HX: Heart murmur; Additional info: Previous exams scanned in for your review TECHNIQUE: Imaging protocol: XR of the chest Views: 1 view. COMPARISON: CR Chest 1V Frontal 06/14/2020 5:50 AM and 06/12/2020 FINDINGS: Lungs: Diffuse patchy bilateral pulmonary alveolar infiltrates, progressed in the right lower lung since 06/14/2020 exam. The consolidation is more dense than it was on 06/12/2020. Relative sparing of the apices. Pleural space: Unremarkable. No pleural effusion. No pneumothorax. Heart/Mediastinum: Unremarkable. No cardiomegaly. Vasculature: Aortic calcifications. Bones/joints: Unremarkable. IMPRESSION: Diffuse patchy bilateral pulmonary alveolar infiltrates and consolidation, progressed in the right lower lung since 06/14/2020. Thank you for allowing us to participate in the care of your patient. Dictated and Authenticated by: Judy Grier MD 06/18/2020 10:59 AM Central Time ([place] & [place]) [email or web address]
--- NOTE | 2020-06-22 12:43 | CR ---
PROCEDURE INFORMATION: Exam: XR Chest, 1 View Exam date and time: 06/21/2020 7:03 AM Age: 74 years old Clinical indication: Condition or disease; Other: Covid-19 positive TECHNIQUE: Imaging protocol: XR of the chest Views: 1 view. COMPARISON: OT Chest 1V Frontal 06/18/2020 9:07 AM FINDINGS: Lungs: Multifocal airspace opacity with areas of parenchymal consolidation in the periphery of the lungs. Stable appearance when compared to the previous examination. Findings compatible patient's known COVID-19 pneumonia. Pleural space: Unremarkable. No pleural effusion. No pneumothorax. Heart/Mediastinum: Unremarkable. No cardiomegaly. Bones/joints: Unremarkable. IMPRESSION: Multilobar pneumonia compatible the patient's known COVID-19 infection. Stable appearance when compared with the previous examination. Thank you for allowing us to participate in the care of your patient. Dictated and Authenticated by: Bentley Alves MD 06/21/2020 10:09 AM Central Time ([place] & [place]) [facility]
[2020-06-22] MEDS: Docusate Sodium 100 MG Cap PO SCH (20:27)
[2020-06-22] MEDS: Rosuvastatin 10 MG Tab PO SCH (20:27)
[2020-06-23] MEDS ORDERED: Magnesium Hydroxide 400 MG/5 ML Susp 30 ML Cup PO ONE (05:48)
[2020-06-23] MEDS: Metoprolol Succinate 50 MG Tab.ER PO SCH (09:11)
[2020-06-23] MEDS: Furosemide 20 MG Tab PO SCH (09:12)
[2020-06-23] MEDS: Enoxaparin 40 MG/0.4 ML Syringe SUBCUT SCH ×2 (09:12→21:23)
[2020-06-23] MEDS: Zinc Sulfate 220 MG Cap PO SCH (09:12)
[2020-06-23] MEDS: Aspirin 81 MG Tab.EC PO SCH (09:12)
[2020-06-23] MEDS: Insulin Lispro 100 Units/ML 3 ML Vial SUBCUT SCH ×6 (09:13→16:59)
[2020-06-23] MEDS: Insulin Glarg,Human.Rec.Analog 100 Unit/ML SUBCUT SCH ×2 (09:13→21:22)
--- NOTE | 2020-06-23 17:06 | PCM.PN ---
- General Info Date of Service: 06/23/20 Admission Dx/Problem (Free Text): Admission Diagnosis/Problem Admission Diagnosis/Problem Hypoxia Subjective Update: Patient is doing well with no change in his condition. He continues on 60 L of high flow nasal cannula, but is stable for the last several days. Patient's appetite is generally good and he is feeling much better overall. Functional Status: Reports: Pain Controlled, Tolerating Diet - Review of Systems General: Reports: No Symptoms HEENT: Reports: No Symptoms Pulmonary: Reports: Shortness of Breath Cardiovascular: Reports: No Symptoms Gastrointestinal: Reports: No Symptoms Musculoskeletal: Reports: No Symptoms - Patient Data Vitals - Most Recent: Last Vital Signs Temp 97.7 F 06/23/20 15:14 Pulse 71 06/23/20 15:14 Resp 28 H 06/23/20 15:14 BP 127/62 06/23/20 15:14 Pulse Ox 86 L 06/23/20 15:14 Weight - Most Recent: 234 lb 7 oz I&O - Last 24 Hours: Intake & Output 06/23/20 06/23/20 06/23/20 06:59 14:59 22:59 Intake Total 300 610 Output Total 800 300 Balance -500 310 Lab Results Last 24 Hours: Laboratory Results - last 24 hr 06/22/20 06/22/20 06/23/20 Range/Units 17:28 20:33 05:50 POC Glucose 98 194 H 102 (83-110) mg/dL 06/23/20 Range/Units 10:29 POC Glucose 219 H (83-110) mg/dL Med Orders - Current: Current Medications Acetaminophen (Tylenol) 650 mg RECTAL Q4H PRN PRN Reason: Pain (mild 1-3) Albuterol (Proventil Hfa) 0 gm INH Q4H PRN PRN Reason: Wheezing Last Admin: 06/10/20 20:16 Dose: 2 puff Documented by: Alogliptin Benzoate (Alogliptin) 25 mg PO DAILY [facility] Last Admin: 06/23/20 09:12 Dose: 25 mg Documented by: Aspirin (Halfprin) 81 mg PO DAILY [facility] Last Admin: 06/23/20 09:12 Dose: 81 mg Documented by: Dextrose/Water (Dextrose 50% In Water) 50 ml IV ASDIRECTED PRN PRN Reason: Hypoglycemia Docusate Sodium (Colace) 100 mg PO BEDTIME [facility] Last Admin: 06/22/20 20:27 Dose: 100 mg Documented by: Enoxaparin Sodium (Lovenox) 40 mg SUBCUT BID [facility] Last Admin: 06/23/20 09:12 Dose: 40 mg Documented by: Furosemide (Lasix) 20 mg PO DAILY [facility] Last Admin: 06/23/20 09:12 Dose: 20 mg Documented by: Insulin Glargine (Lantus) 10 unit SUBCUT BID [facility] Insulin Human Lispro (Humalog) 5 unit SUBCUT TIDAC [facility] Last Admin: 06/23/20 16:59 Dose: Not Given Documented by: Insulin Human Lispro (Humalog) 0 unit SUBCUT TIDAC [facility]; Protocol Last Admin: 06/23/20 16:59 Dose: Not Given Documented by: Lorazepam (Ativan) 0.5 mg PO Q4H PRN PRN Reason: Anxiety Last Admin: 06/14/20 09:20 Dose: 0.5 mg Documented by: Metoprolol Succinate (Toprol Xl) 50 mg PO DAILY [facility] Last Admin: 06/23/20 09:11 Dose: 50 mg Documented by: Ondansetron HCl (Zofran) 4 mg IV Q4H PRN PRN Reason: Nausea/Vomiting Rosuvastatin Calcium (Crestor) 20 mg PO BEDTIME [facility] Last Admin: 06/22/20 20:27 Dose: 20 mg Documented by: Sodium Chloride (Saline Flush) 10 ml FLUSH ONETIME PRN PRN Reason: Keep Vein Open Last Admin: 06/07/20 14:24 Dose: 10 ml Documented by: Zinc Sulfate (Zincate) 220 mg PO DAILY [facility] Last Admin: 06/23/20 09:12 Dose: 220 mg Documented by: Discontinued Medications Acetaminophen (Tylenol) 650 mg PO NOW ONE Stop: 06/07/20 16:36 Last Admin: 06/07/20 16:47 Dose: 650 mg Documented by: Alogliptin Benzoate (Alogliptin) 25 mg PO DAILY [facility] Last Admin: 06/07/20 11:23 Dose: 25 mg Documented by: Dexamethasone (Dexamethasone) 6 mg PO DAILY [facility] Stop: 06/13/20 09:01 Last Admin: 06/11/20 08:01 Dose: 6 mg Documented by: Dexamethasone (Dexamethasone) 6 mg PO BID [facility] Stop: 06/12/20 09:01 Last Admin: 06/12/20 08:17 Dose: 6 mg Documented by: Dexamethasone (Dexamethasone) 6 mg PO BID [facility] Stop: 06/13/20 21:01 Last Admin: 06/13/20 22:37 Dose: 6 mg Documented by: Enoxaparin Sodium (Lovenox) 40 mg SUBCUT DAILY [facility] Last Admin: 06/11/20 08:00 Dose: 40 mg Documented by: Furosemide (Lasix) 20 mg IVPUSH NOW ONE Stop: 06/08/20 12:08 Last Admin: 06/08/20 12:23 Dose: 20 mg Documented by: Furosemide (Lasix) 20 mg IVPUSH NOW ONE Stop: 06/08/20 16:41 Last Admin: 06/08/20 17:26 Dose: 20 mg Documented by: Furosemide (Lasix) 20 mg PO ONETIME ONE Stop: 06/11/20 15:10 Last Admin: 06/11/20 15:29 Dose: 20 mg Documented by: Haloperidol (Haldol) 2 mg PO ONETIME ONE Stop: 06/17/20 09:49 Last Admin: 06/17/20 10:06 Dose: 2 mg Documented by: Sodium Chloride (Normal Saline) 1,000 mls @ 500 mls/hr IV ONETIME ONE Stop: 06/07/20 14:51 Last Admin: 06/07/20 13:06 Dose: 500 mls/hr Documented by: Sodium Chloride (Normal Saline) 100 mls @ 75 mls/hr IV ASDIRECTED [facility] Last Admin: 06/07/20 14:10 Dose: 75 mls/hr Documented by: Remdesivir 100 mg/ Sodium (Chloride) 100 mls @ 100 mls/hr IV Q24H [facility] Stop: 06/11/20 19:29 Ceftriaxone Sodium 2 gm/ (Sodium Chloride) 100 mls @ 200 mls/hr IV DAILY@1800 [facility] Stop: 06/11/20 18:29 Last Admin: 06/08/20 19:58 Dose: Not Given Documented by: Azithromycin 500 mg/ Sodium (Chloride) 250 mls @ 250 mls/hr IV Q24H [facility] Stop: 06/09/20 20:59 Last Admin: 06/09/20 20:52 Dose: 250 mls/hr Documented by: Remdesivir 200 mg/ Sodium (Chloride) 250 mls @ 250 mls/hr IV ONETIME ONE Stop: 06/07/20 21:29 Last Admin: 06/07/20 20:55 Dose: 250 mls/hr Documented by: Sodium Chloride (Normal Saline) Confirm Administered Dose 250 mls @ as directed .ROUTE .STK-MED ONE Stop: 06/07/20 20:27 Last Admin: 06/07/20 20:54 Dose: Not Given Documented by: Sodium Chloride (Normal Saline) 1,000 mls @ 50 mls/hr IV ASDIRECTED [facility] Stop: 06/08/20 16:44 Last Admin: 06/07/20 22:06 Dose: 50 mls/hr Documented by: Magnesium Sulfate 4 gm/ Premix 50 mls @ 12.5 mls/hr IV ONETIME ONE Stop: 06/08/20 14:59 Last Admin: 06/08/20 11:43 Dose: 12.5 mls/hr Documented by: Sodium Chloride (Normal Saline) 250 mls @ 100 mls/hr IV ASDIRECTED [facility] Stop: 06/08/20 23:00 Last Admin: 06/08/20 16:55 Dose: 100 mls/hr Documented by: Remdesivir 100 mg/ Sodium (Chloride) 100 mls @ 100 mls/hr IV Q24H [facility] Stop: 06/11/20 20:29 Last Admin: 06/11/20 18:39 Dose: 100 mls/hr Documented by: Ceftriaxone Sodium 2 gm/ (Sodium Chloride) 100 mls @ 200 mls/hr IV DAILY@1999 [facility] Stop: 06/11/20 20:29 Last Admin: 06/11/20 19:54 Dose: 200 mls/hr Documented by: Magnesium Sulfate (Magnesium Sulfate In Water Premix) 2 gm in 50 mls @ 25 mls/hr IV ONETIME ONE Stop: 06/11/20 17:07 Last Admin: 06/11/20 15:30 Dose: 25 mls/hr Documented by: Magnesium Sulfate (Magnesium Sulfate In Water Premix) 2 gm in 50 mls @ 25 mls/hr IV ONETIME ONE Stop: 06/13/20 12:59 Last Admin: 06/13/20 12:47 Dose: 25 mls/hr Documented by: Magnesium Sulfate 2 gm/ Premix 50 mls @ 25 mls/hr IV ONETIME ONE Stop: 06/14/20 10:44 Last Admin: 06/14/20 08:50 Dose: 25 mls/hr Documented by: Magnesium Sulfate (Magnesium Sulfate In Water Premix) 2 gm in 50 mls @ 25 mls/hr IV ONETIME ONE Stop: 06/18/20 13:30 Last Admin: 06/18/20 12:56 Dose: 25 mls/hr Documented by: Insulin Glargine (Lantus) 7 unit SUBCUT DAILY [facility] Last Admin: 06/08/20 09:05 Dose: 7 unit Documented by: Insulin Glargine (Lantus) 5 unit SUBCUT BIDAC [facility] Last Admin: 06/09/20 17:01 Dose: 5 units Documented by: Insulin Glargine (Lantus) 5 unit SUBCUT NOW [facility] Stop: 06/09/20 08:28 Last Admin: 06/09/20 08:47 Dose: 5 units Documented by: Insulin Glargine (Lantus) 7 unit SUBCUT BID [facility] Last Admin: 06/10/20 08:37 Dose: 7 units Documented by: Insulin Glargine (Lantus) 8 unit SUBCUT BID [facility] Insulin Glargine (Lantus) 10 unit SUBCUT BID [facility] Last Admin: 06/11/20 08:02 Dose: 10 units Documented by: Insulin Glargine (Lantus) 15 unit SUBCUT BID [facility] Last Admin: 06/12/20 08:21 Dose: 15 units Documented by: Insulin Glargine (Lantus) 20 unit SUBCUT BID [facility] Last Admin: 06/22/20 09:03 Dose: 20 units Documented by: Insulin Glargine (Lantus) 15 unit SUBCUT BID [facility] Last Admin: 06/23/20 09:13 Dose: 15 units Documented by: Insulin Human Lispro (Humalog) 0 unit SUBCUT QIDACANDBED [facility]; Protocol Last Admin: 06/08/20 17:23 Dose: 5 units Documented by: Insulin Human Lispro (Humalog) 0 unit SUBCUT QIDACANDBED [facility]; Protocol Last Admin: 06/09/20 17:01 Dose: 10 units Documented by: Insulin Human Lispro (Humalog) 0 unit SUBCUT QIDACANDBED [facility]; Protocol Last Admin: 06/09/20 17:33 Dose: Not Given Documented by: Insulin Human Lispro (Humalog) 0 unit SUBCUT QIDACANDBED [facility]; Protocol Insulin Human Lispro (Humalog) 0 unit SUBCUT QIDACANDBED [facility]; Protocol Last Admin: 06/21/20 08:14 Dose: Not Given Documented by: Insulin Human Lispro (Humalog) 5 unit SUBCUT [facility] Last Admin: 06/10/20 18:34 Dose: 5 units Documented by: Insulin Human Lispro (Humalog) 7 unit SUBCUT [facility] Last Admin: 06/11/20 12:44 Dose: 7 units Documented by: Insulin Human Lispro (Humalog) 0 unit SUBCUT [facility] PRN; Protocol PRN Reason: Hyperglycemia Iopamidol (Isovue-370 (76%)) 100 ml IVPUSH ONETIME ONE Stop: 06/07/20 13:31 Last Admin: 06/07/20 14:00 Dose: 100 ml Documented by: Lisinopril (Prinivil) 40 mg PO DAILY [facility] Lisinopril (Prinivil) 40 mg PO DAILY [facility] Last Admin: 06/07/20 11:25 Dose: 40 mg Documented by: Lorazepam (Ativan) 0.5 mg IVPUSH ONETIME ONE Stop: 06/14/20 11:47 Last Admin: 06/14/20 11:56 Dose: 0.5 mg Documented by: Magnesium Hydroxide (Milk Of Magnesia) 30 ml PO ONETIME ONE Stop: 06/23/20 05:49 Last Admin: 06/23/20 06:12 Dose: Not Given Documented by: Magnesium Oxide (Magnesium Oxide) 400 mg PO BID [facility] Stop: 06/18/20 21:01 Last Admin: 06/18/20 20:54 Dose: 400 mg Documented by: Metformin HCl (Glucophage) 1,000 mg PO ONETIME ONE Stop: 06/07/20 10:57 Last Admin: 06/07/20 19:43 Dose: Not Given Documented by: Metoprolol Succinate (Toprol Xl) 50 mg PO ONETIME ONE Stop: 06/07/20 10:58 Last Admin: 06/07/20 11:21 Dose: 50 mg Documented by: Metoprolol Succinate (Toprol Xl) 50 mg PO DAILY [facility] Last Admin: 06/11/20 08:00 Dose: 50 mg Documented by: Quetiapine Fumarate (Seroquel) 12.5 mg PO BID [facility] Quetiapine Fumarate (Seroquel) 12.5 mg PO ONETIME ONE Stop: 06/13/20 11:19 Last Admin: 06/13/20 11:38 Dose: 12.5 mg Documented by: Quetiapine Fumarate (Seroquel) 25 mg PO BEDTIME [facility] Last Admin: 06/16/20 21:40 Dose: 25 mg Documented by: - Exam Quality Assessment: Supplemental Oxygen General: Alert, Oriented HEENT: Pupils Equal, Mucous Membr. Moist/[place] Neck: Supple Lungs: Rales (Minimal scattered). No: Normal Respiratory Effort (Mild increased respiratory rate and effort) Cardiovascular: Regular Rate, Regular Rhythm GI/Abdominal Exam: Normal Bowel Sounds, Soft, Non-Tender, No Distention Extremities: Normal Inspection, Normal Capillary Refill Skin: Warm, Dry, Intact Psy/Mental Status: Alert, Normal Affect, Normal Mood Sepsis Event Note - Evaluation Sepsis Screening Result: No Definite Risk - Focused Exam Vital Signs: Vital Signs Temp Pulse Resp BP Pulse Ox Pulse Ox 06/23/20 15:14 97.7 F 71 28 H 127/62 86 L 06/23/20 12:06 97.5 F 76 20 107/92 H 90 L 06/23/20 09:19 90 L 06/23/20 09:11 79 100/66 06/23/20 07:47 97.5 F 79 20 100/66 90 L - Problem List & Annotations (1) Elevated troponin I level SNOMED Code(s): 545684657 Code(s): R77.8 - OTHER SPECIFIED ABNORMALITIES OF PLASMA PROTEINS Status: Acute Priority: Medium Current Visit: Yes Onset Date: ~06/15/20 Annotation/Comment:: repeat inflamitory markers today (2) COVID-19 SNOMED Code(s): 210470940 Code(s): U07.1 - COVID-19 Status: Acute Priority: High Current Visit: Yes Onset Date: ~06/15/20 Annotation/Comment:: stable condition. Requiring 60 L high flow O2 and maintaining sats in mid-low 90s (3) Hypoxia SNOMED Code(s): 389265292 Code(s): R09.02 - HYPOXEMIA Status: Resolved Priority: High Current Visit: Yes Annotation/Comment:: requiring 60 L high flow O2. Sats stable in mid-low 90s. Sats drop to 60s on exertion (4) Weakness SNOMED Code(s): 27189703 Code(s): R53.1 - WEAKNESS Status: Acute Priority: High Current Visit: Yes - Problem List Review Problem List Initiated/Reviewed/Updated: Yes - My Orders Last 24 Hours: My Active Orders 06/23/20 00:32 Communication Order [RC] ASDIRECTED 06/23/20 21:00 Insulin Glarg,Human.Rec.Analog [LantUS] 10 unit SUBCUT BID - Plan Plan:: Assessment 74-year-old male diagnosed with COVID-19 on 06/03/2020, but symptomatic since the 05/29/2020 presents to the emergency department with increasing weakness. COVID-19 Infection Viral Pneumonitis ARDS Leukocytosis, resolved Acute Hypoxic Respiratory Failure * On high flow nasal cannula at 60 L 90% FiO2 * S/p 2 units convalescent plasma * CTA of the chest on 06/07/2020: No pulmonary embolism. Positive for patchy bilateral groundglass pulmonary infiltrates. Cardiomegaly with vascular calcifications including coronary artery calcifications. * Repeat chest x-ray 06/21/2020 showed stable appearance of multilobar pneumonia * Completed 5 day course of remdesivir; rocephin and azithromycin * Finished dexamethasone * Bedside pulmo exercise, IS/FV, and proning position * Encourage proning position * No significant change in condition Elevated troponin, consider type II AR versus myocarditis * No new symptoms Hyperlipidemia * Rosuvastatin 20 mg daily S/p Acute renal injuryresolved Type 2 diabetes, controlled * Currently on Lantus 20 units BID with high intensity ISS. Patient's morning blood sugars are in the low 100s or high 90s * Hemoglobin A1c 7.5, TSH 0.528 * Blood sugars improving now that he is been off dexamethasone for a few days. Will need to decrease insulin appropriately. He is also off of 3 of his home oral diabetic medications. * Hold metformin, acarbose, and pioglitazone * Continue alogliptin * Started on Humalog 5 units with each meal * Continuing on sliding scale insulin Hypertension * On metoprolol succinate 50 mg daily * Blood pressures improved Thrombocytopenia * Platelets 141 Hypomagnesemia-resolved * Mg now is 1.9 Plan: * Mainly supportive and symptoms management * Continue high flow; goal titrate to come off high flow * Aggressive proning protocol; encourage patient to prone as much as he can * Decrease Lantus to 1 units twice daily * Sliding scale insulin high intensity plus 5 units with AC * No labs tomorrow morning * Consider LTAC if not able to wean off high flow * VTE prophylaxis with Lovenox 40 mg Sub BID * Encourage to use IS and FV and ambulate inside his room * Continue zinc supplement * CODE STATUS full code * LOS/Discharge pending placement to [facility]
[2020-06-23] MEDS: Docusate Sodium 100 MG Cap PO SCH (21:23)
[2020-06-23] MEDS: Rosuvastatin 10 MG Tab PO SCH (21:23)
[2020-06-24] MEDS: Insulin Lispro 100 Units/ML 3 ML Vial SUBCUT SCH ×6 (06:53→18:35)
[2020-06-24] MEDS: Insulin Glarg,Human.Rec.Analog 100 Unit/ML SUBCUT SCH ×2 (09:00→20:40)
[2020-06-24] MEDS: Enoxaparin 40 MG/0.4 ML Syringe SUBCUT SCH ×2 (09:01→20:40)
[2020-06-24] MEDS: Metoprolol Succinate 50 MG Tab.ER PO SCH (09:05)
[2020-06-24] MEDS: Furosemide 20 MG Tab PO SCH (09:05)
[2020-06-24] MEDS: Zinc Sulfate 220 MG Cap PO SCH (09:05)
[2020-06-24] MEDS: Aspirin 81 MG Tab.EC PO SCH (09:06)
--- NOTE | 2020-06-24 14:22 | PCM.PN ---
- General Info Date of Service: 06/24/20 Admission Dx/Problem (Free Text): Admission Diagnosis/Problem Admission Diagnosis/Problem Hypoxia Subjective Update: Patient continues to be stable. His was able to visit today and his mood is much improved. No significant change in respiratory support. Functional Status: Reports: Pain Controlled - Review of Systems General: Reports: No Symptoms HEENT: Reports: No Symptoms Pulmonary: Reports: Shortness of Breath Cardiovascular: Reports: No Symptoms Gastrointestinal: Reports: No Symptoms Musculoskeletal: Reports: No Symptoms - Patient Data Vitals - Most Recent: Last Vital Signs Temp 97.7 F 06/24/20 10:59 Pulse 72 06/24/20 10:59 Resp 18 06/24/20 10:59 BP 126/76 06/24/20 10:59 Pulse Ox 89 L 06/24/20 10:59 Weight - Most Recent: 236 lb 8 oz I&O - Last 24 Hours: Intake & Output 06/23/20 06/24/20 06/24/20 22:59 06:59 14:59 Intake Total 940 300 20 Output Total 300 800 Balance 640 -500 20 Lab Results Last 24 Hours: Laboratory Results - last 24 hr 06/23/20 06/23/20 06/24/20 Range/Units 16:36 21:21 05:55 POC Glucose 86 228 H 127 H (83-110) mg/dL Med Orders - Current: Current Medications Acetaminophen (Tylenol) 650 mg RECTAL Q4H PRN PRN Reason: Pain (mild 1-3) Albuterol (Proventil Hfa) 0 gm INH Q4H PRN PRN Reason: Wheezing Last Admin: 06/10/20 20:16 Dose: 2 puff Documented by: Alogliptin Benzoate (Alogliptin) 25 mg PO DAILY [facility] Last Admin: 06/24/20 09:06 Dose: 25 mg Documented by: Aspirin (Halfprin) 81 mg PO DAILY [facility] Last Admin: 06/24/20 09:06 Dose: 81 mg Documented by: Dextrose/Water (Dextrose 50% In Water) 50 ml IV ASDIRECTED PRN PRN Reason: Hypoglycemia Docusate Sodium (Colace) 100 mg PO BEDTIME [facility] Last Admin: 06/23/20 21:23 Dose: 100 mg Documented by: Enoxaparin Sodium (Lovenox) 40 mg SUBCUT BID [facility] Last Admin: 06/24/20 09:01 Dose: 40 mg Documented by: Furosemide (Lasix) 20 mg PO DAILY [facility] Last Admin: 06/24/20 09:05 Dose: 20 mg Documented by: Insulin Glargine (Lantus) 10 unit SUBCUT BID [facility] Last Admin: 06/24/20 09:00 Dose: 10 units Documented by: Insulin Human Lispro (Humalog) 5 unit SUBCUT TIDAC [facility] Last Admin: 06/24/20 12:20 Dose: 5 units Documented by: Insulin Human Lispro (Humalog) 0 unit SUBCUT TIDAC [facility]; Protocol Last Admin: 06/24/20 12:20 Dose: 3 units Documented by: Lorazepam (Ativan) 0.5 mg PO Q4H PRN PRN Reason: Anxiety Last Admin: 06/14/20 09:20 Dose: 0.5 mg Documented by: Metoprolol Succinate (Toprol Xl) 50 mg PO DAILY [facility] Last Admin: 06/24/20 09:05 Dose: 50 mg Documented by: Ondansetron HCl (Zofran) 4 mg IV Q4H PRN PRN Reason: Nausea/Vomiting Rosuvastatin Calcium (Crestor) 20 mg PO BEDTIME [facility] Last Admin: 06/23/20 21:23 Dose: 20 mg Documented by: Sodium Chloride (Saline Flush) 10 ml FLUSH ONETIME PRN PRN Reason: Keep Vein Open Last Admin: 06/07/20 14:24 Dose: 10 ml Documented by: Zinc Sulfate (Zincate) 220 mg PO DAILY [facility] Last Admin: 06/24/20 09:05 Dose: 220 mg Documented by: Discontinued Medications Acetaminophen (Tylenol) 650 mg PO NOW ONE Stop: 06/07/20 16:36 Last Admin: 06/07/20 16:47 Dose: 650 mg Documented by: Alogliptin Benzoate (Alogliptin) 25 mg PO DAILY [facility] Last Admin: 06/07/20 11:23 Dose: 25 mg Documented by: Dexamethasone (Dexamethasone) 6 mg PO DAILY [facility] Stop: 06/13/20 09:01 Last Admin: 06/11/20 08:01 Dose: 6 mg Documented by: Dexamethasone (Dexamethasone) 6 mg PO BID [facility] Stop: 06/12/20 09:01 Last Admin: 06/12/20 08:17 Dose: 6 mg Documented by: Dexamethasone (Dexamethasone) 6 mg PO BID [facility] Stop: 06/13/20 21:01 Last Admin: 06/13/20 22:37 Dose: 6 mg Documented by: Enoxaparin Sodium (Lovenox) 40 mg SUBCUT DAILY [facility] Last Admin: 06/11/20 08:00 Dose: 40 mg Documented by: Furosemide (Lasix) 20 mg IVPUSH NOW ONE Stop: 06/08/20 12:08 Last Admin: 06/08/20 12:23 Dose: 20 mg Documented by: Furosemide (Lasix) 20 mg IVPUSH NOW ONE Stop: 06/08/20 16:41 Last Admin: 06/08/20 17:26 Dose: 20 mg Documented by: Furosemide (Lasix) 20 mg PO ONETIME ONE Stop: 06/11/20 15:10 Last Admin: 06/11/20 15:29 Dose: 20 mg Documented by: Haloperidol (Haldol) 2 mg PO ONETIME ONE Stop: 06/17/20 09:49 Last Admin: 06/17/20 10:06 Dose: 2 mg Documented by: Sodium Chloride (Normal Saline) 1,000 mls @ 500 mls/hr IV ONETIME ONE Stop: 06/07/20 14:51 Last Admin: 06/07/20 13:06 Dose: 500 mls/hr Documented by: Sodium Chloride (Normal Saline) 100 mls @ 75 mls/hr IV ASDIRECTED [facility] Last Admin: 06/07/20 14:10 Dose: 75 mls/hr Documented by: Remdesivir 100 mg/ Sodium (Chloride) 100 mls @ 100 mls/hr IV Q24H [facility] Stop: 06/11/20 19:29 Ceftriaxone Sodium 2 gm/ (Sodium Chloride) 100 mls @ 200 mls/hr IV DAILY@1800 [facility] Stop: 06/11/20 18:29 Last Admin: 06/08/20 19:58 Dose: Not Given Documented by: Azithromycin 500 mg/ Sodium (Chloride) 250 mls @ 250 mls/hr IV Q24H [facility] Stop: 06/09/20 20:59 Last Admin: 06/09/20 20:52 Dose: 250 mls/hr Documented by: Remdesivir 200 mg/ Sodium (Chloride) 250 mls @ 250 mls/hr IV ONETIME ONE Stop: 06/07/20 21:29 Last Admin: 06/07/20 20:55 Dose: 250 mls/hr Documented by: Sodium Chloride (Normal Saline) Confirm Administered Dose 250 mls @ as directed .ROUTE .STK-MED ONE Stop: 06/07/20 20:27 Last Admin: 06/07/20 20:54 Dose: Not Given Documented by: Sodium Chloride (Normal Saline) 1,000 mls @ 50 mls/hr IV ASDIRECTED [facility] Stop: 06/08/20 16:44 Last Admin: 06/07/20 22:06 Dose: 50 mls/hr Documented by: Magnesium Sulfate 4 gm/ Premix 50 mls @ 12.5 mls/hr IV ONETIME ONE Stop: 06/08/20 14:59 Last Admin: 06/08/20 11:43 Dose: 12.5 mls/hr Documented by: Sodium Chloride (Normal Saline) 250 mls @ 100 mls/hr IV ASDIRECTED [facility] Stop: 06/08/20 23:00 Last Admin: 06/08/20 16:55 Dose: 100 mls/hr Documented by: Remdesivir 100 mg/ Sodium (Chloride) 100 mls @ 100 mls/hr IV Q24H [facility] Stop: 06/11/20 20:29 Last Admin: 06/11/20 18:39 Dose: 100 mls/hr Documented by: Ceftriaxone Sodium 2 gm/ (Sodium Chloride) 100 mls @ 200 mls/hr IV DAILY@1999 [facility] Stop: 06/11/20 20:29 Last Admin: 06/11/20 19:54 Dose: 200 mls/hr Documented by: Magnesium Sulfate (Magnesium Sulfate In Water Premix) 2 gm in 50 mls @ 25 mls/hr IV ONETIME ONE Stop: 06/11/20 17:07 Last Admin: 06/11/20 15:30 Dose: 25 mls/hr Documented by: Magnesium Sulfate (Magnesium Sulfate In Water Premix) 2 gm in 50 mls @ 25 mls/hr IV ONETIME ONE Stop: 06/13/20 12:59 Last Admin: 06/13/20 12:47 Dose: 25 mls/hr Documented by: Magnesium Sulfate 2 gm/ Premix 50 mls @ 25 mls/hr IV ONETIME ONE Stop: 06/14/20 10:44 Last Admin: 06/14/20 08:50 Dose: 25 mls/hr Documented by: Magnesium Sulfate (Magnesium Sulfate In Water Premix) 2 gm in 50 mls @ 25 mls/hr IV ONETIME ONE Stop: 06/18/20 13:30 Last Admin: 06/18/20 12:56 Dose: 25 mls/hr Documented by: Insulin Glargine (Lantus) 7 unit SUBCUT DAILY [facility] Last Admin: 06/08/20 09:05 Dose: 7 unit Documented by: Insulin Glargine (Lantus) 5 unit SUBCUT BIDAC [facility] Last Admin: 06/09/20 17:01 Dose: 5 units Documented by: Insulin Glargine (Lantus) 5 unit SUBCUT NOW STA Stop: 06/09/20 08:28 Last Admin: 06/09/20 08:47 Dose: 5 units Documented by: Insulin Glargine (Lantus) 7 unit SUBCUT BID [facility] Last Admin: 06/10/20 08:37 Dose: 7 units Documented by: Insulin Glargine (Lantus) 8 unit SUBCUT BID [facility] Insulin Glargine (Lantus) 10 unit SUBCUT BID [facility] Last Admin: 06/11/20 08:02 Dose: 10 units Documented by: Insulin Glargine (Lantus) 15 unit SUBCUT BID [facility] Last Admin: 06/12/20 08:21 Dose: 15 units Documented by: Insulin Glargine (Lantus) 20 unit SUBCUT BID [facility] Last Admin: 06/22/20 09:03 Dose: 20 units Documented by: Insulin Glargine (Lantus) 15 unit SUBCUT BID [facility] Last Admin: 06/23/20 09:13 Dose: 15 units Documented by: Insulin Human Lispro (Humalog) 0 unit SUBCUT QIDACANDBED [facility]; Protocol Last Admin: 06/08/20 17:23 Dose: 5 units Documented by: Insulin Human Lispro (Humalog) 0 unit SUBCUT QIDACANDBED [facility]; Protocol Last Admin: 06/09/20 17:01 Dose: 10 units Documented by: Insulin Human Lispro (Humalog) 0 unit SUBCUT QIDACANDBED [facility]; Protocol Last Admin: 06/09/20 17:33 Dose: Not Given Documented by: Insulin Human Lispro (Humalog) 0 unit SUBCUT QIDACANDBED [facility]; Protocol Insulin Human Lispro (Humalog) 0 unit SUBCUT QIDACANDBED [facility]; Protocol Last Admin: 06/21/20 08:14 Dose: Not Given Documented by: Insulin Human Lispro (Humalog) 5 unit SUBCUT [facility] Last Admin: 06/10/20 18:34 Dose: 5 units Documented by: Insulin Human Lispro (Humalog) 7 unit SUBCUT [facility] Last Admin: 06/11/20 12:44 Dose: 7 units Documented by: Insulin Human Lispro (Humalog) 0 unit SUBCUT [facility] PRN; Protocol PRN Reason: Hyperglycemia Iopamidol (Isovue-370 (76%)) 100 ml IVPUSH ONETIME ONE Stop: 06/07/20 13:31 Last Admin: 06/07/20 14:00 Dose: 100 ml Documented by: Lisinopril (Prinivil) 40 mg PO DAILY [facility] Lisinopril (Prinivil) 40 mg PO DAILY [facility] Last Admin: 06/07/20 11:25 Dose: 40 mg Documented by: Lorazepam (Ativan) 0.5 mg IVPUSH ONETIME ONE Stop: 06/14/20 11:47 Last Admin: 06/14/20 11:56 Dose: 0.5 mg Documented by: Magnesium Hydroxide (Milk Of Magnesia) 30 ml PO ONETIME ONE Stop: 06/23/20 05:49 Last Admin: 06/23/20 06:12 Dose: Not Given Documented by: Magnesium Oxide (Magnesium Oxide) 400 mg PO BID [facility] Stop: 06/18/20 21:01 Last Admin: 06/18/20 20:54 Dose: 400 mg Documented by: Metformin HCl (Glucophage) 1,000 mg PO ONETIME ONE Stop: 06/07/20 10:57 Last Admin: 06/07/20 19:43 Dose: Not Given Documented by: Metoprolol Succinate (Toprol Xl) 50 mg PO ONETIME ONE Stop: 06/07/20 10:58 Last Admin: 06/07/20 11:21 Dose: 50 mg Documented by: Metoprolol Succinate (Toprol Xl) 50 mg PO DAILY [facility] Last Admin: 06/11/20 08:00 Dose: 50 mg Documented by: Quetiapine Fumarate (Seroquel) 12.5 mg PO BID [facility] Quetiapine Fumarate (Seroquel) 12.5 mg PO ONETIME ONE Stop: 06/13/20 11:19 Last Admin: 06/13/20 11:38 Dose: 12.5 mg Documented by: Quetiapine Fumarate (Seroquel) 25 mg PO BEDTIME [facility] Last Admin: 06/16/20 21:40 Dose: 25 mg Documented by: - Exam Quality Assessment: Supplemental Oxygen General: Alert, Oriented HEENT: Pupils Equal, Mucous Membr. Moist/[place] Neck: Supple Lungs: Clear to Auscultation, Normal Respiratory Effort Cardiovascular: Regular Rate, Regular Rhythm GI/Abdominal Exam: Normal Bowel Sounds, Soft, Non-Tender, No Distention Extremities: Normal Inspection, Normal Range of Motion, Non-Tender, No Pedal Edema, Normal Capillary Refill Skin: Warm, Dry, Intact Psy/Mental Status: Alert, Normal Affect, Normal Mood Sepsis Event Note - Evaluation Sepsis Screening Result: No Definite Risk - Focused Exam Vital Signs: Vital Signs Temp Pulse Resp BP Pulse Ox Pulse Ox 06/24/20 10:59 97.7 F 72 18 126/76 89 L 06/24/20 09:05 84 113/77 06/24/20 07:26 97.7 F 84 18 113/77 89 L 06/24/20 05:31 87 L 06/24/20 04:19 97.9 F 79 20 127/50 L 87 L - Problem List & Annotations (1) Elevated troponin I level SNOMED Code(s): 404589582 Code(s): R77.8 - OTHER SPECIFIED ABNORMALITIES OF PLASMA PROTEINS Status: Acute Priority: Medium Current Visit: Yes Onset Date: ~06/15/20 Annotation/Comment:: repeat inflamitory markers today (2) COVID-19 SNOMED Code(s): 075241603 Code(s): U07.1 - COVID-19 Status: Acute Priority: High Current Visit: Yes Onset Date: ~06/15/20 Annotation/Comment:: stable condition. Requiring 60 L high flow O2 and maintaining sats in mid-low 90s (3) Hypoxia SNOMED Code(s): 555445039 Code(s): R09.02 - HYPOXEMIA Status: Resolved Priority: High Current Visit: Yes Annotation/Comment:: requiring 60 L high flow O2. Sats stable in mid-low 90s. Sats drop to 60s on exertion (4) Weakness SNOMED Code(s): 53250549 Code(s): R53.1 - WEAKNESS Status: Acute Priority: High Current Visit: Yes - Problem List Review Problem List Initiated/Reviewed/Updated: Yes - My Orders Last 24 Hours: My Active Orders 06/23/20 21:00 Insulin Glarg,Human.Rec.Analog [LantUS] 10 unit SUBCUT BID - Plan Plan:: Assessment 74-year-old male diagnosed with COVID-19 on 06/03/2020, but symptomatic since the sixth presents to the emergency department with increasing weakness. COVID-19 Infection Viral Pneumonitis ARDS Leukocytosis, resolved Acute Hypoxic Respiratory Failure * On high flow nasal cannula at 60 L 90% FiO2 * S/p 2 units convalescent plasma * CTA of the chest on 06/07/2020: No pulmonary embolism. Positive for patchy bilateral groundglass pulmonary infiltrates. Cardiomegaly with vascular calcifications including coronary artery calcifications. * Repeat chest x-ray 06/21/2020 showed stable appearance of multilobar pneumonia * Completed 5 day course of remdesivir; rocephin and azithromycin * Finished dexamethasone * Bedside pulmo exercise, IS/FV, and proning position * Encourage proning position. He is very compliant Elevated troponin, consider type II MD * No new symptoms Hyperlipidemia * Rosuvastatin 20 mg daily Hyponatremia-resolved * Na today is 139 * Likely due to poor oral intake and diuretic use S/p Acute renal injuryresolved Type 2 diabetes, controlled * Continue Lantus 1 units BID with high intensity ISS * Hemoglobin A1c 7.5, TSH 0.528 * Blood sugars worsened secondary to dexamethasone, but still elevated even with completing dexamethasone. It may take a few more days for this to level off. He is also off of 3 of his home oral diabetic medications. * Hold metformin, acarbose, and pioglitazone * Continue alogliptin * Started on Humalog 5 units with each meal * Continuing on sliding scale insulin Hypertension * On metoprolol succinate 50 mg daily * Blood pressures improved Thrombocytopeniaresolved * Platelets 191 Plan: * Mainly supportive and symptoms management * Continue high flow; goal titrate to come off high flow * Aggressive proning protocol; encourage patient to prone as much as he can * Continue Lantus at 10 units twice daily * Sliding scale insulin high intensity plus 5 units with AC * Covid related labs in the morning * Consider LTAC if not able to wean off high flow * VTE prophylaxis with Lovenox 40 mg Sub BID * Encourage to use IS and FV and ambulate inside his room * Continue zinc supplement * CODE STATUS full code * LOS/[facility]
--- NOTE | 2020-06-24 15:13 | CR ---
Chest: Portable view of the chest was obtained. Comparison: Prior chest x-ray of 06/12/[address] of 06/07/20. Findings: Lungs: Diffuse pulmonary densities are seen within both sides of the chest. These densities are becoming better defined as an interval change from previous study. These densities are unchanged in location from prior study. Heart and mediastinum: Heart size and mediastinum are normal. Osseous: Bony structures are grossly intact. Impression: 1. Increasing parenchymal densities on both sides of the chest. 2. No additional abnormality is appreciated. Diagnostic code #3
[2020-06-24] MEDS: Rosuvastatin 10 MG Tab PO SCH (20:41)
[2020-06-24] MEDS: Docusate Sodium 100 MG Cap PO SCH (20:41)
[2020-06-25] MEDS: Furosemide 20 MG Tab PO SCH (09:13)
[2020-06-25] MEDS: Aspirin 81 MG Tab.EC PO SCH (09:13)
[2020-06-25] MEDS: Zinc Sulfate 220 MG Cap PO SCH (09:14)
[2020-06-25] MEDS: Metoprolol Succinate 50 MG Tab.ER PO SCH (09:14)
[2020-06-25] MEDS: Insulin Lispro 100 Units/ML 3 ML Vial SUBCUT SCH ×4 (09:15→13:03)
[2020-06-25] MEDS: Enoxaparin 40 MG/0.4 ML Syringe SUBCUT SCH (09:16)
[2020-06-25] MEDS: Insulin Glarg,Human.Rec.Analog 100 Unit/ML SUBCUT SCH (09:16)
--- NOTE | 2020-06-25 15:53 | PCM.PN ---
- General Info Date of Service: 06/25/20 Admission Dx/Problem (Free Text): Admission Diagnosis/Problem Admission Diagnosis/Problem Hypoxia Subjective Update: Patient had a difficult night last night. Oxygen saturations have been unstable and he is dropping down into the 70s or below even getting up to go the bathroom. Chest x-ray yesterday showed worsening of the lateral aspects of his pneumonia/pneumonitis. Patient and his discussed this development and have elected to be comfort measures. They would like to continue on high flow nasal cannula until at least his son comes from [place] this evening. - Review of Systems General: Reports: Weakness, Fatigue Pulmonary: Reports: Shortness of Breath, Cough Cardiovascular: Reports: No Symptoms Gastrointestinal: Reports: No Symptoms Musculoskeletal: Reports: No Symptoms - Patient Data Vitals - Most Recent: Last Vital Signs Temp 98.4 F 06/25/20 09:11 Pulse 113 H 06/25/20 09:14 Resp 28 H 06/25/20 09:11 BP 138/74 06/25/20 09:14 Pulse Ox 80 L 06/25/20 10:26 Weight - Most Recent: 236 lb 8 oz I&O - Last 24 Hours: Intake & Output 06/25/20 06/25/20 06/25/20 06:59 14:59 22:59 Intake Total 300 240 Output Total 600 Balance -300 240 Lab Results Last 24 Hours: Laboratory Results - last 24 hr 06/24/20 06/24/20 06/24/20 Range/Units 12:08 17:08 20:38 WBC (4.23-9.07) K/mm3 RBC (4.63-6.08) M/mm3 Hgb (13.7-17.5) gm/dl Hct (40.1-51.0) % MCV (79.0-92.2) fl MCH (25.7-32.2) pg MCHC (32.2-35.5) g/dl RDW Std Deviation (35.1-43.9) fL Plt Count (163-337) K/mm3 MPV (9.4-12.3) fl Neut % (Auto) (34.0-67.9) % Lymph % (Auto) (21.8-53.1) % [place] % (Auto) (5.3-12.2) % Eos % (Auto) (0.8-7.0) Baso % (Auto) (0.1-1.2) % Neut # (Auto) (1.78-5.38) K/mm3 Lymph # (Auto) (1.32-3.57) K/mm3 [place] # (Auto) (0.30-0.82) K/mm3 Eos # (Auto) (0.04-0.54) K/mm3 Baso # (Auto) (0.01-0.08) K/mm3 Sodium (136-145) mEq/L Potassium (3.5-5.1) mEq/L Chloride (98-107) mEq/L Carbon Dioxide (21-32) mEq/L Anion Gap (5-15) BUN (7-18) mg/dL Creatinine (0.7-1.3) mg/dL Est Cr Clr Drug Dosing mL/min Estimated GFR (MDRD) (>60) mL/min BUN/Creatinine Ratio (14-18) Glucose (83-115) mg/dL POC Glucose 158 H 272 H 155 H (83-110) mg/dL Calcium (8.5-10.1) mg/dL Magnesium (1.8-2.4) mg/dl Total Bilirubin (0.2-1.0) mg/dL AST (15-37) U/L ALT (16-63) U/L Alkaline Phosphatase (46-116) U/L Total Protein (6.4-8.2) g/dl Albumin (3.4-5.0) g/dl Globulin gm/dL Albumin/Globulin Ratio (1-2) 06/25/20 06/25/20 06/25/20 Range/Units 05:39 06:20 06:20 WBC 10.03 H (4.23-9.07) K/mm3 RBC 3.72 L (4.63-6.08) M/mm3 Hgb 11.1 L (13.7-17.5) gm/dl Hct 35.6 L (40.1-51.0) % MCV 95.7 H (79.0-92.2) fl MCH 29.8 (25.7-32.2) pg MCHC 31.2 L (32.2-35.5) g/dl RDW Std Deviation 48.9 H (35.1-43.9) fL Plt Count 127 L (163-337) K/mm3 MPV 9.9 (9.4-12.3) fl Neut % (Auto) 75.5 H (34.0-67.9) % Lymph % (Auto) 11.3 L (21.8-53.1) % [place] % (Auto) 11.5 (5.3-12.2) % Eos % (Auto) 1.2 (0.8-7.0) Baso % (Auto) 0.2 (0.1-1.2) % Neut # (Auto) 7.58 H (1.78-5.38) K/mm3 Lymph # (Auto) 1.13 L (1.32-3.57) K/mm3 [place] # (Auto) 1.15 H (0.30-0.82) K/mm3 Eos # (Auto) 0.12 (0.04-0.54) K/mm3 Baso # (Auto) 0.02 (0.01-0.08) K/mm3 Sodium 137 (136-145) mEq/L Potassium 4.0 (3.5-5.1) mEq/L Chloride 101 (98-107) mEq/L Carbon Dioxide 32 (21-32) mEq/L Anion Gap 8.0 (5-15) BUN 29 H (7-18) mg/dL Creatinine 1.2 (0.7-1.3) mg/dL Est Cr Clr Drug Dosing 58.38 mL/min Estimated GFR (MDRD) 59 (>60) mL/min BUN/Creatinine Ratio 24.2 H (14-18) Glucose 152 H (83-115) mg/dL POC Glucose 150 H (83-110) mg/dL Calcium 9.2 (8.5-10.1) mg/dL Magnesium 1.8 (1.8-2.4) mg/dl Total Bilirubin 0.6 (0.2-1.0) mg/dL AST 18 (15-37) U/L ALT 23 (16-63) U/L Alkaline Phosphatase 87 (46-116) U/L Total Protein 7.2 (6.4-8.2) g/dl Albumin 1.9 L (3.4-5.0) g/dl Globulin 5.3 gm/dL Albumin/Globulin Ratio 0.4 L (1-2) Med Orders - Current: Current Medications Acetaminophen (Tylenol) 650 mg RECTAL Q4H PRN PRN Reason: Pain (mild 1-3) Albuterol (Proventil Hfa) 0 gm INH Q4H PRN PRN Reason: Wheezing Last Admin: 06/10/20 20:16 Dose: 2 puff Documented by: Alogliptin Benzoate (Alogliptin) 25 mg PO DAILY [facility] Last Admin: 06/25/20 09:13 Dose: 25 mg Documented by: Aspirin (Halfprin) 81 mg PO DAILY [facility] Last Admin: 06/25/20 09:13 Dose: 81 mg Documented by: Dextrose/Water (Dextrose 50% In Water) 50 ml IV ASDIRECTED PRN PRN Reason: Hypoglycemia Docusate Sodium (Colace) 100 mg PO BEDTIME [facility] Last Admin: 06/24/20 20:41 Dose: 100 mg Documented by: Enoxaparin Sodium (Lovenox) 40 mg SUBCUT BID [facility] Last Admin: 06/25/20 09:16 Dose: 40 mg Documented by: Furosemide (Lasix) 20 mg PO DAILY [facility] Last Admin: 06/25/20 09:13 Dose: 20 mg Documented by: Insulin Glargine (Lantus) 10 unit SUBCUT BID [facility] Last Admin: 06/25/20 09:16 Dose: 10 units Documented by: Insulin Human Lispro (Humalog) 5 unit SUBCUT TIDAC [facility] Last Admin: 06/25/20 13:02 Dose: Not Given Documented by: Insulin Human Lispro (Humalog) 0 unit SUBCUT TIDAC [facility]; Protocol Last Admin: 06/25/20 13:03 Dose: Not Given Documented by: Lorazepam (Ativan) 0.5 mg PO Q4H PRN PRN Reason: Anxiety Last Admin: 06/14/20 09:20 Dose: 0.5 mg Documented by: Metoprolol Succinate (Toprol Xl) 50 mg PO DAILY [facility] Last Admin: 06/25/20 09:14 Dose: 50 mg Documented by: Ondansetron HCl (Zofran) 4 mg IV Q4H PRN PRN Reason: Nausea/Vomiting Rosuvastatin Calcium (Crestor) 20 mg PO BEDTIME [facility] Last Admin: 06/24/20 20:41 Dose: 20 mg Documented by: Sodium Chloride (Saline Flush) 10 ml FLUSH ONETIME PRN PRN Reason: Keep Vein Open Last Admin: 06/07/20 14:24 Dose: 10 ml Documented by: Zinc Sulfate (Zincate) 220 mg PO DAILY [facility] Last Admin: 06/25/20 09:14 Dose: 220 mg Documented by: Discontinued Medications Acetaminophen (Tylenol) 650 mg PO NOW ONE Stop: 06/07/20 16:36 Last Admin: 06/07/20 16:47 Dose: 650 mg Documented by: Alogliptin Benzoate (Alogliptin) 25 mg PO DAILY [facility] Last Admin: 06/07/20 11:23 Dose: 25 mg Documented by: Dexamethasone (Dexamethasone) 6 mg PO DAILY [facility] Stop: 06/13/20 09:01 Last Admin: 06/11/20 08:01 Dose: 6 mg Documented by: Dexamethasone (Dexamethasone) 6 mg PO BID [facility] Stop: 06/12/20 09:01 Last Admin: 06/12/20 08:17 Dose: 6 mg Documented by: Dexamethasone (Dexamethasone) 6 mg PO BID [facility] Stop: 06/13/20 21:01 Last Admin: 06/13/20 22:37 Dose: 6 mg Documented by: Enoxaparin Sodium (Lovenox) 40 mg SUBCUT DAILY [facility] Last Admin: 06/11/20 08:00 Dose: 40 mg Documented by: Furosemide (Lasix) 20 mg IVPUSH NOW ONE Stop: 06/08/20 12:08 Last Admin: 06/08/20 12:23 Dose: 20 mg Documented by: Furosemide (Lasix) 20 mg IVPUSH NOW ONE Stop: 06/08/20 16:41 Last Admin: 06/08/20 17:26 Dose: 20 mg Documented by: Furosemide (Lasix) 20 mg PO ONETIME ONE Stop: 06/11/20 15:10 Last Admin: 06/11/20 15:29 Dose: 20 mg Documented by: Haloperidol (Haldol) 2 mg PO ONETIME ONE Stop: 06/17/20 09:49 Last Admin: 06/17/20 10:06 Dose: 2 mg Documented by: Sodium Chloride (Normal Saline) 1,000 mls @ 500 mls/hr IV ONETIME ONE Stop: 06/07/20 14:51 Last Admin: 06/07/20 13:06 Dose: 500 mls/hr Documented by: Sodium Chloride (Normal Saline) 100 mls @ 75 mls/hr IV ASDIRECTED [facility] Last Admin: 06/07/20 14:10 Dose: 75 mls/hr Documented by: Remdesivir 100 mg/ Sodium (Chloride) 100 mls @ 100 mls/hr IV Q24H [facility] Stop: 06/11/20 19:29 Ceftriaxone Sodium 2 gm/ (Sodium Chloride) 100 mls @ 200 mls/hr IV DAILY@1800 [facility] Stop: 06/11/20 18:29 Last Admin: 06/08/20 19:58 Dose: Not Given Documented by: Azithromycin 500 mg/ Sodium (Chloride) 250 mls @ 250 mls/hr IV Q24H [facility] Stop: 06/09/20 20:59 Last Admin: 06/09/20 20:52 Dose: 250 mls/hr Documented by: Remdesivir 200 mg/ Sodium (Chloride) 250 mls @ 250 mls/hr IV ONETIME ONE Stop: 06/07/20 21:29 Last Admin: 06/07/20 20:55 Dose: 250 mls/hr Documented by: Sodium Chloride (Normal Saline) Confirm Administered Dose 250 mls @ as directed .ROUTE .STK-MED ONE Stop: 06/07/20 20:27 Last Admin: 06/07/20 20:54 Dose: Not Given Documented by: Sodium Chloride (Normal Saline) 1,000 mls @ 50 mls/hr IV ASDIRECTED [facility] Stop: 06/08/20 16:44 Last Admin: 06/07/20 22:06 Dose: 50 mls/hr Documented by: Magnesium Sulfate 4 gm/ Premix 50 mls @ 12.5 mls/hr IV ONETIME ONE Stop: 06/08/20 14:59 Last Admin: 06/08/20 11:43 Dose: 12.5 mls/hr Documented by: Sodium Chloride (Normal Saline) 250 mls @ 100 mls/hr IV ASDIRECTED [facility] Stop: 06/08/20 23:00 Last Admin: 06/08/20 16:55 Dose: 100 mls/hr Documented by: Remdesivir 100 mg/ Sodium (Chloride) 100 mls @ 100 mls/hr IV Q24H [facility] Stop: 06/11/20 20:29 Last Admin: 06/11/20 18:39 Dose: 100 mls/hr Documented by: Ceftriaxone Sodium 2 gm/ (Sodium Chloride) 100 mls @ 200 mls/hr IV DAILY@1999 [facility] Stop: 06/11/20 20:29 Last Admin: 06/11/20 19:54 Dose: 200 mls/hr Documented by: Magnesium Sulfate (Magnesium Sulfate In Water Premix) 2 gm in 50 mls @ 25 mls/hr IV ONETIME ONE Stop: 06/11/20 17:07 Last Admin: 06/11/20 15:30 Dose: 25 mls/hr Documented by: Magnesium Sulfate (Magnesium Sulfate In Water Premix) 2 gm in 50 mls @ 25 mls/hr IV ONETIME ONE Stop: 06/13/20 12:59 Last Admin: 06/13/20 12:47 Dose: 25 mls/hr Documented by: Magnesium Sulfate 2 gm/ Premix 50 mls @ 25 mls/hr IV ONETIME ONE Stop: 06/14/20 10:44 Last Admin: 06/14/20 08:50 Dose: 25 mls/hr Documented by: Magnesium Sulfate (Magnesium Sulfate In Water Premix) 2 gm in 50 mls @ 25 mls/hr IV ONETIME ONE Stop: 06/18/20 13:30 Last Admin: 06/18/20 12:56 Dose: 25 mls/hr Documented by: Insulin Glargine (Lantus) 7 unit SUBCUT DAILY [facility] Last Admin: 06/08/20 09:05 Dose: 7 unit Documented by: [facility] Last Admin: 06/09/20 17:01 Dose: 5 units Documented by: Insulin Glargine (Lantus) 5 unit SUBCUT NOW [facility] Stop: 06/09/20 08:28 Last Admin: 06/09/20 08:47 Dose: 5 units Documented by: Insulin Glargine (Lantus) 7 unit SUBCUT BID [facility] Last Admin: 06/10/20 08:37 Dose: 7 units Documented by: Insulin Glargine (Lantus) 8 unit SUBCUT BID [facility] Insulin Glargine (Lantus) 10 unit SUBCUT BID [facility] Last Admin: 06/11/20 08:02 Dose: 10 units Documented by: Insulin Glargine (Lantus) 15 unit SUBCUT BID [facility] Last Admin: 06/12/20 08:21 Dose: 15 units Documented by: Insulin Glargine (Lantus) 20 unit SUBCUT BID [facility] Last Admin: 06/22/20 09:03 Dose: 20 units Documented by: Insulin Glargine (Lantus) 15 unit SUBCUT BID [facility] Last Admin: 06/23/20 09:13 Dose: 15 units Documented by: Insulin Human Lispro (Humalog) 0 unit SUBCUT QIDACANDBED [facility]; Protocol Last Admin: 06/08/20 17:23 Dose: 5 units Documented by: Insulin Human Lispro (Humalog) 0 unit SUBCUT QIDACANDBED [facility]; Protocol Last Admin: 06/09/20 17:01 Dose: 10 units Documented by: Insulin Human Lispro (Humalog) 0 unit SUBCUT QIDACANDBED [facility]; Protocol Last Admin: 06/09/20 17:33 Dose: Not Given Documented by: Insulin Human Lispro (Humalog) 0 unit SUBCUT QIDACANDBED [facility]; Protocol Insulin Human Lispro (Humalog) 0 unit SUBCUT QIDACANDBED [facility]; Protocol Last Admin: 06/21/20 08:14 Dose: Not Given Documented by: Insulin Human Lispro (Humalog) 5 unit SUBCUT TIDPC [facility] Last Admin: 06/10/20 18:34 Dose: 5 units Documented by: Insulin Human Lispro (Humalog) 7 unit SUBCUT TIDPC [facility] Last Admin: 06/11/20 12:44 Dose: 7 units Documented by: Insulin Human Lispro (Humalog) 0 unit SUBCUT TIDPC PRN; Protocol PRN Reason: Hyperglycemia Iopamidol (Isovue-370 (76%)) 100 ml IVPUSH ONETIME ONE Stop: 06/07/20 13:31 Last Admin: 06/07/20 14:00 Dose: 100 ml Documented by: Lisinopril (Prinivil) 40 mg PO DAILY [facility] Lisinopril (Prinivil) 40 mg PO DAILY [facility] Last Admin: 06/07/20 11:25 Dose: 40 mg Documented by: Lorazepam (Ativan) 0.5 mg IVPUSH ONETIME ONE Stop: 06/14/20 11:47 Last Admin: 06/14/20 11:56 Dose: 0.5 mg Documented by: Magnesium Hydroxide (Milk Of Magnesia) 30 ml PO ONETIME ONE Stop: 06/23/20 05:49 Last Admin: 06/23/20 06:12 Dose: Not Given Documented by: Magnesium Oxide (Magnesium Oxide) 400 mg PO BID [facility] Stop: 06/18/20 21:01 Last Admin: 06/18/20 20:54 Dose: 400 mg Documented by: Metformin HCl (Glucophage) 1,000 mg PO ONETIME ONE Stop: 06/07/20 10:57 Last Admin: 06/07/20 19:43 Dose: Not Given Documented by: Metoprolol Succinate (Toprol Xl) 50 mg PO ONETIME ONE Stop: 06/07/20 10:58 Last Admin: 06/07/20 11:21 Dose: 50 mg Documented by: Metoprolol Succinate (Toprol Xl) 50 mg PO DAILY [facility] Last Admin: 06/11/20 08:00 Dose: 50 mg Documented by: Quetiapine Fumarate (Seroquel) 12.5 mg PO BID [facility] Quetiapine Fumarate (Seroquel) 12.5 mg PO ONETIME ONE Stop: 06/13/20 11:19 Last Admin: 06/13/20 11:38 Dose: 12.5 mg Documented by: Quetiapine Fumarate (Seroquel) 25 mg PO BEDTIME [facility] Last Admin: 06/16/20 21:40 Dose: 25 mg Documented by: - Exam Quality Assessment: Supplemental Oxygen General: Alert HEENT: Pupils Equal, Mucous Membr. Moist/[place] Neck: Supple Lungs: Decreased Breath Sounds. No: Normal Respiratory Effort (Only marginally increased work of breathing, but decreased breath sounds.) Cardiovascular: Regular Rate, Regular Rhythm GI/Abdominal Exam: Normal Bowel Sounds, Soft, Non-Tender, No Distention Back Exam: Normal Inspection Extremities: Normal Inspection, No Pedal Edema, Normal Capillary Refill Skin: Warm, Dry, Intact Psy/Mental Status: Alert, Normal Affect, Normal Mood Sepsis Event Note - Evaluation Sepsis Screening Result: No Definite Risk - Focused Exam Vital Signs: Vital Signs Temp Pulse Resp BP Pulse Ox Pulse Ox 06/25/20 10:26 80 L 06/25/20 09:14 113 H 138/74 06/25/20 09:13 109 H 88 L 06/25/20 09:12 113 H 88 L 06/25/20 09:11 98.4 F 112 H 28 H 138/74 87 L 06/25/20 05:58 79 86 L 06/25/20 05:44 97.9 F 83 24 H 119/56 L 82 L - Problem List & Annotations (1) Elevated troponin I level SNOMED Code(s): 380227642 Code(s): R77.8 - OTHER SPECIFIED ABNORMALITIES OF PLASMA PROTEINS Status: Acute Priority: Medium Current Visit: Yes Onset Date: ~06/15/20 Annotation/Comment:: repeat inflamitory markers today (2) COVID-19 SNOMED Code(s): 751900201 Code(s): U07.1 - COVID-19 Status: Acute Priority: High Current Visit: Yes Onset Date: ~06/15/20 Annotation/Comment:: stable condition. Requiring 60 L high flow O2 and maintaining sats in mid-low 90s (3) Hypoxia SNOMED Code(s): 929468477 Code(s): R09.02 - HYPOXEMIA Status: Resolved Priority: High Current Visit: Yes Annotation/Comment:: requiring 60 L high flow O2. Sats stable in mid-low 90s. Sats drop to 60s on exertion (4) Weakness SNOMED Code(s): 24944575 Code(s): R53.1 - WEAKNESS Status: Acute Priority: High Current Visit: Yes - Problem List Review Problem List Initiated/Reviewed/Updated: Yes - My Orders Last 24 Hours: My Active Orders 06/25/20 10:35 Code Status [Resuscitation Status] Routine 06/25/20 12:11 Discontinue Telemetry Monitoring [Cardiac Monitoring Discontinue] [RC] Click to Edit - Plan Plan:: Assessment 74-year-old male diagnosed with COVID-19 on 06/03/2020, but symptomatic since the sixth presents to the emergency department with increasing weakness. COVID-19 Infection Viral Pneumonitis ARDS Leukocytosis, resolved Acute Hypoxic Respiratory Failure * On high flow nasal cannula at 60 L 90% FiO2 * S/p 2 units convalescent plasma * CTA of the chest on 06/07/2020: No pulmonary embolism. Positive for patchy bilateral groundglass pulmonary infiltrates. Cardiomegaly with vascular calcifications including coronary artery calcifications. * Repeat chest x-ray 06/24/2020 showed worsening multi lobar pneumonia * Completed 5 day course of remdesivir; rocephin and azithromycin * Finished dexamethasone * Patient wanting comfort measures Elevated troponin, consider type II NE * No new symptoms Hyperlipidemia * Rosuvastatin 20 mg daily Hyponatremia-resolved * Na today is 139 * Likely due to poor oral intake and diuretic use S/p Acute renal injury Type 2 diabetes, controlled * Stop insulin and blood sugar checks * Hemoglobin A1c 7.5, TSH 0.528 Hypertension * On metoprolol succinate 50 mg daily * Blood pressures improved Thrombocytopeniaworsening * Platelets 127 Plan: * Comfort measures * Continue high flow; goal titrate to come off high flow until family members are able to be with him. * Comfort measures will include morphine, Ativan, and glycopyrrolate if needed. I suspect he will not be able to be discharged because of the incredibly high need for respiratory support. * CODE STATUS DNR/DNI comfort measures
[2020-06-25] MEDS ORDERED: Acetaminophen 325 MG Tab PO PRN (23:10)
[2020-06-26] MEDS ORDERED: Morphine 10 MG/0.5 ML Oral Syringe PO PRN (10:42)
[2020-06-26] MEDS ORDERED: LORazepam 2 MG/ML SDV IVPUSH PRN (10:44)
[2020-06-26] MEDS: Morphine 2 MG/ML SYRINGE IVPUSH PRN ×5 (10:47→22:31)
[2020-06-26] MEDS ORDERED: Morphine 4 MG/ML VIAL IVPUSH PRN (15:53)
--- NOTE | 2020-06-26 16:19 | PCM.SN.2 ---
- Free Text/Narrative Note: Called to bedside by family and patient in regards to respiratory status. Patient is requesting removal of the high flow nasal cannula and family is in agreement. Patient will be given morphine for dyspnea and air hunger and then have high flow nasal cannula removed at his discretion.
--- NOTE | 2020-06-26 20:33 | PCM.PN ---
- General Info Date of Service: 06/26/20 Admission Dx/Problem (Free Text): Admission Diagnosis/Problem Admission Diagnosis/Problem Hypoxia Subjective Update: Patient had family and clergy at bedside today. Patient had times of confusion but was mostly intact mentally. Patient requested to have his high flow nasal cannula removed and be kept comfortable. and [id number] were at bedside and patient was given morphine for air hunger and high flow nasal cannula was switched to simple nasal cannula at 6 L. Functional Status: Reports: Pain Controlled - Review of Systems General: Reports: Fatigue Pulmonary: Reports: Shortness of Breath, Cough - Patient Data Vitals - Most Recent: Last Vital Signs Temp 98.2 F 06/25/20 11:15 Pulse 92 06/25/20 11:15 Resp 28 H 06/25/20 11:15 BP 127/81 06/25/20 11:15 Pulse Ox 81 L 06/25/20 11:15 Weight - Most Recent: 236 lb 8 oz Med Orders - Current: Current Medications Acetaminophen (Tylenol) 650 mg RECTAL Q4H PRN PRN Reason: Pain (mild 1-3) Acetaminophen (Tylenol) 650 mg PO Q4H PRN PRN Reason: Pain/Fever Last Admin: 06/25/20 23:24 Dose: 650 mg Documented by: Albuterol (Proventil Hfa) 0 gm INH Q4H PRN PRN Reason: Wheezing Last Admin: 06/10/20 20:16 Dose: 2 puff Documented by: Dextrose/Water (Dextrose 50% In Water) 50 ml IV ASDIRECTED PRN PRN Reason: Hypoglycemia Lorazepam (Ativan) 0.5 mg PO Q4H PRN PRN Reason: Anxiety Last Admin: 06/14/20 09:20 Dose: 0.5 mg Documented by: Lorazepam (Ativan) 0.5 mg IVPUSH Q1H PRN PRN Reason: Anxiety Morphine Sulfate (Morphine) 2 mg IVPUSH Q1H PRN PRN Reason: Dyspnea Last Admin: 06/26/20 20:03 Dose: 2 mg Documented by: Morphine Sulfate (Morphine 10 Mg/0.5 Ml Oral Syringe) 10 mg PO Q2H PRN PRN Reason: Dyspnea Morphine Sulfate (Morphine) 4 mg IVPUSH Q2H PRN PRN Reason: Dyspnea Last Admin: 06/26/20 16:11 Dose: 4 mg Documented by: Ondansetron HCl (Zofran) 4 mg IV Q4H PRN PRN Reason: Nausea/Vomiting Sodium Chloride (Saline Flush) 10 ml FLUSH ONETIME PRN PRN Reason: Keep Vein Open Last Admin: 06/07/20 14:24 Dose: 10 ml Documented by: Discontinued Medications Acetaminophen (Tylenol) 650 mg PO NOW ONE Stop: 06/07/20 16:36 Last Admin: 06/07/20 16:47 Dose: 650 mg Documented by: Alogliptin Benzoate (Alogliptin) 25 mg PO DAILY [facility] Last Admin: 06/07/20 11:23 Dose: 25 mg Documented by: Alogliptin Benzoate (Alogliptin) 25 mg PO DAILY [facility] Last Admin: 06/25/20 09:13 Dose: 25 mg Documented by: Aspirin (Halfprin) 81 mg PO DAILY [facility] Last Admin: 06/25/20 09:13 Dose: 81 mg Documented by: Dexamethasone (Dexamethasone) 6 mg PO DAILY [facility] Stop: 06/13/20 09:01 Last Admin: 06/11/20 08:01 Dose: 6 mg Documented by: Dexamethasone (Dexamethasone) 6 mg PO BID [facility] Stop: 06/12/20 09:01 Last Admin: 06/12/20 08:17 Dose: 6 mg Documented by: Dexamethasone (Dexamethasone) 6 mg PO BID [facility] Stop: 06/13/20 21:01 Last Admin: 06/13/20 22:37 Dose: 6 mg Documented by: Docusate Sodium (Colace) 100 mg PO BEDTIME [facility] Last Admin: 06/24/20 20:41 Dose: 100 mg Documented by: Enoxaparin Sodium (Lovenox) 40 mg SUBCUT DAILY [facility] Last Admin: 06/11/20 08:00 Dose: 40 mg Documented by: Enoxaparin Sodium (Lovenox) 40 mg SUBCUT BID [facility] Last Admin: 06/25/20 09:16 Dose: 40 mg Documented by: Furosemide (Lasix) 20 mg IVPUSH NOW ONE Stop: 06/08/20 12:08 Last Admin: 06/08/20 12:23 Dose: 20 mg Documented by: Furosemide (Lasix) 20 mg IVPUSH NOW ONE Stop: 06/08/20 16:41 Last Admin: 06/08/20 17:26 Dose: 20 mg Documented by: Furosemide (Lasix) 20 mg PO ONETIME ONE Stop: 06/11/20 15:10 Last Admin: 06/11/20 15:29 Dose: 20 mg Documented by: Furosemide (Lasix) 20 mg PO DAILY [facility] Last Admin: 06/25/20 09:13 Dose: 20 mg Documented by: Haloperidol (Haldol) 2 mg PO ONETIME ONE Stop: 06/17/20 09:49 Last Admin: 06/17/20 10:06 Dose: 2 mg Documented by: Sodium Chloride (Normal Saline) 1,000 mls @ 500 mls/hr IV ONETIME ONE Stop: 06/07/20 14:51 Last Admin: 06/07/20 13:06 Dose: 500 mls/hr Documented by: Sodium Chloride (Normal Saline) 100 mls @ 75 mls/hr IV ASDIRECTED [facility] Last Admin: 06/07/20 14:10 Dose: 75 mls/hr Documented by: Remdesivir 100 mg/ Sodium (Chloride) 100 mls @ 100 mls/hr IV Q24H [facility] Stop: 06/11/20 19:29 Ceftriaxone Sodium 2 gm/ (Sodium Chloride) 100 mls @ 200 mls/hr IV DAILY@1800 [facility] Stop: 06/11/20 18:29 Last Admin: 06/08/20 19:58 Dose: Not Given Documented by: Azithromycin 500 mg/ Sodium (Chloride) 250 mls @ 250 mls/hr IV Q24H [facility] Stop: 06/09/20 20:59 Last Admin: 06/09/20 20:52 Dose: 250 mls/hr Documented by: Remdesivir 200 mg/ Sodium (Chloride) 250 mls @ 250 mls/hr IV ONETIME ONE Stop: 06/07/20 21:29 Last Admin: 06/07/20 20:55 Dose: 250 mls/hr Documented by: Sodium Chloride (Normal Saline) Confirm Administered Dose 250 mls @ as directed .ROUTE .STK-MED ONE Stop: 06/07/20 20:27 Last Admin: 06/07/20 20:54 Dose: Not Given Documented by: Sodium Chloride (Normal Saline) 1,000 mls @ 50 mls/hr IV ASDIRECTED [facility] Stop: 06/08/20 16:44 Last Admin: 06/07/20 22:06 Dose: 50 mls/hr Documented by: Magnesium Sulfate 4 gm/ Premix 50 mls @ 12.5 mls/hr IV ONETIME ONE Stop: 06/08/20 14:59 Last Admin: 06/08/20 11:43 Dose: 12.5 mls/hr Documented by: Sodium Chloride (Normal Saline) 250 mls @ 100 mls/hr IV ASDIRECTED [facility] Stop: 06/08/20 23:00 Last Admin: 06/08/20 16:55 Dose: 100 mls/hr Documented by: Remdesivir 100 mg/ Sodium (Chloride) 100 mls @ 100 mls/hr IV Q24H [facility] Stop: 06/11/20 20:29 Last Admin: 06/11/20 18:39 Dose: 100 mls/hr Documented by: Ceftriaxone Sodium 2 gm/ (Sodium Chloride) 100 mls @ 200 mls/hr IV DAILY@1999 [facility] Stop: 06/11/20 20:29 Last Admin: 06/11/20 19:54 Dose: 200 mls/hr Documented by: Magnesium Sulfate (Magnesium Sulfate In Water Premix) 2 gm in 50 mls @ 25 mls/hr IV ONETIME ONE Stop: 06/11/20 17:07 Last Admin: 06/11/20 15:30 Dose: 25 mls/hr Documented by: Magnesium Sulfate (Magnesium Sulfate In Water Premix) 2 gm in 50 mls @ 25 mls/hr IV ONETIME ONE Stop: 06/13/20 12:59 Last Admin: 06/13/20 12:47 Dose: 25 mls/hr Documented by: Magnesium Sulfate 2 gm/ Premix 50 mls @ 25 mls/hr IV ONETIME ONE Stop: 06/14/20 10:44 Last Admin: 06/14/20 08:50 Dose: 25 mls/hr Documented by: Magnesium Sulfate (Magnesium Sulfate In Water Premix) 2 gm in 50 mls @ 25 mls/hr IV ONETIME ONE Stop: 06/18/20 13:30 Last Admin: 06/18/20 12:56 Dose: 25 mls/hr Documented by: Insulin Glargine (Lantus) 7 unit SUBCUT DAILY [facility] Last Admin: 06/08/20 09:05 Dose: 7 unit Documented by: Insulin Glargine (Lantus) 5 unit SUBCUT BIDAC [facility] Last Admin: 06/09/20 17:01 Dose: 5 units Documented by: Insulin Glargine (Lantus) 5 unit SUBCUT NOW STA Stop: 06/09/20 08:28 Last Admin: 06/09/20 08:47 Dose: 5 units Documented by: Insulin Glargine (Lantus) 7 unit SUBCUT BID [facility] Last Admin: 06/10/20 08:37 Dose: 7 units Documented by: Insulin Glargine (Lantus) 8 unit SUBCUT BID [place] Insulin Glargine (Lantus) 10 unit SUBCUT BID [facility] Last Admin: 06/11/20 08:02 Dose: 10 units Documented by: Insulin Glargine (Lantus) 15 unit SUBCUT BID [facility] Last Admin: 06/12/20 08:21 Dose: 15 units Documented by: Insulin Glargine (Lantus) 20 unit SUBCUT BID [facility] Last Admin: 06/22/20 09:03 Dose: 20 units Documented by: Insulin Glargine (Lantus) 15 unit SUBCUT BID [facility] Last Admin: 06/23/20 09:13 Dose: 15 units Documented by: Insulin Glargine (Lantus) 10 unit SUBCUT BID [facility] Last Admin: 06/25/20 09:16 Dose: 10 units Documented by: Insulin Human Lispro (Humalog) 0 unit SUBCUT QIDACANDBED [facility]; Protocol Last Admin: 06/08/20 17:23 Dose: 5 units Documented by: Insulin Human Lispro (Humalog) 0 unit SUBCUT QIDACANDBED [facility]; Protocol Last Admin: 06/09/20 17:01 Dose: 10 units Documented by: Insulin Human Lispro (Humalog) 0 unit SUBCUT QIDACANDBED [facility]; Protocol Last Admin: 06/09/20 17:33 Dose: Not Given Documented by: Insulin Human Lispro (Humalog) 0 unit SUBCUT QIDACANDBED [facility]; Protocol Insulin Human Lispro (Humalog) 0 unit SUBCUT QIDACANDBED [facility]; Protocol Last Admin: 06/21/20 08:14 Dose: Not Given Documented by: Insulin Human Lispro (Humalog) 5 unit SUBCUT TIDPC [facility] Last Admin: 06/10/20 18:34 Dose: 5 units Documented by: Insulin Human Lispro (Humalog) 7 unit SUBCUT TIDPC [facility] Last Admin: 06/11/20 12:44 Dose: 7 units Documented by: Insulin Human Lispro (Humalog) 5 unit SUBCUT TIDAC [facility] Last Admin: 06/25/20 13:02 Dose: Not Given Documented by: Insulin Human Lispro (Humalog) 0 unit SUBCUT [facility] PRN; Protocol PRN Reason: Hyperglycemia Insulin Human Lispro (Humalog) 0 unit SUBCUT TIDAC [facility]; Protocol Last Admin: 06/25/20 13:03 Dose: Not Given Documented by: Iopamidol (Isovue-370 (76%)) 100 ml IVPUSH ONETIME ONE Stop: 06/07/20 13:31 Last Admin: 06/07/20 14:00 Dose: 100 ml Documented by: Lisinopril (Prinivil) 40 mg PO DAILY [facility] Lisinopril (Prinivil) 40 mg PO DAILY [facility] Last Admin: 06/07/20 11:25 Dose: 40 mg Documented by: Lorazepam (Ativan) 0.5 mg IVPUSH ONETIME ONE Stop: 06/14/20 11:47 Last Admin: 06/14/20 11:56 Dose: 0.5 mg Documented by: Magnesium Hydroxide (Milk Of Magnesia) 30 ml PO ONETIME ONE Stop: 06/23/20 05:49 Last Admin: 06/23/20 06:12 Dose: Not Given Documented by: Magnesium Oxide (Magnesium Oxide) 400 mg PO BID [facility] Stop: 06/18/20 21:01 Last Admin: 06/18/20 20:54 Dose: 400 mg Documented by: Metformin HCl (Glucophage) 1,000 mg PO ONETIME ONE Stop: 06/07/20 10:57 Last Admin: 06/07/20 19:43 Dose: Not Given Documented by: Metoprolol Succinate (Toprol Xl) 50 mg PO ONETIME ONE Stop: 06/07/20 10:58 Last Admin: 06/07/20 11:21 Dose: 50 mg Documented by: Metoprolol Succinate (Toprol Xl) 50 mg PO DAILY [facility] Last Admin: 06/11/20 08:00 Dose: 50 mg Documented by: Metoprolol Succinate (Toprol Xl) 50 mg PO DAILY [facility] Last Admin: 06/25/20 09:14 Dose: 50 mg Documented by: Quetiapine Fumarate (Seroquel) 12.5 mg PO BID [facility] Quetiapine Fumarate (Seroquel) 12.5 mg PO ONETIME ONE Stop: 06/13/20 11:19 Last Admin: 06/13/20 11:38 Dose: 12.5 mg Documented by: Quetiapine Fumarate (Seroquel) 25 mg PO BEDTIME [facility] Last Admin: 06/16/20 21:40 Dose: 25 mg Documented by: Rosuvastatin Calcium (Crestor) 20 mg PO BEDTIME [facility] Last Admin: 06/24/20 20:41 Dose: 20 mg Documented by: Zinc Sulfate (Zincate) 220 mg PO DAILY [facility] Last Admin: 06/25/20 09:14 Dose: 220 mg Documented by: - Exam Quality Assessment: Supplemental Oxygen General: Alert, Oriented HEENT: Pupils Equal, Mucous Membr. Moist/[place] Neck: Supple Lungs: Clear to Auscultation, Decreased Breath Sounds. No: Normal Respiratory Effort (Increased respiratory effort with abdominal breathing) Cardiovascular: Regular Rate, Regular Rhythm GI/Abdominal Exam: Normal Bowel Sounds, Soft, Non-Tender, No Distention Extremities: Normal Inspection, Normal Range of Motion, No Pedal Edema Psy/Mental Status: Alert, Normal Affect, Normal Mood Sepsis Event Note - Evaluation Sepsis Screening Result: No Definite Risk - Problem List & Annotations (1) Elevated troponin I level SNOMED Code(s): 476032775 Code(s): R77.8 - OTHER SPECIFIED ABNORMALITIES OF PLASMA PROTEINS Status: Acute Priority: Medium Current Visit: Yes Onset Date: ~06/15/20 Annotation/Comment:: repeat inflamitory markers today (2) COVID-19 SNOMED Code(s): 995031354 Code(s): U07.1 - COVID-19 Status: Acute Priority: High Current Visit: Yes Onset Date: ~06/15/20 Annotation/Comment:: stable condition. Requiring 60 L high flow O2 and maintaining sats in mid-low 90s (3) Hypoxia SNOMED Code(s): 103871062 Code(s): R09.02 - HYPOXEMIA Status: Resolved Priority: High Current Visit: Yes Annotation/Comment:: requiring 60 L high flow O2. Sats stable in mid-low 90s. Sats drop to 60s on exertion (4) Weakness SNOMED Code(s): 92832176 Code(s): R53.1 - WEAKNESS Status: Acute Priority: High Current Visit: Yes - Problem List Review Problem List Initiated/Reviewed/Updated: Yes - My Orders Last 24 Hours: My Active Orders 06/25/20 23:10 Acetaminophen [TylenoL] 650 mg PO Q4H PRN 06/26/20 10:40 Morphine 2 mg IVPUSH Q1H PRN 06/26/20 10:42 Morphine [Morphine 10 MG/0.5 ML Oral Syringe] 10 mg PO Q2H PRN 06/26/20 10:44 LORazepam [Ativan] 0.5 mg IVPUSH Q1H PRN 06/26/20 15:53 Morphine 4 mg IVPUSH Q2H PRN 06/26/20 17:33 Patient Status [ADT] Routine - Plan Plan:: Assessment 74-year-old male diagnosed with COVID-19 on 06/03/2020, but symptomatic since the sixth presents to the emergency department with increasing weakness. COVID-19 Infection Viral Pneumonitis ARDS Leukocytosis, resolved Acute Hypoxic Respiratory Failure * High flow nasal cannula stopped this afternoon and switched to nasal cannula * S/p 2 units convalescent plasma * CTA of the chest on 06/07/2020: No pulmonary embolism. Positive for patchy bilateral groundglass pulmonary infiltrates. Cardiomegaly with vascular calcifications including coronary artery calcifications. * Repeat chest x-ray 06/24/2020 showed worsening multi lobar pneumonia * Completed 5 day course of remdesivir; rocephin and azithromycin * Finished dexamethasone * Patient wanting comfort measures Elevated troponin, consider type II PA * No new symptoms Hyperlipidemia * Rosuvastatin 20 mg daily S/p Acute renal injury Type 2 diabetes, controlled * Stop insulin and blood sugar checks * Hemoglobin A1c 7.5, TSH 0.528 Hypertension * On metoprolol succinate 50 mg daily * Blood pressures improved Thrombocytopeniaworsening * Platelets 127 Plan: * Comfort measures * High flow nasal cannula was stopped today. Family is at bedside. * Comfort measures will include morphine, Ativan, and glycopyrrolate if needed. I suspect he will not be able to be discharged because of the incredibly high need for respiratory support. * CODE STATUS DNR/DNI comfort measures
--- NOTE | 2020-06-27 12:36 | PCM.DCSUM1 ---
Discharge Summary - Hospital Course HPI Initial Comments: 74-year-old male with diabetes, hypertension, hyperlipidemia, and diagnosed with COVID-19 on June 03, 2020 and started on home O2 with dexamethasone 4 mg twice daily returns to the ED with increasing weakness. Patient was concerned because if he fell his would not be able to get him up. His had the patient lay on the floor so he would not fall and they called 911. Patient denies any fever or chills. He does have a cough with small amount of sputum. Denies shortness of breath. He states he has had symptoms for 2 weeks. He states that his symptoms started shortly after, the same day, as his colonoscopy on 05/29/2020. When patient presented to the emergency department today oxygen saturations were 87%. D-dimer was elevated at 4.13 today, which is the same as on the . Troponin from less than 0.017 on the to 0.107 today. He denies any chest pain. Assessment 74-year-old male diagnosed with COVID-19 on 06/03/2020, but symptomatic since the sixth presents to the emergency department with increasing weakness * Patient was started on dexamethasone and home O2 5 days ago. * He has had increasing weakness and oxygen need. * He is at increased risk for complications secondary to his age, gender, diab etes, and hypertension * CTA of the chest showed no pulmonary embolism. Positive for patchy bilateral groundglass pulmonary infiltrates. Cardiomegaly with vascular calcifications including coronary artery calcifications. * WBC 6.93, D-dimer 4.13, * Requiring 2 L nasal cannula to keep oxygen saturations at 90% Elevated troponin, consider type II DC Cardiomegaly * Troponin has elevated over the last 5 days * Troponin I 0.107 * No chest pain * On metoprolol succinate 50 mg daily * Rosuvastatin 20 mg daily Hyponatremia * Sodium 127 * Likely due to poor oral intake Acute renal injury * Estimated GFR 46, creatinine 1.5, BUN 35, BUN to creatinine ratio 23.3 * Likely due to hypovolemia and poor renal perfusion Type 2 diabetes * Random glucose here was 222 * Blood sugars will worsen secondary to dexamethasone. * Hold metformin, a carbose, and pioglitazone. * Continue alogliptin Hypertension * Initial blood pressure 143/60 Thrombocytopeniamild * Platelets 120 Plan * Admit to floor on continuous pulse ox and telemetry * Start remdesivir * Continue dexamethasone for total of 10 days. It appears he still had a day or 2 left of the 5-day prescription. * Follow blood sugars closely before every meal and nightly secondary to steroids and stopping some of his home meds * Sliding scale insulin with low dose initially. May need long-acting insulin or higher scale. * Get hemoglobin A1c, TSH. * Follow CBC, CMP, mag, Phos, D-dimer, CRP * Patient was given a fluid bolus in the ER. Continue normal saline at 50 mL/h now. It is important to be very cautious with fluid resuscitation in patients with COVID-19. * Start ceftriaxone and azithromycin * Continue metoprolol, alogliptin, rosuvastatin. * VTE prophylaxis with Lovenox * CODE STATUS full code Diagnosis: Stroke: No - Discharge Data Discharge Date: 06/27/20 Discharge Disposition: Condition: Good - Referral to Home Health Primary Care Physician: Maria Elena Velez MD - Discharge Diagnosis/Problem(s) (1) Elevated troponin I level SNOMED Code(s): 906395123 ICD Code: R77.8 - OTHER SPECIFIED ABNORMALITIES OF PLASMA PROTEINS Status: Acute Priority: Medium Onset Date: ~06/15/20 Problem Details: repeat inflamitory markers today (2) COVID-19 SNOMED Code(s): 934443005 ICD Code: U07.1 - COVID-19 Status: Acute Priority: High Onset Date: ~06/15/20 Problem Details: stable condition. Requiring 60 L high flow O2 and maintaining sats in mid-low 90s (3) Weakness SNOMED Code(s): 15257484 ICD Code: R53.1 - WEAKNESS Status: Acute Priority: High - Patient Summary/Data Consults: Consultations 06/19/20 11:14 Consult to Spiritual Care [CONS] Routine Hospital Course: [place] was admitted with COVID-19 pneumonia, respiratory failure, elevated troponin and type II DC. Patient was given convalescent plasma, full course dexamethasone, remdesivir, Rocephin, and azithromycin. [place] unfortunately continued to worsen and was placed on high flow nasal cannula initially at 55 L/min and then up to 60 L/min. He was on high flow nasal cannula for 17 days and for most that time at 90% FiO2. Chest x-ray continued to worsen with an ARDS pattern. Ultimately the patient decided to be transition to comfort measures. When he and his family were ready he was kept comfortable with morphine for air hunger and dyspnea and his high flow was switched to nasal cannula. Patient passed peacefully with his at his side at 2323 hrs. on June 26, 2020. - Discharge Plan *PRESCRIPTION DRUG MONITORING PROGRAM REVIEWED*: Not Applicable *COPY OF PRESCRIPTION DRUG MONITORING REPORT IN PATIENT HUNG: Not Applicable Home Medications: Home Meds Aspirin [Halfprin] 81 mg PO DAILY 08/08/17 [History] Chlorthalidone 25 mg PO DAILY 08/08/17 [History] Cholecalciferol (Vitamin D3) [Vitamin D3] 1,000 units PO DAILY 08/08/17 [History] Docusate Sodium 100 mg PO BEDTIME 08/08/17 [History] Fish Oil/[place]-3 Fatty Acids [Fish Oil 1,000 MG] 1 gm PO BID 08/08/17 [History] Lisinopril 40 mg PO DAILY 08/08/17 [History] Metoprolol Succinate 50 mg PO DAILY 08/08/17 [History] metFORMIN [Glucophage XR] 1,000 mg PO BID 08/08/17 [History] Magnesium Chloride [Slow-Mag] 71.5 mg PO DAILY #21 tablet.dr 06/03/20 [Rx] Psyllium Husk/Aspartame [Metamucil Fiber Singles Packet] 1 pack PO Q48H 06/03/20 [History] dexAMETHasone [Dexamethasone] 4 mg PO BID #10 tablet 06/03/20 [Rx] Acarbose 50 mg PO TIDMEALS 06/07/20 [History] Alogliptin Benzoate [Alogliptin] 25 mg PO DAILY 06/07/20 [History] Pioglitazone HCl 45 mg PO DAILY 06/07/20 [History] Rosuvastatin Calcium 20 mg PO BEDTIME 06/07/20 [History] Patient Handouts: Type 2 Diabetes Mellitus, Diagnosis, Adult, COVID-19 Frequently Asked Questions, COVID-19, COVID-19: How to Protect Yourself and Others - CDC, Coronavirus Information 10/07/19, Sepsis, Self Care, Adult Forms: ED Department Discharge Referrals: Maria Elena Velez MD [Primary Care Provider] - - Discharge Summary/Plan Comment DC Time >30 min.: No - Patient Data Vitals - Most Recent: Last Vital Signs Temp 98.2 F 06/25/20 11:15 Pulse 92 06/25/20 11:15 Resp 28 H 06/25/20 11:15 BP 127/81 06/25/20 11:15 Pulse Ox 81 L 06/25/20 11:15 Weight - Most Recent: 236 lb 8 oz Med Orders - Current: Current Medications Discontinued Medications Acetaminophen (Tylenol) 650 mg PO NOW ONE Stop: 06/07/20 16:36 Last Admin: 06/07/20 16:47 Dose: 650 mg Documented by: Acetaminophen (Tylenol) 650 mg RECTAL Q4H PRN PRN Reason: Pain (mild 1-3) Acetaminophen (Tylenol) 650 mg PO Q4H PRN PRN Reason: Pain/Fever Last Admin: 06/25/20 23:24 Dose: 650 mg Documented by: Albuterol (Proventil Hfa) 0 gm INH Q4H PRN PRN Reason: Wheezing Last Admin: 06/10/20 20:16 Dose: 2 puff Documented by: Alogliptin Benzoate (Alogliptin) 25 mg PO DAILY [facility] Last Admin: 06/07/20 11:23 Dose: 25 mg Documented by: Alogliptin Benzoate (Alogliptin) 25 mg PO DAILY [facility] Last Admin: 06/25/20 09:13 Dose: 25 mg Documented by: Aspirin (Halfprin) 81 mg PO DAILY [facility] Last Admin: 06/25/20 09:13 Dose: 81 mg Documented by: Dexamethasone (Dexamethasone) 6 mg PO DAILY [facility] Stop: 06/13/20 09:01 Last Admin: 06/11/20 08:01 Dose: 6 mg Documented by: Dexamethasone (Dexamethasone) 6 mg PO BID [facility] Stop: 06/12/20 09:01 Last Admin: 06/12/20 08:17 Dose: 6 mg Documented by: Dexamethasone (Dexamethasone) 6 mg PO BID [facility] Stop: 06/13/20 21:01 Last Admin: 06/13/20 22:37 Dose: 6 mg Documented by: Dextrose/Water (Dextrose 50% In Water) 50 ml IV ASDIRECTED PRN PRN Reason: Hypoglycemia Docusate Sodium (Colace) 100 mg PO BEDTIME [facility] Last Admin: 06/24/20 20:41 Dose: 100 mg Documented by: Enoxaparin Sodium (Lovenox) 40 mg SUBCUT DAILY [facility] Last Admin: 06/11/20 08:00 Dose: 40 mg Documented by: Enoxaparin Sodium (Lovenox) 40 mg SUBCUT BID [facility] Last Admin: 06/25/20 09:16 Dose: 40 mg Documented by: Furosemide (Lasix) 20 mg IVPUSH NOW ONE Stop: 06/08/20 12:08 Last Admin: 06/08/20 12:23 Dose: 20 mg Documented by: Furosemide (Lasix) 20 mg IVPUSH NOW ONE Stop: 06/08/20 16:41 Last Admin: 06/08/20 17:26 Dose: 20 mg Documented by: Furosemide (Lasix) 20 mg PO ONETIME ONE Stop: 06/11/20 15:10 Last Admin: 06/11/20 15:29 Dose: 20 mg Documented by: Furosemide (Lasix) 20 mg PO DAILY [facility] Last Admin: 06/25/20 09:13 Dose: 20 mg Documented by: Haloperidol (Haldol) 2 mg PO ONETIME ONE Stop: 06/17/20 09:49 Last Admin: 06/17/20 10:06 Dose: 2 mg Documented by: Sodium Chloride (Normal Saline) 1,000 mls @ 500 mls/hr IV ONETIME ONE Stop: 06/07/20 14:51 Last Admin: 06/07/20 13:06 Dose: 500 mls/hr Documented by: Sodium Chloride (Normal Saline) 100 mls @ 75 mls/hr IV ASDIRECTED [facility] Last Admin: 06/07/20 14:10 Dose: 75 mls/hr Documented by: Remdesivir 100 mg/ Sodium (Chloride) 100 mls @ 100 mls/hr IV Q24H [facility] Stop: 06/11/20 19:29 Ceftriaxone Sodium 2 gm/ (Sodium Chloride) 100 mls @ 200 mls/hr IV DAILY@1800 [facility] Stop: 06/11/20 18:29 Last Admin: 06/08/20 19:58 Dose: Not Given Documented by: Azithromycin 500 mg/ Sodium (Chloride) 250 mls @ 250 mls/hr IV Q24H [facility] Stop: 06/09/20 20:59 Last Admin: 06/09/20 20:52 Dose: 250 mls/hr Documented by: Remdesivir 200 mg/ Sodium (Chloride) 250 mls @ 250 mls/hr IV ONETIME ONE Stop: 06/07/20 21:29 Last Admin: 06/07/20 20:55 Dose: 250 mls/hr Documented by: Sodium Chloride (Normal Saline) Confirm Administered Dose 250 mls @ as directed .ROUTE .STK-MED ONE Stop: 06/07/20 20:27 Last Admin: 06/07/20 20:54 Dose: Not Given Documented by: Sodium Chloride (Normal Saline) 1,000 mls @ 50 mls/hr IV ASDIRECTED [facility] Stop: 06/08/20 16:44 Last Admin: 06/07/20 22:06 Dose: 50 mls/hr Documented by: Magnesium Sulfate 4 gm/ Premix 50 mls @ 12.5 mls/hr IV ONETIME ONE Stop: 06/08/20 14:59 Last Admin: 06/08/20 11:43 Dose: 12.5 mls/hr Documented by: Sodium Chloride (Normal Saline) 250 mls @ 100 mls/hr IV ASDIRECTED [facility] Stop: 06/08/20 23:00 Last Admin: 06/08/20 16:55 Dose: 100 mls/hr Documented by: Remdesivir 100 mg/ Sodium (Chloride) 100 mls @ 100 mls/hr IV Q24H [facility] Stop: 06/11/20 20:29 Last Admin: 06/11/20 18:39 Dose: 100 mls/hr Documented by: Ceftriaxone Sodium 2 gm/ (Sodium Chloride) 100 mls @ 200 mls/hr IV DAILY@1999 [facility] Stop: 06/11/20 20:29 Last Admin: 06/11/20 19:54 Dose: 200 mls/hr Documented by: Magnesium Sulfate (Magnesium Sulfate In Water Premix) 2 gm in 50 mls @ 25 mls/hr IV ONETIME ONE Stop: 06/11/20 17:07 Last Admin: 06/11/20 15:30 Dose: 25 mls/hr Documented by: Magnesium Sulfate (Magnesium Sulfate In Water Premix) 2 gm in 50 mls @ 25 mls/hr IV ONETIME ONE Stop: 06/13/20 12:59 Last Admin: 06/13/20 12:47 Dose: 25 mls/hr Documented by: Magnesium Sulfate 2 gm/ Premix 50 mls @ 25 mls/hr IV ONETIME ONE Stop: 06/14/20 10:44 Last Admin: 06/14/20 08:50 Dose: 25 mls/hr Documented by: Magnesium Sulfate (Magnesium Sulfate In Water Premix) 2 gm in 50 mls @ 25 mls/hr IV ONETIME ONE Stop: 06/18/20 13:30 Last Admin: 06/18/20 12:56 Dose: 25 mls/hr Documented by: Insulin Glargine (Lantus) 7 unit SUBCUT DAILY [facility] Last Admin: 06/08/20 09:05 Dose: 7 unit Documented by: Insulin Glargine (Lantus) 5 unit SUBCUT BIDAC [facility] Last Admin: 06/09/20 17:01 Dose: 5 units Documented by: Insulin Glargine (Lantus) 5 unit SUBCUT NOW STA Stop: 06/09/20 08:28 Last Admin: 06/09/20 08:47 Dose: 5 units Documented by: Insulin Glargine (Lantus) 7 unit SUBCUT BID [facility] Last Admin: 06/10/20 08:37 Dose: 7 units Documented by: Insulin Glargine (Lantus) 8 unit SUBCUT BID [facility] Insulin Glargine (Lantus) 10 unit SUBCUT BID [facility] Last Admin: 06/11/20 08:02 Dose: 10 units Documented by: Insulin Glargine (Lantus) 15 unit SUBCUT BID [facility] Last Admin: 06/12/20 08:21 Dose: 15 units Documented by: Insulin Glargine (Lantus) 20 unit SUBCUT BID [facility] Last Admin: 06/22/20 09:03 Dose: 20 units Documented by: Insulin Glargine (Lantus) 15 unit SUBCUT BID [facility] Last Admin: 06/23/20 09:13 Dose: 15 units Documented by: Insulin Glargine (Lantus) 10 unit SUBCUT BID [facility] Last Admin: 06/25/20 09:16 Dose: 10 units Documented by: Insulin Human Lispro (Humalog) 0 unit SUBCUT QIDACANDBED [facility], [facility]; Protocol Last Admin: 06/08/20 17:23 Dose: 5 units Documented by: Insulin Human Lispro (Humalog) 0 unit SUBCUT QIDACANDBED [facility], [facility]; Protocol Last Admin: 06/09/20 17:01 Dose: 10 units Documented by: Insulin Human Lispro (Humalog) 0 unit SUBCUT QIDACANDBED [facility], [facility]; Protocol Last Admin: 06/09/20 17:33 Dose: Not Given Documented by: Insulin Human Lispro (Humalog) 0 unit SUBCUT QIDACANDBED [facility]; Protocol Insulin Human Lispro (Humalog) 0 unit SUBCUT QIDACANDBED [facility]; Protocol Last Admin: 06/21/20 08:14 Dose: Not Given Documented by: Insulin Human Lispro (Humalog) 5 unit SUBCUT [facility] Last Admin: 06/10/20 18:34 Dose: 5 units Documented by: Insulin Human Lispro (Humalog) 7 unit SUBCUT [facility] Last Admin: 06/11/20 12:44 Dose: 7 units Documented by: Insulin Human Lispro (Humalog) [facility] Last Admin: 06/25/20 13:02 Dose: Not Given Documented by: Insulin Human Lispro (Humalog) 0 unit SUBCUT [facility] PRN; Protocol PRN Reason: Hyperglycemia Insulin Human Lispro (Humalog) [facility]; Protocol Last Admin: 06/25/20 13:03 Dose: Not Given Documented by: Iopamidol (Isovue-370 (76%)) 100 ml IVPUSH ONETIME ONE Stop: 06/07/20 13:31 Last Admin: 06/07/20 14:00 Dose: 100 ml Documented by: Lisinopril (Prinivil) 40 mg PO DAILY [facility] Lisinopril (Prinivil) 40 mg PO DAILY [facility] Last Admin: 06/07/20 11:25 Dose: 40 mg Documented by: Lorazepam (Ativan) 0.5 mg PO Q4H PRN PRN Reason: Anxiety Last Admin: 06/14/20 09:20 Dose: 0.5 mg Documented by: Lorazepam (Ativan) 0.5 mg IVPUSH ONETIME ONE Stop: 06/14/20 11:47 Last Admin: 06/14/20 11:56 Dose: 0.5 mg Documented by: Lorazepam (Ativan) 0.5 mg IVPUSH Q1H PRN PRN Reason: Anxiety Last Admin: 06/26/20 22:59 Dose: 0.5 mg Documented by: Magnesium Hydroxide (Milk Of Magnesia) 30 ml PO ONETIME ONE Stop: 06/23/20 05:49 Last Admin: 06/23/20 06:12 Dose: Not Given Documented by: Magnesium Oxide (Magnesium Oxide) 400 mg PO BID [facility] Stop: 06/18/20 21:01 Last Admin: 06/18/20 20:54 Dose: 400 mg Documented by: Metformin HCl (Glucophage) 1,000 mg PO ONETIME ONE Stop: 06/07/20 10:57 Last Admin: 06/07/20 19:43 Dose: Not Given Documented by: Metoprolol Succinate (Toprol Xl) 50 mg PO ONETIME ONE Stop: 06/07/20 10:58 Last Admin: 06/07/20 11:21 Dose: 50 mg Documented by: Metoprolol Succinate (Toprol Xl) 50 mg PO DAILY [facility] Last Admin: 06/11/20 08:00 Dose: 50 mg Documented by: Metoprolol Succinate (Toprol Xl) 50 mg PO DAILY [facility] Last Admin: 06/25/20 09:14 Dose: 50 mg Documented by: Morphine Sulfate (Morphine) 2 mg IVPUSH Q1H PRN PRN Reason: Dyspnea Last Admin: 06/26/20 22:31 Dose: 2 mg Documented by: Morphine Sulfate (Morphine 10 Mg/0.5 Ml Oral Syringe) 10 mg PO Q2H PRN PRN Reason: Dyspnea Morphine Sulfate (Morphine) 4 mg IVPUSH Q2H PRN PRN Reason: Dyspnea Last Admin: 06/26/20 16:11 Dose: 4 mg Documented by: Ondansetron HCl (Zofran) 4 mg IV Q4H PRN PRN Reason: Nausea/Vomiting Quetiapine Fumarate (Seroquel) 12.5 mg PO BID [facility] Quetiapine Fumarate (Seroquel) 12.5 mg PO ONETIME ONE Stop: 06/13/20 11:19 Last Admin: 06/13/20 11:38 Dose: 12.5 mg Documented by: Quetiapine Fumarate (Seroquel) 25 mg PO BEDTIME [facility] Last Admin: 06/16/20 21:40 Dose: 25 mg Documented by: Rosuvastatin Calcium (Crestor) 20 mg PO BEDTIME [facility] Last Admin: 06/24/20 20:41 Dose: 20 mg Documented by: Sodium Chloride (Saline Flush) 10 ml FLUSH ONETIME PRN PRN Reason: Keep Vein Open Last Admin: 06/07/20 14:24 Dose: 10 ml Documented by: Zinc Sulfate (Zincate) 220 mg PO DAILY [facility] Last Admin: 06/25/20 09:14 Dose: 220 mg Documented by:
--- NOTE | 2020-07-01 10:55 | PCM.PN ---
- General Info Date of Service: 06/17/20 Admission Dx/Problem (Free Text): Admission Diagnosis/Problem Admission Diagnosis/Problem Hypoxia 06/07/2020 74 year old male presented to the ED for increased weakness. Patient was diagnosed with COVID on the and was started on supplemental oxygen and dexamethasone 4 MG twice daily. History of Type 2 diabetes, hyperlipidemia, hypertension, vitamin D deficiency, skin cancer, former smoker and quit in 2014. Stated that his oxygen at home is doing okay and denied having any problems Stated that he felt a little better with the dexamethasone however he felt like he was getting more weak over time Denied any chest pain, chest pressure, breathing difficulties, or shortness of breath Stated that he had a cough with a small amount of sputum Stated that he had symptoms of about 2 weeks, which was either the same day or shortly after his colonoscopy on 05/29/2020 Denied any fever or chills His O2 saturations was 87% when he presented to the ED His d-dimer is elevated at 4.13 today, which was the same as on the His troponin was 0.017 on the compared to 0.107 today His EKG was found and had results of sinus rhythm with ventricular rate of 73 BPM, poor R wave progression, and no significant ST-T wave changes or Q waves Patient is also on chlorthalidone which could be causing his hyponatremia CTA of the chest: No pulmonary embolism. Positive for patchy bilateral ground glass pulmonary infiltrates. Cardiomegaly with vascular calcifications including coronary artery calcifications. 06/08/2020 His blood pressure is 116/93 with a heart rate of 82 His respiration rate is 16 with a O2 saturation of 89% at 2L His d-dimer is increased to 5.43 from 4.13 yesterday His hemoglobin is 12.2 His glucose is elevated at 233 Patient states that he feels more tired today Some increased shortness of breath Appetite is still good He has not had a bowel movement Remdesivir day 2 of 5 Continue dexamethasone for total of 10 days. It appears he still had a day or 2 left of the 5-day prescription. Follow blood sugars closely before every meal and nightly secondary to steroids and stopping some of his home meds Sliding scale insulin with low dose initially. May need long-acting insulin or higher scale. Get hemoglobin A1c, TSH Follow CBC, CMP, mag, Phos, D-dimer, CRP Patient will get 2 units of convalescent plasma ceftriaxone and azithromycin day 2 FiO2 to keep SPO2 between 88 and 94%. Currently on high flow nasal cannula. VTE prophylaxis with Lovenox CODE STATUS full code 06/09/2020 Patient is a little more fatigued today Denies fever or chills Stable oxygen saturations, but continues on high flow nasal cannula at 55 L and 60% oxygen WBC 8.13, CRP 16.8, D-dimer 4.68. These are all relatively stable Received 2 units convalescent plasma yesterday On remdesivir day 3 of Continue dexamethasone for total of 10 days Increase Lantus to 8 units twice daily Start premeal prandial Humalog 5 units Sliding scale insulin medium dose FiO2 to keep SPO2 between 88 and 94%. Currently on high flow nasal cannula 55 L, 60% FiO2 Discussed that patient is in need Home Health Care services for low activity tolerance, functional mobility, standing balance, strength, transfers 06/10/2020 States he is feeling better today Appetite is good WBC 7.9, C-reactive protein 12.3, D-dimer 4.9. These are all relatively stable Wheezing improved Remdesivir day 4 of Continue dexamethasone for total of 10 days. Will need to decrease insulin when off dexamethasone FiO2 to keep SPO2 between 88 and 94%. Currently on high flow nasal cannula 55 L, 80% FiO2 Length of stay greater than 96 hours secondary to worsening COVID-19 pneumonia 06/11/2020 No overnight or acute issues He feels pretty good He has no new complaints He is drinking and eating fine WBC 9.29, C-reactive protein 10.7, D-dimer 4.9 Continue high flow Remdesivir day of Continue dexamethasone for total of 10 days; now BID Ceftriaxone day of and azithromycin completed Increase Lantus to 15 units twice daily Sliding scale insulin high intensity Encourage to use IS and FV and ambulate inside his room Spoke to at 1132. Informed her, appears to be worsening but clinically looks good. Repeat chest x-ray shows worsening pneumonia and now requiring FiO2 of 80-85%. She and her boys would like to meet up with me tomorrow. 06/12/2020 No overnight or acute issues Again, he states he feels good He has no new complaints He is drinking and eating fine He is on 60 L at 80-85% Fio2 He desaturates in upper 80s with activities He drops in the 60-70s on RA WBC 97.81, C-reactive protein 11.5, D-dimer 4.9 Completed 5 day course of remdesivir; rocephin and azithromycin Continue dexamethasone 6 mg po BID Worsening oxygenation requiring increase in oxygen concentration high flow nasal cannula at 60 L and 80-85 % oxygen Nothing else to offer--will continue oral steroids Consider LTAC due to continued requirement for high flow VTE prophylaxis with Lovenox 40 mg Sub BID-elevated D-dimer Encourage to use IS and FV and ambulate inside his room Met up family at 1300 today. We went over his clinical progress and possibly placement post treatment. He is on high flow and would unlikely be admitted to any of the local nursing homes for rehab. We offered LTAC in [place] and they agreed. Presented discharge care plan to the patient and he was receptive to it. ONEIL Holguin, will work on paperwork placement. 06/13/2020 No overnight or acute issues He has no complaints He had proning protocol yesterday He had trouble proning last night and could not keep his O2 on He remains on high flow 60L at but now down to 65% FiO2 He looks good this morning On high flow nasal cannula at 60 L now down to 65% FiO2 WBC 7.78, C-reactive protein 5.5, D-dimer 4.9 Continue dexamethasone 6 mg po BID Continue high flow; goal titrate to come off Aggressive proning protocol Routine AM Labs CXR in AM Seroquel 12.5 mg po BID Consider LTAC if not able to wean off high flow 1124: updated about his clinical progress and to continue to encourage him and use his respiratory devices. requested if we can give him benzo for his anxiety. Informed her we can try low dose seroquel but not benzo. Will give a trial of seroquel 12.5. If he responds to it negatively, we will discontinue it right away. 06/14/2020 Patient is much more confused today He was put on dexamethasone 6 mg twice daily x3 doses, last dose last night, and this appears to have caused significant worsening of his delirium Patient's oxygen requirements have increased from 65% yesterday to 95% currently This could be partially due to his not keeping it on because of his confusion On high flow nasal cannula at 60 L now up to 95% FiO2 WBC 8.77, CRP 5.4 both stable with no significant change Had trouble keeping his O2 on; may need help to calm him down but will avoid benzo ABG: pH 7.45, PCO2 36.7, PO2 62.0, bicarb 25.2, O2 saturation 91% on high flow nasal cannula with 60 L flow rate and FiO2 of 85% Oxygenation worsening and much more confused today Nursing is placing him on a one-to-one because of his confusion Patient currently is at harm to self if he stands up or moves around without help. He may need Haldol IV for his delirium if he becomes a risk for falling or taking off his high flow nasal cannula Continue high flow; goal titrate to come off VTE prophylaxis with Lovenox 40 mg Sub BID-elevated D-dimer 06/15/2020 afebrile vss and i/o's okay o2 saturations stable on 60 liters at 60% no increased suero and/or distress noted lungs clear and equal abd benign skin mild rubor legs good cap refill neuro confusion and one on one nursing secondary to pulling lines and CPAP off better overall though baseline Na on admission 127 troponin high .127, crp 9.7 and d dimer 3.7 assess: covid is stable with slight improvement dementia fluctuating delirium keep on some mild sedation Vistaril elevated parameters rechecks pending clinically stable so far diabetes blood sugars 223 and will need long acting insulin placement 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 High flow 02 at 90 liters at 60% and no signs of improving res piratory status. Will seek pulmonology consultation for possible transfer if intubated. He is a full code. boh 06/16/2020 Afebrile i/o's okay Stats are stable in mid to low 90's on 60 liters of O2 Patient says he feels good and denies shortness of breath O2 saturations drop down into 60's while ambulating Lungs are clear bilaterally Good cap refill on extremities Patient continues to require one on one nursing care for confusion He broke CPAP tubing for the third time since admission baseline Na on admission was 127 CRP has come down to 8.7, D-Dimer 3.3 COVID status is stable Fluctuating delirium continues Recheck CRP, D-Dimer, Troponin in AM Arranging transfer to parts counterman care facility ([facility]) in [place], [place]. Awaiting the approval. Discharge anticipated in near future. CAITLYN Sherman 06/17/2020 He is looking good today He is up sitting in the chair today He is eating and drinking well with a good appetite He has continued to have confusion He is currently on high flow O2 He has a blood pressure of 110/66 with a heart rate of 93 His lungs are clear bilaterally but does have diminished breath sounds He has good heart sounds He has no signs of multi organ failure Discussed starting Haldol 2 MG to help with confusion Continue high flow O2 Have discussed transferring but [facility] in [place] is currently full and patient's , Vesna, was updated that they will review again early next week Possible discharge pending capacity at [facility] early next week and [facility] will continue to review for possible acceptance Subjective Update: 06/17/2020 He is looking good today He is up sitting in the chair today He is eating and drinking well with a good appetite He has continued to have confusion He is currently on high flow O2 He has a blood pressure of 110/66 with a heart rate of 93 His lungs are clear bilaterally but does have diminished breath sounds He has good heart sounds He has no signs of multi organ failure Discussed starting Haldol 2 MG to help with confusion Continue high flow O2 Have discussed transferring but [facility] in [place] is currently full and patient's , Vesna, was updated that they will review again early next week Possible discharge pending capacity at [facility] early next week and [facility] will continue to review for possible acceptance Functional Status: Reports: Pain Controlled - Review of Systems General: Reports: No Symptoms HEENT: Reports: Glasses Pulmonary: Reports: No Symptoms Cardiovascular: Reports: No Symptoms Gastrointestinal: Reports: No Symptoms Genitourinary: Reports: No Symptoms Musculoskeletal: Reports: No Symptoms Skin: Reports: No Symptoms Neurological: Reports: Confusion Psychiatric: Reports: Confusion - Patient Data Vitals - Most Recent: Last Vital Signs Temp 98.8 F 06/17/20 11:02 Pulse 76 06/17/20 11:02 Resp 22 H 06/17/20 11:02 BP 111/66 06/17/20 11:02 Pulse Ox 94 L 06/17/20 11:00 Weight - Most Recent: 109.406 kg I&O - Last 24 Hours: Intake & Output 1106/17/20 06/17/20 22:59 06:59 14:59 Intake Total 1330 350 360 Output Total 425 700 Balance 905 -350 360 Lab Results Last 24 Hours: Laboratory Results - last 24 hr 06/16/20 06/16/20 06/16/20 Range/Units 12:05 18:44 20:20 WBC (4.23-9.07) K/mm3 RBC (4.63-6.08) M/mm3 Hgb (13.7-17.5) gm/dl Hct (40.1-51.0) % MCV (79.0-92.2) fl MCH (25.7-32.2) pg MCHC (32.2-35.5) g/dl RDW Std Deviation (35.1-43.9) fL Plt Count (163-337) K/mm3 MPV (9.4-12.3) fl Neut % (Auto) (34.0-67.9) % Lymph % (Auto) (21.8-53.1) % [place] % (Auto) (5.3-12.2) % Eos % (Auto) (0.8-7.0) Baso % (Auto) (0.1-1.2) % Neut # (Auto) (1.78-5.38) K/mm3 Lymph # (Auto) (1.32-3.57) K/mm3 [place] # (Auto) (0.30-0.82) K/mm3 Eos # (Auto) (0.04-0.54) K/mm3 Baso # (Auto) (0.01-0.08) K/mm3 D-Dimer, Quantitative (0.19-0.50) mg/L Sodium (136-145) mEq/L Potassium (3.5-5.1) mEq/L Chloride (98-107) mEq/L Carbon Dioxide (21-32) mEq/L Anion Gap (5-15) BUN (7-18) mg/dL Creatinine (0.7-1.3) mg/dL Est Cr Clr Drug Dosing mL/min Estimated GFR (MDRD) (>60) mL/min BUN/Creatinine Ratio (14-18) Glucose (83-115) mg/dL POC Glucose 266 H 168 H 141 H (83-110) mg/dL Calcium (8.5-10.1) mg/dL Magnesium (1.8-2.4) mg/dl C-Reactive Protein (<1.0) mg/dL 06/17/20 06/17/20 06/17/20 Range/Units 05:27 05:29 05:29 WBC 6.72 (4.23-9.07) K/mm3 RBC 3.75 L (4.63-6.08) M/mm3 Hgb 11.6 L (13.7-17.5) gm/dl Hct 34.6 L (40.1-51.0) % MCV 92.3 H (79.0-92.2) fl MCH 30.9 (25.7-32.2) pg MCHC 33.5 (32.2-35.5) g/dl RDW Std Deviation 47.2 H (35.1-43.9) fL Plt Count 197 (163-337) K/mm3 MPV 10.4 (9.4-12.3) fl Neut % (Auto) 77.1 H (34.0-67.9) % Lymph % (Auto) 14.1 L (21.8-53.1) % [place] % (Auto) 6.5 (5.3-12.2) % Eos % (Auto) 2.2 (0.8-7.0) Baso % (Auto) 0.1 (0.1-1.2) % Neut # (Auto) 5.17 (1.78-5.38) K/mm3 Lymph # (Auto) 0.95 L (1.32-3.57) K/mm3 [place] # (Auto) 0.44 (0.30-0.82) K/mm3 Eos # (Auto) 0.15 (0.04-0.54) K/mm3 Baso # (Auto) 0.01 (0.01-0.08) K/mm3 D-Dimer, Quantitative (0.19-0.50) mg/L Sodium 139 (136-145) mEq/L Potassium 3.8 (3.5-5.1) mEq/L Chloride 105 (98-107) mEq/L Carbon Dioxide 30 (21-32) mEq/L Anion Gap 7.8 (5-15) BUN 34 H (7-18) mg/dL Creatinine 1.1 (0.7-1.3) mg/dL Est Cr Clr Drug Dosing 63.69 mL/min Estimated GFR (MDRD) > 60 (>60) mL/min BUN/Creatinine Ratio 30.9 H (14-18) Glucose 114 (83-115) mg/dL POC Glucose 104 (83-110) mg/dL Calcium 9.3 (8.5-10.1) mg/dL Magnesium 1.6 L (1.8-2.4) mg/dl C-Reactive Protein 6.1 H* (<1.0) mg/dL 06/17/20 06/17/20 Range/Units 05:29 10:34 WBC (4.23-9.07) K/mm3 RBC (4.63-6.08) M/mm3 Hgb (13.7-17.5) gm/dl Hct (40.1-51.0) % MCV (79.0-92.2) fl MCH (25.7-32.2) pg MCHC (32.2-35.5) g/dl RDW Std Deviation (35.1-43.9) fL Plt Count (163-337) K/mm3 MPV (9.4-12.3) fl Neut % (Auto) (34.0-67.9) % Lymph % (Auto) (21.8-53.1) % [place] % (Auto) (5.3-12.2) % Eos % (Auto) (0.8-7.0) Baso % (Auto) (0.1-1.2) % Neut # (Auto) (1.78-5.38) K/mm3 Lymph # (Auto) (1.32-3.57) K/mm3 [place] # (Auto) (0.30-0.82) K/mm3 Eos # (Auto) (0.04-0.54) K/mm3 Baso # (Auto) (0.01-0.08) K/mm3 D-Dimer, Quantitative 3.29 H (0.19-0.50) mg/L Sodium (136-145) mEq/L Potassium (3.5-5.1) mEq/L Chloride (98-107) mEq/L Carbon Dioxide (21-32) mEq/L Anion Gap (5-15) BUN (7-18) mg/dL Creatinine (0.7-1.3) mg/dL Est Cr Clr Drug Dosing mL/min Estimated GFR (MDRD) (>60) mL/min BUN/Creatinine Ratio (14-18) Glucose (83-115) mg/dL POC Glucose 376 H (83-110) mg/dL Calcium (8.5-10.1) mg/dL Magnesium (1.8-2.4) mg/dl C-Reactive Protein (<1.0) mg/dL Med Orders - Current: Current Medications Acetaminophen (Tylenol) 650 mg RECTAL Q4H PRN PRN Reason: Pain (mild 1-3) Albuterol (Proventil Hfa) 0 gm INH Q4H PRN PRN Reason: Wheezing Last Admin: 06/10/20 20:16 Dose: 2 puff Documented by: Alogliptin Benzoate (Alogliptin) 25 mg PO DAILY [facility] Last Admin: 06/17/20 09:46 Dose: 25 mg Documented by: Aspirin (Halfprin) 81 mg PO DAILY [facility] Last Admin: 06/17/20 09:47 Dose: 81 mg Documented by: Dextrose/Water (Dextrose 50% In Water) 50 ml IV ASDIRECTED PRN PRN Reason: Hypoglycemia Docusate Sodium (Colace) 100 mg PO BEDTIME [facility] Last Admin: 06/16/20 21:40 Dose: 100 mg Documented by: Enoxaparin Sodium (Lovenox) 40 mg SUBCUT BID [facility] Last Admin: 06/17/20 09:55 Dose: 40 mg Documented by: Furosemide (Lasix) 20 mg PO DAILY [facility] Last Admin: 06/17/20 09:47 Dose: 20 mg Documented by: Insulin Glargine (Lantus) 20 unit SUBCUT BID [facility] Last Admin: 06/17/20 09:45 Dose: 20 units Documented by: Insulin Human Lispro (Humalog) 0 unit SUBCUT QIDACANDBED [facility]; Protocol Last Admin: 06/17/20 06:14 Dose: Not Given Documented by: Lorazepam (Ativan) 0.5 mg PO Q4H PRN PRN Reason: Anxiety Last Admin: 06/14/20 09:20 Dose: 0.5 mg Documented by: Metoprolol Succinate (Toprol Xl) 50 mg PO DAILY [facility] Last Admin: 06/17/20 09:47 Dose: 50 mg Documented by: Ondansetron HCl (Zofran) 4 mg IV Q4H PRN PRN Reason: Nausea/Vomiting Quetiapine Fumarate (Seroquel) 25 mg PO BEDTIME [facility] Last Admin: 06/16/20 21:40 Dose: 25 mg Documented by: Rosuvastatin Calcium (Crestor) 20 mg PO BEDTIME [facility] Last Admin: 06/16/20 21:40 Dose: 20 mg Documented by: Sodium Chloride (Saline Flush) 10 ml FLUSH ONETIME PRN PRN Reason: Keep Vein Open Last Admin: 06/07/20 14:24 Dose: 10 ml Documented by: Discontinued Medications Acetaminophen (Tylenol) 650 mg PO NOW ONE Stop: 06/07/20 16:36 Last Admin: 06/07/20 16:47 Dose: 650 mg Documented by: Alogliptin Benzoate (Alogliptin) 25 mg PO DAILY [facility] Last Admin: 06/07/20 11:23 Dose: 25 mg Documented by: Dexamethasone (Dexamethasone) 6 mg PO DAILY [facility] Stop: 06/13/20 09:01 Last Admin: 06/11/20 08:01 Dose: 6 mg Documented by: Dexamethasone (Dexamethasone) 6 mg PO BID [facility] Stop: 06/12/20 09:01 Last Admin: 06/12/20 08:17 Dose: 6 mg Documented by: Dexamethasone (Dexamethasone) 6 mg PO BID [facility] Stop: 06/13/20 21:01 Last Admin: 06/13/20 22:37 Dose: 6 mg Documented by: Enoxaparin Sodium (Lovenox) 40 mg SUBCUT DAILY [facility] Last Admin: 06/11/20 08:00 Dose: 40 mg Documented by: Furosemide (Lasix) 20 mg IVPUSH NOW ONE Stop: 06/08/20 12:08 Last Admin: 06/08/20 12:23 Dose: 20 mg Documented by: Furosemide (Lasix) 20 mg IVPUSH NOW ONE Stop: 06/08/20 16:41 Last Admin: 06/08/20 17:26 Dose: 20 mg Documented by: Furosemide (Lasix) 20 mg PO ONETIME ONE Stop: 06/11/20 15:10 Last Admin: 06/11/20 15:29 Dose: 20 mg Documented by: Haloperidol (Haldol) 2 mg PO ONETIME ONE Stop: 06/17/20 09:49 Last Admin: 06/17/20 10:06 Dose: 2 mg Documented by: Sodium Chloride (Normal Saline) 1,000 mls @ 500 mls/hr IV ONETIME ONE Stop: 06/07/20 14:51 Last Admin: 06/07/20 13:06 Dose: 500 mls/hr Documented by: Sodium Chloride (Normal Saline) 100 mls @ 75 mls/hr IV ASDIRECTED [facility] Last Admin: 06/07/20 14:10 Dose: 75 mls/hr Documented by: Remdesivir 100 mg/ Sodium (Chloride) 100 mls @ 100 mls/hr IV Q24H [facility] Stop: 06/11/20 19:29 Ceftriaxone Sodium 2 gm/ (Sodium Chloride) 100 mls @ 200 mls/hr IV DAILY@1800 [facility] Stop: 06/11/20 18:29 Last Admin: 06/08/20 19:58 Dose: Not Given Documented by: Azithromycin 500 mg/ Sodium (Chloride) 250 mls @ 250 mls/hr IV Q24H [facility] Stop: 06/09/20 20:59 Last Admin: 06/09/20 20:52 Dose: 250 mls/hr Documented by: Remdesivir 200 mg/ Sodium (Chloride) 250 mls @ 250 mls/hr IV ONETIME ONE Stop: 06/07/20 21:29 Last Admin: 06/07/20 20:55 Dose: 250 mls/hr Documented by: Sodium Chloride (Normal Saline) Confirm Administered Dose 250 mls @ as directed .ROUTE .STK-MED ONE Stop: 06/07/20 20:27 Last Admin: 06/07/20 20:54 Dose: Not Given Documented by: Sodium Chloride (Normal Saline) 1,000 mls @ 50 mls/hr IV ASDIRECTED [facility] Stop: 06/08/20 16:44 Last Admin: 06/07/20 22:06 Dose: 50 mls/hr Documented by: Magnesium Sulfate 4 gm/ Premix 50 mls @ 12.5 mls/hr IV ONETIME ONE Stop: 06/08/20 14:59 Last Admin: 06/08/20 11:43 Dose: 12.5 mls/hr Documented by: Sodium Chloride (Normal Saline) 250 mls @ 100 mls/hr IV ASDIRECTED [facility] Stop: 06/08/20 23:00 Last Admin: 06/08/20 16:55 Dose: 100 mls/hr Documented by: Remdesivir 100 mg/ Sodium (Chloride) 100 mls @ 100 mls/hr IV Q24H [facility] Stop: 06/11/20 20:29 Last Admin: 06/11/20 18:39 Dose: 100 mls/hr Documented by: Ceftriaxone Sodium 2 gm/ (Sodium Chloride) 100 mls @ 200 mls/hr IV DAILY@1999 [facility] Stop: 06/11/20 20:29 Last Admin: 06/11/20 19:54 Dose: 200 mls/hr Documented by: Magnesium Sulfate (Magnesium Sulfate In Water Premix) 2 gm in 50 mls @ 25 mls/hr IV ONETIME ONE Stop: 06/11/20 17:07 Last Admin: 06/11/20 15:30 Dose: 25 mls/hr Documented by: Magnesium Sulfate (Magnesium Sulfate In Water Premix) 2 gm in 50 mls @ 25 mls/hr IV ONETIME ONE Stop: 06/13/20 12:59 Last Admin: 06/13/20 12:47 Dose: 25 mls/hr Documented by: Magnesium Sulfate 2 gm/ Premix 50 mls @ 25 mls/hr IV ONETIME ONE Stop: 06/14/20 10:44 Last Admin: 06/14/20 08:50 Dose: 25 mls/hr Documented by: Insulin Glargine (Lantus) 7 unit SUBCUT DAILY [facility] Last Admin: 06/08/20 09:05 Dose: 7 unit Documented by: Insulin Glargine (Lantus) [facility] Last Admin: 06/09/20 17:01 Dose: 5 units Documented by: Insulin Glargine (Lantus) 5 unit SUBCUT NOW [facility] Stop: 06/09/20 08:28 Last Admin: 06/09/20 08:47 Dose: 5 units Documented by: Insulin Glargine (Lantus) 7 unit SUBCUT BID [facility] Last Admin: 06/10/20 08:37 Dose: 7 units Documented by: Insulin Glargine (Lantus) 8 unit SUBCUT BID [facility] Insulin Glargine (Lantus) 10 unit SUBCUT BID [facility] Last Admin: 06/11/20 08:02 Dose: 10 units Documented by: Insulin Glargine (Lantus) 15 unit SUBCUT BID [facility] Last Admin: 06/12/20 08:21 Dose: 15 units Documented by: Insulin Human Lispro (Humalog) 0 unit SUBCUT QIDACANDBED [facility]; Protocol Last Admin: 06/08/20 17:23 Dose: 5 units Documented by: Insulin Human Lispro (Humalog) 0 unit SUBCUT QIDACANDBED [facility]; Protocol Last Admin: 06/09/20 17:01 Dose: 10 units Documented by: Insulin Human Lispro (Humalog) 0 unit SUBCUT QIDACANDBED [facility]; Protocol Last Admin: 06/09/20 17:33 Dose: Not Given Documented by: Insulin Human Lispro (Humalog) 0 unit SUBCUT QIDACANDBED [facility]; Protocol Insulin Human Lispro (Humalog) 5 unit SUBCUT [facility] Last Admin: 06/10/20 18:34 Dose: 5 units Documented by: Insulin Human Lispro (Humalog) 7 unit SUBCUT [facility] Last Admin: 06/11/20 12:44 Dose: 7 units Documented by: Iopamidol (Isovue-370 (76%)) 100 ml IVPUSH ONETIME ONE Stop: 06/07/20 13:31 Last Admin: 06/07/20 14:00 Dose: 100 ml Documented by: Lisinopril (Prinivil) 40 mg PO DAILY [facility] Lisinopril (Prinivil) 40 mg PO DAILY [facility] Last Admin: 06/07/20 11:25 Dose: 40 mg Documented by: Lorazepam (Ativan) 0.5 mg IVPUSH ONETIME ONE Stop: 06/14/20 11:47 Last Admin: 06/14/20 11:56 Dose: 0.5 mg Documented by: Metformin HCl (Glucophage) 1,000 mg PO ONETIME ONE Stop: 06/07/20 10:57 Last Admin: 06/07/20 19:43 Dose: Not Given Documented by: Metoprolol Succinate (Toprol Xl) 50 mg PO ONETIME ONE Stop: 06/07/20 10:58 Last Admin: 06/07/20 11:21 Dose: 50 mg Documented by: Metoprolol Succinate (Toprol Xl) 50 mg PO DAILY [facility] Last Admin: 06/11/20 08:00 Dose: 50 mg Documented by: Quetiapine Fumarate (Seroquel) 12.5 mg PO BID [facility] Quetiapine Fumarate (Seroquel) 12.5 mg PO ONETIME ONE Stop: 06/13/20 11:19 Last Admin: 06/13/20 11:38 Dose: 12.5 mg Documented by: - Exam Quality Assessment: Supplemental Oxygen (High flow O2) General: Other (Confusion) HEENT: Pupils Equal, Pupils Reactive, EOMI, Mucous Membr. Moist/[place] Neck: Supple Lungs: Clear to Auscultation, Other (slightly diminished breath sounds) Cardiovascular: Regular Rate, Regular Rhythm GI/Abdominal Exam: Normal Bowel Sounds, Soft, Non-Tender, No Organomegaly, No Distention, No Abnormal Bruit, No Mass, Pelvis Stable Back Exam: Normal Inspection, Full Range of Motion Extremities: Normal Inspection, Normal Range of Motion, Non-Tender, No Pedal Edema, Normal Capillary Refill Skin: Warm, Dry, Intact Neurological: No New Focal Deficit Psy/Mental Status: Alert, Other (Confused) Sepsis Event Note - Evaluation Sepsis Screening Result: No Definite Risk - Focused Exam Vital Signs: Vital Signs Temp Pulse Pulse Resp BP Pulse Ox Pulse Ox 06/17/20 11:02 98.8 F 76 22 H 111/66 06/17/20 11:00 94 L 06/17/20 10:28 90 L 06/17/20 09:58 93 06/17/20 09:47 93 110/66 06/17/20 07:59 72 93 L 06/17/20 07:48 98.4 F 20 110/66 06/17/20 05:31 91 L 06/17/20 03:58 97.5 F 70 20 100/67 90 L 06/17/20 00:43 90 L 06/17/20 00:15 97.9 F 75 20 131/61 88 L - Problem List Review Problem List Initiated/Reviewed/Updated: Yes - Assessment Assessment:: 06/07/2020 74 year old male presented to the ED for increased weakness. Patient was diagnosed with COVID on the and was started on supplemental oxygen and dexamethasone 4 MG twice daily. History of Type 2 diabetes, hyperlipidemia, hypertension, vitamin D deficiency, skin cancer, former smoker and quit in 2014. Stated that his oxygen at home is doing okay and denied having any problems Stated that he felt a little better with the dexamethasone however he felt like he was getting more weak over time Denied any chest pain, chest pressure, breathing difficulties, or shortness of breath Stated that he had a cough with a small amount of sputum Stated that he had symptoms of about 2 weeks, which was either the same day or shortly after his colonoscopy on 05/29/2020 Denied any fever or chills His O2 saturations was 87% when he presented to the ED His d-dimer is elevated at 4.13 today, which was the same as on the His troponin was 0.017 on the compared to 0.107 today His EKG was found and had results of sinus rhythm with ventricular rate of 73 BPM, poor R wave progression, and no significant ST-T wave changes or Q waves Patient is also on chlorthalidone which could be causing his hyponatremia CTA of the chest: No pulmonary embolism. Positive for patchy bilateral ground glass pulmonary infiltrates. Cardiomegaly with vascular calcifications including coronary artery calcifications. 06/08/2020 His blood pressure is 116/93 with a heart rate of 82 His respiration rate is 16 with a O2 saturation of 89% at 2L His d-dimer is increased to 5.43 from 4.13 yesterday His hemoglobin is 12.2 His glucose is elevated at 233 Patient states that he feels more tired today Some increased shortness of breath Appetite is still good He has not had a bowel movement Remdesivir day 2 of Continue dexamethasone for total of 10 days. It appears he still had a day or 2 left of the 5-day prescription. Follow blood sugars closely before every meal and nightly secondary to steroids and stopping some of his home meds Sliding scale insulin with low dose initially. May need long-acting insulin or higher scale. Get hemoglobin A1c, TSH Follow CBC, CMP, mag, Phos, D-dimer, CRP Patient will get 2 units of convalescent plasma ceftriaxone and azithromycin day 2 FiO2 to keep SPO2 between 88 and 94%. Currently on high flow nasal cannula. VTE prophylaxis with Lovenox CODE STATUS full code 06/09/2020 Patient is a little more fatigued today Denies fever or chills Stable oxygen saturations, but continues on high flow nasal cannula at 55 L and 60% oxygen WBC 8.13, CRP 16.8, D-dimer 4.68. These are all relatively stable Received 2 units convalescent plasma yesterday On remdesivir day 3 of 5 Continue dexamethasone for total of 10 days Increase Lantus to 8 units twice daily Start premeal prandial Humalog 5 units Sliding scale insulin medium dose FiO2 to keep SPO2 between 88 and 94%. Currently on high flow nasal cannula 55 L, 60% FiO2 Discussed that patient is in need Home Health Care services for low activity tolerance, functional mobility, standing balance, strength, transfers 06/10/2020 States he is feeling better today Appetite is good WBC 7.9, C-reactive protein 12.3, D-dimer 4.9. These are all relatively stable Wheezing improved Remdesivir day 4 of 5 Continue dexamethasone for total of 10 days. Will need to decrease insulin when off dexamethasone FiO2 to keep SPO2 between 88 and 94%. Currently on high flow nasal cannula 55 L, 80% FiO2 Length of stay greater than 96 hours secondary to worsening COVID-19 pneumonia 06/11/2020 No overnight or acute issues He feels pretty good He has no new complaints He is drinking and eating fine WBC 9.29, C-reactive protein 10.7, D-dimer 4.9 Continue high flow Remdesivir day 5 of 5 Continue dexamethasone for total of 10 days; now BID Ceftriaxone day 5 of 5 and azithromycin completed Increase Lantus to 15 units twice daily Sliding scale insulin high intensity Encourage to use IS and FV and ambulate inside his room Spoke to at 1132. Informed her, appears to be worsening but clinically looks good. Repeat chest x-ray shows worsening pneumonia and now requiring FiO2 of 80-85%. She and her boys would like to meet up with me tomorrow. 06/12/2020 No overnight or acute issues Again, he states he feels good He has no new complaints He is drinking and eating fine He is on 60 L at 80-85% Fio2 He desaturates in upper 80s with activities He drops in the 60-70s on RA WBC 97.81, C-reactive protein 11.5, D-dimer 4.9 Completed 5 day course of remdesivir; rocephin and azithromycin Continue dexamethasone 6 mg po BID Worsening oxygenation requiring increase in oxygen concentration high flow nasal cannula at 60 L and 80-85 % oxygen Nothing else to offer--will continue oral steroids Consider LTAC due to continued requirement for high flow VTE prophylaxis with Lovenox 40 mg Sub BID-elevated D-dimer Encourage to use IS and FV and ambulate inside his room Met up family at 1300 today. We went over his clinical progress and possibly placement post treatment. He is on high flow and would unlikely be admitted to any of the local nursing homes for rehab. We offered LTAC in [place] and they agreed. Presented discharge care plan to the patient and he was receptive to it. ONEIL Holguin, will work on paperwork placement. 06/13/2020 No overnight or acute issues He has no complaints He had proning protocol yesterday He had trouble proning last night and could not keep his O2 on He remains on high flow 60L at but now down to 65% FiO2 He looks good this morning On high flow nasal cannula at 60 L now down to 65% FiO2 WBC 7.78, C-reactive protein 5.5, D-dimer 4.9 Continue dexamethasone 6 mg po BID Continue high flow; goal titrate to come off Aggressive proning protocol Routine AM Labs CXR in AM Seroquel 12.5 mg po BID Consider LTAC if not able to wean off high flow 1124: updated about his clinical progress and to continue to encourage him and use his respiratory devices. requested if we can give him benzo for his anxiety. Informed her we can try low dose seroquel but not benzo. Will give a trial of seroquel 12.5. If he responds to it negatively, we will discontinue it right away. 06/14/2020 Patient is much more confused today He was put on dexamethasone 6 mg twice daily x3 doses, last dose last night, and this appears to have caused significant worsening of his delirium Patient's oxygen requirements have increased from 65% yesterday to 95% currently This could be partially due to his not keeping it on because of his confusion On high flow nasal cannula at 60 L now up to 95% FiO2 WBC 8.77, CRP 5.4 both stable with no significant change Had trouble keeping his O2 on; may need help to calm him down but will avoid benzo ABG: pH 7.45, PCO2 36.7, PO2 62.0, bicarb 25.2, O2 saturation 91% on high flow nasal cannula with 60 L flow rate and FiO2 of 85% Oxygenation worsening and much more confused today Nursing is placing him on a one-to-one because of his confusion Patient currently is at harm to self if he stands up or moves around without help. He may need Haldol IV for his delirium if he becomes a risk for falling or taking off his high flow nasal cannula Continue high flow; goal titrate to come off VTE prophylaxis with Lovenox 40 mg Sub BID-elevated D-dimer 06/15/2020 afebrile vss and i/o's okay o2 saturations stable on 60 liters at 60% no increased suero and/or distress noted lungs clear and equal abd benign skin mild rubor legs good cap refill neuro confusion and one on one nursing secondary to pulling lines and CPAP off better overall though baseline Na on admission 127 troponin high .127, crp 9.7 and d dimer 3.7 assess: covid is stable with slight improvement dementia fluctuating delirium keep on some mild sedation Vistaril elevated parameters rechecks pending clinically stable so far diabetes blood sugars 223 and will need long acting insulin placement arranging longterm care sec to one on one nursing and difficulty caring for needs 1440 patient has increased respiratory desaturations and confusion this afternoon. High flow 02 at 90 liters at 60% and no signs of improving respiratory status. Will seek pulmonology consultation for possible transfer if intubated. He is a full code. boh 06/16/2020 Afebrile i/o's okay Stats are stable in mid to low 90's on 60 liters of O2 Patient says he feels good and denies shortness of breath O2 saturations drop down into 60's while ambulating Lungs are clear bilaterally Good cap refill on extremities Patient continues to require one on one nursing care for confusion He broke CPAP tubing for the third time since admission baseline Na on admission was 127 CRP has come down to 8.7, D-Dimer 3.3 COVID status is stable Fluctuating delirium continues Recheck CRP, D-Dimer, Troponin in AM Arranging transfer to longterm care facility ([facility]) in [place], [place]. Awaiting the approval. Discharge anticipated in near future. CAITLYN Sherman 06/17/2020 He is looking good today He is up sitting in the chair today He is eating and drinking well with a good appetite He has continued to have confusion He is currently on high flow O2 He has a blood pressure of 110/66 with a heart rate of 93 His lungs are clear bilaterally but does have diminished breath sounds He has good heart sounds He has no signs of multi organ failure Discussed starting Haldol 2 MG to help with confusion Continue high flow O2 Have discussed transferring but [facility] in [place] is currently full and patient's , Vesna, was updated that they will review again early next week Possible discharge pending capacity at [facility] in [place] early next week and [facility] will continue to review for possible acceptance - Plan Plan:: 06/07/2020 74 year old male presented to the ED for increased weakness. Patient was diagnosed with COVID on the and was started on supplemental oxygen and dexamethasone 4 MG twice daily. History of Type 2 diabetes, hyperlipidemia, hypertension, vitamin D deficiency, skin cancer, former smoker and quit in 2014. Stated that his oxygen at home is doing okay and denied having any problems Stated that he felt a little better with the dexamethasone however he felt like he was getting more weak over time Denied any chest pain, chest pressure, breathing difficulties, or shortness of breath Stated that he had a cough with a small amount of sputum Stated that he had symptoms of about 2 weeks, which was either the same day or shortly after his colonoscopy on 05/29/2020 Denied any fever or chills His O2 saturations was 87% when he presented to the ED His d-dimer is elevated at 4.13 today, which was the same as on the His troponin was 0.017 on the compared to 0.107 today His EKG was found and had results of sinus rhythm with ventricular rate of 73 BPM, poor R wave progression, and no significant ST-T wave changes or Q waves Patient is also on chlorthalidone which could be causing his hyponatremia CTA of the chest: No pulmonary embolism. Positive for patchy bilateral ground glass pulmonary infiltrates. Cardiomegaly with vascular calcifications including coronary artery calcifications. 06/08/2020 His blood pressure is 116/93 with a heart rate of 82 His respiration rate is 16 with a O2 saturation of 89% at 2L His d-dimer is increased to 5.43 from 4.13 yesterday His hemoglobin is 12.2 His glucose is elevated at 233 Patient states that he feels more tired today Some increased shortness of breath Appetite is still good He has not had a bowel movement Remdesivir day 2 of 5 Continue dexamethasone for total of 10 days. It appears he still had a day or 2 left of the 5-day prescription. Follow blood sugars closely before every meal and nightly secondary to steroids and stopping some of his home meds Sliding scale insulin with low dose initially. May need long-acting insulin or higher scale. Get hemoglobin A1c, TSH Follow CBC, CMP, mag, Phos, D-dimer, CRP Patient will get 2 units of convalescent plasma ceftriaxone and azithromycin day 2 FiO2 to keep SPO2 between 88 and 94%. Currently on high flow nasal cannula. VTE prophylaxis with Lovenox CODE STATUS full code 06/09/2020 Patient is a little more fatigued today Denies fever or chills Stable oxygen saturations, but continues on high flow nasal cannula at 55 L and 60% oxygen WBC 8.13, CRP 16.8, D-dimer 4.68. These are all relatively stable Received 2 units convalescent plasma yesterday On remdesivir day 3 of 5 Continue dexamethasone for total of 10 days Increase Lantus to 8 units twice daily Start premeal prandial Humalog 5 units Sliding scale insulin medium dose FiO2 to keep SPO2 between 88 and 94%. Currently on high flow nasal cannula 55 L, 60% FiO2 Discussed that patient is in need Home Health Care services for low activity tolerance, functional mobility, standing balance, strength, transfers 06/10/2020 States he is feeling better today Appetite is good WBC 7.9, C-reactive protein 12.3, D-dimer 4.9. These are all relatively stable Wheezing improved Remdesivir day 4 of Continue dexamethasone for total of 10 days. Will need to decrease insulin when off dexamethasone FiO2 to keep SPO2 between 88 and 94%. Currently on high flow nasal cannula 55 L, 80% FiO2 Length of stay greater than 96 hours secondary to worsening COVID-19 pneumonia 06/11/2020 No overnight or acute issues He feels pretty good He has no new complaints He is drinking and eating fine WBC 9.29, C-reactive protein 10.7, D-dimer 4.9 Continue high flow Remdesivir day 5 of 5 Continue dexamethasone for total of 10 days; now BID Ceftriaxone day 5 of 5 and azithromycin completed Increase Lantus to 15 units twice daily Sliding scale insulin high intensity Encourage to use IS and FV and ambulate inside his room Spoke to at 1132. Informed her, appears to be worsening but clinically looks good. Repeat chest x-ray shows worsening pneumonia and now requiring FiO2 of 80-85%. She and her boys would like to meet up with me tomorrow. 06/12/2020 No overnight or acute issues Again, he states he feels good He has no new complaints He is drinking and eating fine He is on 60 L at 80-85% Fio2 He desaturates in upper 80s with activities He drops in the 60-70s on RA WBC 97.81, C-reactive protein 11.5, D-dimer 4.9 Completed 5 day course of remdesivir; rocephin and azithromycin Continue dexamethasone 6 mg po BID Worsening oxygenation requiring increase in oxygen concentration high flow nasal cannula at 60 L and 80-85 % oxygen Nothing else to offer--will continue oral steroids Consider LTAC due to continued requirement for high flow VTE prophylaxis with Lovenox 40 mg Sub BID-elevated D-dimer Encourage to use IS and FV and ambulate inside his room Met up family at 1300 today. We went over his clinical progress and possibly placement post treatment. He is on high flow and would unlikely be admitted to any of the local nursing homes for rehab. We offered LTAC in [place] and they agreed. Presented discharge care plan to the patient and he was receptive to it. ONEIL Holguin, will work on paperwork placement. 06/13/2020 No overnight or acute issues He has no complaints He had proning protocol yesterday He had trouble proning last night and could not keep his O2 on He remains on high flow 60L at but now down to 65% FiO2 He looks good this morning On high flow nasal cannula at 60 L now down to 65% FiO2 WBC 7.78, C-reactive protein 5.5, D-dimer 4.9 Continue dexamethasone 6 mg po BID Continue high flow; goal titrate to come off Aggressive proning protocol Routine AM Labs CXR in AM Seroquel 12.5 mg po BID Consider LTAC if not able to wean off high flow 1124: updated about his clinical progress and to continue to encourage him and use his respiratory devices. requested if we can give him benzo for his anxiety. Informed her we can try low dose seroquel but not benzo. Will give a trial of seroquel 12.5. If he responds to it negatively, we will discontinue it right away. 06/14/2020 Patient is much more confused today He was put on dexamethasone 6 mg twice daily x3 doses, last dose last night, and this appears to have caused significant worsening of his delirium Patient's oxygen requirements have increased from 65% yesterday to 95% currently This could be partially due to his not keeping it on because of his confusion On high flow nasal cannula at 60 L now up to 95% FiO2 WBC 8.77, CRP 5.4 both stable with no significant change Had trouble keeping his O2 on; may need help to calm him down but will avoid benzo ABG: pH 7.45, PCO2 36.7, PO2 62.0, bicarb 25.2, O2 saturation 91% on high flow nasal cannula with 60 L flow rate and FiO2 of 85% Oxygenation worsening and much more confused today Nursing is placing him on a one-to-one because of his confusion Patient currently is at harm to self if he stands up or moves around without help. He may need Haldol IV for his delirium if he becomes a risk for falling or taking off his high flow nasal cannula Continue high flow; goal titrate to come off VTE prophylaxis with Lovenox 40 mg Sub BID-elevated D-dimer 06/15/2020 afebrile vss and i/o's okay o2 saturations stable on 60 liters at 60% no increased suero and/or distress noted lungs clear and equal abd benign skin mild rubor legs good cap refill neuro confusion and one on one nursing secondary to pulling lines and CPAP off better overall though baseline Na on admission 127 troponin high .127, crp 9.7 and d dimer 3.7 assess: covid is stable with slight improvement dementia fluctuating delirium keep on some mild sedation Vistaril elevated parameters rechecks pending clinically stable so far diabetes blood sugars 223 and will need long acting insulin placement 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 High flow 02 at 90 liters at 60% and no signs of improving respiratory status. Will seek pulmonology consultation for possible transfer if intubated. He is a full code. boh 06/16/2020 Afebrile i/o's okay Stats are stable in mid to low 90's on 60 liters of O2 Patient says he feels good and denies shortness of breath O2 saturations drop down into 60's while ambulating Lungs are clear bilaterally Good cap refill on extremities Patient continues to require one on one nursing care for confusion He broke CPAP tubing for the third time since admission baseline Na on admission was 127 CRP has come down to 8.7, D-Dimer 3.3 COVID status is stable Fluctuating delirium continues Recheck CRP, D-Dimer, Troponin in AM Arranging transfer to longterm care facility ([facility]) in [place], [place]. Awaiting the approval. Discharge anticipated in near future. CAITLYN Sherman 06/17/2020 He is looking good today He is up sitting in the chair today He is eating and drinking well with a good appetite He has continued to have confusion He is currently on high flow O2 He has a blood pressure of 110/66 with a heart rate of 93 His lungs are clear bilaterally but does have diminished breath sounds He has good heart sounds He has no signs of multi organ failure Discussed starting Haldol 2 MG to help with confusion Continue high flow O2 Have discussed transferring but [facility] in [place] is currently full and patient's , Vesna, was updated that they will review again early next week Possible discharge pending capacity at [facility] early next week and [facility] will continue to review for possible acceptance boh
== END 2020-06-26 23:23 | disposition expired | DRG 177 ==
LOC: JD.ED 08:21 → JD.MS 17:32
PROVIDERS: ADMIT Family Medicine; ATTEND Family Medicine
PROC: 8E0ZXY6 Isolation (ICD-10-PCS; principal; 2020-06-07)
PROC: XW033E5 Introduction of Remdesivir Anti-infective into Peripheral Vein, Percutaneous Approach, New Technology Group 5 (ICD-10-PCS; 2020-06-07)
PROC: XW033F5 Introduction of Other New Technology Therapeutic Substance into Peripheral Vein, Percutaneous Approach, New Technology Group 5 (ICD-10-PCS; 2020-06-07)
PROC: XW13325 Transfusion of Convalescent Plasma (Nonautologous) into Peripheral Vein, Percutaneous Approach, New Technology Group 5 (ICD-10-PCS; 2020-06-07)
PROC: 5A0955A Assistance with Respiratory Ventilation, Greater than 96 Consecutive Hours, High Flow/Velocity Cannula (ICD-10-PCS; 2020-06-07)
DX: U07.1 COVID-19 (principal); R09.02 Hypoxemia; I21.A1 Myocardial infarction type 2; J80 Acute respiratory distress syndrome; J12.89 Other viral pneumonia; E87.1 Hypo-osmolality and hyponatremia; Z86.010 Personal history of colon polyps; N17.9 Acute kidney failure, unspecified; F05 Delirium due to known physiological condition; E78.5 Hyperlipidemia, unspecified; I10 Essential (primary) hypertension; D69.6 Thrombocytopenia, unspecified; Z51.5 Encounter for palliative care; R32 Unspecified urinary incontinence; Z66 Do not resuscitate; E83.42 Hypomagnesemia; E78.00 Pure hypercholesterolemia, unspecified; E87.8 Other disorders of electrolyte and fluid balance, not elsewhere classified; R19.7 Diarrhea, unspecified; I25.10 Atherosclerotic heart disease of native coronary artery without angina pectoris; E86.1 Hypovolemia; R53.1 Weakness; Z79.82 Long term (current) use of aspirin; Z79.899 Other long term (current) drug therapy; Z79.83 Long term (current) use of bisphosphonates; Z86.19 Personal history of other infectious and parasitic diseases; Z99.81 Dependence on supplemental oxygen; Z79.52 Long term (current) use of systemic steroids; Z97.3 Presence of spectacles and contact lenses; Z85.828 Personal history of other malignant neoplasm of skin; Z98.890 Other specified postprocedural states; Z87.891 Personal history of nicotine dependence; Z79.4 Long term (current) use of insulin; Z88.2 Allergy status to sulfonamides; E11.65 Type 2 diabetes mellitus with hyperglycemia
CPT/HCPCS: 36415; 71045; 71275; 80053; 84484; 85025; 85379; 86900; 86901; 87040 ×2; 93005; 99285; A9270 ×4; J7030; Q9967; 36430; 36600; 51701; 51702; 51798; 80048; 82803; 82947; 82962; 83036; 83735; 84100; 84443; 84550; 85652; 86140; 93010; 93306; 94640; 94667; 94668; 94761; 94762; 97110-GO; 97110-GP; 97116-GP; 97162-GP; 97165-GO; 97530-GO; 97530-GP; 97535-GO; 99284; J0456; J0696; J1650; J1815-GY; J1940; J2060; J2270; J3475; J7050; J8540; P9017